=== PATIENT | male | born 1935 | race Caucasian/White ===

== ENCOUNTER 2017-10-23 16:19 | Inpatient (IN) | payer MEDICARE, OTHER ==
[~2017-10-23] VITALS: Ht 181.6 cm; Wt 98.1 kg
[~2017-10-23 16:19] MED LIST: ALBU8I INH; COZA50TA PO; LANS30 PO; PROS5TAB2 PO; RANI150 PO; TAMS0.4C67 PO
[2017-10-23 17:12] VITALS: BP 127/59; PULSE 69; RESP 19; TEMP 97.9; O2SAT 95
--- NOTE | 2017-10-23 17:19 | PD ---
HPI Chief Complaint: Abnormal Results Time Seen by Provider: 17:07 Travel History International Travel<30 days: No Contact w/Intl Traveler<30days: No Traveled to known affect area: No History of Present Illness HPI 82-year-old male patient with history of dementia, multiple medical issues, presents to the ER from nursing care facility today because his platelets have been dropping over last few weeks. It apparently was 30 today. He does not know why he is here, denies any issues. Modifying Factors: None Associated Signs & Symptoms: Low platelet counts Risk Factors: None PFSH Past Medical History Arthritis: Yes Asthma: No Autoimmune Disease: No Blood Disorders: No Anxiety: No Depression: No Heart Rhythm Problems: Yes Cancer: No Cardiac Catheterization: No Cardiovascular Problems: Yes High Cholesterol: Yes Chemotherapy: No Chest Pain: Yes Congestive Heart Failure: No COPD: Yes Cerebrovascular Accident: No Diabetes: No Diminished Hearing: No Endocrine: No Gastrointestinal Disorders: No GERD: Yes Glaucoma: No Genitourinary: No Headaches: No Hepatitis: No Hiatal Hernia: No Hypertension: Yes Immune Disorder: No Implanted Vascular Access Dvce: No Kidney Stones: No Musculoskeletal: No Neurologic: No Psychiatric: Yes Reproductive: No Respiratory: Yes Migraines: No Myocardial Infarction: No Radiation Therapy: No Renal Failure: No Seizures: No Sickle Cell Disease: No Sleep Apnea: No Thyroid Disease: No Ulcer: Yes Past Surgical History Abdominal Surgery: No AICD: No Appendectomy: No Arteriovenous Shunt: No Cardiac Surgery: Yes (carotid artery) Cholecystectomy: No Coronary Artery Bypass Graft: No Ear Surgery: No Endocrine Surgery: No Eye Surgery: No Genitourinary Surgery: No Gynecologic Surgery: No Insulin Pump: No Joint Replacement: Yes Neurologic Surgery: No Oral Surgery: No Pacemaker: No Thoracic Surgery: No Other Surgery: Yes Social History Alcohol Use: No Tobacco Use: No Substance Use: No Allergies-Medications (Allergen,Severity, Reaction): Coded Allergies: clopidogrel (Unverified Allergy, Severe, HIVES, 10/23/17) Reported Meds & Prescriptions Reported Meds & Active Scripts Active Reported Tramadol (Tramadol HCl) 50 Mg Tab 50 Mg PO Q4H PRN Mag-Oxide (Magnesium Oxide) 200 Mg Magnesium Tablet 400 Tab PO BID Symbicort Inh (Budesonide/Formoterol Fumarate) 160-4.5 Mcg/Act Aero 1 Puff INH Q12HR Furosemide 20 Mg Tab 20 Mg PO BID Colace (Docusate Sodium) 100 Mg Capsule 200 Mg PO DAILY Atorvastatin (Atorvastatin Calcium) 10 Mg Tab 10 Mg PO DAILY Aspirin 81 Mg Chew 81 Mg CHEW DAILY Allopurinol 300 Mg Tab 300 Mg PO DAILY Spironolactone 25 Mg Tab 12.5 Mg PO DAILY Potassium Chloride ER (Potassium Chloride) 20 Meq Tab 20 Meq PO DAILY Losartan (Losartan Potassium) 50 Mg Tab 50 Mg PO DAILY Bupropion Sr 12 HR (Bupropion ER 12 HR (Smoking Deterrent)) 150 Mg Tab 300 Mg PO DAILY Take 1 tablet daily x 3 days then twice daily thereafter. Namenda Xr (Memantine) 28 Mg Caper 28 Mg PO DAILY Vitamin D-3 (Cholecalciferol) 2,000 Unit Tab 1 Tab PO DAILY Vitamin B-12 (Cyanocobalamin) 1,000 Mcg Subl 1,000 Mcg SL DAILY Escitalopram (Escitalopram Oxalate) 5 Mg Tab 5 Mg PO DAILY Amlodipine (Amlodipine Besylate) 10 Mg Tab 10 Mg PO DAILY Metoprolol Tartrate 25 Mg Tab 12.5 Mg PO DAILY Tamsulosin (Tamsulosin HCl) 0.4 Mg Cap 0.4 Mg PO DAILY Proscar (Finasteride) 5 Mg Tab 5 Mg PO DAILY Do not crush. Review of Systems Except as stated in HPI: all other systems reviewed are Neg Physical Exam Narrative GENERAL: Well-developed elderly male patient currently and no acute distress. Awake, alert. SKIN: Focused skin assessment warm/dry. Notable for small bruises on arms. HEAD: Atraumatic. Normocephalic. EYES: Pupils equal and round. No scleral icterus. No injection or drainage. ENT: No nasal bleeding or discharge. Mucous membranes pink and moist. NECK: Trachea midline. No JVD. CARDIOVASCULAR: Regular rate and rhythm. No murmur appreciated. RESPIRATORY: No accessory muscle use. Clear to auscultation. Breath sounds equal bilaterally. GASTROINTESTINAL: Abdomen soft, non-tender, nondistended. Hepatic and splenic margins not palpable. MUSCULOSKELETAL: No obvious deformities. No clubbing. No cyanosis. No edema. NEUROLOGICAL: Awake and alert. No obvious cranial nerve deficits. Motor grossly within normal limits. Normal speech. PSYCHIATRIC: Appropriate mood and affect; insight and judgment normal. Data Data Last Documented VS Vital Signs Date Time Temp Pulse Resp B/P (MAP) Pulse Ox O2 Delivery O2 Flow Rate FiO2 10/23/17 17:12 97.9 69 19 127/59 (81) 95 Orders Orders Complete Blood Count With Diff (10/23/17 17:07) Prothrombin Time / Inr (Pt) (10/23/17 17:07) Act Partial Throm Time (Ptt) (10/23/17 17:07) Type And Screen (10/23/17 17:07) Platelet Pheresis (10/23/17 18:13) Blood Product Administration (10/23/17 18:13) Sodium Chlor 0.9% 250 Ml Inj (Ns 250 Ml (10/23/17 18:15) Ankle, Limited (Ap&Lat) (10/23/17 18:16) Admit Order (Ed Use Only) (10/23/17 19:09) Labs Laboratory Tests Test 10/23/17 17:30 White Blood Count 9.7 TH/MM3 Red Blood Count 4.59 MIL/MM3 Hemoglobin 15.9 GM/DL Hematocrit 45.7 % Mean Corpuscular Volume 99.5 FL Mean Corpuscular Hemoglobin 34.6 PG Mean Corpuscular Hemoglobin Concent 34.8 % Red Cell Distribution Width 14.2 % Platelet Count 6 TH/MM3 Mean Platelet Volume 10.0 FL Neutrophils (%) (Auto) 70.3 % Lymphocytes (%) (Auto) 17.2 % Monocytes (%) (Auto) 6.8 % Eosinophils (%) (Auto) 5.1 % Basophils (%) (Auto) 0.6 % Neutrophils # (Auto) 6.8 TH/MM3 Lymphocytes # (Auto) 1.7 TH/MM3 Monocytes # (Auto) 0.7 TH/MM3 Eosinophils # (Auto) 0.5 TH/MM3 Basophils # (Auto) 0.1 TH/MM3 CBC Comment AUTO DIFF Differential Total Cells Counted 100 Neutrophils % (Manual) 72 % Band Neutrophils % 1 % Lymphocytes % 16 % Monocytes % 7 % Eosinophils % 3 % Neutrophils # (Manual) 7.2 TH/MM3 Myelocytes 1 % Differential Comment FINAL DIFF MANUAL Atypical Lymphocytes % Platelet Estimate RARE Platelet Morphology Comment NORMAL Spherocytes 1+ Prothrombin Time 11.9 SEC Prothromb Time International Ratio 1.2 RATIO Activated Partial Thromboplast Time 25.8 SEC MDM Medical Decision Making Medical Screen Exam Complete: Yes Emergency Medical Condition: Yes Medical Record Reviewed: Yes Interpretation(s) Laboratory Tests Test 1/4/18 17:30 Mean Corpuscular Hemoglobin 34.6 PG (27.0-34.0) Platelet Count 6 TH/MM3 (150-450) Neutrophils (%) (Auto) 70.3 % (16.0-70.0) Eosinophils (%) (Auto) 5.1 % (0.0-4.0) Eosinophils # (Auto) 0.5 TH/MM3 (0-0.4) Neutrophils % (Manual) 72 % (16-70) Myelocytes 1 % (0-0) Platelet Estimate RARE (NORMAL) Spherocytes 1+ (NORMAL) Prothrombin Time 11.9 SEC (9.8-11.6) Differential Diagnosis Low platelet counts Narrative Course Low platelet counts are confirmed on lab work with platelet count of 6. 4 platelet units were ordered for the patient. Ankle x-ray which was done because of ecchymosis at the ankle did not show any signs of acute fractures. At this point, my plan would be to admit the patient for further treatment and evaluation of low platelet counts. It does not appear to involve other hematological lines. CBC did not show any signs of significant anemia or abnormal white counts. Case was discussed with Dr. Ford for admission. Diagnosis Primary Impression: Thrombocytopenia Admitting Information Admitting Physician Requests: Admit Federica Rene MD Oct 23, 2017 17:19
[2017-10-23] MEDS ORDERED: METO25TA3 PO (17:56)
[2017-10-23] MEDS ORDERED: SYMB160A INH (17:56)
[2017-10-23] MEDS ORDERED: SPIR25TA PO (17:56)
[2017-10-23] MEDS ORDERED: ATOR10TA15 PO (17:56)
[2017-10-23] MEDS ORDERED: LOSA50TA PO (17:56)
[2017-10-23] MEDS ORDERED: COLA100C5 PO (17:56)
[2017-10-23] MEDS ORDERED: ESCI5TAB PO (17:56)
[2017-10-23] MEDS ORDERED: POTA-163 PO (17:56)
[2017-10-23] MEDS ORDERED: CHOL1TAB42 PO (17:56)
[2017-10-23] MEDS ORDERED: VITA100021 SL (17:56)
[2017-10-23] MEDS ORDERED: MAGN200T9 PO (17:56)
[2017-10-23] MEDS ORDERED: BUPR150T12 PO (17:56)
[2017-10-23] MEDS ORDERED: MEMA28CA PO (17:56)
[2017-10-23] MEDS ORDERED: PROS5TAB PO (17:56)
[2017-10-23] MEDS ORDERED: AMLO10TA2 PO (17:56)
[2017-10-23] MEDS ORDERED: ASPI-516 CHEW (17:56)
[2017-10-23] MEDS ORDERED: TRAM50TA PO (17:56)
[2017-10-23] MEDS ORDERED: FURO20TA PO (17:56)
[2017-10-23] MEDS ORDERED: ALLO300T2 PO (17:56)
[2017-10-23] MEDS ORDERED: TAMS0.4C4 PO (17:56)
[2017-10-23 18:00] LABS: AUTOMATED NEUTROPHIL # 6.8 TH/MM3 (1.8-7.7); BASOPHIL # 0.1 TH/MM3 (0-0.2); BASOPHIL % 0.6 % (0.0-2.0); EOSINOPHIL # 0.5 TH/MM3 (0-0.4); EOSINOPHIL % 5.1 % (0.0-4.0); HEMATOCRIT 45.7 % (39.0-51.0); HEMOGLOBIN 15.9 GM/DL (13.0-17.0); LYMPH % 17.2 % (9.0-44.0); LYMPHOCYTE # 1.7 TH/MM3 (1.0-4.8); MEAN CELL VOLUME 99.5 FL (80.0-100.0); MEAN CORPUSCULAR HEMOGLOBIN 34.6 PG (27.0-34.0); MEAN CORPUSCULAR HGB CONC 34.8 % (32.0-36.0); MONO % 6.8 % (0.0-8.0); MONOCYTE # 0.7 TH/MM3 (0-0.9); NEUT % 70.3 % (16.0-70.0); RED BLOOD COUNT 4.59 MIL/MM3 (4.50-5.90); RED CELL DISTRIBUTION WIDTH 14.2 % (11.6-17.2); WHITE BLOOD COUNT 9.7 TH/MM3 (4.0-11.0)
[2017-10-23 18:11] LABS: PLATELET COUNT 6 TH/MM3 (150-450)
[2017-10-23 18:14] LABS: INTERNATIONAL NORMALIZED RATIO 1.2 RATIO; PROTHROMBIN TIME - PATIENT 11.9 SEC (9.8-11.6)
[2017-10-23] MEDS ORDERED: SODIUM CHLOR 0.9% 250 ML INJ 250 ML IV ONE (18:15)
--- NOTE | 2017-10-23 18:39 | RADRPT ---
EXAM DATE/TIME: 10/23/2017 18:21 [facility] COMPARISON: No previous studies available for comparison. INDICATIONS : Right ankle pain and swelling. MEDICAL HISTORY : None. SURGICAL HISTORY : None. ENCOUNTER: Initial ACUITY: 4 - 6 days PAIN SCORE: 6/10 LOCATION: Right ankle. FINDINGS: Two view examination was performed of the right ankle. The bony structures are in normal alignment. No evidence of fracture, dislocation, or soft tissue swelling. No radiopaque foreign bodies are see n. Bony mineralization is normal. CONCLUSION: No acute disease. Lui Emmanuel MD on October 23, 2017 at 18:36 Board Certified Radiologist. This report was verified electronically.
[2017-10-23 18:52] LABS: BANDS 1 % (0-6); LYMPHOCYTES 16 % (9-44); MONOCYTES 7 % (0-8); MYELOCYTES 1 % (0-0); NEUTROPHIL # MANUAL DIFF 7.2 TH/MM3 (1.8-7.7); POLYS (SEG NEUTROPHILS) 72 % (16-70)
[2017-10-23 18:53] LABS: SPHEROCYTES 1+ (NORMAL)
[2017-10-23] MEDS ORDERED: MAGNESIUM HYDROXIDE SUSP 30 ML CUP PO PRN (19:30)
[2017-10-23] MEDS ORDERED: ONDANSETRON HCL 4 MG/2 ML VIAL IVP PRN (19:30)
[2017-10-23] MEDS ORDERED: LACTULOSE SYRUP 20 GM/30 ML CUP PO PRN (19:30)
[2017-10-23] MEDS ORDERED: BISACODYL 10 MG SUPP RECTAL PRN (19:30)
[2017-10-23] MEDS ORDERED: SODIUM CHLORIDE 0.9% FLUSH 10 ML FLUSH IV FLUSH PRN (19:30)
[2017-10-23] MEDS ORDERED: SENNOSIDES 8.6 MG TAB PO PRN (19:30)
[2017-10-23] MEDS ORDERED: NALOXONE HCL 0.4 MG/ML AMP IV PUSH PRN (19:30)
[2017-10-23 20:02] VITALS: BP 114/59; PULSE 75; RESP 21; TEMP 98.1; O2SAT 97
[2017-10-23 20:17] VITALS: BP 115/59; PULSE 70; RESP 20; TEMP 98.2; O2SAT 97
[2017-10-23 21:00] VITALS: BP 112/57; PULSE 79; RESP 19; TEMP 98.3; O2SAT 98
[2017-10-23] MEDS ORDERED: PANTOPRAZOLE SOD 20 MG DELAYED RELEASE TAB PO ONE (21:00)
--- NOTE | 2017-10-23 22:41 | MB ---
cc: ARMINDA FORD,WILD Briseno M.D. DATE OF CONSULTATION 10/23/17 [address] Ford CHIEF COMPLAINT Dr. Ford requests a consultation for Mr. Desir regarding thrombocytopenia. HISTORY OF PRESENT ILLNESS Mr. Desir is an 82-year-old man who [facility] in [facility] because of low platelet counts. He was found to have a platelet count of 30,000 at the penitentiary facility. In the emergency room, his platelet counts/CBC was repeated. His white count is 9.7, hemoglobin of 15.9, platelet count of 6000, mean platelet volume is elevated at 10.0. Chemistries were not performed. He is receiving pheresed platelets of the time of the consultation. Review of the electronic medical record shows platelet count in the mild thrombocytopenic range back in 2013. In 2009, his platelet count was normal. He denies any problems with the platelets previous. He was a heavy drinker in the past. He denies any drinking now. CT scan of the abdomen from 2009 showed granulomas in the spleen The liver appears to be normal. The spleen size was normal. CT angiogram from January 07, 2014 shows that the visualized upper abdominal organs demonstrate no acute abnormality. Mr. Desir is unable to relate etiology of chronicity of the platelet counts. He reports he has been given a lot of medications at the penitentiary facility. He is and his is in relative good health. He denies any bleeding. He walks with a walker. He denies any trauma, but has bruises on the lateral aspect of both feet, right more prominent than the left. There is bruising on his right briggs. He has evidence of senile purpura. No overt petechia. He was alert, oriented x3. He is cooperative. The rest of his review of systems is negative. PAST MEDICAL HISTORY 1. Arthritis 2. Arrhythmia, 3. Hypercholesterolemia, 4. History of chest pain, 5. Gastroesophageal reflux, 6. Hypertension, 7. Depression. PAST SURGICAL HISTORY 1. Carotid endarterectomy 2. Joint replacement surgery 3. Right eye surgery, cataract FAMILY HISTORY Mother had cardiac disease. Twin brother of cardiac disease. SOCIAL HISTORY He is , retired. Denies any current tobacco or alcohol use. He used to drink in the . Denies any prior problems of the liver. PHYSICAL EXAMINATION VITAL SIGNS: Temperature 98.2, heart rate 70, respiratory rate 20, blood pressure 115/59, saturation 97%. GENERAL: Mr. Desir is a well-developed, heavy-set man in no acute distress sitting in a stretcher. He is robust, mildly heavy-set. HEENT: Pupils are round, reactive. Conjunctivae are pink. Oropharynx is clear. NECK: Supple. LUNGS: Clear to auscultation. CARDIOVASCULAR: Rate-controlled rhythm. ABDOMEN: Large and benign. LOWER EXTREMITIES: With atrophy of the muscles. There is chronic eversion. There is a bruise that is tender on bilateral lateral aspect of both feet, right more prominent than the left. Bruising on the right briggs. LABORATORY DATA Platelet count of 6000, BUN of 23, creatinine 0.8, albumin is 2.9. ASSESSMENT/PLAN Mr. Desir is an 82-year-old man with multiple medical problems. He is admitted for worsening thrombocytopenia. Platelet count of 6000 at the time of the consultation note. He has no anemia or leukopenia. This seems to be an isolated decrease in platelet count. He has evidence of bruising and muscle subcutaneous bleed in the foot and in the briggs. He denies any overt bleeding. No known bright red blood per rectum. He has no nosebleeds or gum bleeding. The nature of his injuries are not known. He denies any trauma or fall. I plan to check post platelet transfusion platelet count. His platelets are already being transfused. He is tolerating the transfusion well. PT is mildly prolonged. I will check fibrinogen. LDH will be added to the labs. Bilirubin is normal which argues against microangiopathic hemolytic process. Furthermore, there is no anemia. I am unable to exclude drug effect. He is on multiple medications. There is no history of antibiotic therapy recently. He was on aspirin which is placed on hold at present. We discussed that the immune thrombocytopenic purpura is a diagnosis of exclusion. I anticipate that his platelet count would not respond to platelet transfusion if indeed ITP. Steroids will empirically be started. 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 Peripheral smear will be reviewed. Antiphospholipid antibody panel, haptoglobin, LDH, D dimer is obtained. MD JOMAR Garza /8:30 PM /10:04 PM
--- NOTE | 2017-10-23 23:32 | RADRPT ---
EXAM DATE/TIME: 10/23/2017 22:45 [facility] COMPARISON: No previous studies available for comparison. INDICATIONS : Bilateral leg swelling. MEDICAL HISTORY : Hypercholesterolemia. Emphysema. Arthritis. Right eye cataract. Dementia. Irregular heartbeat. HTN. C hest pain. COPD. Dyspnea. Ulcer. Gallstones. GERD. UTI. Prostate problems. Frequent nocturia. Stroke x2. Anticoagulant therapy, Aspirin 81mg. SURGICAL HISTORY : Carotid artery surgery. Joint replacement. ENCOUNTER: Initial ACUITY: 1 day PAIN SCORE: 0/10 LOCATION: Bilateral leg. TECHNIQUE: Venous ultrasound of the left and right leg was performed from the inguinal ligament to the proximal calf. Real-time, color Doppler and spectral tracing, compression and augmentation techniques were us ed. FINDINGS: RIGHT LEG: There is normal compressibility of the deep venous system from the inguinal region to the knee. Ther e is incomplete compression of the right posterior tibial vein and lack of color Doppler flow identif ied in the posterior tibial vein. The other visualized calf veins are within normal limits. Normal co shawn Doppler flow is seen from the proximal common femoral vein through the popliteal vein LEFT LEG: There is normal compressibility of the deep venous system from the inguinal region to the proximal ca lf. No echogenic clot is seen in the lumen of the common femoral, femoral, popliteal, and posterior tibial veins. There is a normal response of the venous system to proximal and distal augmentation an d respiration. CONCLUSION: 1. Deep vein thrombosis of the proximal right posterior tibial vein in the calf. 2. No evidence of DVT in the left lower extremity. Rodolfo Abernathy MD on October 23, 2017 at 23:27 Board Certified Radiologist. This report was verified electronically.
[2017-10-23 23:56] LABS: HEMATOCRIT 42.6 % (39.0-51.0); HEMOGLOBIN 14.6 GM/DL (13.0-17.0); MEAN CELL VOLUME 98.5 FL (80.0-100.0); MEAN CORPUSCULAR HEMOGLOBIN 33.8 PG (27.0-34.0); MEAN CORPUSCULAR HGB CONC 34.3 % (32.0-36.0); MEAN PLATELET VOLUME 8.3 FL (7.0-11.0); PLATELET COUNT 40 TH/MM3 (150-450); RED BLOOD COUNT 4.32 MIL/MM3 (4.50-5.90); RED CELL DISTRIBUTION WIDTH 14.1 % (11.6-17.2); WHITE BLOOD COUNT 9.7 TH/MM3 (4.0-11.0)
[2017-10-24 00:30] VITALS: BP 107/59; PULSE 66; RESP 19; TEMP 97.6; O2SAT 95
--- NOTE | 2017-10-24 03:26 | HHI.HP ---
HPI [facility] Primary Care Physician Unknown Admission Diagnosis low platelet counts Diagnoses: Travel History International Travel<30 Days: No Contact w/Intl Traveler <30 Da: No Traveled to Known Affected Are: No History of Present Illness [id number] male with a past medical history significant for CAD, heart block status post pacemaker implantation, hypertension, hyperlipidemia, dementia and BPH presents to the emergency department for evaluation of thrombocytopenia. The patient is a [facility] resident who had outside lab work done. His platelets were reportedly 30 yesterday. The patient is confused and believes he is at [facility]. He is an extremely poor historian. He believes it is 2015. He states he lives with his in an apartment independently. He denies any sources of bleeding. Denies melena. He has ecchymoses on the bilateral feet and on the right brigsg. He has no evidence of petechiae. Laboratory values significant for a platelet count of 6000. H&H 14.6/42.6. Review of Systems Denies fever or chills Denies blurry vision, otorrhea, rhinorrhea Denies sore throat and cough No chest pain, palpitations, shortness of breath No abdominal pain Denies constipation/diarrhea/nausea/vomiting Denies muscle pain/weakness No rashes Past Family Social History Past Medical History (Obtained from medical records) Arthritis Arrhythmia, unspecified Hyperlipidemia GERD Hypertension Depression CAD Past Surgical History Carotid endarterectomy Joint replacement surgery Right cataract surgery Reported Medications Reported Meds & Active Scripts Active Reported Tramadol (Tramadol HCl) 50 Mg Tab 50 Mg PO Q4H PRN Mag-Oxide (Magnesium Oxide) 200 Mg Magnesium Tablet 400 Tab PO BID Symbicort Inh (Budesonide/Formoterol Fumarate) 160-4.5 Mcg/Act Aero 1 Puff INH Q12HR Furosemide 20 Mg Tab 20 Mg PO BID Colace (Docusate Sodium) 100 Mg Capsule 200 Mg PO DAILY Atorvastatin (Atorvastatin Calcium) 10 Mg Tab 10 Mg PO DAILY Aspirin 81 Mg Chew 81 Mg CHEW DAILY Allopurinol 300 Mg Tab 300 Mg PO DAILY Spironolactone 25 Mg Tab 12.5 Mg PO DAILY Potassium Chloride ER (Potassium Chloride) 20 Meq Tab 20 Meq PO DAILY Losartan (Losartan Potassium) 50 Mg Tab 50 Mg PO DAILY Bupropion Sr 12 HR (Bupropion ER 12 HR (Smoking Deterrent)) 150 Mg Tab 300 Mg PO DAILY Take 1 tablet daily x 3 days then twice daily thereafter. Namenda Xr (Memantine) 28 Mg Caper 28 Mg PO DAILY Vitamin D-3 (Cholecalciferol) 2,000 Unit Tab 1 Tab PO DAILY Vitamin B-12 (Cyanocobalamin) 1,000 Mcg Subl 1,000 Mcg SL DAILY Escitalopram (Escitalopram Oxalate) 5 Mg Tab 5 Mg PO DAILY Amlodipine (Amlodipine Besylate) 10 Mg Tab 10 Mg PO DAILY Metoprolol Tartrate 25 Mg Tab 12.5 Mg PO DAILY Tamsulosin (Tamsulosin HCl) 0.4 Mg Cap 0.4 Mg PO DAILY Proscar (Finasteride) 5 Mg Tab 5 Mg PO DAILY Do not crush. Allergies: Coded Allergies: clopidogrel (Unverified Allergy, Severe, HIVES, 10/23/17) Family History Mother with CAD. Twin brother or of cardiac disease. Social History Reports he quit smoking in 1988. History of heavy alcohol use, in the 80s. Physical Exam Vital Signs Vital Signs Date Time Temp Pulse Resp B/P (MAP) Pulse Ox O2 Delivery O2 Flow Rate FiO2 10/24/17 00:30 97.6 66 19 107/59 (75) 95 10/23/17 21:00 98.3 79 19 112/57 (75) 98 10/23/17 20:17 98.2 70 20 115/59 97 10/23/17 20:02 98.1 75 21 114/59 97 10/23/17 17:12 97.9 69 19 127/59 (81) 95 Physical Exam GENERAL: male lying in bed SKIN: Ecchymoses present on bilateral feet, right significantly worse than left. Bilateral UE purpura. HEAD: Atraumatic. Normocephalic. No temporal or scalp tenderness. EYES: Pupils equal round and reactive. Extraocular motions intact. No scleral icterus. No injection or drainage. ENT: Nose without bleeding, purulent drainage or septal hematoma. Throat without erythema, tonsillar hypertrophy or exudate. Uvula midline. Airway patent. NECK: Trachea midline. No JVD or lymphadenopathy. Supple, nontender, no meningeal signs. CARDIOVASCULAR: Regular rate and rhythm without murmurs, gallops, or rubs. RESPIRATORY: Clear to auscultation. Breath sounds equal bilaterally. No wheezes , rales, or rhonchi. GASTROINTESTINAL: Abdomen soft, non-tender, nondistended. No hepato-splenomegaly , or palpable masses. No guarding. MUSCULOSKELETAL: Extremities without clubbing, cyanosis, or edema. No joint tenderness, effusion, or edema noted. No calf tenderness. NEUROLOGICAL: Awake and alert. Cranial nerves II through XII intact. Motor and sensory grossly within normal limits. Normal speech. Laboratory Laboratory Tests Test 10/23/17 17:30 10/23/17 23:28 White Blood Count 9.7 9.7 Red Blood Count 4.59 4.32 Hemoglobin 15.9 14.6 Hematocrit 45.7 42.6 Mean Corpuscular Volume 99.5 98.5 Mean Corpuscular Hemoglobin 34.6 33.8 Mean Corpuscular Hemoglobin Concent 34.8 34.3 Red Cell Distribution Width 14.2 14.1 Platelet Count 6 40 Mean Platelet Volume 10.0 8.3 Neutrophils (%) (Auto) 70.3 Lymphocytes (%) (Auto) 17.2 Monocytes (%) (Auto) 6.8 Eosinophils (%) (Auto) 5.1 Basophils (%) (Auto) 0.6 Neutrophils # (Auto) 6.8 Lymphocytes # (Auto) 1.7 Monocytes # (Auto) 0.7 Eosinophils # (Auto) 0.5 Basophils # (Auto) 0.1 CBC Comment AUTO DIFF Differential Total Cells Counted 100 Neutrophils % (Manual) 72 Band Neutrophils % 1 Lymphocytes % 16 Monocytes % 7 Eosinophils % 3 Neutrophils # (Manual) 7.2 Myelocytes 1 Differential Comment FINAL DIFF MANUAL Atypical Lymphocytes Platelet Estimate RARE Platelet Morphology Comment NORMAL Spherocytes 1+ Prothrombin Time 11.9 Prothromb Time International Ratio 1.2 Activated Partial Thromboplast Time 25.8 Fibrinogen 360 Blood Smear Pathologist Review Haptoglobin 200 Mix DRVV Patient/Normal 1:1 Lactate Dehydrogenase 237 Result Diagram: 10/23/17 5426 Caprini VTE Risk Assessment Caprini VTE Risk Assessment: Mod/High Risk (score >= 2) Caprini Risk Assessment Model Point Value = 1 Point Value = 2 Point Value = 3 Point Value = 5 Age 41-60 Minor surgery BMI > 25 kg/m2 Swollen legs Varicose veins or History of unexplained or recurrent spontaneous Oral contraceptives or hormone replacement Sepsis (< 1 month) Serious lung disease, including pneumonia (< 1 month) Abnormal pulmonary function Acute myocardial infarction Congestive heart failure (< 1 month) History of inflammatory bowel disease Medical patient at bed rest Age 61-74 Arthroscopic surgery Major open surgery (> 45 min) Laparoscopic surgery (> 45 min) Malignancy Confined to bed (> 72 hours) Immobilizing plaster cast Central venous access Age >= 75 History of VTE Family history of VTE Factor V Leiden Prothrombin [id number] Lupus anticoagulant Anticardiolipin antibodies Elevated serum homocysteine Heparin-induced thrombocytopenia Other congenital or acquired thrombophilia Stroke (< 1 month) Elective arthroplasty Hip, pelvis, or leg fracture Acute spinal cord injury (< 1 month) Prophylaxis Regimen Total Risk Factor Score Risk Level Prophylaxis Regimen 0-1 Low Early ambulation 2 Moderate Order ONE of the following: *Sequential Compression Device (SCD) *Heparin 5000 units SQ BID 3-4 Higher Order ONE of the following medications: *Heparin 5000 units SQ TID *Enoxaparin/Lovenox 40 mg SQ daily (WT < 150 kg, CrCl > 30 mL/min) *Enoxaparin/Lovenox 30 mg SQ daily (WT < 150 kg, CrCl > 10-29 mL/min) *Enoxaparin/Lovenox 30 mg SQ BID (WT < 150 kg, CrCl > 30 mL/min) AND/OR *Sequential Compression Device (SCD) 5 or more Highest Order ONE of the following medications: *Heparin 5000 units SQ TID (Preferred with Epidurals) *Enoxaparin/Lovenox 40 mg SQ daily (WT < 150 kg, CrCl > 30 mL/min) *Enoxaparin/Lovenox 30 mg SQ daily (WT < 150 kg, CrCl > 10-29 mL/min) *Enoxaparin/Lovenox 30 mg SQ BID (WT < 150 kg, CrCl > 30 mL/min) AND *Sequential Compression Device (SCD) Assessment and Plan Assessment and Plan Assessment/plan: 1. Thrombocytopenia Status post platelet transfusion Hematology consulted, recommended post-transfusion platelet count, fibrinogen, LDH. Steroids empirically started. 2. CAD/HTN/ Heart block s/p pacemaker placement Continue home amlodipine, losartan, spironolactone, Lasix Holding aspirin secondary to thrombocytopenia 3. HLD Continue home statin 4. Depression/Dementia Continue home medications 5. BPH Continue home Flomax, Proscar FEN Heart healthy diet Electrolytes: monitor and replete prn Holding pharmacologic anticoagulation secondary to thrombocytopenia Physician Certification 2 Midnight Certification Type: Admission for Inpatient Services Order for Inpatient Services The services are ordered in accordance with Medicare regulations or non- Medicare payer requirements, as applicable. In the case of services not specified as inpatient-only, they are appropriately provided as inpatient services in accordance with the 2-midnight benchmark. Estimated LOS (days): 2 2 days is the estimated time the patient will need to remain in the hospital, assuming treatment plan goals are met and no additional complications. Post-Hospital Plan: Not yet determined Jemma Ford MD Oct 24, 2017 03:26
[2017-10-24 05:00] VITALS: BP 133/64; PULSE 73; RESP 19; TEMP 98.1; O2SAT 93
[2017-10-24 08:00] VITALS: BP 137/68; PULSE 86; RESP 16; TEMP 98.2; O2SAT 95
[2017-10-24 08:40] LABS: AUTOMATED NEUTROPHIL # 5.3 TH/MM3 (1.8-7.7); BASOPHIL # 0.1 TH/MM3 (0-0.2); BASOPHIL % 0.9 % (0.0-2.0); EOSINOPHIL # 0.5 TH/MM3 (0-0.4); EOSINOPHIL % 6.6 % (0.0-4.0); HEMATOCRIT 45.6 % (39.0-51.0); HEMOGLOBIN 15.8 GM/DL (13.0-17.0); LYMPH % 22.2 % (9.0-44.0); LYMPHOCYTE # 1.8 TH/MM3 (1.0-4.8); MEAN CELL VOLUME 99.6 FL (80.0-100.0); MEAN CORPUSCULAR HEMOGLOBIN 34.5 PG (27.0-34.0); MEAN CORPUSCULAR HGB CONC 34.7 % (32.0-36.0); MEAN PLATELET VOLUME 9.5 FL (7.0-11.0); MONOCYTE # 0.5 TH/MM3 (0-0.9); NEUT % 64.3 % (16.0-70.0); PLATELET COUNT 22 TH/MM3 (150-450); RED BLOOD COUNT 4.58 MIL/MM3 (4.50-5.90); RED CELL DISTRIBUTION WIDTH 14.3 % (11.6-17.2); WHITE BLOOD COUNT 8.3 TH/MM3 (4.0-11.0)
[2017-10-24] MEDS: predniSONE 20 MG TAB PO SCH ×3 (09:00→22:20)
[2017-10-24] MEDS: DOCUSATE SODIUM 50 MG/SENNA 8.6 MG TAB PO SCH ×3 (09:00→22:21)
[2017-10-24] MEDS: BUDESONIDE-FORMOTEROL 160/4.5 MCG INHALER INH SCH ×2 (09:00→21:00)
[2017-10-24] MEDS: PT OWN NAMENDA XR 28 MG PO SCH (09:00)
[2017-10-24] MEDS: SODIUM CHLORIDE 0.9% FLUSH 10 ML FLUSH IV FLUSH SCH ×3 (09:00→22:21)
[2017-10-24 09:01] LABS: BICARBONATE 24.4 MEQ/L (21.0-32.0); CALCIUM 8.7 MG/DL (8.5-10.1); CREATININE 0.99 MG/DL (0.60-1.30)
[2017-10-24 09:42] LABS: LYMPHOCYTES 23 % (9-44); METAMYELOCYTES 4 % (0-1); MONOCYTES 6 % (0-8); MYELOCYTES 1 % (0-0); NEUTROPHIL # MANUAL DIFF 5.6 TH/MM3 (1.8-7.7); POLYS (SEG NEUTROPHILS) 63 % (16-70)
[2017-10-24] MEDS: METOPROLOL TARTRATE 25 MG TAB PO SCH (10:06)
[2017-10-24] MEDS: FUROSEMIDE 20 MG TAB PO SCH ×2 (10:07→22:20)
[2017-10-24] MEDS: POTASSIUM CHLORIDE 20 MEQ CONTROLLED RELEASE TAB PO SCH (10:07)
[2017-10-24] MEDS: FINASTERIDE 5 MG TAB PO SCH (10:07)
[2017-10-24] MEDS: buPROPion HCL 150 MG SUSTAINED RELEASE TAB PO SCH (10:08)
[2017-10-24] MEDS: TAMSULOSIN HCL 0.4 MG CAP PO SCH (10:08)
[2017-10-24] MEDS: ATORVASTATIN 10 MG TAB PO SCH (10:08)
[2017-10-24] MEDS: SPIRONOLACTONE 25 MG TAB PO SCH (10:08)
[2017-10-24] MEDS: LOSARTAN 50 MG TAB PO SCH (10:08)
[2017-10-24] MEDS: ESCITALOPRAM OXALATE 10 MG TAB PO SCH (10:08)
[2017-10-24] MEDS: MAGNESIUM OXIDE 400 MG TAB PO SCH ×2 (10:09→22:20)
--- NOTE | 2017-10-24 10:39 | RADRPT ---
EXAM DATE/TIME: 10/23/2017 22:45 [place] COMPARISON: No previous studies available for comparison. INDICATIONS : Thrombocytopenia. MEDICAL HISTORY : Hypercholesterolemia. Emphysema. Arthritis. Right eye cataract. Dementia. Chest pain. HTN. COPD. Irre gular heartbeat. Dyspnea. Ulcer. Gallstones. GERD. UTI. Frequent nocturia. Anticoagulant therapy, Asp irin 81mg. SURGICAL HISTORY : Carotid artery surgery. Joint replacement. ENCOUNTER: Initial ACUITY: 1 day PAIN SCORE: 2/10 LOCATION: Bilateral upper quadrant MEASUREMENTS: LIVER: 16.3 cm length COMMON DUCT: 4 mm RIGHT KIDNEY: 10.8 x 6.8 x 6.0 cm SPLEEN: 12.9 cm length FINDINGS: LIVER: Ultrasound of the upper abdomen demonstrates increased echogenicity of the liver compatible with fatt y infiltration or hepatocellular disease. The spleen is unremarkable. COMMON DUCT: No intraluminal mass or stone visualized. GALLBLADDER: There are multiple stones within the gallbladder with wall thickening which may reflect cholecystitis . The largest stone measures 1.4 cm. PANCREAS: The visualized portions are within normal limits. RIGHT KIDNEY: There findings of medical renal disease with cortical thinning and increased echogenicity SPLEEN: No focal lesion. CONCLUSION: 1. Cholelithiasis with gallbladder wall thickening. Cholecystitis is not excluded. Radionuclide imagi ng is recommended for further evaluation if clinically indicated. 2. Echogenic liver compatible with fatty infiltration or hepatocellular disease. Apolinar Cleaning MD on October 24, 2017 at 10:35 Board Certified Radiologist. This report was verified electronically.
--- NOTE | 2017-10-24 11:35 | PD.ONC.PN ---
Subjective Subjective Remarks Afebrile overnight. Patient resting in bed in nad. No bleeding. Patient spilled some orange juice on himself this AM, but is otherwise without complaints. Objective Data Date Time Temp Pulse Resp B/P (MAP) Pulse Ox O2 Delivery O2 Flow Rate FiO2 10/24/17 05:00 98.1 73 19 133/64 (87) 93 10/24/17 00:30 97.6 66 19 107/59 (75) 95 10/23/17 21:00 98.3 79 19 112/57 (75) 98 10/23/17 20:17 98.2 70 20 115/59 97 10/23/17 20:02 98.1 75 21 114/59 97 10/23/17 17:12 97.9 69 19 127/59 (81) 95 Result Diagram: 10/24/17 0702 10/24/17 0702 Laboratory Results Laboratory Tests Test 10/23/17 17:30 10/23/17 23:28 10/24/17 07:02 White Blood Count 9.7 TH/MM3 9.7 TH/MM3 8.3 TH/MM3 Red Blood Count 4.59 MIL/MM3 4.32 MIL/MM3 4.58 MIL/MM3 Hemoglobin 15.9 GM/DL 14.6 GM/DL 15.8 GM/DL Hematocrit 45.7 % 42.6 % 45.6 % Mean Corpuscular Volume 99.5 FL 98.5 FL 99.6 FL Mean Corpuscular Hemoglobin 34.6 PG 33.8 PG 34.5 PG Mean Corpuscular Hemoglobin Concent 34.8 % 34.3 % 34.7 % Red Cell Distribution Width 14.2 % 14.1 % 14.3 % Platelet Count 6 TH/MM3 40 TH/MM3 22 TH/MM3 Mean Platelet Volume 10.0 FL 8.3 FL 9.5 FL Neutrophils (%) (Auto) 70.3 % 64.3 % Lymphocytes (%) (Auto) 17.2 % 22.2 % Monocytes (%) (Auto) 6.8 % 6.0 % Eosinophils (%) (Auto) 5.1 % 6.6 % Basophils (%) (Auto) 0.6 % 0.9 % Neutrophils # (Auto) 6.8 TH/MM3 5.3 TH/MM3 Lymphocytes # (Auto) 1.7 TH/MM3 1.8 TH/MM3 Monocytes # (Auto) 0.7 TH/MM3 0.5 TH/MM3 Eosinophils # (Auto) 0.5 TH/MM3 0.5 TH/MM3 Basophils # (Auto) 0.1 TH/MM3 0.1 TH/MM3 CBC Comment AUTO DIFF AUTO DIFF Differential Total Cells Counted 100 100 Neutrophils % (Manual) 72 % 63 % Band Neutrophils % 1 % Lymphocytes % 16 % 23 % Monocytes % 7 % 6 % Eosinophils % 3 % 3 % Neutrophils # (Manual) 7.2 TH/MM3 5.6 TH/MM3 Myelocytes 1 % 1 % Differential Comment FINAL DIFF MANUAL FINAL DIFF MANUAL Atypical Lymphocytes % Platelet Estimate RARE RARE Platelet Morphology Comment NORMAL NORMAL Spherocytes 1+ Prothrombin Time 11.9 SEC Prothromb Time International Ratio 1.2 RATIO Activated Partial Thromboplast Time 25.8 SEC Fibrinogen 360 mg/dL Blood Smear Pathologist Review Haptoglobin 200 MG/DL Mix DRVV Patient/Normal 1:1 Lactate Dehydrogenase 237 U/L Metamyelocytes 4 % Red Cell Morphology Comment NORMAL Blood Urea Nitrogen 23 MG/DL Creatinine 0.99 MG/DL Random Glucose 86 MG/DL Calcium Level 8.7 MG/DL Sodium Level 136 MEQ/L Potassium Level 3.9 MEQ/L Chloride Level 103 MEQ/L Carbon Dioxide Level 24.4 MEQ/L Anion Gap 9 MEQ/L Estimat Glomerular Filtration Rate 72 ML/MIN Imaging Studies Last 24 hours Impressions Liver Ultrasound 10/24/17 0000 Signed Impressions: Service Date/Time: October 22:45 - CONCLUSION: 1. Cholelithiasis with gallbladder wall thickening. Cholecystitis is not excluded. Radionuclide imaging is recommended for further evaluation if clinically indicated. 2. Echogenic liver compatible with fatty infiltration or hepatocellular disease. Apolinar Cleaning MD Ankle X-Ray 10/23/17 1816 Signed Impressions: Service Date/Time: October 18:21 - CONCLUSION: No acute disease. Lui Emmanuel MD Administered Medications Medications (Trade) Dose Ordered Sig/Jocelynn Route PRN Reason Start Time Stop Time Status Last Admin Dose Admin Senna/Docusate Sodium (Юлия-Colace) 1 tab BID PO 10/23/17 21:00 10/24/17 10:09 Prednisone (Deltasone) 20 mg BID PO 10/23/17 21:00 10/24/17 10:07 Amlodipine Besylate (Norvasc) 10 mg DAILY PO 10/24/17 09:00 10/24/17 10:06 Atorvastatin Calcium (Lipitor) 10 mg DAILY PO 10/24/17 09:00 10/24/17 10:08 Bupropion HCl (Wellbutrin Sr) 300 mg DAILY PO 10/24/17 09:00 10/24/17 10:08 Escitalopram Oxalate (Lexapro) 5 mg DAILY PO 10/24/17 09:00 10/24/17 10:08 Finasteride (Proscar) 5 mg DAILY PO 10/24/17 09:00 10/24/17 10:07 Furosemide (Lasix) 20 mg BID PO 10/24/17 09:00 10/24/17 10:07 Losartan Potassium (Cozaar) 50 mg DAILY PO 10/24/17 09:00 10/24/17 10:08 Metoprolol Tartrate (Lopressor) 12.5 mg DAILY PO 10/24/17 09:00 10/24/17 10:06 Potassium Chloride (KCl) 20 meq DAILY PO 10/24/17 09:00 10/24/17 10:07 Spironolactone (Aldactone) 12.5 mg DAILY PO 10/24/17 09:00 10/24/17 10:08 Tamsulosin HCl (Flomax) 0.4 mg DAILY PO 10/24/17 09:00 10/24/17 10:08 Magnesium Oxide (Mag-Ox) 400 mg BID PO 10/24/17 09:00 10/24/17 10:09 Objective Remarks GENERAL: Elderly male sitting up in bed. SKIN: Warm and dry. bruising noted along right briggs/ankle. a few light bruises noted on left arm. HEAD: Normocephalic. EYES: No injection or drainage. NECK: Supple, trachea midline CARDIOVASCULAR: Regular rate and rhythm RESPIRATORY: Breath sounds equal bilaterally. No accessory muscle use. GASTROINTESTINAL: Abdomen soft, non-tender, nondistended. EXTREMITIES: No cyanosis NEUROLOGICAL: awake and alert, normal speech. Assessment/Plan Problem List: (1) Thrombocytopenia ICD Codes: D69.6 - Thrombocytopenia, unspecified Status: Acute Plan: CT abdomen, 2009 showed granulomas in the spleen The liver appears to be normal. The spleen size was normal. CT angiogram from January 07, 2014 shows that the visualized upper abdominal organs demonstrate no acute abnormality. --admitted for worsening thrombocytopenia. ++evidence of bruising and muscle subcutaneous bleed in the foot and in the briggs. --post platelet transfusion platelet count-->40K --JUAREZ negative --haptoglobin WNL --unable to exclude drug effect. was on ASA, currently on hold --check hepatic function panel --on empiric steroids. 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 --Peripheral smear pending --Antiphospholipid antibody panel Assessment 82-year-old male with thrombocytopenia h/o Arthritis Arrhythmia, Gastroesophageal reflux, Hypertension, Carotid endarterectomy Plan 1. monitor CBC 2. check hepatic functional panel 3. check coags today 4. may need to give IVIG tomorrow if no improvement in platelets Attending Statement The exam, history, and the medical decision-making described in the above note were completed with the assistance of the mid-level provider. I reviewed and agree with the findings presented. I attest that I had a [id number] encounter with the patient on the same day, and personally performed and documented my assessment and findings in the medical record. No bleeding, bruise on R foot unchanged, soles of feet painful to touch from neuropathy. No new petechiae. Trend of platelet count concerning for ITP, noted no clumps on smear, no anemia , unlikely microangiopathic process. LDH, bilirubin, hgb, Coomb's test are normal. LAC and APA pending. Continue steroids to induce response. If platelet <20K offer IVIG. Radha Morley Oct 24, 2017 11:35 Emily Caban MD Oct 24, 2017 21:02
[2017-10-24 12:00] VITALS: BP 98/58; PULSE 64; RESP 16; TEMP 97.6; O2SAT 93
[2017-10-24 14:21] LABS: INTERNATIONAL NORMALIZED RATIO 1.1 RATIO; PROTHROMBIN TIME - PATIENT 11.3 SEC (9.8-11.6)
--- NOTE | 2017-10-24 14:25 | PQ ---
Physician Query Response Document PATIENT: MICHELINE MICHAUD : 1935 ADMIT DATE: 10/23/2017 7:10 PM DISCH DATE: RESPONDING PROVIDER #: kathy QUERY TEXT: Clinical Validity Additional clinical indicators are required to support your documented diagnosis of Please respond and also state in your next progress note whether: -- Condition exists and also please provide clinical indicators to support the diagnosis -- Condition does not exist and also please provide amended documentation in the medical record to shelbie connell -- Unable to provide additional clarity regarding the diagnosis -- Other, please specify The patient's Clinical Indicators include: Per Radiology report dated 10-23-2017 "CONCLUSION: 1. Deep vein thrombosis of the proximal right posterior tibial vein in the calf. 2. No evidence of DV T in the left lower extremity. " Query created by: Lauren Song on 10/24/2017 9:15 AM RESPONSE TEXT: Right podt tibial vein DVT patient with thrombocytopenia and CI anticoagulation Electronically signed by: Isabel Gonzalez MD 10/24/2017 2:22 PM
[2017-10-24 14:42] LABS: DIRECT BILIRUBIN ADULT 0.2 MG/DL (0.0-0.2)
[2017-10-24 14:44] LABS: INDIRECT BILIRUBIN 0.4 MG/DL (0.0-0.8); TOTAL BILIRUBIN ADULT 0.6 MG/DL (0.2-1.0); TOTAL PROTEIN 7.2 GM/DL (6.4-8.2)
[2017-10-24 16:00] VITALS: BP 118/59; PULSE 64; RESP 16; TEMP 97.3; O2SAT 94
[2017-10-24 21:00] VITALS: BP 120/60; PULSE 66; RESP 17; TEMP 98.3; O2SAT 94
[2017-10-25] VITALS (7 sets, daily range): BP systolic 107–138; BP diastolic 56–82; PULSE 62–79; RESP 16–19; TEMP 97.5–98.7; O2SAT 94–96
[2017-10-25 08:44] LABS: AUTOMATED NEUTROPHIL # 8.9 TH/MM3 (1.8-7.7); BASOPHIL # 0.1 TH/MM3 (0-0.2); BASOPHIL % 0.6 % (0.0-2.0); EOSINOPHIL % 0.2 % (0.0-4.0); HEMOGLOBIN 17.2 GM/DL (13.0-17.0); LYMPH % 9.6 % (9.0-44.0); MEAN CELL VOLUME 98.7 FL (80.0-100.0); MEAN CORPUSCULAR HGB CONC 34.4 % (32.0-36.0); MEAN PLATELET VOLUME 9.6 FL (7.0-11.0); MONO % 2.7 % (0.0-8.0); MONOCYTE # 0.3 TH/MM3 (0-0.9); NEUT % 86.9 % (16.0-70.0); RED BLOOD COUNT 5.06 MIL/MM3 (4.50-5.90); RED CELL DISTRIBUTION WIDTH 13.9 % (11.6-17.2); WHITE BLOOD COUNT 10.2 TH/MM3 (4.0-11.0)
[2017-10-25] MEDS: LOSARTAN 50 MG TAB PO SCH (08:46)
[2017-10-25] MEDS: MAGNESIUM OXIDE 400 MG TAB PO SCH ×2 (08:46→20:47)
[2017-10-25] MEDS: ESCITALOPRAM OXALATE 10 MG TAB PO SCH (08:47)
[2017-10-25] MEDS: DOCUSATE SODIUM 50 MG/SENNA 8.6 MG TAB PO SCH ×2 (08:47→20:47)
[2017-10-25] MEDS: FUROSEMIDE 20 MG TAB PO SCH ×2 (08:47→20:47)
[2017-10-25] MEDS: POTASSIUM CHLORIDE 20 MEQ CONTROLLED RELEASE TAB PO SCH (08:47)
[2017-10-25] MEDS: TAMSULOSIN HCL 0.4 MG CAP PO SCH (08:47)
[2017-10-25] MEDS: FINASTERIDE 5 MG TAB PO SCH (08:47)
[2017-10-25] MEDS: SPIRONOLACTONE 25 MG TAB PO SCH (08:48)
[2017-10-25] MEDS: SODIUM CHLORIDE 0.9% FLUSH 10 ML FLUSH IV FLUSH SCH ×2 (08:48→20:50)
[2017-10-25] MEDS: ATORVASTATIN 10 MG TAB PO SCH (08:48)
[2017-10-25] MEDS: buPROPion HCL 150 MG SUSTAINED RELEASE TAB PO SCH (08:48)
[2017-10-25] MEDS: METOPROLOL TARTRATE 25 MG TAB PO SCH (08:48)
[2017-10-25 08:53] LABS: PLATELET COUNT 7 TH/MM3 (150-450)
[2017-10-25] MEDS: PT OWN NAMENDA XR 28 MG PO SCH (09:00)
[2017-10-25 09:30] LABS: BANDS 1 % (0-6); LYMPHOCYTES 10 % (9-44); METAMYELOCYTES 1 % (0-1); MYELOCYTES 2 % (0-0); NEUTROPHIL # MANUAL DIFF 9.2 TH/MM3 (1.8-7.7); POLYS (SEG NEUTROPHILS) 86 % (16-70)
--- NOTE | 2017-10-25 10:12 | PD.ONC.PN ---
Subjective Subjective Remarks Afebrile overnight. No bleeding. Resting comfortably in bed. No complaints. Objective Data Date Time Temp Pulse Resp B/P (MAP) Pulse Ox O2 Delivery O2 Flow Rate FiO2 10/25/17 06:00 97.6 62 19 130/56 (80) 96 10/25/17 00:30 98.1 65 18 125/69 (87) 95 10/24/17 21:00 98.3 66 17 120/60 (80) 94 10/24/17 16:00 97.3 64 16 118/59 (78) 94 10/24/17 12:00 97.6 64 16 98/58 (71) 93 10/25/17 10/25/17 10/25/17 07:00 15:00 23:00 Intake Total 550 ml Balance 550 ml Result Diagram: 10/25/17 0755 10/24/17 0702 Laboratory Results Laboratory Tests Test 10/24/17 13:30 10/25/17 07:55 Prothrombin Time 11.3 SEC Prothromb Time International Ratio 1.1 RATIO Activated Partial Thromboplast Time 24.5 SEC Total Bilirubin 0.6 MG/DL Direct Bilirubin 0.2 MG/DL Indirect Bilirubin 0.4 MG/DL Aspartate Amino Transf (AST/SGOT) 24 U/L Alanine Aminotransferase (ALT/SGPT) 38 U/L Alkaline Phosphatase 144 U/L Total Protein 7.2 GM/DL Albumin 3.0 GM/DL White Blood Count 10.2 TH/MM3 Red Blood Count 5.06 MIL/MM3 Hemoglobin 17.2 GM/DL Hematocrit 50.0 % Mean Corpuscular Volume 98.7 FL Mean Corpuscular Hemoglobin 34.0 PG Mean Corpuscular Hemoglobin Concent 34.4 % Red Cell Distribution Width 13.9 % Platelet Count 7 TH/MM3 Mean Platelet Volume 9.6 FL Neutrophils (%) (Auto) 86.9 % Lymphocytes (%) (Auto) 9.6 % Monocytes (%) (Auto) 2.7 % Eosinophils (%) (Auto) 0.2 % Basophils (%) (Auto) 0.6 % Neutrophils # (Auto) 8.9 TH/MM3 Lymphocytes # (Auto) 1.0 TH/MM3 Monocytes # (Auto) 0.3 TH/MM3 Eosinophils # (Auto) 0.0 TH/MM3 Basophils # (Auto) 0.1 TH/MM3 CBC Comment AUTO DIFF Differential Total Cells Counted 100 Neutrophils % (Manual) 86 % Band Neutrophils % 1 % Lymphocytes % 10 % Neutrophils # (Manual) 9.2 TH/MM3 Metamyelocytes 1 % Myelocytes 2 % Differential Comment FINAL DIFF MANUAL Platelet Estimate RARE Platelet Morphology Comment NORMAL Red Cell Morphology Comment NORMAL Administered Medications Medications (Trade) Dose Ordered Sig/Jocelynn Route PRN Reason Start Time Stop Time Status Last Admin Dose Admin Sodium Chloride (NS Flush) 2 ml BID IV FLUSH 10/23/17 21:00 10/25/17 08:48 Senna/Docusate Sodium (Юлия-Colace) 1 tab BID PO 10/23/17 21:00 10/25/17 08:47 Prednisone (Deltasone) 20 mg BID PO 10/23/17 21:00 10/24/17 22:20 Amlodipine Besylate (Norvasc) 10 mg DAILY PO 10/24/17 09:00 10/25/17 08:46 Atorvastatin Calcium (Lipitor) 10 mg DAILY PO 10/24/17 09:00 10/25/17 08:48 Bupropion HCl (Wellbutrin Sr) 300 mg DAILY PO 10/24/17 09:00 10/25/17 08:48 Escitalopram Oxalate (Lexapro) 5 mg DAILY PO 10/24/17 09:00 10/25/17 08:47 Finasteride (Proscar) 5 mg DAILY PO 10/24/17 09:00 10/25/17 08:47 Furosemide (Lasix) 20 mg BID PO 10/24/17 09:00 10/25/17 08:47 Losartan Potassium (Cozaar) 50 mg DAILY PO 10/24/17 09:00 10/25/17 08:46 Metoprolol Tartrate (Lopressor) 12.5 mg DAILY PO 10/24/17 09:00 10/25/17 08:48 Potassium Chloride (KCl) 20 meq DAILY PO 10/24/17 09:00 10/25/17 08:47 Spironolactone (Aldactone) 12.5 mg DAILY PO 10/24/17 09:00 10/25/17 08:48 Tamsulosin HCl (Flomax) 0.4 mg DAILY PO 10/24/17 09:00 10/25/17 08:47 Magnesium Oxide (Mag-Ox) 400 mg BID PO 10/24/17 09:00 10/25/17 08:46 Objective Remarks GENERAL: Elderly male chronically ill appearing, sitting up in bed eating breakfast. SKIN: Warm and dry. right briggs with bruising, no enlargement noted. HEAD: Normocephalic. EYES: No injection or drainage. NECK: Supple, trachea midline CARDIOVASCULAR: +S1/S2 RESPIRATORY: occasional rhonchi. GASTROINTESTINAL: Abdomen soft, non-tender, nondistended. EXTREMITIES: No cyanosis NEUROLOGICAL: awake and alert, normal speech. moving extremities. oriented to self and place, but tells me it is April 2016. Assessment/Plan Problem List: (1) Thrombocytopenia ICD Codes: D69.6 - Thrombocytopenia, unspecified Status: Acute Plan: CT abdomen, 2009 showed granulomas in the spleen The liver appears to be normal. The spleen size was normal. CT angiogram from January 07, 2014 shows that the visualized upper abdominal organs demonstrate no acute abnormality. --admitted for worsening thrombocytopenia. ++evidence of bruising and muscle subcutaneous bleed in the foot and in the briggs. --post platelet transfusion platelet count-->40K --JUAREZ negative --haptoglobin WNL --unable to exclude drug effect. was on ASA, currently on hold --on empiric steroids. 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 (2) DVT (deep venous thrombosis) ICD Codes: I82.409 - Acute embolism and thrombosis of unspecified deep veins of unspecified lower extremity Plan: --has contraindication to ac at this time (thrombocytopenia) --since DVT is below the knee, will monitor with serial ultrasounds every few days. Assessment 82-year-old male with thrombocytopenia h/o Arthritis Arrhythmia, Gastroesophageal reflux, Hypertension, Carotid endarterectomy Plan 1. monitor CBC 2. check HIT 3. increase steroids to 1mg/kg daily 4. start GI prophylaxis. 5. monitor serial ultrasounds. Attending Statement The exam, history, and the medical decision-making described in the above note were completed with the assistance of the mid-level provider. I reviewed and agree with the findings presented. I attest that I had a [id number] encounter with the patient on the same day, and personally performed and documented my assessment and findings in the medical record. Patient seen and examined, medications, labs, vital signs and imaging studies reviewed. Subjectively; his major complaint is that of cough and hoarseness of the voice. He denies pain or swelling in his lower extremities. Earlier today he was noted to have what appears to be partially occlusive chronic-appearing deep venous thrombosis in the left popliteal vein. 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 He reports also having history of polycythemia; he tells me he has been undergoing therapeutic phlebotomies since his 30s. I suspect he has an underlying hereditary hemochromatosis. 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 I have noted his platelet counts have declined over the past 24 hours. His prednisone dosing was increased to 1 mg/kg daily; 100 mg by mouth daily. I will hold off on platelet transfusions or IVIG infusion at this time. Repeat CBC in the morning, consider transfusion of platelets and IVIG should his thrombocytopenia not have responded to optimal dose to prednisone over the next 48 hours. Clinically there is no evidence of overt bleeding at this time. Problem Qualifiers (1) DVT (deep venous thrombosis): Qualified Codes: I82.441 - Acute embolism and thrombosis of right tibial vein Radha Morley Oct 25, 2017 10:12 Jevon Olmstead MD Oct 25, 2017 15:55
--- NOTE | 2017-10-25 12:47 | HHI.PR ---
Subjective Remarks Follow up thrombocytopenia, DVT. Patient reports some dyspnea. No chest pain, nausea, vomiting. Denies bleeding. Objective Vitals Vital Signs Date Time Temp Pulse Resp B/P (MAP) Pulse Ox O2 Delivery O2 Flow Rate FiO2 10/25/17 06:00 97.6 62 19 130/56 (80) 96 10/25/17 00:30 98.1 65 18 125/69 (87) 95 10/24/17 21:00 98.3 66 17 120/60 (80) 94 10/24/17 16:00 97.3 64 16 118/59 (78) 94 I/O 10/24/17 10/24/17 10/24/17 10/25/17 10/25/17 10/25/17 07:00 15:00 23:00 07:00 15:00 23:00 Intake Total 400 ml 550 ml Balance 400 ml 550 ml Intake Oral 400 ml 550 ml # Voids 2 0 6 # Bowel Movements 0 0 Result Diagram: 10/25/17 0755 10/24/17 0702 Imaging Last Impressions Liver Ultrasound 10/24/17 0000 Signed Impressions: Service Date/Time: October 22:45 - CONCLUSION: 1. Cholelithiasis with gallbladder wall thickening. Cholecystitis is not excluded. Radionuclide imaging is recommended for further evaluation if clinically indicated. 2. Echogenic liver compatible with fatty infiltration or hepatocellular disease. Apolinar Cleaning MD Ankle X-Ray 10/23/176 Signed Impressions: Service Date/Time: October 18:21 - CONCLUSION: No acute disease. Lui Emmanuel MD Lower Extremity Ultrasound 10/23/17 0000 Signed Impressions: Service Date/Time: October 22:45 - CONCLUSION: 1. Deep vein thrombosis of the proximal right posterior tibial vein in the calf. 2. No evidence of DVT in the left lower extremity. Rodolfo Abernathy MD Objective Remarks General: Elderly male in no acute distress. Skin: Ecchymosis present on upper and lower extremities. Heart: Regular rate and rhythm. No murmur. Lungs: Clear to auscultation bilaterally. No wheezes, rales, or rhonchi. Breathing is nonlabored. Abdomen: Soft, nontender, nondistended. Extremities: No lower extremity edema. Psych: Alert, answers questions appropriately. Procedures None Urinary Catheter: No Vascular Central Line Catheter: No A/P Assessment and Plan 1. Thrombocytopenia: Status post platelet transfusion. Serum platelets have decreased again today. Management per hematology. IVIG. Continue steroids. 2. Coronary artery disease, hypertension, heart block: Patient has pacemaker. Continue amlodipine, losartan, spironolactone, Lasix. Aspirin on hold secondary to thrombocytopenia. 3. Hyperlipidemia: Continue statin. 4. Depression, dementia: Continue home medications. 5. BPH: Continue Flomax, Proscar. 6. DVT: Ultrasound shows DVT of the proximal right posterior tibial vein. Appreciate hematology recommendations. No anticoagulation at this time due to severe thrombocytopenia. Lyndon Rojo MD Oct 25, 2017 12:46
[2017-10-25] MEDS ORDERED: SODIUM CHLOR 0.9% 250 ML INJ 250 ML IV ONE (13:00)
[2017-10-25] MEDS ORDERED: diphenhydrAMINE HCL 25 MG CAP PO PRN (13:00)
[2017-10-25] MEDS ORDERED: ACETAMINOPHEN 325 MG TAB PO PRN (13:00)
[2017-10-25] MEDS: BUDESONIDE-FORMOTEROL 160/4.5 MCG INHALER INH SCH ×2 (18:05→20:47)
[2017-10-25] MEDS: PANTOPRAZOLE SOD 40 MG DELAYED RELEASE TAB PO SCH (18:05)
[2017-10-25] MEDS: predniSONE 50 MG TAB PO SCH (18:05)
[2017-10-25 20:33] LABS: ALBUMIN 3.1 GM/DL (3.4-5.0); ALKALINE PHOSPHATASE 149 U/L (45-117); ALT (GPT) 52 U/L (12-78); AST (GOT) 34 U/L (15-37); BICARBONATE 25.5 MEQ/L (21.0-32.0); BLOOD UREA NITROGEN 34 MG/DL (7-18); CALCIUM 9.4 MG/DL (8.5-10.1); CHLORIDE 98 MEQ/L (98-107); CREATININE 1.54 MG/DL (0.60-1.30); GLOMERULAR FILTRATION RATE 43 ML/MIN (>89); GLUCOSE,RANDOM 198 MG/DL (74-106); SODIUM (NA) 133 MEQ/L (136-145); TOTAL BILIRUBIN ADULT 0.5 MG/DL (0.2-1.0); TOTAL PROTEIN 7.6 GM/DL (6.4-8.2)
[2017-10-25] MEDS: ACETAMINOPHEN 325 MG TAB PO PRN (20:49)
[2017-10-26] VITALS (11 sets, daily range): BP systolic 96–125; BP diastolic 50–62; PULSE 70–84; RESP 16–20; TEMP 97.1–98.6; O2SAT 93–96
[2017-10-26] MEDS: SODIUM CHLORIDE 0.9% FLUSH 10 ML FLUSH IV FLUSH SCH ×2 (09:00→21:00)
[2017-10-26 09:37] LABS: AUTOMATED NEUTROPHIL # 10.1 TH/MM3 (1.8-7.7); BASOPHIL % 0.4 % (0.0-2.0); HEMATOCRIT 48.3 % (39.0-51.0); HEMOGLOBIN 16.6 GM/DL (13.0-17.0); LYMPH % 11.4 % (9.0-44.0); LYMPHOCYTE # 1.4 TH/MM3 (1.0-4.8); MEAN CELL VOLUME 97.9 FL (80.0-100.0); MEAN CORPUSCULAR HEMOGLOBIN 33.7 PG (27.0-34.0); MEAN CORPUSCULAR HGB CONC 34.4 % (32.0-36.0); MEAN PLATELET VOLUME 11.5 FL (7.0-11.0); MONO % 4.7 % (0.0-8.0); MONOCYTE # 0.6 TH/MM3 (0-0.9); NEUT % 83.5 % (16.0-70.0); RED BLOOD COUNT 4.93 MIL/MM3 (4.50-5.90); RED CELL DISTRIBUTION WIDTH 14.2 % (11.6-17.2); WHITE BLOOD COUNT 12.1 TH/MM3 (4.0-11.0)
[2017-10-26] MEDS: BUDESONIDE-FORMOTEROL 160/4.5 MCG INHALER INH SCH ×2 (09:42→21:56)
[2017-10-26] MEDS: buPROPion HCL 150 MG SUSTAINED RELEASE TAB PO SCH (09:47)
[2017-10-26] MEDS: PANTOPRAZOLE SOD 40 MG DELAYED RELEASE TAB PO SCH (09:47)
[2017-10-26] MEDS: FINASTERIDE 5 MG TAB PO SCH (09:48)
[2017-10-26] MEDS: DOCUSATE SODIUM 50 MG/SENNA 8.6 MG TAB PO SCH ×2 (09:48→21:48)
[2017-10-26] MEDS: predniSONE 50 MG TAB PO SCH (09:48)
[2017-10-26] MEDS: POTASSIUM CHLORIDE 20 MEQ CONTROLLED RELEASE TAB PO SCH (09:48)
[2017-10-26] MEDS: SPIRONOLACTONE 25 MG TAB PO SCH (09:48)
[2017-10-26] MEDS: LOSARTAN 50 MG TAB PO SCH (09:48)
[2017-10-26] MEDS: ESCITALOPRAM OXALATE 10 MG TAB PO SCH (09:48)
[2017-10-26] MEDS: TAMSULOSIN HCL 0.4 MG CAP PO SCH (09:48)
[2017-10-26] MEDS: FUROSEMIDE 20 MG TAB PO SCH ×2 (09:49→21:49)
[2017-10-26] MEDS: MAGNESIUM OXIDE 400 MG TAB PO SCH ×2 (09:49→21:49)
[2017-10-26] MEDS: ATORVASTATIN 10 MG TAB PO SCH (09:49)
[2017-10-26] MEDS: METOPROLOL TARTRATE 25 MG TAB PO SCH (09:49)
[2017-10-26 09:50] LABS: PLATELET COUNT 3 TH/MM3 (150-450)
[2017-10-26 10:10] LABS: BICARBONATE 23.3 MEQ/L (21.0-32.0); CALCIUM 9.2 MG/DL (8.5-10.1); CREATININE 1.35 MG/DL (0.60-1.30)
--- NOTE | 2017-10-26 10:11 | PD.ONC.PN ---
Subjective Subjective Remarks (patient seen at 830AM) Afebrile overnight. Patient resting in room. No reported bleeding. Patient reports he is thirsty when I walk into the room, so I hand him his water which was out of reach. He otherwise has no complaints. Discussed that we are waiting on his labs to return today to make a further decision on treatment of his thrombocytopenia. Objective Data Date Time Temp Pulse Resp B/P (MAP) Pulse Ox O2 Delivery O2 Flow Rate FiO2 10/26/17 08:00 97.1 84 16 108/58 (75) 95 10/26/17 04:08 95 Nasal Cannula 2.00 10/26/17 04:00 98.3 81 20 123/61 (81) 95 10/26/17 00:00 98.1 70 20 125/62 (83) 95 10/25/17 21:00 98.0 79 18 120/61 (80) 95 10/25/17 20:30 71 10/25/17 16:00 97.7 65 16 108/63 (78) 94 10/25/17 12:00 97.5 73 18 138/82 (100) 94 10/26/17 10/26/17 10/26/17 07:00 15:00 23:00 Intake Total 200 ml Output Total 300 ml Balance -100 ml Result Diagram: 10/26/17 0850 10/25/171914 Laboratory Results Laboratory Tests Test 10/25/17 19:15 10/26/17 08:50 Blood Urea Nitrogen 34 MG/DL Creatinine 1.54 MG/DL Random Glucose 198 MG/DL Total Protein 7.6 GM/DL Albumin 3.1 GM/DL Calcium Level 9.4 MG/DL Alkaline Phosphatase 149 U/L Aspartate Amino Transf (AST/SGOT) 34 U/L Alanine Aminotransferase (ALT/SGPT) 52 U/L Total Bilirubin 0.5 MG/DL Sodium Level 133 MEQ/L Potassium Level 4.5 MEQ/L Chloride Level 98 MEQ/L Carbon Dioxide Level 25.5 MEQ/L Anion Gap 10 MEQ/L Estimat Glomerular Filtration Rate 43 ML/MIN White Blood Count 12.1 TH/MM3 Red Blood Count 4.93 MIL/MM3 Hemoglobin 16.6 GM/DL Hematocrit 48.3 % Mean Corpuscular Volume 97.9 FL Mean Corpuscular Hemoglobin 33.7 PG Mean Corpuscular Hemoglobin Concent 34.4 % Red Cell Distribution Width 14.2 % Platelet Count 3 TH/MM3 Mean Platelet Volume 11.5 FL Neutrophils (%) (Auto) 83.5 % Lymphocytes (%) (Auto) 11.4 % Monocytes (%) (Auto) 4.7 % Eosinophils (%) (Auto) 0.0 % Basophils (%) (Auto) 0.4 % Neutrophils # (Auto) 10.1 TH/MM3 Lymphocytes # (Auto) 1.4 TH/MM3 Monocytes # (Auto) 0.6 TH/MM3 Eosinophils # (Auto) 0.0 TH/MM3 Basophils # (Auto) 0.0 TH/MM3 CBC Comment AUTO DIFF Administered Medications Medications (Trade) Dose Ordered Sig/Jocelynn Route PRN Reason Start Time Stop Time Status Last Admin Dose Admin Sodium Chloride (NS Flush) 2 ml BID IV FLUSH 10/23/17 21:00 10/25/17 20:50 Acetaminophen (Tylenol) 650 mg Q4H PRN PO TEMP > 100.4 or Pain 1-10 10/23/17 19:30 10/25/17 20:49 Senna/Docusate Sodium (Юлия-Colace) 1 tab BID PO 10/23/17 21:00 10/25/17 20:47 Amlodipine Besylate (Norvasc) 10 mg DAILY PO 10/24/17 09:00 10/25/17 08:46 Atorvastatin Calcium (Lipitor) 10 mg DAILY PO 10/24/17 09:00 10/25/17 08:48 Budesonide/ Formoterol Fumarate (Symbicort 160-4.5 Mcg Inh) 1 puff Q12HR INH 10/24/17 09:00 10/25/17 20:47 Bupropion HCl (Wellbutrin Sr) 300 mg DAILY PO 10/24/17 09:00 10/25/17 08:48 Escitalopram Oxalate (Lexapro) 5 mg DAILY PO 10/24/17 09:00 10/25/17 08:47 Finasteride (Proscar) 5 mg DAILY PO 10/24/17 09:00 10/25/17 08:47 Furosemide (Lasix) 20 mg BID PO 10/24/17 09:00 10/25/17 20:47 Losartan Potassium (Cozaar) 50 mg DAILY PO 10/24/17 09:00 10/25/17 08:46 Metoprolol Tartrate (Lopressor) 12.5 mg DAILY PO 10/24/17 09:00 10/25/17 08:48 Potassium Chloride (KCl) 20 meq DAILY PO 10/24/17 09:00 10/25/17 08:47 Spironolactone (Aldactone) 12.5 mg DAILY PO 10/24/17 09:00 10/25/17 08:48 Tamsulosin HCl (Flomax) 0.4 mg DAILY PO 10/24/17 09:00 10/25/17 08:47 Magnesium Oxide (Mag-Ox) 400 mg BID PO 10/24/17 09:00 10/25/17 20:47 Prednisone (Deltasone) 100 mg DAILY PO 10/25/17 13:00 10/25/17 18:05 Pantoprazole Sodium (Protonix) 40 mg DAILY PO 10/25/17 13:15 10/25/17 18:05 Objective Remarks GENERAL: Elderly male lying in bed, sheets appear to be recently soiled with urine. patient mildly disheveled. SKIN: Warm and dry. a few bruises noted on extremities. HEAD: Normocephalic. EYES: No injection or drainage. NECK: Supple, trachea midline CARDIOVASCULAR: +S1/S2 RESPIRATORY: anterior burch with occasional rhonchi. on 2L O2 GASTROINTESTINAL: Abdomen soft, non-tender, nondistended. EXTREMITIES: No cyanosis NEUROLOGICAL: awake and alert, normal speech. able to move extremities. Assessment/Plan Problem List: (1) Thrombocytopenia ICD Codes: D69.6 - Thrombocytopenia, unspecified Status: Acute Plan: CT abdomen, 2009 showed granulomas in the spleen The liver appears to be normal. The spleen size was normal. CT angiogram from January 07, 2014 shows that the visualized upper abdominal organs demonstrate no acute abnormality. --admitted for worsening thrombocytopenia. ++evidence of bruising and muscle subcutaneous bleed in the foot and in the briggs. --post platelet transfusion platelet count-->40K --JUAREZ negative --haptoglobin WNL --HIT Pending. --unable to exclude drug effect. was on ASA, currently on hold --on empiric steroids. 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 (2) DVT (deep venous thrombosis) ICD Codes: I82.409 - Acute embolism and thrombosis of unspecified deep veins of unspecified lower extremity Plan: --appears chronic --has contraindication to ac at this time (thrombocytopenia) --since DVT is below the knee, will monitor with serial ultrasounds every few days. Assessment 82-year-old male with thrombocytopenia h/o Arthritis Arrhythmia, Gastroesophageal reflux, Hypertension, Carotid endarterectomy Plan 1. monitor CBC 2. await HIT 3. continue steroids. 4. will give 1 unit platelets and dose with IVIG 500mg/kg=50G. will infuse slowly with max infusion rate of 2mg/kg/min Attending Statement The exam, history, and the medical decision-making described in the above note were completed with the assistance of the mid-level provider. I reviewed and agree with the findings presented. I attest that I had a [id number] encounter with the patient on the same day, and personally performed and documented my assessment and findings in the medical record. Patient seen and examined, he reports feeling a little bit stronger today. His voice however remains hoarse. Platelet counts down from 7000 yesterday to 3000 today. Patient denies overt bleeding. Recommend transfusion of 1 unit of pooled platelets and initiation of IVIG. Monitored closely for overt bleeding. Chest x-ray ordered to assess possible etiology of hoarseness of the voice. Immune thrombocytopenic purpura remains the primary diagnostic consideration. To this and we will continue oral corticosteroids with prednisone, and implement IVIG rescue and transfuse platelets for platelet count of 3000 today. Problem Qualifiers (1) DVT (deep venous thrombosis): Qualified Codes: I82.441 - Acute embolism and thrombosis of right tibial vein Radha Morley Oct 26, 2017 10:11 Jevon Olmstead MD Oct 26, 2017 16:25
[2017-10-26] MEDS ORDERED: ACETAMINOPHEN 325 MG TAB PO PRN (10:15)
[2017-10-26] MEDS ORDERED: diphenhydrAMINE HCL 25 MG CAP PO PRN (10:15)
[2017-10-26] MEDS ORDERED: SODIUM CHLOR 0.9% 250 ML INJ 250 ML IV ONE (10:15)
[2017-10-26 10:38] LABS: BANDS 2 % (0-6); LYMPHOCYTES 8 % (9-44); MONOCYTES 4 % (0-8); MYELOCYTES 1 % (0-0); NEUTROPHIL # MANUAL DIFF 10.6 TH/MM3 (1.8-7.7); POLYS (SEG NEUTROPHILS) 85 % (16-70)
--- NOTE | 2017-10-26 11:44 | HHI.PR ---
Subjective Remarks Follow up DVT, thrombocytopenia. Patient has no complaints at this time. Denies dyspnea. Receiving platelets. Objective Vitals Vital Signs Date Time Temp Pulse Resp B/P (MAP) Pulse Ox O2 Delivery O2 Flow Rate FiO2 10/26/17 11:30 97.8 75 20 106/53 10/26/17 08:20 93 Nasal Cannula 2.00 10/26/17 08:00 97.1 84 16 108/58 (75) 95 10/26/17 04:08 95 Nasal Cannula 2.00 10/26/17 04:00 98.3 81 20 123/61 (81) 95 10/26/17 00:00 98.1 70 20 125/62 (83) 95 10/25/17 21:00 98.0 79 18 120/61 (80) 95 10/25/17 20:30 71 10/25/17 16:00 97.7 65 16 108/63 (78) 94 10/25/17 12:00 97.5 73 18 138/82 (100) 94 I/O 10/25/17 10/25/17 10/25/17 10/26/17 10/26/17 10/26/17 07:00 15:00 23:00 07:00 15:00 23:00 Intake Total 550 ml 480 ml 200 ml 217 ml Output Total 300 ml Balance 550 ml 480 ml -100 ml 217 ml Intake Oral 550 ml 480 ml 200 ml Platelets 217 ml Output Urine Total 300 ml # Voids 6 2 # Bowel Movements 0 1 0 Result Diagram: 10/26/17 0850 10/26/17 0850 Imaging Last Impressions Liver Ultrasound 10/24/17 0000 Signed Impressions: Service Date/Time: October 22:45 - CONCLUSION: 1. Cholelithiasis with gallbladder wall thickening. Cholecystitis is not excluded. Radionuclide imaging is recommended for further evaluation if clinically indicated. 2. Echogenic liver compatible with fatty infiltration or hepatocellular disease. Apolinar Cleaning MD Ankle X-Ray 10/23/17 1816 Signed Impressions: Service Date/Time: October 18:21 - CONCLUSION: No acute disease. Lui Emmanuel MD Lower Extremity Ultrasound 10/23/17 0000 Signed Impressions: Service Date/Time: October 22:45 - CONCLUSION: 1. Deep vein thrombosis of the proximal right posterior tibial vein in the calf. 2. No evidence of DVT in the left lower extremity. Rodolfo Abernathy MD Objective Remarks General: Elderly male in no acute distress. Skin: Ecchymosis present on upper and lower extremities. Heart: Regular rate and rhythm. No murmur. Lungs: Clear to auscultation bilaterally. No wheezes, rales, or rhonchi. Breathing is nonlabored. Abdomen: Soft, nontender, nondistended. Extremities: No lower extremity edema. Psych: Alert, answers questions appropriately. Procedures None Urinary Catheter: No Vascular Central Line Catheter: No A/P Assessment and Plan 1. Thrombocytopenia: Serum platelets remain very low. Receiving another unit of platelets. Management per hematology. IVIG ordered today. Continue steroids. Discussed yesterday with Dr. Olmstead. 2. Coronary artery disease, hypertension, heart block: Patient has pacemaker. Continue amlodipine, losartan, spironolactone, Lasix. Aspirin on hold secondary to thrombocytopenia. 3. Hyperlipidemia: Continue statin. 4. Depression, dementia: Continue home medications. 5. BPH: Continue Flomax, Proscar. 6. DVT: Ultrasound shows DVT of the proximal right posterior tibial vein. Appreciate hematology recommendations. No anticoagulation at this time due to severe thrombocytopenia. Will monitor for clinical worsening and likely repeat ultrasound tomorrow. Lyndon Rojo MD Oct 26, 2017 11:43
[2017-10-26] MEDS ORDERED: SODIUM CHLORID 0.9% 500 ML INJ 500 ML IV ONE (11:45)
[2017-10-26] MEDS ORDERED: ACETAMINOPHEN 325 MG TAB PO ONE (11:45)
[2017-10-26] MEDS ORDERED: diphenhydrAMINE HCL 25 MG CAP PO ONE (11:45)
[2017-10-26] MEDS ORDERED: DEXTROSE 5% IN WATE 500 ML INJ 500 ML OTHER ONE (12:37)
[2017-10-26] MEDS ORDERED: EPINEPHrine HCL (1:1000) 1 MG/ML VIAL OTHER PRN (12:45)
[2017-10-26] MEDS ORDERED: diphenhydrAMINE HCL 50 MG/ML VIAL IV PUSH PRN (12:45)
[2017-10-26] MEDS ORDERED: IMMUNE GLOBULIN INJ 50 GM in SYRINGE/BAG 1 EA IV SCH (12:45)
[2017-10-26 13:33] LABS: HEPARIN INDUCED PLATELET AB NEGATIVE (NEGATIVE)
--- NOTE | 2017-10-26 14:49 | RADRPT ---
EXAM DATE/TIME: 10/26/2017 14:05 [facility] COMPARISON: No previous studies available for comparison. INDICATIONS : Cough MEDICAL HISTORY : Hypercholesterolemia. Emphysema. Arthritis. Right eye cataract. Dementia, Irregular heartbeat. HTN. C hest pain. COPD. Dyspnea. Ulcer. Gallstones. GERD. UTI. Prostate problems. Frequent nocturia. Stroke x2. Anticoagulant therapy, Aspirin 81mg SURGICAL HISTORY : Carotid artery surgery. Joint replacement ENCOUNTER: Initial ACUITY: 4 - 6 days PAIN SCORE: 0/10 LOCATION: Bilateral chest FINDINGS: The cardiac silhouette is enlarged in transverse diameter. A bipolar pacemaker is in place via a left sided approach. There is prominence of the central pulmonary vasculature with indistinct vascular ma rgins compatible with vascular congestion but no evidence of overt failure. No pleural effusions are identified. CONCLUSION: 1. Cardiomegaly and findings of vascular congestion without overt failure. Apolinar Cleaning MD on October 26, 2017 at 14:47 Board Certified Radiologist. This report was verified electronically.
[2017-10-26] MEDS: ACETAMINOPHEN 325 MG TAB PO PRN (22:02)
[2017-10-27] VITALS (11 sets, daily range): BP systolic 102–132; BP diastolic 55–85; PULSE 63–98; RESP 18; TEMP 95.1–98.5; O2SAT 94–97
[2017-10-27 07:46] LABS: AUTOMATED NEUTROPHIL # 10.1 TH/MM3 (1.8-7.7); BASOPHIL % 0.3 % (0.0-2.0); HEMATOCRIT 43.1 % (39.0-51.0); HEMOGLOBIN 14.7 GM/DL (13.0-17.0); LYMPH % 14.9 % (9.0-44.0); LYMPHOCYTE # 1.9 TH/MM3 (1.0-4.8); MEAN CELL VOLUME 98.7 FL (80.0-100.0); MEAN CORPUSCULAR HEMOGLOBIN 33.7 PG (27.0-34.0); MEAN CORPUSCULAR HGB CONC 34.1 % (32.0-36.0); MEAN PLATELET VOLUME 10.8 FL (7.0-11.0); MONO % 6.2 % (0.0-8.0); MONOCYTE # 0.8 TH/MM3 (0-0.9); NEUT % 78.6 % (16.0-70.0); PLATELET COUNT 35 TH/MM3 (150-450); RED BLOOD COUNT 4.37 MIL/MM3 (4.50-5.90); RED CELL DISTRIBUTION WIDTH 14.2 % (11.6-17.2); WHITE BLOOD COUNT 12.8 TH/MM3 (4.0-11.0)
[2017-10-27] MEDS: predniSONE 50 MG TAB PO SCH (07:56)
[2017-10-27] MEDS: PANTOPRAZOLE SOD 40 MG DELAYED RELEASE TAB PO SCH (07:56)
[2017-10-27] MEDS: ACETAMINOPHEN 325 MG TAB PO PRN ×2 (07:56→11:50)
[2017-10-27] MEDS: METOPROLOL TARTRATE 25 MG TAB PO SCH (07:57)
[2017-10-27] MEDS: FINASTERIDE 5 MG TAB PO SCH (07:57)
[2017-10-27] MEDS: FUROSEMIDE 20 MG TAB PO SCH ×2 (07:57→20:02)
[2017-10-27] MEDS: ESCITALOPRAM OXALATE 10 MG TAB PO SCH (07:58)
[2017-10-27] MEDS: ATORVASTATIN 10 MG TAB PO SCH (07:58)
[2017-10-27] MEDS: LOSARTAN 50 MG TAB PO SCH (07:58)
[2017-10-27] MEDS: MAGNESIUM OXIDE 400 MG TAB PO SCH ×2 (07:59→20:02)
[2017-10-27] MEDS: buPROPion HCL 150 MG SUSTAINED RELEASE TAB PO SCH (07:59)
[2017-10-27] MEDS: SODIUM CHLORIDE 0.9% FLUSH 10 ML FLUSH IV FLUSH SCH ×2 (07:59→20:01)
[2017-10-27] MEDS: DOCUSATE SODIUM 50 MG/SENNA 8.6 MG TAB PO SCH ×2 (08:00→20:02)
[2017-10-27] MEDS: SPIRONOLACTONE 25 MG TAB PO SCH (08:00)
[2017-10-27] MEDS: TAMSULOSIN HCL 0.4 MG CAP PO SCH (08:00)
[2017-10-27] MEDS: POTASSIUM CHLORIDE 20 MEQ CONTROLLED RELEASE TAB PO SCH (08:01)
[2017-10-27] MEDS: PT OWN NAMENDA XR 28 MG PO SCH (08:02)
[2017-10-27] MEDS: BUDESONIDE-FORMOTEROL 160/4.5 MCG INHALER INH SCH ×2 (08:03→20:01)
[2017-10-27 08:11] LABS: BICARBONATE 26.3 MEQ/L (21.0-32.0); CALCIUM 8.8 MG/DL (8.5-10.1); CREATININE 1.28 MG/DL (0.60-1.30)
--- NOTE | 2017-10-27 10:39 | HHI.PR ---
Subjective Remarks Follow up DVT, thrombocytopenia. The patient denies pain currently. His only complaint is that his voice is hoarse. No shortness of breath. He does have an occasional cough. Objective Vitals Vital Signs Date Time Temp Pulse Resp B/P (MAP) Pulse Ox O2 Delivery O2 Flow Rate FiO2 10/27/17 09:25 74 10/27/17 08:00 98.5 75 18 132/60 (84) 94 10/27/17 07:32 95 Nasal Cannula 2.00 10/27/17 06:31 95.1 73 18 120/57 (78) 96 10/27/17 04:30 73 18 120/57 10/27/17 01:51 97.8 69 18 109/55 (73) 95 10/26/17 20:53 97.7 70 18 96/50 (65) 95 10/26/17 17:45 96 Nasal Cannula 2.00 10/26/17 16:00 98.6 72 16 103/53 (70) 96 10/26/17 13:56 65 20 101/55 10/26/17 12:00 97.7 73 16 112/59 (76) 94 10/26/17 11:45 97.4 73 20 112/59 10/26/17 11:30 97.8 75 20 106/53 I/O 10/26/17 10/26/17 10/26/17 10/27/17 10/27/17 10/27/17 07:00 15:00 23:00 07:00 15:00 23:00 Intake Total 200 ml 1066 ml Output Total 300 ml Balance -100 ml 1066 ml Intake Oral 200 ml 560 ml Platelets 506 ml Output Urine Total 300 ml # Voids 3 # Bowel Movements 0 2 1 Result Diagram: 10/27/1719 10/27/17 0619 Imaging Last Impressions Chest X-Ray 10/26/17 0000 Signed Impressions: Service Date/Time: Thursday, October 26, 2017 14:05 - CONCLUSION: 1. Cardiomegaly and findings of vascular congestion without overt failure. Apolinar Cleaning MD Liver Ultrasound 10/24/17 0000 Signed Impressions: Service Date/Time: October 22:45 - CONCLUSION: 1. Cholelithiasis with gallbladder wall thickening. Cholecystitis is not excluded. Radionuclide imaging is recommended for further evaluation if clinically indicated. 2. Echogenic liver compatible with fatty infiltration or hepatocellular disease. Apolinar Cleaning MD Ankle X-Ray 10/23/17 1816 Signed Impressions: Service Date/Time: October 18:21 - CONCLUSION: No acute disease. Lui Emmanuel MD Lower Extremity Ultrasound 10/23/17 0000 Signed Impressions: Service Date/Time: October 22:45 - CONCLUSION: 1. Deep vein thrombosis of the proximal right posterior tibial vein in the calf. 2. No evidence of DVT in the left lower extremity. Rodolfo Abernathy MD Objective Remarks General: Elderly male in no acute distress. Voice is hoarse. Skin: Ecchymosis present on upper and lower extremities. Heart: Regular rate and rhythm. No murmur. Lungs: Clear to auscultation bilaterally. No wheezes, rales, or rhonchi. Breathing is nonlabored. Abdomen: Soft, nontender, nondistended. Extremities: No lower extremity edema. Psych: Alert, answers questions appropriately. Procedures None Urinary Catheter: No Vascular Central Line Catheter: No A/P Assessment and Plan 1. Thrombocytopenia: Serum platelets improving. Receiving another unit of platelets. Management per hematology. IVIG given. Continue steroids. 2. Coronary artery disease, hypertension, heart block: Patient has pacemaker. Continue amlodipine, losartan, spironolactone, Lasix. Aspirin on hold secondary to thrombocytopenia. 3. Hyperlipidemia: Continue statin. 4. Depression, dementia: Continue home medications. 5. BPH: Continue Flomax, Proscar. 6. DVT: Ultrasound shows DVT of the proximal right posterior tibial vein. Appreciate hematology recommendations. No anticoagulation at this time due to severe thrombocytopenia. Repeat ultrasound. Lyndon Rojo MD Oct 27, 2017 10:39
--- NOTE | 2017-10-27 13:10 | PD.ONC.PN ---
Subjective Subjective Remarks Afebrile overnight. Patient seen at ~1130AM. Patient resting in room with at bedside. Patient complaining of a headache. When asked where the pain is, he states "in the back of my head." I ask him when the pain started and he states "just a few minutes ago." The patient appears comfortable and in nad. He denies fall or recent injury. Objective Data Date Time Temp Pulse Resp B/P (MAP) Pulse Ox O2 Delivery O2 Flow Rate FiO2 10/27/17 12:00 97.8 68 18 109/61 (77) 96 10/27/17 09:25 74 10/27/17 08:00 98.5 75 18 132/60 (84) 94 10/27/17 07:32 95 Nasal Cannula 2.00 10/27/17 06:31 95.1 73 18 120/57 (78) 96 10/27/17 04:30 73 18 120/57 10/27/17 01:51 97.8 69 18 109/55 (73) 95 10/26/17 20:53 97.7 70 18 96/50 (65) 95 10/26/17 17:45 96 Nasal Cannula 2.00 10/26/17 16:00 98.6 72 16 103/53 (70) 96 10/26/17 13:56 65 20 101/55 Result Diagram: 10/27/1719 10/27/17618 Laboratory Results Laboratory Tests Test 10/27/17 06:19 White Blood Count 12.8 TH/MM3 Red Blood Count 4.37 MIL/MM3 Hemoglobin 14.7 GM/DL Hematocrit 43.1 % Mean Corpuscular Volume 98.7 FL Mean Corpuscular Hemoglobin 33.7 PG Mean Corpuscular Hemoglobin Concent 34.1 % Red Cell Distribution Width 14.2 % Platelet Count 35 TH/MM3 Mean Platelet Volume 10.8 FL Neutrophils (%) (Auto) 78.6 % Lymphocytes (%) (Auto) 14.9 % Monocytes (%) (Auto) 6.2 % Eosinophils (%) (Auto) 0.0 % Basophils (%) (Auto) 0.3 % Neutrophils # (Auto) 10.1 TH/MM3 Lymphocytes # (Auto) 1.9 TH/MM3 Monocytes # (Auto) 0.8 TH/MM3 Eosinophils # (Auto) 0.0 TH/MM3 Basophils # (Auto) 0.0 TH/MM3 CBC Comment AUTO DIFF Differential Comment AUTO DIFF CONFIRMED Platelet Estimate LOW Platelet Morphology Comment NORMAL Blood Urea Nitrogen 36 MG/DL Creatinine 1.28 MG/DL Random Glucose 116 MG/DL Calcium Level 8.8 MG/DL Sodium Level 134 MEQ/L Potassium Level 4.0 MEQ/L Chloride Level 100 MEQ/L Carbon Dioxide Level 26.3 MEQ/L Anion Gap 8 MEQ/L Estimat Glomerular Filtration Rate 54 ML/MIN Administered Medications Medications (Trade) Dose Ordered Sig/Jocelynn Route PRN Reason Start Time Stop Time Status Last Admin Dose Admin Sodium Chloride (NS Flush) 2 ml BID IV FLUSH 10/23/17 21:00 10/27/17 07:59 Acetaminophen (Tylenol) 650 mg Q4H PRN PO TEMP > 100.4 or Pain 1-10 10/23/17 19:30 10/27/17 11:50 Senna/Docusate Sodium (Юлия-Colace) 1 tab BID PO 10/23/17 21:00 10/27/17 08:00 Amlodipine Besylate (Norvasc) 10 mg DAILY PO 10/24/17 09:00 10/27/17 07:58 Atorvastatin Calcium (Lipitor) 10 mg DAILY PO 10/24/17 09:00 10/27/17 07:58 Budesonide/ Formoterol Fumarate (Symbicort 160-4.5 Mcg Inh) 1 puff Q12HR INH 10/24/17 09:00 10/27/17 08:03 Bupropion HCl (Wellbutrin Sr) 300 mg DAILY PO 10/24/17 09:00 10/27/17 07:59 Escitalopram Oxalate (Lexapro) 5 mg DAILY PO 10/24/17 09:00 10/27/17 07:58 Finasteride (Proscar) 5 mg DAILY PO 10/24/17 09:00 10/27/17 07:57 Furosemide (Lasix) 20 mg BID PO 10/24/17 09:00 10/27/17 07:57 Losartan Potassium (Cozaar) 50 mg DAILY PO 10/24/17 09:00 10/27/17 07:58 Metoprolol Tartrate (Lopressor) 12.5 mg DAILY PO 10/24/17 09:00 10/27/17 07:57 Potassium Chloride (KCl) 20 meq DAILY PO 10/24/17 09:00 10/27/17 08:01 Spironolactone (Aldactone) 12.5 mg DAILY PO 10/24/17 09:00 10/27/17 08:00 Tamsulosin HCl (Flomax) 0.4 mg DAILY PO 10/24/17 09:00 10/27/17 08:00 Magnesium Oxide (Mag-Ox) 400 mg BID PO 10/24/17 09:00 10/27/17 07:59 Prednisone (Deltasone) 100 mg DAILY PO 10/25/17 13:00 10/27/17 07:56 Pantoprazole Sodium (Protonix) 40 mg DAILY PO 10/25/17 13:15 10/27/17 07:56 Objective Remarks GENERAL: Elderly male lying in bed. He appears comfortable and in nad. SKIN: Warm and dry. bruising on right briggs appears unchanged. a few bruises on extremities. HEAD: Normocephalic. atraumatic. EYES: No injection or drainage. NECK: Supple, trachea midline CARDIOVASCULAR: +S1/S2 RESPIRATORY: scattered rhonchi, anterior burch. GASTROINTESTINAL: Abdomen soft, non-tender, nondistended. EXTREMITIES: No cyanosis NEUROLOGICAL: awake, alert. normal speech. able to move extremities. no facial droop. Assessment/Plan Problem List: (1) Thrombocytopenia ICD Codes: D69.6 - Thrombocytopenia, unspecified Status: Acute Plan: --admitted for worsening thrombocytopenia. ++evidence of bruising and muscle subcutaneous bleed in the foot and in the briggs. --s/p IVIG on 10/26/17 --HIT negative --on empiric steroids. 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 (2) DVT (deep venous thrombosis) ICD Codes: I82.409 - Acute embolism and thrombosis of unspecified deep veins of unspecified lower extremity Plan: --appears chronic --has contraindication to ac at this time (thrombocytopenia) --since DVT is below the knee, will monitor with serial ultrasounds every few days. (3) History of hemochromatosis ICD Codes: Z86.39 - Personal history of other endocrine, nutritional and metabolic disease Plan: -- at bedside reports patient was diagnosed with a blood disorder as a teenager which required him to receive phlebotomy every few weeks. -?? hemochromatosis --will obtain ferritin level Assessment 82-year-old male with thrombocytopenia h/o Arthritis Arrhythmia, Gastroesophageal reflux, Hypertension, Carotid endarterectomy Plan 1. check CT brain in light of new onset headache with thrombocytopenia 2. continue steroids. may need further dosing with IVIG, will monitor platelet count. Attending Statement The exam, history, and the medical decision-making described in the above note were completed with the assistance of the mid-level provider. I reviewed and agree with the findings presented. I attest that I had a [id number] encounter with the patient on the same day, and personally performed and documented my assessment and findings in the medical record. Pt seen and examined. Still has headache, suspect related to IVIG, CT neg for bleed, no worsening. Offer tylenol 650mg x 1. Discussed dx ITP, will probably need BM bx to determine if underlying bone marrow pathology- ex: concurrent LGL. 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 He is responding to steroids and IVIG, pt will need terminal worker tx if ultimately dx with chronic ITP. Monitor platelet count. Continue current dose steroids, optimize platelet count before tapering dose. Problem Qualifiers (1) DVT (deep venous thrombosis): Qualified Codes: I82.441 - Acute embolism and thrombosis of right tibial vein Radha Morley Oct 27, 2017 13:10 Emily Caban MD Oct 27, 2017 19:01
--- NOTE | 2017-10-27 13:29 | RADRPT ---
EXAM DATE/TIME: 10/27/2017 12:20 [facility] COMPARISON: No previous studies available for comparison. INDICATIONS : Pain occipital area,thrombocytopenia RADIATION DOSE: 56.35 CTDIvol (mGy) MEDICAL HISTORY : Dementia. Cardiovascular disease Chronic obstructive pulmonary disease.Hypertension,CVA SURGICAL HISTORY : Carotid surgery ENCOUNTER: Initial ACUITY: 1 day PAIN SCALE: 10/10 LOCATION: cranial TECHNIQUE: Multiple contiguous axial images were obtained of the head. Using automated exposure control and adj ustment of the mA and/or kV according to patient size, radiation dose was kept as low as reasonably a chievable to obtain optimal diagnostic quality images. DICOM format image data is available electro nically for review and comparison. FINDINGS: CEREBRUM: There is loss of sampson-white matter differentiation in the right occipital mid convexities without mickey dence for significant volume loss or mass effect at this time. Mild encephalomalacia in the infarct m id convexities. Moderate diffuse cerebral volume loss. Ventricles are at the upper limits of normal g iven degree of cerebral volume loss. Periventricular white matter hypodensities consistent with ische robbie white matter demyelination. No evidence of midline shift, mass lesion, hemorrhage or acute infarc tion. No extra-axial fluid collections are seen. POSTERIOR FOSSA: The cerebellum and brainstem are intact. The 4th ventricle is midline. The cerebellopontine angle i s unremarkable. EXTRACRANIAL: The visualized portion of the orbits is intact. SKULL: The calvaria is intact. No evidence of skull fracture. CONCLUSION: 1. Findings concerning for subacute infarct in the right occipital lobe. MRI examination may be perfo rmed for better evaluation as indicated. 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 3. Senescent changes with mild periventricular small vessel white matter ischemic demyelination. Jensen Brown MD on October 27, 2017 at 13:11 Board Certified Radiologist. This report was verified electronically.
--- NOTE | 2017-10-27 13:58 | RADRPT ---
EXAM DATE/TIME: 10/27/2017 12:55 [facility] COMPARISON: No previous studies available for comparison. INDICATIONS : Prior right leg deep vein thrombosis. MEDICAL HISTORY : Hypercholesterolemia. Emphysema. Arthritis. Right eye cataract. Dementia. Chest pain. Irregular he artbeat. HTN. COPD. Dyspnea. Ulcer. GERD. UTI. Frequent nocturia. Gallstones. SURGICAL HISTORY : Carotid artery surgery. Joint replacement. ENCOUNTER: Subsequent ACUITY: 4 - 6 days PAIN SCORE: 0/10 LOCATION: Right leg. TECHNIQUE: Venous ultrasound of the leg was performed from the inguinal ligament to the proximal calf. Real-murali e, color Doppler and spectral tracing, compression and augmentation techniques were used. FINDINGS: Occlusive thrombus in the right posterior tibial vein extending into the popliteal vein but not above the knee. CONCLUSION: Venous thrombosis the posterior tibial vein extending into the popliteal vein where i t is nonocclusive. Aj Sanders MD FACR on October 27, 2017 at 13:54 Board Certified Radiologist. This report was verified electronically.
[2017-10-27 15:53] LABS: DRVVT 1:1 MIX ND (CORRECTED); DRVVT MIX CONFIRM ND (()); HEXAGONAL PHASE CONFIRM ND (NEGATIVE)
[2017-10-27] MEDS: ACETAMINOPHEN/HYDROcodone 325 MG/5 MG TAB PO PRN (17:03)
[2017-10-27] MEDS ORDERED: ACETAMINOPHEN 325 MG TAB PO ONE (19:00)
[2017-10-28] VITALS (12 sets, daily range): BP systolic 104–129; BP diastolic 53–82; PULSE 63–71; RESP 16–18; TEMP 97.1–97.9; O2SAT 74–96
[2017-10-28 07:39] LABS: BICARBONATE 25.6 MEQ/L (21.0-32.0); CALCIUM 8.8 MG/DL (8.5-10.1); CREATININE 1.33 MG/DL (0.60-1.30)
[2017-10-28 08:10] LABS: AUTOMATED NEUTROPHIL # 8.5 TH/MM3 (1.8-7.7); BASOPHIL % 0.2 % (0.0-2.0); EOSINOPHIL % 0.1 % (0.0-4.0); HEMOGLOBIN 15.9 GM/DL (13.0-17.0); LYMPH % 18.8 % (9.0-44.0); LYMPHOCYTE # 2.1 TH/MM3 (1.0-4.8); MEAN CELL VOLUME 98.4 FL (80.0-100.0); MEAN CORPUSCULAR HGB CONC 34.5 % (32.0-36.0); MEAN PLATELET VOLUME 9.9 FL (7.0-11.0); MONO % 6.6 % (0.0-8.0); MONOCYTE # 0.7 TH/MM3 (0-0.9); NEUT % 74.3 % (16.0-70.0); PLATELET COUNT 27 TH/MM3 (150-450); RED BLOOD COUNT 4.68 MIL/MM3 (4.50-5.90); RED CELL DISTRIBUTION WIDTH 14.3 % (11.6-17.2); WHITE BLOOD COUNT 11.4 TH/MM3 (4.0-11.0)
--- NOTE | 2017-10-28 08:24 | MB ---
cc: FLIP CARDENAS MD DATE OF CONSULTATION 10/27/2017 CHIEF COMPLAINT Hoarseness HISTORY OF PRESENT ILLNESS This is an 82-year-old male admitted through the emergency department for thrombocytopenia. He is currently being worked up for this. During this process, he started reporting that he had some hoarseness that was audible, therefore an ENT consult was placed. Of note that is pertinent to the hoarseness, is the patient does have dementia. He believes the year to be 2015. He reports that he feels the hoarseness has only been going on for a few weeks. PAST MEDICAL HISTORY Significant for: 1. Coronary artery disease 2. Hypertension 3. Hyperlipidemia 4. Dementia 5. Benign prostatic hypertrophy 6. Heart block 7. Depression 8. Hypertension PAST SURGICAL HISTORY Significant for a: 1. Left carotid endarterectomy 2. Joint replacement 3. Right cataract surgery MEDICATIONS Please see them EMR. SOCIAL HISTORY Reports quitting smoking in 1988 with a history of heavy ethanol use in the 80s. He currently resides in an assisted living facility called [facility]. PHYSICAL EXAMINATION The patient is resting comfortably in bed, responds appropriately to most questions. HEENT: With the flexible laryngoscopy at bedside reveals his oral cavity and oropharynx to have pink mucosa. No ulcerations noted. The Endolarynx shows a left true vocal cord paralysis. No masses or lesions noted. NECK: Exam reveals a scar along the left side of the neck consistent with carotid endarterectomy. No masses noted. HEART: Regular rate and rhythm. LUNGS: Clear to auscultation. ASSESSMENT/PLAN Patient with left vocal cord paralysis that seems to be consistent with, in my opinion, a left carotid endarterectomy. The patient believes the year to be 2015 which would explain his confusion to the timing of the hoarseness. There is no other pathology noted to account for the vocal cord paralysis and as that is the number one risk with carotid endarterectomy, I would defer that that would be the most likely cause of the paralysis. However, further workup for vocal cord paralysis is a CT scan of the neck and chest to rule out other lesions causing it. We will defer to the primary team to see if they feel that it would be in the patient's best interest to undergo that. Otherwise would recommend continued care. I do not know that the patient would benefit much from speech pathology at this point. Thank you for this consultation. Flip Cardenas AT/DJL /7:47 AM /8:04 AM
[2017-10-28] MEDS: BUDESONIDE-FORMOTEROL 160/4.5 MCG INHALER INH SCH ×2 (09:00→21:45)
[2017-10-28] MEDS: SODIUM CHLORIDE 0.9% FLUSH 10 ML FLUSH IV FLUSH SCH ×2 (09:00→21:46)
[2017-10-28] MEDS: FUROSEMIDE 20 MG TAB PO SCH ×2 (09:00→21:46)
[2017-10-28] MEDS: METOPROLOL TARTRATE 25 MG TAB PO SCH (09:00)
[2017-10-28] MEDS: SPIRONOLACTONE 25 MG TAB PO SCH (09:00)
[2017-10-28] MEDS: LOSARTAN 50 MG TAB PO SCH (09:00)
[2017-10-28] MEDS: PT OWN NAMENDA XR 28 MG PO SCH (09:00)
[2017-10-28] MEDS: ATORVASTATIN 10 MG TAB PO SCH (09:49)
[2017-10-28] MEDS: buPROPion HCL 150 MG SUSTAINED RELEASE TAB PO SCH (09:49)
[2017-10-28] MEDS: POTASSIUM CHLORIDE 20 MEQ CONTROLLED RELEASE TAB PO SCH (09:50)
[2017-10-28] MEDS: DOCUSATE SODIUM 50 MG/SENNA 8.6 MG TAB PO SCH ×2 (09:54→21:46)
[2017-10-28] MEDS: predniSONE 50 MG TAB PO SCH (09:54)
[2017-10-28] MEDS: TAMSULOSIN HCL 0.4 MG CAP PO SCH (09:54)
[2017-10-28] MEDS: FINASTERIDE 5 MG TAB PO SCH (09:56)
[2017-10-28] MEDS: ESCITALOPRAM OXALATE 10 MG TAB PO SCH (09:56)
[2017-10-28] MEDS: PANTOPRAZOLE SOD 40 MG DELAYED RELEASE TAB PO SCH (09:56)
[2017-10-28] MEDS: MAGNESIUM OXIDE 400 MG TAB PO SCH ×2 (09:56→21:46)
--- NOTE | 2017-10-28 11:20 | HHI.PR ---
Subjective Remarks Follow up DVT, thrombocytopenia. Patient reports headache, hoarseness. No other complaints at this time. Objective Vitals Vital Signs Date Time Temp Pulse Resp B/P (MAP) Pulse Ox O2 Delivery O2 Flow Rate FiO2 10/28/17 09:30 97.7 66 18 104/53 (70) 92 10/28/17 09:25 95 Nasal Cannula 2.00 10/28/17 08:00 97.7 63 16 110/56 (74) 95 10/28/17 04:30 97.4 70 18 126/63 (84) 96 10/28/17 00:00 97.4 65 18 129/82 (98) 74 10/28/17 00:00 97.8 65 18 118/57 (77) 95 10/27/17 23:40 95 Nasal Cannula 2.00 10/27/17 21:30 65 10/27/17 20:00 97.4 98 18 129/85 (100) 97 10/27/17 17:25 63 10/27/17 16:00 97.7 66 18 102/55 (71) 95 10/27/17 12:00 97.8 68 18 109/61 (77) 96 I/O 10/27/17 10/27/17 10/27/17 10/28/17 10/28/17 10/28/17 06:59 14:59 22:59 06:59 14:59 22:59 Intake Total 560 ml Balance 560 ml Intake Oral 560 ml # Voids 3 4 # Bowel Movements 1 1 1 Result Diagram: 10/28/17 0642 10/28/17 0642 Imaging Last Impressions Lower Extremity Ultrasound 10/27/17 0000 Signed Impressions: Service Date/Time: Friday, October 27, 2017 12:55 - CONCLUSION: Venous thrombosis the posterior tibial vein extending into the popliteal vein where it is nonocclusive. Aj Sanders MD FACR Head CT 10/27/17 0000 Signed Impressions: Service Date/Time: Friday, October 27, 2017 12:20 - CONCLUSION: 1. Findings concerning for subacute infarct in the right occipital lobe. MRI examination may be performed for better evaluation as indicated. 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 3. Senescent changes with mild periventricular small vessel white matter ischemic demyelination. Jensen Brown MD Chest X-Ray 10/26/17 0000 Signed Impressions: Service Date/Time: Thursday, October 26, 2017 14:05 - CONCLUSION: 1. Cardiomegaly and findings of vascular congestion without overt failure. Apolinar Cleaning MD Liver Ultrasound 10/24/17 0000 Signed Impressions: Service Date/Time: October 22:45 - CONCLUSION: 1. Cholelithiasis with gallbladder wall thickening. Cholecystitis is not excluded. Radionuclide imaging is recommended for further evaluation if clinically indicated. 2. Echogenic liver compatible with fatty infiltration or hepatocellular disease. Apolinar Cleaning MD Ankle X-Ray 10/23/17 1816 Signed Impressions: Service Date/Time: October 18:21 - CONCLUSION: No acute disease. Lui Emmanuel MD Objective Remarks General: Elderly male in no acute distress. Voice is hoarse. Skin: Ecchymosis present on upper and lower extremities. Heart: Regular rate and rhythm. No murmur. Lungs: Clear to auscultation bilaterally. No wheezes, rales, or rhonchi. Breathing is nonlabored. Abdomen: Soft, nontender, nondistended. Extremities: No lower extremity edema. Psych: Alert, answers questions appropriately. Procedures None Urinary Catheter: No Vascular Central Line Catheter: No A/P Assessment and Plan 1. Thrombocytopenia: Serum platelets slightly decreased today. Receiving another unit of platelets. Management per hematology. IVIG given. Continue steroids. 2. Coronary artery disease, hypertension, heart block: Patient has pacemaker. Continue amlodipine, losartan, spironolactone, Lasix. Aspirin on hold secondary to thrombocytopenia. 3. Hyperlipidemia: Continue statin. 4. Depression, dementia: Continue home medications. 5. BPH: Continue Flomax, Proscar. 6. DVT: Ultrasound shows DVT of the proximal right posterior tibial vein. Appreciate hematology recommendations. No anticoagulation at this time due to severe thrombocytopenia. Repeat ultrasound shows DVT. Lyndon Rojo MD Oct 28, 2017 11:20
--- NOTE | 2017-10-28 11:37 | PD.ONC.PN ---
Subjective Subjective Remarks Afebrile overnight. Patient resting in bed. Continuing to complain of headache in the back of his head. CT brain obtained 10/27 reviewed. MRI brain pending. Patient denies pain elsewhere or any other symptoms. Objective Data Date Time Temp Pulse Resp B/P (MAP) Pulse Ox O2 Delivery O2 Flow Rate FiO2 10/28/17 09:30 97.7 66 18 104/53 (70) 92 10/28/17 09:25 95 Nasal Cannula 2.00 10/28/17 08:00 97.7 63 16 110/56 (74) 95 10/28/17 04:30 97.4 70 18 126/63 (84) 96 10/28/17 00:00 97.4 65 18 129/82 (98) 74 10/28/17 00:00 97.8 65 18 118/57 (77) 95 10/27/17 23:40 95 Nasal Cannula 2.00 10/27/17 21:30 65 10/27/17 20:00 97.4 98 18 129/85 (100) 97 10/27/17 17:25 63 10/27/17 16:00 97.7 66 18 102/55 (71) 95 10/27/17 12:00 97.8 68 18 109/61 (77) 96 Result Diagram: 10/28/1742 10/28/17641 Laboratory Results Laboratory Tests Test 10/27/17 22:18 10/28/17 06:42 Ferritin 2539 NG/ML White Blood Count 11.4 TH/MM3 Red Blood Count 4.68 MIL/MM3 Hemoglobin 15.9 GM/DL Hematocrit 46.0 % Mean Corpuscular Volume 98.4 FL Mean Corpuscular Hemoglobin 34.0 PG Mean Corpuscular Hemoglobin Concent 34.5 % Red Cell Distribution Width 14.3 % Platelet Count 27 TH/MM3 Mean Platelet Volume 9.9 FL Neutrophils (%) (Auto) 74.3 % Lymphocytes (%) (Auto) 18.8 % Monocytes (%) (Auto) 6.6 % Eosinophils (%) (Auto) 0.1 % Basophils (%) (Auto) 0.2 % Neutrophils # (Auto) 8.5 TH/MM3 Lymphocytes # (Auto) 2.1 TH/MM3 Monocytes # (Auto) 0.7 TH/MM3 Eosinophils # (Auto) 0.0 TH/MM3 Basophils # (Auto) 0.0 TH/MM3 CBC Comment AUTO DIFF Differential Comment AUTO DIFF CONFIRMED Platelet Estimate LOW Platelet Morphology Comment ENLARGED Blood Urea Nitrogen 40 MG/DL Creatinine 1.33 MG/DL Random Glucose 100 MG/DL Calcium Level 8.8 MG/DL Sodium Level 134 MEQ/L Potassium Level 4.2 MEQ/L Chloride Level 99 MEQ/L Carbon Dioxide Level 25.6 MEQ/L Anion Gap 9 MEQ/L Estimat Glomerular Filtration Rate 51 ML/MIN Administered Medications Medications (Trade) Dose Ordered Sig/Jocelynn Route PRN Reason Start Time Stop Time Status Last Admin Dose Admin Sodium Chloride (NS Flush) 2 ml BID IV FLUSH 10/23/17 21:00 10/27/17 20:01 Acetaminophen (Tylenol) 650 mg Q4H PRN PO TEMP > 100.4 or Pain 1-3 10/23/17 19:30 10/27/17 11:50 Senna/Docusate Sodium (Юлия-Colace) 1 tab BID PO 10/23/17 21:00 10/28/17 09:54 Amlodipine Besylate (Norvasc) 10 mg DAILY PO 10/24/17 09:00 10/27/17 07:58 Atorvastatin Calcium (Lipitor) 10 mg DAILY PO 10/24/17 09:00 10/28/17 09:49 Budesonide/ Formoterol Fumarate (Symbicort 160-4.5 Mcg Inh) 1 puff Q12HR INH 10/24/17 09:00 10/28/17 09:00 Bupropion HCl (Wellbutrin Sr) 300 mg DAILY PO 10/24/17 09:00 10/28/17 09:49 Escitalopram Oxalate (Lexapro) 5 mg DAILY PO 10/24/17 09:00 10/28/17 09:56 Finasteride (Proscar) 5 mg DAILY PO 10/24/17 09:00 10/28/17 09:56 Furosemide (Lasix) 20 mg BID PO 10/24/17 09:00 10/27/17 20:02 Losartan Potassium (Cozaar) 50 mg DAILY PO 10/24/17 09:00 10/27/17 07:58 Metoprolol Tartrate (Lopressor) 12.5 mg DAILY PO 10/24/17 09:00 10/27/17 07:57 Potassium Chloride (KCl) 20 meq DAILY PO 10/24/17 09:00 10/28/17 09:50 Spironolactone (Aldactone) 12.5 mg DAILY PO 10/24/17 09:00 10/27/17 08:00 Tamsulosin HCl (Flomax) 0.4 mg DAILY PO 10/24/17 09:00 10/28/17 09:54 Magnesium Oxide (Mag-Ox) 400 mg BID PO 10/24/17 09:00 10/28/17 09:56 Prednisone (Deltasone) 100 mg DAILY PO 10/25/17 13:00 10/28/17 09:54 Pantoprazole Sodium (Protonix) 40 mg DAILY PO 10/25/17 13:15 10/28/17 09:56 Acetaminophen/ Hydrocodone Bitart (Sturgeon 5-325 Mg) 1 tab Q6H PRN PO PAIN SCALE 4 TO 10 10/27/17 16:00 10/27/17 17:03 Objective Remarks GENERAL: Elderly male sitting up in hospital bed in [facility]. SKIN: Warm and dry. scattered old bruises on extremities. HEAD: Normocephalic. atraumatic. EYES: No injection or drainage. NECK: Supple, trachea midline CARDIOVASCULAR: +S1/S2 RESPIRATORY: occasional rhonchi GASTROINTESTINAL: Abdomen soft, non-tender, nondistended. EXTREMITIES: No cyanosis NEUROLOGICAL: awake and alert. facial movements symmetric. normal speech. Assessment/Plan Problem List: (1) Thrombocytopenia ICD Codes: D69.6 - Thrombocytopenia, unspecified Status: Acute Plan: --will need bone marrow biopsy --admitted for worsening thrombocytopenia. ++evidence of bruising and muscle subcutaneous bleed in the foot and in the briggs. --s/p IVIG on 10/26/17 --HIT negative --on empiric steroids. 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 (2) DVT (deep venous thrombosis) ICD Codes: I82.409 - Acute embolism and thrombosis of unspecified deep veins of unspecified lower extremity Plan: --appears chronic --has contraindication to ac at this time (thrombocytopenia) --since DVT is below the knee, will monitor with serial ultrasounds every few days. (3) History of hemochromatosis ICD Codes: Z86.39 - Personal history of other endocrine, nutritional and metabolic disease Plan: -- at bedside reports patient was diagnosed with a blood disorder as a teenager which required him to receive phlebotomy every few weeks. -?? hemochromatosis --will obtain ferritin level Assessment 82-year-old male with thrombocytopenia h/o Arthritis Arrhythmia, Gastroesophageal reflux, Hypertension, Carotid endarterectomy Plan 1. continue steroids 2. monitor CBC 3. will need to obtain bone marrow biopsy in the next few days when platelets improve. Attending Statement The exam, history, and the medical decision-making described in the above note were completed with the assistance of the mid-level provider. I reviewed and agree with the findings presented. I attest that I had a [id number] encounter with the patient on the same day, and personally performed and documented my assessment and findings in the medical record. Pt seen and examined. No changes in senile purpura/arm bruises. No active bleeding. Diff dx ITP, partial response to steroids, platelets > 20k avoid IVIG. Discussed BM biopsy, pending on response to continued steroids to r/o other underlying BM pathology. Continue to follow. Problem Qualifiers (1) DVT (deep venous thrombosis): Qualified Codes: I82.441 - Acute embolism and thrombosis of right tibial vein Radha Morley Oct 28, 2017 11:37 Emily Caban MD Oct 28, 2017 19:57
[2017-10-28 19:53] LABS: BETA2 GLYCOPROTEIN I AB IGA LESS THAN 9.0 SAU (< OR = 20); BETA2 GLYCOPROTEIN I AB IGG LESS THAN 9.0 SGU (< OR = 20)
[2017-10-29] VITALS (11 sets, daily range): BP systolic 94–147; BP diastolic 48–78; PULSE 63–87; RESP 18–20; TEMP 97–98.1; O2SAT 93–96
[2017-10-29 03:50] LABS: CARDIOLIPIN AB IGA LESS THAN 11.0 APL (0-11)
[2017-10-29] MEDS: ACETAMINOPHEN/HYDROcodone 325 MG/5 MG TAB PO PRN (07:30)
[2017-10-29 08:12] LABS: AUTOMATED NEUTROPHIL # 7.5 TH/MM3 (1.8-7.7); BASOPHIL % 0.4 % (0.0-2.0); EOSINOPHIL % 0.1 % (0.0-4.0); HEMATOCRIT 47.2 % (39.0-51.0); HEMOGLOBIN 16.6 GM/DL (13.0-17.0); LYMPH % 22.4 % (9.0-44.0); LYMPHOCYTE # 2.4 TH/MM3 (1.0-4.8); MEAN CELL VOLUME 98.1 FL (80.0-100.0); MEAN CORPUSCULAR HEMOGLOBIN 34.5 PG (27.0-34.0); MEAN CORPUSCULAR HGB CONC 35.2 % (32.0-36.0); MEAN PLATELET VOLUME 10.5 FL (7.0-11.0); MONO % 7.6 % (0.0-8.0); MONOCYTE # 0.8 TH/MM3 (0-0.9); NEUT % 69.5 % (16.0-70.0); PLATELET COUNT 36 TH/MM3 (150-450); RED BLOOD COUNT 4.81 MIL/MM3 (4.50-5.90); RED CELL DISTRIBUTION WIDTH 14.5 % (11.6-17.2); WHITE BLOOD COUNT 10.8 TH/MM3 (4.0-11.0)
[2017-10-29 08:41] LABS: BICARBONATE 26.7 MEQ/L (21.0-32.0); CALCIUM 8.5 MG/DL (8.5-10.1); CREATININE 1.14 MG/DL (0.60-1.30)
[2017-10-29] MEDS: METOPROLOL TARTRATE 25 MG TAB PO SCH (09:00)
[2017-10-29] MEDS: BUDESONIDE-FORMOTEROL 160/4.5 MCG INHALER INH SCH (09:00)
[2017-10-29] MEDS: DOCUSATE SODIUM 50 MG/SENNA 8.6 MG TAB PO SCH (09:00)
[2017-10-29] MEDS: PT OWN NAMENDA XR 28 MG PO SCH (09:00)
[2017-10-29] MEDS: SODIUM CHLORIDE 0.9% FLUSH 10 ML FLUSH IV FLUSH SCH (09:00)
[2017-10-29] MEDS: MAGNESIUM OXIDE 400 MG TAB PO SCH (09:18)
[2017-10-29] MEDS: TAMSULOSIN HCL 0.4 MG CAP PO SCH (09:18)
[2017-10-29] MEDS: PANTOPRAZOLE SOD 40 MG DELAYED RELEASE TAB PO SCH (09:18)
[2017-10-29] MEDS: POTASSIUM CHLORIDE 20 MEQ CONTROLLED RELEASE TAB PO SCH (09:18)
[2017-10-29] MEDS: ATORVASTATIN 10 MG TAB PO SCH (09:18)
[2017-10-29] MEDS: FINASTERIDE 5 MG TAB PO SCH (09:18)
[2017-10-29] MEDS: ESCITALOPRAM OXALATE 10 MG TAB PO SCH (09:20)
[2017-10-29] MEDS: buPROPion HCL 150 MG SUSTAINED RELEASE TAB PO SCH (09:21)
[2017-10-29] MEDS: LOSARTAN 50 MG TAB PO SCH (09:23)
[2017-10-29] MEDS: SPIRONOLACTONE 25 MG TAB PO SCH (09:24)
[2017-10-29] MEDS: predniSONE 50 MG TAB PO SCH (09:24)
[2017-10-29] MEDS: FUROSEMIDE 20 MG TAB PO SCH (09:24)
--- NOTE | 2017-10-29 11:24 | PD.ONC.PN ---
Subjective Subjective Remarks Afebrile overnight. Patient resting in bed in nad. No further headache. Denies bleeding. Objective Data Date Time Temp Pulse Resp B/P (MAP) Pulse Ox O2 Delivery O2 Flow Rate FiO2 10/29/17 08:35 97.5 71 18 147/70 (95) 96 10/29/17 00:00 97.0 87 20 131/78 (95) 95 10/28/17 21:30 68 10/28/17 19:47 97.1 67 18 127/60 (82) 92 10/28/17 16:00 97.9 71 18 111/59 (76) 94 10/28/17 15:30 65 10/28/17 12:45 97.6 66 18 119/57 (77) 95 10/28/17 12:00 69 Result Diagram: 10/29/17 0749 10/29/17 0749 Laboratory Results Laboratory Tests Test 10/29/17 07:49 White Blood Count 10.8 TH/MM3 Red Blood Count 4.81 MIL/MM3 Hemoglobin 16.6 GM/DL Hematocrit 47.2 % Mean Corpuscular Volume 98.1 FL Mean Corpuscular Hemoglobin 34.5 PG Mean Corpuscular Hemoglobin Concent 35.2 % Red Cell Distribution Width 14.5 % Platelet Count 36 TH/MM3 Mean Platelet Volume 10.5 FL Neutrophils (%) (Auto) 69.5 % Lymphocytes (%) (Auto) 22.4 % Monocytes (%) (Auto) 7.6 % Eosinophils (%) (Auto) 0.1 % Basophils (%) (Auto) 0.4 % Neutrophils # (Auto) 7.5 TH/MM3 Lymphocytes # (Auto) 2.4 TH/MM3 Monocytes # (Auto) 0.8 TH/MM3 Eosinophils # (Auto) 0.0 TH/MM3 Basophils # (Auto) 0.0 TH/MM3 CBC Comment AUTO DIFF Differential Comment AUTO DIFF CONFIRMED Blood Urea Nitrogen 35 MG/DL Creatinine 1.14 MG/DL Random Glucose 91 MG/DL Calcium Level 8.5 MG/DL Sodium Level 134 MEQ/L Potassium Level 4.0 MEQ/L Chloride Level 99 MEQ/L Carbon Dioxide Level 26.7 MEQ/L Anion Gap 8 MEQ/L Estimat Glomerular Filtration Rate 61 ML/MIN Administered Medications Medications (Trade) Dose Ordered Sig/Jocelynn Route PRN Reason Start Time Stop Time Status Last Admin Dose Admin Sodium Chloride (NS Flush) 2 ml BID IV FLUSH 10/23/17 21:00 10/29/17 09:00 Acetaminophen (Tylenol) 650 mg Q4H PRN PO TEMP > 100.4 or Pain 1-3 10/23/17 19:30 10/27/17 11:50 Senna/Docusate Sodium (Юлия-Colace) 1 tab BID PO 10/23/17 21:00 10/28/17 21:46 Amlodipine Besylate (Norvasc) 10 mg DAILY PO 10/24/17 09:00 10/29/17 09:18 Atorvastatin Calcium (Lipitor) 10 mg DAILY PO 10/24/17 09:00 10/29/17 09:18 Budesonide/ Formoterol Fumarate (Symbicort 160-4.5 Mcg Inh) 1 puff Q12HR INH 10/24/17 09:00 10/29/17 09:00 Bupropion HCl (Wellbutrin Sr) 300 mg DAILY PO 10/24/17 09:00 10/29/17 09:21 Escitalopram Oxalate (Lexapro) 5 mg DAILY PO 10/24/17 09:00 10/29/17 09:20 Finasteride (Proscar) 5 mg DAILY PO 10/24/17 09:00 10/29/17 09:18 Furosemide (Lasix) 20 mg BID PO 10/24/17 09:00 10/29/17 09:24 Losartan Potassium (Cozaar) 50 mg DAILY PO 10/24/17 09:00 10/29/17 09:23 Metoprolol Tartrate (Lopressor) 12.5 mg DAILY PO 10/24/17 09:00 10/29/17 09:00 Potassium Chloride (KCl) 20 meq DAILY PO 10/24/17 09:00 10/29/17 09:18 Spironolactone (Aldactone) 12.5 mg DAILY PO 10/24/17 09:00 10/29/17 09:24 Tamsulosin HCl (Flomax) 0.4 mg DAILY PO 10/24/17 09:00 10/29/17 09:18 Magnesium Oxide (Mag-Ox) 400 mg BID PO 10/24/17 09:00 10/29/17 09:18 Prednisone (Deltasone) 100 mg DAILY PO 10/25/17 13:00 10/29/17 09:24 Diphenhydramine HCl (Benadryl) 25 mg Q4H PRN PO SEE LABEL COMMENTS 10/25/17 13:00 10/29/17 02:04 Pantoprazole Sodium (Protonix) 40 mg DAILY PO 10/25/17 13:15 10/29/17 09:18 Acetaminophen/ Hydrocodone Bitart (Aurora 5-325 Mg) 1 tab Q6H PRN PO PAIN SCALE 4 TO 10 10/27/17 16:00 10/29/17 07:30 Objective Remarks GENERAL: Elderly male sitting up in bed. smells of urine. (I called and asked the ELECTROLYSIS INVESTIGATOR to clean him as it appears he just soiled himself) SKIN: Warm and dry. HEAD: Normocephalic. EYES: No injection or drainage. NECK: Supple, trachea midline. CARDIOVASCULAR: +S1/S2 RESPIRATORY: Breath sounds equal bilaterally. No accessory muscle use. GASTROINTESTINAL: Abdomen soft, non-tender, nondistended. EXTREMITIES: No cyanosis NEUROLOGICAL: awake and alert, normal speech Assessment/Plan Problem List: (1) Thrombocytopenia ICD Codes: D69.6 - Thrombocytopenia, unspecified Status: Acute Plan: --10/29: consult IR for bone marrow biopsy --admitted for worsening thrombocytopenia. ++evidence of bruising and muscle subcutaneous bleed in the foot and in the briggs. --s/p IVIG on 10/26/17 --HIT negative --on empiric steroids. 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 (2) DVT (deep venous thrombosis) ICD Codes: I82.409 - Acute embolism and thrombosis of unspecified deep veins of unspecified lower extremity Plan: --appears chronic --has contraindication to ac at this time (thrombocytopenia) --since DVT is below the knee, will monitor with serial ultrasounds every few days. (3) History of hemochromatosis ICD Codes: Z86.39 - Personal history of other endocrine, nutritional and metabolic disease Plan: -- at bedside reports patient was diagnosed with a blood disorder as a teenager which required him to receive phlebotomy every few weeks. --hemochromatosis labs pending. -- ferritin elevated Assessment 82-year-old male with thrombocytopenia h/o Arthritis Arrhythmia, Gastroesophageal reflux, Hypertension, Carotid endarterectomy Plan 1. continue steroids 2. monitor CBC 3. consult invasive radiology for bone marrow biopsy Attending Statement The exam, history, and the medical decision-making described in the above note were completed with the assistance of the mid-level provider. I reviewed and agree with the findings presented. I attest that I had a [id number] encounter with the patient on the same day, and personally performed and documented my assessment and findings in the medical record. Pt seen and examined. Tolerated BM bx well. No change in hoarseness. No bleeding. Continue steroids. Problem Qualifiers (1) DVT (deep venous thrombosis): Qualified Codes: I82.441 - Acute embolism and thrombosis of right tibial vein Radha Morley Oct 29, 2017 11:23 Emily Caban MD Oct 29, 2017 21:12
[2017-10-29] MEDS ORDERED: MIDAZOLAM HCL 2 MG/2 ML VIAL ONE (12:45)
[2017-10-29] MEDS ORDERED: LIDOCAINE HCL 1% 20 ML VIAL ONE (14:46)
--- NOTE | 2017-10-29 14:54 | HHI.PR ---
Subjective Remarks Follow-up thrombocytopenia, DVT. Patient has no specific complaints at this time. Voice remains hoarse. Denies headache currently. Scheduled for bone marrow biopsy today. Objective Vitals Vital Signs Date Time Temp Pulse Resp B/P (MAP) Pulse Ox O2 Delivery O2 Flow Rate FiO2 10/29/17 12:17 97.5 71 18 122/55 (77) 95 10/29/17 08:35 97.5 71 18 147/70 (95) 96 10/29/17 07:00 83 10/29/17 00:00 97.0 87 20 131/78 (95) 95 10/28/17 21:30 68 10/28/17 19:47 97.1 67 18 127/60 (82) 92 10/28/17 16:00 97.9 71 18 111/59 (76) 94 10/28/17 15:30 65 I/O 10/28/17 10/28/17 10/28/17 10/29/17 10/29/17 10/29/17 07:00 15:00 23:00 07:00 15:00 23:00 # Voids 4 # Bowel Movements 1 Result Diagram: 10/29/17 0749 10/29/17 0749 Imaging Last Impressions Lower Extremity Ultrasound 10/27/17 0000 Signed Impressions: Service Date/Time: Friday, October 27, 2017 12:55 - CONCLUSION: Venous thrombosis the posterior tibial vein extending into the popliteal vein where it is nonocclusive. Aj Sanders MD FACR Head CT 10/27/17 0000 Signed Impressions: Service Date/Time: Friday, October 27, 2017 12:20 - CONCLUSION: 1. Findings concerning for subacute infarct in the right occipital lobe. MRI examination may be performed for better evaluation as indicated. 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 3. Senescent changes with mild periventricular small vessel white matter ischemic demyelination. Jensen Brown MD Chest X-Ray 10/26/17 0000 Signed Impressions: Service Date/Time: Thursday, October 26, 2017 14:05 - CONCLUSION: 1. Cardiomegaly and findings of vascular congestion without overt failure. Apolinar Cleaning MD Liver Ultrasound 10/24/17 0000 Signed Impressions: Service Date/Time: October 22:45 - CONCLUSION: 1. Cholelithiasis with gallbladder wall thickening. Cholecystitis is not excluded. Radionuclide imaging is recommended for further evaluation if clinically indicated. 2. Echogenic liver compatible with fatty infiltration or hepatocellular disease. Apolinar Cleaning MD Ankle X-Ray 10/23/171815 Signed Impressions: Service Date/Time: October 18:21 - CONCLUSION: No acute disease. Lui Emmanuel MD Objective Remarks General: Elderly male in no acute distress. Voice is hoarse. Skin: Ecchymosis present on upper and lower extremities. Heart: Regular rate and rhythm. No murmur. Lungs: Clear to auscultation bilaterally. No wheezes, rales, or rhonchi. Breathing is nonlabored. Abdomen: Soft, nontender, nondistended. Extremities: No lower extremity edema. Psych: Alert, answers questions appropriately. Procedures None Urinary Catheter: No Vascular Central Line Catheter: No A/P Assessment and Plan 1. Thrombocytopenia: Serum platelets slightly better today. Management per hematology. IVIG given 10/26/17. Continue oral steroids. Bone marrow biopsy today. 2. Coronary artery disease, hypertension, heart block: Patient has pacemaker. Continue amlodipine, losartan, spironolactone, Lasix. Aspirin on hold secondary to thrombocytopenia. 3. Hyperlipidemia: Continue statin. 4. Depression, dementia: Continue home medications. 5. BPH: Continue Flomax, Proscar. 6. DVT: Ultrasound shows DVT of the proximal right posterior tibial vein. Appreciate hematology recommendations. No anticoagulation at this time due to severe thrombocytopenia. Repeat ultrasound shows DVT. Lyndon Rojo MD Oct 29, 2017 14:54
--- NOTE | 2017-10-29 15:53 | PD.RAD ---
Post CT Procedure Prog Note Pre Procedure Diagnosis: (1) Thrombocytopenia Post Procedure Diagnosis: Procedure Date: Oct 29, 2017 Supervising Radiologist: Ed Anthony Proceduralist/Assist: juana camilo Estimated blood loss: none Plan of Activity Patient to Unit: ROPU Patient Condition: Good See PACS Report for procedural detail/treatment Ed Anthony MD Oct 29, 2017 15:53
[2017-10-30] VITALS (12 sets, daily range): BP systolic 94–140; BP diastolic 51–69; PULSE 64–88; RESP 18–20; TEMP 97.2–98.9; O2SAT 94–100
[2017-10-30] MEDS: FUROSEMIDE 20 MG TAB PO SCH ×3 (00:04→20:57)
[2017-10-30] MEDS: DOCUSATE SODIUM 50 MG/SENNA 8.6 MG TAB PO SCH ×3 (00:05→20:57)
[2017-10-30] MEDS: MAGNESIUM OXIDE 400 MG TAB PO SCH ×3 (00:05→20:57)
[2017-10-30] MEDS: SODIUM CHLORIDE 0.9% FLUSH 10 ML FLUSH IV FLUSH SCH ×3 (00:05→20:58)
[2017-10-30] MEDS: BUDESONIDE-FORMOTEROL 160/4.5 MCG INHALER INH SCH ×3 (00:06→20:58)
[2017-10-30] MEDS: METOPROLOL TARTRATE 25 MG TAB PO SCH (08:46)
[2017-10-30] MEDS: predniSONE 50 MG TAB PO SCH (08:46)
[2017-10-30] MEDS: buPROPion HCL 150 MG SUSTAINED RELEASE TAB PO SCH (08:46)
[2017-10-30] MEDS: ESCITALOPRAM OXALATE 10 MG TAB PO SCH (08:46)
[2017-10-30] MEDS: LOSARTAN 50 MG TAB PO SCH (08:47)
[2017-10-30] MEDS: ATORVASTATIN 10 MG TAB PO SCH (08:47)
[2017-10-30] MEDS: SPIRONOLACTONE 25 MG TAB PO SCH (08:47)
[2017-10-30] MEDS: TAMSULOSIN HCL 0.4 MG CAP PO SCH (08:47)
[2017-10-30] MEDS: POTASSIUM CHLORIDE 20 MEQ CONTROLLED RELEASE TAB PO SCH (08:47)
[2017-10-30] MEDS: FINASTERIDE 5 MG TAB PO SCH (08:47)
[2017-10-30] MEDS: PANTOPRAZOLE SOD 40 MG DELAYED RELEASE TAB PO SCH (08:48)
[2017-10-30] MEDS: PT OWN NAMENDA XR 28 MG PO SCH (09:00)
--- NOTE | 2017-10-30 11:14 | HHI.PR ---
Subjective Remarks Follow-up thrombocytopenia, DVT. Patient reporting cough. No other complaints at this time. Pain well controlled. Objective Vitals Vital Signs Date Time Temp Pulse Resp B/P (MAP) Pulse Ox O2 Delivery O2 Flow Rate FiO2 10/30/17 10:26 97 Nasal Cannula 2.00 10/30/17 08:46 97.6 73 18 140/63 (88) 97 10/30/17 08:00 79 10/30/17 06:00 97.7 68 18 124/62 (82) 94 10/30/17 02:35 Nasal Cannula 2.00 10/30/17 00:30 97.8 88 19 140/69 (92) 100 10/30/17 00:00 98.9 64 19 99/65 (76) 95 10/29/17 23:56 63 10/29/17 20:00 98.1 67 18 99/48 (65) 94 10/29/17 19:47 75 10/29/17 17:20 96 Nasal Cannula 2.00 10/29/17 16:30 77 18 103/64 (77) 96 10/29/17 16:15 97.0 70 18 94/63 (73) 93 10/29/17 16:00 97.5 71 18 97/54 (68) 93 10/29/17 12:17 97.5 71 18 122/55 (77) 95 I/O 10/29/17 10/29/17 10/29/17 10/30/17 10/30/17 10/30/17 07:00 15:00 23:00 07:00 15:00 23:00 Intake Total 120 ml 675 ml 400 ml Balance 120 ml 675 ml 400 ml Intake Oral 120 ml 675 ml 400 ml # Voids 3 0 4 # Bowel Movements 0 0 Result Diagram: 10/29/17 0749 10/29/17 0749 Imaging Last Impressions Lower Extremity Ultrasound 10/27/17 0000 Signed Impressions: Service Date/Time: Friday, October 27, 2017 12:55 - CONCLUSION: Venous thrombosis the posterior tibial vein extending into the popliteal vein where it is nonocclusive. Aj Sanders MD FACR Head CT 10/27/17 0000 Signed Impressions: Service Date/Time: Friday, October 27, 2017 12:20 - CONCLUSION: 1. Findings concerning for subacute infarct in the right occipital lobe. MRI examination may be performed for better evaluation as indicated. 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 3. Senescent changes with mild periventricular small vessel white matter ischemic demyelination. Jensen Brown MD Chest X-Ray 10/26/17 0000 Signed Impressions: Service Date/Time: Thursday, October 26, 2017 14:05 - CONCLUSION: 1. Cardiomegaly and findings of vascular congestion without overt failure. Apolinar Cleaning MD Liver Ultrasound 10/24/17 0000 Signed Impressions: Service Date/Time: October 22:45 - CONCLUSION: 1. Cholelithiasis with gallbladder wall thickening. Cholecystitis is not excluded. Radionuclide imaging is recommended for further evaluation if clinically indicated. 2. Echogenic liver compatible with fatty infiltration or hepatocellular disease. Apolinar Cleaning MD Ankle X-Ray 10/23/171815 Signed Impressions: Service Date/Time: October 18:21 - CONCLUSION: No acute disease. Lui Emmanuel MD Objective Remarks General: Elderly male in no acute distress. Voice is hoarse. Skin: Ecchymosis present on upper and lower extremities. Heart: Regular rate and rhythm. No murmur. Lungs: Clear to auscultation bilaterally. No wheezes, rales, or rhonchi. Breathing is nonlabored. Abdomen: Soft, nontender, nondistended. Extremities: No lower extremity edema. Psych: Alert, answers questions appropriately. Procedures None Urinary Catheter: No Vascular Central Line Catheter: No A/P Assessment and Plan 1. Thrombocytopenia: Serum platelets slightly better today. Management per hematology. IVIG given 10/26/17. Continue oral steroids. Bone marrow biopsy done, pathology pending. Labs are pending. 2. Coronary artery disease, hypertension, heart block: Patient has pacemaker. Continue amlodipine, losartan, spironolactone, Lasix. Aspirin on hold secondary to thrombocytopenia. 3. Hyperlipidemia: Continue statin. 4. Depression, dementia: Continue home medications. 5. BPH: Continue Flomax, Proscar. 6. DVT: Ultrasound shows DVT of the proximal right posterior tibial vein. Appreciate hematology recommendations. No anticoagulation at this time due to severe thrombocytopenia. Repeat ultrasound shows DVT. 7. Acute kidney injury: Labs are pending today. Lyndon Rojo MD Oct 30, 2017 11:14
[2017-10-30] MEDS: ACETAMINOPHEN/HYDROcodone 325 MG/5 MG TAB PO PRN ×2 (12:11→20:57)
--- NOTE | 2017-10-30 16:04 | RADRPT ---
EXAM DATE/TIME: 10/29/2017 15:37 [facility] COMPARISON: No previous studies available for comparison. INDICATIONS : Anemia,Thrombocytopenia SEDATION TIME: 30 minutes BIOPSY SITE: Right Ilium MEDICATION(S): 1.) 50 mcg fentanyl (Sublimaze) IV DEVICE(S): 1.) 11 gauge On-Control needle MEDICAL HISTORY : Cardiovascular disease. Hypertension. Chronic obstructive pulmonary disease. Dementia SURGICAL HISTORY : Carotid surgery ENCOUNTER: Initial ACUITY: 1 day PAIN SCORE: 7/10 LOCATION: RT [place] A total of one core specimen(s) were obtained and sent to the laboratory for pathologic evaluation. PROCEDURE: 1. CT guided right ilium biopsy. 2. Conscious sedation with continuous EKG and oximetry monitoring. Prior to the procedure informed consent was obtained. Any appropriate prior imaging studies were rev iewed. Using automated exposure control and adjustment of the mA and/or kV according to patient size , radiation dose was kept as low as reasonably achievable to obtain optimal diagnostic quality images . DICOM format image data is available electronically for review and comparison. The site was prepped in a sterile fashion. Full sterile technique was used, including cap, mask, maddy rile gloves and gown and a large sterile sheet. Hand hygiene and 2% chlorhexidine and/or betadine/al cohol prep was utilized per protocol for cutaneous antisepsis. The skin and subcutaneous tissues wer e infiltrated with local anesthetic solution. With CT guidance the previously identified target was localized. Biopsy was performed using the presc ribed needle as above. Following biopsy marrow aspiration was performed with repeat puncture. Adequa te hemostasis was obtained with compression at the puncture site. Follow-up CT scan reveals no hemorrhage. Conscious sedation was performed with the prescribed dosages and duration as above in the presence of an independent trained radiology nurse to assist in the monitoring of the patient. EKG and oximetry remained stable throughout the procedure. The patient tolerated the procedure well and there were no complications. The patient was sent to Radiology Outpatient Unit in stable condition. CONCLUSION: 1. Uncomplicated CT guided bone marrow aspirate. 2. Uncomplicated CT guided bone marrow biopsy. Ed Anthony MD on October 30, 2017 at 16:00 Board Certified Radiologist. This report was verified electronically.
[2017-10-31] VITALS (9 sets, daily range): BP systolic 93–123; BP diastolic 50–69; PULSE 66–78; RESP 16–20; TEMP 97.2–98.2; O2SAT 94–98
[2017-10-31] MEDS: PT OWN NAMENDA XR 28 MG PO SCH (09:00)
[2017-10-31] MEDS: BUDESONIDE-FORMOTEROL 160/4.5 MCG INHALER INH SCH ×2 (09:00→21:12)
[2017-10-31] MEDS: FINASTERIDE 5 MG TAB PO SCH (09:00)
[2017-10-31] MEDS: SPIRONOLACTONE 25 MG TAB PO SCH (09:00)
[2017-10-31] MEDS: TAMSULOSIN HCL 0.4 MG CAP PO SCH (09:00)
[2017-10-31 09:09] LABS: AUTOMATED NEUTROPHIL # 9.2 TH/MM3 (1.8-7.7); BASOPHIL % 0.3 % (0.0-2.0); EOSINOPHIL % 0.1 % (0.0-4.0); HEMATOCRIT 49.1 % (39.0-51.0); HEMOGLOBIN 16.6 GM/DL (13.0-17.0); LYMPH % 15.3 % (9.0-44.0); LYMPHOCYTE # 1.8 TH/MM3 (1.0-4.8); MEAN CORPUSCULAR HEMOGLOBIN 33.5 PG (27.0-34.0); MEAN CORPUSCULAR HGB CONC 33.8 % (32.0-36.0); MEAN PLATELET VOLUME 9.2 FL (7.0-11.0); MONO % 5.4 % (0.0-8.0); MONOCYTE # 0.6 TH/MM3 (0-0.9); NEUT % 78.9 % (16.0-70.0); PLATELET COUNT 44 TH/MM3 (150-450); RED BLOOD COUNT 4.96 MIL/MM3 (4.50-5.90); RED CELL DISTRIBUTION WIDTH 14.4 % (11.6-17.2); WHITE BLOOD COUNT 11.6 TH/MM3 (4.0-11.0)
[2017-10-31] MEDS: buPROPion HCL 150 MG SUSTAINED RELEASE TAB PO SCH (09:11)
[2017-10-31] MEDS: ATORVASTATIN 10 MG TAB PO SCH (09:11)
[2017-10-31] MEDS: MAGNESIUM OXIDE 400 MG TAB PO SCH ×2 (09:11→21:11)
[2017-10-31] MEDS: FUROSEMIDE 20 MG TAB PO SCH ×2 (09:11→21:11)
[2017-10-31] MEDS: ESCITALOPRAM OXALATE 10 MG TAB PO SCH (09:11)
[2017-10-31] MEDS: predniSONE 50 MG TAB PO SCH (09:11)
[2017-10-31] MEDS: PANTOPRAZOLE SOD 40 MG DELAYED RELEASE TAB PO SCH (09:12)
[2017-10-31] MEDS: POTASSIUM CHLORIDE 20 MEQ CONTROLLED RELEASE TAB PO SCH (09:12)
[2017-10-31] MEDS: DOCUSATE SODIUM 50 MG/SENNA 8.6 MG TAB PO SCH ×2 (09:12→21:11)
[2017-10-31] MEDS: METOPROLOL TARTRATE 25 MG TAB PO SCH (09:12)
[2017-10-31] MEDS: LOSARTAN 50 MG TAB PO SCH (09:12)
[2017-10-31] MEDS: SODIUM CHLORIDE 0.9% FLUSH 10 ML FLUSH IV FLUSH SCH ×2 (09:13→21:12)
[2017-10-31 10:10] LABS: BANDS 5 % (0-6); LYMPHOCYTES 12 % (9-44); MONOCYTES 8 % (0-8); MYELOCYTES 2 % (0-0); NEUTROPHIL # MANUAL DIFF 9.3 TH/MM3 (1.8-7.7); POLYS (SEG NEUTROPHILS) 73 % (16-70)
--- NOTE | 2017-10-31 11:00 | HHI.PR ---
Subjective Remarks Follow up thrombocytopenia, DVT. Patient reports right arm pain, worse with movement. Denies chest pain, dyspnea. Objective Vitals Vital Signs Date Time Temp Pulse Resp B/P (MAP) Pulse Ox O2 Delivery O2 Flow Rate FiO2 10/31/17 08:32 97.4 78 18 105/54 (71) 98 10/31/17 08:21 78 10/31/17 04:00 97.3 78 20 120/69 (86) 95 10/31/17 00:01 68 10/31/17 00:00 97.4 75 20 123/60 (81) 95 10/30/17 21:22 97.3 81 20 108/56 (73) 96 10/30/17 20:01 66 10/30/17 17:25 96 Nasal Cannula 2.00 10/30/17 16:08 97.2 66 18 94/51 (65) 96 10/30/17 12:06 97.4 73 18 109/57 (74) 97 I/O 10/30/17 10/30/17 10/30/17 10/31/17 10/31/17 10/31/17 06:59 14:59 22:59 06:59 14:59 22:59 Intake Total 400 ml 480 ml 200 ml Output Total 400 ml Balance 400 ml 480 ml -200 ml Intake Oral 400 ml 480 ml 200 ml Output Urine Total 400 ml # Voids 4 4 1 # Bowel Movements 0 Result Diagram: 10/31/17 0750 10/29/17 0749 Imaging Last Impressions Bone Biopsy CT 10/29/17 0000 Signed Impressions: Service Date/Time: Sunday, October 29, 2017 15:37 - CONCLUSION: 1. Uncomplicated CT guided bone marrow aspirate. 2. Uncomplicated CT guided bone marrow biopsy. Ed Anthony MD Lower Extremity Ultrasound 10/27/17 0000 Signed Impressions: Service Date/Time: Friday, October 27, 2017 12:55 - CONCLUSION: Venous thrombosis the posterior tibial vein extending into the popliteal vein where it is nonocclusive. Aj Sanders MD FACR Head CT 10/27/17 0000 Signed Impressions: Service Date/Time: Friday, October 27, 2017 12:20 - CONCLUSION: 1. Findings concerning for subacute infarct in the right occipital lobe. MRI examination may be performed for better evaluation as indicated. 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 3. Senescent changes with mild periventricular small vessel white matter ischemic demyelination. Jensen Brown MD Chest X-Ray 10/26/17 0000 Signed Impressions: Service Date/Time: Thursday, October 26, 2017 14:05 - CONCLUSION: 1. Cardiomegaly and findings of vascular congestion without overt failure. Apolinar Cleaning MD Liver Ultrasound 10/24/17 0000 Signed Impressions: Service Date/Time: October 22:45 - CONCLUSION: 1. Cholelithiasis with gallbladder wall thickening. Cholecystitis is not excluded. Radionuclide imaging is recommended for further evaluation if clinically indicated. 2. Echogenic liver compatible with fatty infiltration or hepatocellular disease. Apolinar Cleaning MD Ankle X-Ray 10/23/176 Signed Impressions: Service Date/Time: October 18:21 - CONCLUSION: No acute disease. Lui Emmanuel MD Objective Remarks General: Elderly male in no acute distress. Voice is hoarse. Skin: Ecchymosis present on upper and lower extremities. Heart: Regular rate and rhythm. No murmur. Lungs: Clear to auscultation bilaterally. No wheezes, rales, or rhonchi. Breathing is nonlabored. Abdomen: Soft, nontender, nondistended. Extremities: No lower extremity edema. Psych: Alert, answers questions appropriately. Procedures None Urinary Catheter: No Vascular Central Line Catheter: No A/P Assessment and Plan 1. Thrombocytopenia: Serum platelets trending up slowly. Management per hematology. IVIG given 10/26/17. Continue oral steroids. Bone marrow biopsy done, pathology pending. 2. Coronary artery disease, hypertension, heart block: Patient has pacemaker. Continue amlodipine, losartan, spironolactone, Lasix. Aspirin on hold secondary to thrombocytopenia. 3. Hyperlipidemia: Continue statin. 4. Depression, dementia: Continue home medications. 5. BPH: Continue Flomax, Proscar. 6. DVT: Ultrasound shows DVT of the proximal right posterior tibial vein. Appreciate hematology recommendations. No anticoagulation at this time due to severe thrombocytopenia. Repeat ultrasound shows DVT. 7. Acute kidney injury: Improved. Lyndon Rojo MD Oct 31, 2017 11:00
--- NOTE | 2017-10-31 12:19 | PD.ONC.PN ---
Subjective Subjective Remarks Afebrile overnight. Patient resting in room. No complaints. No bleeding. Objective Data Date Time Temp Pulse Resp B/P (MAP) Pulse Ox O2 Delivery O2 Flow Rate FiO2 10/31/17 11:59 98 Nasal Cannula 2.00 10/31/17 08:32 97.4 78 18 105/54 (71) 98 10/31/17 08:21 78 10/31/17 04:00 97.3 78 20 120/69 (86) 95 10/31/17 00:01 68 10/31/17 00:00 97.4 75 20 123/60 (81) 95 10/30/17 21:22 97.3 81 20 108/56 (73) 96 10/30/17 20:01 66 10/30/17 17:25 96 Nasal Cannula 2.00 10/30/17 16:08 97.2 66 18 94/51 (65) 96 10/31/17 10/31/17 10/31/17 07:00 15:00 23:00 Intake Total 200 ml Output Total 400 ml Balance -200 ml Result Diagram: 10/31/17 0750 10/29/17 0749 Laboratory Results Laboratory Tests Test 10/31/17 07:50 White Blood Count 11.6 TH/MM3 Red Blood Count 4.96 MIL/MM3 Hemoglobin 16.6 GM/DL Hematocrit 49.1 % Mean Corpuscular Volume 99.0 FL Mean Corpuscular Hemoglobin 33.5 PG Mean Corpuscular Hemoglobin Concent 33.8 % Red Cell Distribution Width 14.4 % Platelet Count 44 TH/MM3 Mean Platelet Volume 9.2 FL Neutrophils (%) (Auto) 78.9 % Lymphocytes (%) (Auto) 15.3 % Monocytes (%) (Auto) 5.4 % Eosinophils (%) (Auto) 0.1 % Basophils (%) (Auto) 0.3 % Neutrophils # (Auto) 9.2 TH/MM3 Lymphocytes # (Auto) 1.8 TH/MM3 Monocytes # (Auto) 0.6 TH/MM3 Eosinophils # (Auto) 0.0 TH/MM3 Basophils # (Auto) 0.0 TH/MM3 CBC Comment AUTO DIFF Differential Total Cells Counted 100 Neutrophils % (Manual) 73 % Band Neutrophils % 5 % Lymphocytes % 12 % Monocytes % 8 % Neutrophils # (Manual) 9.3 TH/MM3 Myelocytes 2 % Differential Comment FINAL DIFF MANUAL Platelet Estimate LOW Platelet Morphology Comment NORMAL Administered Medications Medications (Trade) Dose Ordered Sig/Jocelynn Route PRN Reason Start Time Stop Time Status Last Admin Dose Admin Sodium Chloride (NS Flush) 2 ml BID IV FLUSH 10/23/17 21:00 10/31/17 09:13 Acetaminophen (Tylenol) 650 mg Q4H PRN PO TEMP > 100.4 or Pain 1-3 10/23/17 19:30 10/27/17 11:50 Senna/Docusate Sodium (Юлия-Colace) 1 tab BID PO 10/23/17 21:00 10/31/17 09:12 Amlodipine Besylate (Norvasc) 10 mg DAILY PO 10/24/17 09:00 10/31/17 09:12 Atorvastatin Calcium (Lipitor) 10 mg DAILY PO 10/24/17 09:00 10/31/17 09:11 Budesonide/ Formoterol Fumarate (Symbicort 160-4.5 Mcg Inh) 1 puff Q12HR INH 10/24/17 09:00 10/31/17 09:00 Bupropion HCl (Wellbutrin Sr) 300 mg DAILY PO 10/24/17 09:00 10/31/17 09:11 Escitalopram Oxalate (Lexapro) 5 mg DAILY PO 10/24/17 09:00 10/31/17 09:11 Finasteride (Proscar) 5 mg DAILY PO 10/24/17 09:00 10/31/17 09:00 Furosemide (Lasix) 20 mg BID PO 10/24/17 09:00 10/31/17 09:11 Losartan Potassium (Cozaar) 50 mg DAILY PO 10/24/17 09:00 10/31/17 09:12 Metoprolol Tartrate (Lopressor) 12.5 mg DAILY PO 10/24/17 09:00 10/31/17 09:12 Potassium Chloride (KCl) 20 meq DAILY PO 10/24/17 09:00 10/31/17 09:12 Spironolactone (Aldactone) 12.5 mg DAILY PO 10/24/17 09:00 10/31/17 09:00 Tamsulosin HCl (Flomax) 0.4 mg DAILY PO 10/24/17 09:00 10/31/17 09:00 Magnesium Oxide (Mag-Ox) 400 mg BID PO 10/24/17 09:00 10/31/17 09:11 Prednisone (Deltasone) 100 mg DAILY PO 10/25/17 13:00 10/31/17 09:11 Acetaminophen (Tylenol) 650 mg Q4H PRN PO SEE LABEL COMMENTS 10/25/17 13:00 10/31/17 09:24 Diphenhydramine HCl (Benadryl) 25 mg Q4H PRN PO SEE LABEL COMMENTS 10/25/17 13:00 10/29/17 02:04 Pantoprazole Sodium (Protonix) 40 mg DAILY PO 10/25/17 13:15 10/31/17 09:12 Acetaminophen/ Hydrocodone Bitart (Kittery 5-325 Mg) 1 tab Q6H PRN PO PAIN SCALE 4 TO 10 10/27/17 16:00 10/30/17 20:57 Objective Remarks GENERAL: Elderly male lying in bed in nad SKIN: Warm and dry. HEAD: Normocephalic. EYES: No injection or drainage. NECK: Supple, trachea midline. CARDIOVASCULAR: +S1/S2 RESPIRATORY: Breath sounds equal bilaterally. No accessory muscle use. GASTROINTESTINAL: Abdomen soft, non-tender, nondistended. EXTREMITIES: No cyanosis NEUROLOGICAL: awake, normal speech, alert. Assessment/Plan Problem List: (1) Thrombocytopenia ICD Codes: D69.6 - Thrombocytopenia, unspecified Status: Acute Plan: --s/p bone marrow biopsy in IR, awaiting results. --admitted for worsening thrombocytopenia. ++evidence of bruising and muscle subcutaneous bleed in the foot and in the briggs. --s/p IVIG on 10/26/17 --HIT negative --on empiric steroids. 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 (2) DVT (deep venous thrombosis) ICD Codes: I82.409 - Acute embolism and thrombosis of unspecified deep veins of unspecified lower extremity Plan: 10/31: platelets improving, will start prophylactic dose Lovenox. continue to monitor closely. --appears chronic --since DVT is below the knee, will monitor with serial ultrasounds every few days. (3) History of hemochromatosis ICD Codes: Z86.39 - Personal history of other endocrine, nutritional and metabolic disease Plan: -- at bedside reports patient was diagnosed with a blood disorder as a teenager which required him to receive phlebotomy every few weeks. --hemochromatosis labs pending. -- ferritin elevated Assessment 82-year-old male with thrombocytopenia h/o Arthritis Arrhythmia, Gastroesophageal reflux, Hypertension, Carotid endarterectomy Plan 1. continue steroids 2. monitor CBC 3. await bone marrow biopsy results 4. start prophylactic dose Lovenox Attending Statement Discussed DVT, since platelet >30K start prophylaxis, monitor for progression. Continue steroids. Await results BM bx. Problem Qualifiers (1) DVT (deep venous thrombosis): Qualified Codes: I82.441 - Acute embolism and thrombosis of right tibial vein Radha Morley Oct 31, 2017 12:19 Emily Caban MD Oct 31, 2017 15:48
[2017-10-31] MEDS: ENOXAPARIN SODIUM 40 MG/0.4 ML SYRINGE SQ SCH (13:26)
[2017-11-01] VITALS (9 sets, daily range): BP systolic 95–116; BP diastolic 54–59; PULSE 66–76; RESP 16–18; TEMP 97.4–98.1; O2SAT 94–97
[2017-11-01] MEDS: ACETAMINOPHEN/HYDROcodone 325 MG/5 MG TAB PO PRN ×4 (01:38→21:25)
[2017-11-01] MEDS: RESP: ALBUTEROL 2.5 MG/3 ML NEB (PRN) NEB (02:13)
[2017-11-01 08:12] LABS: BASOPHIL % 0.1 % (0.0-2.0); HEMATOCRIT 47.8 % (39.0-51.0); LYMPH % 14.1 % (9.0-44.0); LYMPHOCYTE # 1.8 TH/MM3 (1.0-4.8); MEAN CELL VOLUME 99.3 FL (80.0-100.0); MEAN CORPUSCULAR HEMOGLOBIN 33.2 PG (27.0-34.0); MEAN CORPUSCULAR HGB CONC 33.4 % (32.0-36.0); MEAN PLATELET VOLUME 8.7 FL (7.0-11.0); MONO % 5.7 % (0.0-8.0); MONOCYTE # 0.7 TH/MM3 (0-0.9); NEUT % 80.1 % (16.0-70.0); PLATELET COUNT 65 TH/MM3 (150-450); RED BLOOD COUNT 4.81 MIL/MM3 (4.50-5.90); RED CELL DISTRIBUTION WIDTH 14.6 % (11.6-17.2); WHITE BLOOD COUNT 12.5 TH/MM3 (4.0-11.0)
[2017-11-01] MEDS: buPROPion HCL 150 MG SUSTAINED RELEASE TAB PO SCH (08:16)
[2017-11-01] MEDS: ESCITALOPRAM OXALATE 10 MG TAB PO SCH (08:16)
[2017-11-01] MEDS: FUROSEMIDE 20 MG TAB PO SCH ×2 (08:16→21:25)
[2017-11-01] MEDS: predniSONE 50 MG TAB PO SCH (08:16)
[2017-11-01] MEDS: LOSARTAN 50 MG TAB PO SCH (08:16)
[2017-11-01] MEDS: SPIRONOLACTONE 25 MG TAB PO SCH (08:17)
[2017-11-01] MEDS: DOCUSATE SODIUM 50 MG/SENNA 8.6 MG TAB PO SCH ×2 (08:17→21:26)
[2017-11-01] MEDS: MAGNESIUM OXIDE 400 MG TAB PO SCH ×2 (08:17→21:25)
[2017-11-01] MEDS: ATORVASTATIN 10 MG TAB PO SCH (08:17)
[2017-11-01] MEDS: PANTOPRAZOLE SOD 40 MG DELAYED RELEASE TAB PO SCH (08:18)
[2017-11-01] MEDS: METOPROLOL TARTRATE 25 MG TAB PO SCH (08:18)
[2017-11-01] MEDS: FINASTERIDE 5 MG TAB PO SCH (08:18)
[2017-11-01] MEDS: POTASSIUM CHLORIDE 20 MEQ CONTROLLED RELEASE TAB PO SCH (08:18)
[2017-11-01] MEDS: TAMSULOSIN HCL 0.4 MG CAP PO SCH (08:18)
[2017-11-01] MEDS: PT OWN NAMENDA XR 28 MG PO SCH (08:23)
[2017-11-01 08:37] LABS: BICARBONATE 26.6 MEQ/L (21.0-32.0); CALCIUM 8.6 MG/DL (8.5-10.1); CREATININE 1.2 MG/DL (0.60-1.30)
[2017-11-01] MEDS: BUDESONIDE-FORMOTEROL 160/4.5 MCG INHALER INH SCH ×2 (08:48→21:26)
[2017-11-01] MEDS: SODIUM CHLORIDE 0.9% FLUSH 10 ML FLUSH IV FLUSH SCH ×2 (09:00→21:26)
--- NOTE | 2017-11-01 09:42 | HHI.PR ---
Subjective Remarks Patient seen and examined this morning. Vitals are stable and patient's afebrile. States he feels hot. Denies CP or difficulty breathing. Objective Vital Signs Date Time Temp Pulse Resp B/P (MAP) Pulse Ox O2 Delivery O2 Flow Rate FiO2 11/01/17 07:19 95 21 11/01/17 04:00 68 11/01/17 04:00 97.7 69 16 113/59 (77) 96 11/01/17 02:38 20 11/01/17 02:18 95 Nasal Cannula 2.00 11/01/17 00:00 97.4 76 17 116/59 (78) 97 11/01/17 00:00 67 10/31/17 20:00 66 10/31/17 20:00 97.2 75 16 112/60 (77) 95 10/31/17 16:00 98.2 68 18 93/50 (64) 96 10/31/17 15:33 10/31/17 12:43 97.4 68 16 105/52 (69) 94 10/31/17 11:59 98 Nasal Cannula 2.00 I/O 10/31/17 10/31/17 10/31/17 11/01/17 11/01/17 11/01/17 07:00 15:00 23:00 07:00 15:00 23:00 Intake Total 200 ml 0 ml 450 ml Output Total 400 ml 450 ml Balance -200 ml 0 ml 0 ml Intake Oral 200 ml 450 ml IV Total 0 ml Output Urine Total 400 ml 450 ml # Voids 1 1 Result Diagram: 11/01/17 0733 11/01/17 0733 Imaging Last Impressions Bone Biopsy CT 10/29/17 0000 Signed Impressions: Service Date/Time: Sunday, October 29, 2017 15:37 - CONCLUSION: 1. Uncomplicated CT guided bone marrow aspirate. 2. Uncomplicated CT guided bone marrow biopsy. Ed Anthony MD Lower Extremity Ultrasound 10/27/17 0000 Signed Impressions: Service Date/Time: Friday, October 27, 2017 12:55 - CONCLUSION: Venous thrombosis the posterior tibial vein extending into the popliteal vein where it is nonocclusive. Aj Sanders MD FACR Head CT 10/27/17 0000 Signed Impressions: Service Date/Time: Friday, October 27, 2017 12:20 - CONCLUSION: 1. Findings concerning for subacute infarct in the right occipital lobe. MRI examination may be performed for better evaluation as indicated. 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 3. Senescent changes with mild periventricular small vessel white matter ischemic demyelination. Jensen Brown MD Chest X-Ray 10/26/17 0000 Signed Impressions: Service Date/Time: Thursday, October 26, 2017 14:05 - CONCLUSION: 1. Cardiomegaly and findings of vascular congestion without overt failure. Apolinar Cleaning MD Liver Ultrasound 10/24/17 0000 Signed Impressions: Service Date/Time: October 22:45 - CONCLUSION: 1. Cholelithiasis with gallbladder wall thickening. Cholecystitis is not excluded. Radionuclide imaging is recommended for further evaluation if clinically indicated. 2. Echogenic liver compatible with fatty infiltration or hepatocellular disease. Apolinar Cleaning MD Ankle X-Ray 10/23/17 1816 Signed Impressions: Service Date/Time: October 18:21 - CONCLUSION: No acute disease. Lui Emmanuel MD Objective Remarks GENERAL: resting comfortably, nad SKIN: Warm and dry. Bruising of UE noted bilat. HEAD: Normocephalic. EYES: No scleral icterus. No injection or drainage. NECK: Supple, trachea midline. CARDIOVASCULAR: Regular rate and rhythm without murmurs, gallops, or rubs. RESPIRATORY: Breath sounds equal bilaterally. No accessory muscle use. GASTROINTESTINAL: Abdomen soft, non-tender, nondistended. MUSCULOSKELETAL: No cyanosis, or edema. No calf tenderness. A/P Problem List: (1) Heart block ICD Code: I45.9 - Heart block Status: Acute (2) HTN (hypertension) ICD Code: I10 - HTN (hypertension) Status: Chronic (3) Thrombocytopenia ICD Code: D69.6 - Thrombocytopenia, unspecified Status: Acute (4) DVT (deep venous thrombosis) ICD Code: I82.409 - Acute embolism and thrombosis of unspecified deep veins of unspecified lower extremity (5) History of hemochromatosis ICD Code: Z86.39 - Personal history of other endocrine, nutritional and metabolic disease Assessment and Plan 82-year-old man with normal thrombocytopenia and DVT\ Thrombocytopenia - hematology oncology following: plateletes up trending 65, IVIG on 10/26/2017 continue by mouth steroids, status post bone marrow biopsy with path pending - HIT Negative, 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 - ASA held due thrombocytopenia HLD - cont statin Depression, dementia - continue home meds BPH - continue flomax DVT - US proximal right posterior tibial vein - Started on low-dose Lovenox since platelets > 30k - Appears chronic, since DVTs below the knee hematology recommended serial ultrasounds every few days History hemochromatosis - labs pending KIANA - improved Discharge Planning d/c pending further workup and eval by heme/onc Problem Qualifiers (1) DVT (deep venous thrombosis): Qualified Codes: I82.441 - Acute embolism and thrombosis of right tibial vein Xiomy Hinojosa MD Nov 01, 2017 09:42
[2017-11-01] MEDS: ENOXAPARIN SODIUM 40 MG/0.4 ML SYRINGE SQ SCH (13:46)
[2017-11-02] VITALS (8 sets, daily range): BP systolic 107–128; BP diastolic 53–65; PULSE 62–78; RESP 18–20; TEMP 97.1–98.1; O2SAT 93–96
[2017-11-02 09:11] LABS: AUTOMATED NEUTROPHIL # 8.8 TH/MM3 (1.8-7.7); BASOPHIL # 0.1 TH/MM3 (0-0.2); BASOPHIL % 0.5 % (0.0-2.0); EOSINOPHIL % 0.1 % (0.0-4.0); HEMATOCRIT 46.7 % (39.0-51.0); HEMOGLOBIN 16.1 GM/DL (13.0-17.0); LYMPH % 18.6 % (9.0-44.0); LYMPHOCYTE # 2.2 TH/MM3 (1.0-4.8); MEAN CELL VOLUME 99.4 FL (80.0-100.0); MEAN CORPUSCULAR HEMOGLOBIN 34.3 PG (27.0-34.0); MEAN CORPUSCULAR HGB CONC 34.5 % (32.0-36.0); MEAN PLATELET VOLUME 8.9 FL (7.0-11.0); MONOCYTE # 0.8 TH/MM3 (0-0.9); NEUT % 73.8 % (16.0-70.0); PLATELET COUNT 76 TH/MM3 (150-450); RED CELL DISTRIBUTION WIDTH 14.4 % (11.6-17.2); WHITE BLOOD COUNT 11.9 TH/MM3 (4.0-11.0)
[2017-11-02 09:18] LABS: BICARBONATE 25.8 MEQ/L (21.0-32.0); CALCIUM 8.4 MG/DL (8.5-10.1); CREATININE 1.15 MG/DL (0.60-1.30)
--- NOTE | 2017-11-02 09:27 | HHI.PR ---
Subjective Remarks Patient seen and examined this morning. Vitals are stable and patient's afebrile. States hes uncomfortable in his bed, has right hip pain. Breathing comfortably. Objective Vital Signs Date Time Temp Pulse Resp B/P (MAP) Pulse Ox O2 Delivery O2 Flow Rate FiO2 11/02/17 08:00 97.4 78 19 125/65 (85) 93 11/02/17 04:00 71 11/02/17 03:38 97.8 72 20 114/56 (75) 93 11/02/17 00:38 98.1 75 18 119/53 (75) 93 11/02/17 00:00 66 11/01/17 22:25 20 11/01/17 20:07 69 11/01/17 20:00 97.6 71 18 109/55 (73) 96 11/01/17 20:00 76 11/01/17 16:00 98.0 66 16 95/54 (68) 94 11/01/17 12:36 98.1 67 18 102/55 (71) 94 I/O 11/01/17 11/01/17 11/01/17 11/02/17 11/02/17 11/02/17 06:59 14:59 22:59 06:59 14:59 22:59 Intake Total 450 ml Output Total 450 ml 350 ml Balance 0 ml -350 ml Intake Oral 450 ml Output Urine Total 450 ml 350 ml # Voids 1 Result Diagram: 11/01/17 0733 11/02/17 0807 Imaging Last Impressions Bone Biopsy CT 10/29/17 0000 Signed Impressions: Service Date/Time: Sunday, October 29, 2017 15:37 - CONCLUSION: 1. Uncomplicated CT guided bone marrow aspirate. 2. Uncomplicated CT guided bone marrow biopsy. Ed Anthony MD Lower Extremity Ultrasound 10/27/17 0000 Signed Impressions: Service Date/Time: Friday, October 27, 2017 12:55 - CONCLUSION: Venous thrombosis the posterior tibial vein extending into the popliteal vein where it is nonocclusive. Aj Sanders MD FACR Head CT 10/27/17 0000 Signed Impressions: Service Date/Time: Friday, October 27, 2017 12:20 - CONCLUSION: 1. Findings concerning for subacute infarct in the right occipital lobe. MRI examination may be performed for better evaluation as indicated. 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 3. Senescent changes with mild periventricular small vessel white matter ischemic demyelination. Jensen Brown MD Chest X-Ray 10/26/17 0000 Signed Impressions: Service Date/Time: Thursday, October 26, 2017 14:05 - CONCLUSION: 1. Cardiomegaly and findings of vascular congestion without overt failure. Apolinar Cleaning MD Liver Ultrasound 10/24/17 0000 Signed Impressions: Service Date/Time: October 22:45 - CONCLUSION: 1. Cholelithiasis with gallbladder wall thickening. Cholecystitis is not excluded. Radionuclide imaging is recommended for further evaluation if clinically indicated. 2. Echogenic liver compatible with fatty infiltration or hepatocellular disease. Apolinar Cleaning MD Ankle X-Ray 10/23/17 1816 Signed Impressions: Service Date/Time: October 18:21 - CONCLUSION: No acute disease. Lui Emmanuel MD Objective Remarks GENERAL: resting comfortably, nad SKIN: Warm and dry. Bruising of UE noted bilat. HEAD: Normocephalic. EYES: No scleral icterus. No injection or drainage. NECK: Supple, trachea midline. CARDIOVASCULAR: Regular rate and rhythm without murmurs, gallops, or rubs. RESPIRATORY: Breath sounds equal bilaterally. No accessory muscle use. GASTROINTESTINAL: Abdomen soft, non-tender, nondistended. MUSCULOSKELETAL: No cyanosis, or edema. No calf tenderness. A/P Problem List: (1) Heart block ICD Code: I45.9 - Heart block Status: Acute (2) HTN (hypertension) ICD Code: I10 - HTN (hypertension) Status: Chronic (3) Thrombocytopenia ICD Code: D69.6 - Thrombocytopenia, unspecified Status: Acute (4) DVT (deep venous thrombosis) ICD Code: I82.409 - Acute embolism and thrombosis of unspecified deep veins of unspecified lower extremity (5) History of hemochromatosis ICD Code: Z86.39 - Personal history of other endocrine, nutritional and metabolic disease Assessment and Plan 82-year-old man with normal thrombocytopenia and DVT\ Thrombocytopenia - hematology oncology following: plateletes up trending 65, IVIG on 10/26/2017 continue by mouth steroids, status post bone marrow biopsy with path pending - HIT Negative, 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 - ASA held due thrombocytopenia HLD - cont statin Depression, dementia - continue home meds BPH - continue flomax DVT - US proximal right posterior tibial vein - Started on low-dose Lovenox since platelets > 30k - Appears chronic, since DVTs below the knee hematology recommended serial ultrasounds every few days History hemochromatosis - labs taken to give her ferritin 2539, other labs are still pending KIANA - improved HypoNa - Some hyponatremia noted - Restrict free water to less than 2 L per day - NS @ 84 cc/hr Discharge Planning d/c pending bone marrow biopsy results and clearance by heme/onc Problem Qualifiers (1) DVT (deep venous thrombosis): Qualified Codes: I82.441 - Acute embolism and thrombosis of right tibial vein Xiomy Hinojosa MD Nov 02, 2017 09:27
[2017-11-02] MEDS: ACETAMINOPHEN/HYDROcodone 325 MG/5 MG TAB PO PRN ×2 (09:37→15:48)
[2017-11-02] MEDS: FINASTERIDE 5 MG TAB PO SCH (09:38)
[2017-11-02] MEDS: ESCITALOPRAM OXALATE 10 MG TAB PO SCH (09:38)
[2017-11-02] MEDS: METOPROLOL TARTRATE 25 MG TAB PO SCH (09:41)
[2017-11-02] MEDS: FUROSEMIDE 20 MG TAB PO SCH ×2 (09:42→21:52)
[2017-11-02] MEDS: SPIRONOLACTONE 25 MG TAB PO SCH (09:42)
[2017-11-02] MEDS: LOSARTAN 50 MG TAB PO SCH (09:44)
[2017-11-02] MEDS: PANTOPRAZOLE SOD 40 MG DELAYED RELEASE TAB PO SCH (09:44)
[2017-11-02] MEDS: ATORVASTATIN 10 MG TAB PO SCH (09:44)
[2017-11-02] MEDS: DOCUSATE SODIUM 50 MG/SENNA 8.6 MG TAB PO SCH ×2 (09:44→21:00)
[2017-11-02] MEDS: TAMSULOSIN HCL 0.4 MG CAP PO SCH (09:44)
[2017-11-02] MEDS: MAGNESIUM OXIDE 400 MG TAB PO SCH ×2 (09:44→21:51)
[2017-11-02] MEDS: predniSONE 50 MG TAB PO SCH (09:45)
[2017-11-02] MEDS: POTASSIUM CHLORIDE 20 MEQ CONTROLLED RELEASE TAB PO SCH (09:45)
[2017-11-02] MEDS: buPROPion HCL 150 MG SUSTAINED RELEASE TAB PO SCH (09:45)
[2017-11-02] MEDS: SODIUM CHLOR 0.9% 1000 ML INJ 1,000 ML IV SCH ×2 (09:45→22:24)
[2017-11-02] MEDS: SODIUM CHLORIDE 0.9% FLUSH 10 ML FLUSH IV FLUSH SCH ×2 (09:53→21:52)
[2017-11-02] MEDS: PT OWN NAMENDA XR 28 MG PO SCH (09:53)
[2017-11-02] MEDS: BUDESONIDE-FORMOTEROL 160/4.5 MCG INHALER INH SCH ×2 (09:53→21:52)
[2017-11-02] MEDS: ENOXAPARIN SODIUM 40 MG/0.4 ML SYRINGE SQ SCH (12:35)
[2017-11-03] VITALS (8 sets, daily range): BP systolic 59–133; BP diastolic 54–60; PULSE 56–78; RESP 18–20; TEMP 94–98.5; O2SAT 90–98
[2017-11-03] MEDS: MAGNESIUM OXIDE 400 MG TAB PO SCH ×2 (08:42→21:12)
[2017-11-03] MEDS: DOCUSATE SODIUM 50 MG/SENNA 8.6 MG TAB PO SCH ×2 (08:42→21:12)
[2017-11-03] MEDS: POTASSIUM CHLORIDE 20 MEQ CONTROLLED RELEASE TAB PO SCH (08:42)
[2017-11-03] MEDS: ESCITALOPRAM OXALATE 10 MG TAB PO SCH (08:42)
[2017-11-03] MEDS: TAMSULOSIN HCL 0.4 MG CAP PO SCH (08:43)
[2017-11-03] MEDS: FINASTERIDE 5 MG TAB PO SCH (08:43)
[2017-11-03] MEDS: PANTOPRAZOLE SOD 40 MG DELAYED RELEASE TAB PO SCH (08:43)
[2017-11-03] MEDS: SPIRONOLACTONE 25 MG TAB PO SCH (08:44)
[2017-11-03] MEDS: predniSONE 50 MG TAB PO SCH (08:44)
[2017-11-03] MEDS: buPROPion HCL 150 MG SUSTAINED RELEASE TAB PO SCH (08:45)
[2017-11-03] MEDS: LOSARTAN 50 MG TAB PO SCH (08:45)
[2017-11-03] MEDS: FUROSEMIDE 20 MG TAB PO SCH ×2 (08:45→21:12)
[2017-11-03] MEDS: ATORVASTATIN 10 MG TAB PO SCH (08:46)
[2017-11-03] MEDS: METOPROLOL TARTRATE 25 MG TAB PO SCH (08:46)
[2017-11-03] MEDS: ACETAMINOPHEN/HYDROcodone 325 MG/5 MG TAB PO PRN ×2 (08:46→21:28)
[2017-11-03] MEDS: SODIUM CHLORIDE 0.9% FLUSH 10 ML FLUSH IV FLUSH SCH ×2 (08:47→21:00)
[2017-11-03] MEDS: BUDESONIDE-FORMOTEROL 160/4.5 MCG INHALER INH SCH ×2 (08:47→21:13)
[2017-11-03] MEDS: SODIUM CHLOR 0.9% 1000 ML INJ 1,000 ML IV SCH ×2 (08:47→21:15)
[2017-11-03] MEDS: PT OWN NAMENDA XR 28 MG PO SCH (08:50)
--- NOTE | 2017-11-03 09:38 | HHI.PR ---
Subjective Remarks Patient seen and examined this morning. Vitals are stable and patient's afebrile. Sitting comfortably in bed. He is without complaints, no CP or SOB. Objective Vital Signs Date Time Temp Pulse Resp B/P (MAP) Pulse Ox O2 Delivery O2 Flow Rate FiO2 11/03/17 08:24 97.2 70 20 122/58 (79) 97 11/03/17 04:00 97.5 65 18 59/ 98 11/03/17 04:00 66 11/03/17 00:00 69 11/03/17 00:00 97.6 78 18 114/58 (76) 94 11/02/17 20:00 62 11/02/17 20:00 98.0 64 18 107/56 (73) 94 11/02/17 16:00 74 11/02/17 16:00 97.7 69 19 128/57 (80) 93 11/02/17 12:00 97.1 70 19 119/61 (80) 96 I/O 11/02/17 11/02/17 11/02/17 11/03/17 11/03/17 11/03/17 07:00 15:00 23:00 07:00 15:00 23:00 Output Total 750 ml 200 ml 600 ml Balance -750 ml -200 ml -600 ml Output Urine Total 750 ml 200 ml 600 ml # Bowel Movements 0 1 Result Diagram: 11/02/17 0807 11/02/17 0807 Imaging Last Impressions Bone Biopsy CT 10/29/17 0000 Signed Impressions: Service Date/Time: Sunday, October 29, 2017 15:37 - CONCLUSION: 1. Uncomplicated CT guided bone marrow aspirate. 2. Uncomplicated CT guided bone marrow biopsy. Ed Anthony MD Lower Extremity Ultrasound 10/27/17 0000 Signed Impressions: Service Date/Time: Friday, October 27, 2017 12:55 - CONCLUSION: Venous thrombosis the posterior tibial vein extending into the popliteal vein where it is nonocclusive. Aj Sanders MD FACR Head CT 10/27/17 0000 Signed Impressions: Service Date/Time: Friday, October 27, 2017 12:20 - CONCLUSION: 1. Findings concerning for subacute infarct in the right occipital lobe. MRI examination may be performed for better evaluation as indicated. 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 3. Senescent changes with mild periventricular small vessel white matter ischemic demyelination. Jensen Brown MD Chest X-Ray 10/26/17 0000 Signed Impressions: Service Date/Time: Thursday, October 26, 2017 14:05 - CONCLUSION: 1. Cardiomegaly and findings of vascular congestion without overt failure. Apolinar Cleaning MD Liver Ultrasound 10/24/17 0000 Signed Impressions: Service Date/Time: October 22:45 - CONCLUSION: 1. Cholelithiasis with gallbladder wall thickening. Cholecystitis is not excluded. Radionuclide imaging is recommended for further evaluation if clinically indicated. 2. Echogenic liver compatible with fatty infiltration or hepatocellular disease. Apolinar Cleaning MD Ankle X-Ray 10/23/17 1816 Signed Impressions: Service Date/Time: October 18:21 - CONCLUSION: No acute disease. Lui Emmanuel MD Objective Remarks GENERAL: resting comfortably, nad SKIN: Warm and dry. Bruising of UE noted bilat. HEAD: Normocephalic. EYES: No scleral icterus. No injection or drainage. NECK: Supple, trachea midline. CARDIOVASCULAR: Regular rate and rhythm without murmurs, gallops, or rubs. RESPIRATORY: Breath sounds equal bilaterally. No accessory muscle use. GASTROINTESTINAL: Abdomen soft, non-tender, nondistended. MUSCULOSKELETAL: No cyanosis, or edema. No calf tenderness. A/P Problem List: (1) Heart block ICD Code: I45.9 - Heart block Status: Acute (2) HTN (hypertension) ICD Code: I10 - HTN (hypertension) Status: Chronic (3) Thrombocytopenia ICD Code: D69.6 - Thrombocytopenia, unspecified Status: Acute (4) DVT (deep venous thrombosis) ICD Code: I82.409 - Acute embolism and thrombosis of unspecified deep veins of unspecified lower extremity (5) History of hemochromatosis ICD Code: Z86.39 - Personal history of other endocrine, nutritional and metabolic disease Assessment and Plan 82-year-old man with normal thrombocytopenia and DVT\ Thrombocytopenia - hematology oncology following: platelets up trending 65, IVIG on 10/26/2017 continue by mouth steroids, status post bone marrow biopsy with path pending - HIT Negative, 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 - ASA held due thrombocytopenia HLD - cont statin Depression, dementia - continue home meds BPH - continue flomax DVT - US proximal right posterior tibial vein - Started on low-dose Lovenox since platelets > 30k - Appears chronic, since DVTs below the knee hematology recommended serial ultrasounds every few days History hemochromatosis - labs taken to give her ferritin 2539, other labs are still pending KIANA - improved HypoNa - Some hyponatremia noted - repeat BMP pending this am - Restrict free water to less than 2 L per day - NS @ 84 cc/hr Discharge Planning d/c pending bone marrow biopsy results and clearance by heme/onc Problem Qualifiers (1) DVT (deep venous thrombosis): Qualified Codes: I82.441 - Acute embolism and thrombosis of right tibial vein Xiomy Hinojosa MD Nov 03, 2017 09:38
--- NOTE | 2017-11-03 11:22 | PD.ONC.PN ---
Subjective Subjective Remarks Afebrile overnight. "I'm cold." Patient denies bleeding. No pain in legs. Objective Data Date Time Temp Pulse Resp B/P (MAP) Pulse Ox O2 Delivery O2 Flow Rate FiO2 11/03/17 08:24 97.2 70 20 122/58 (79) 97 11/03/17 04:00 97.5 65 18 59/ 98 11/03/17 04:00 66 11/03/17 00:00 69 11/03/17 00:00 97.6 78 18 114/58 (76) 94 11/02/17 20:00 62 11/02/17 20:00 98.0 64 18 107/56 (73) 94 11/02/17 16:00 74 11/02/17 16:00 97.7 69 19 128/57 (80) 93 11/02/17 12:00 97.1 70 19 119/61 (80) 96 11/03/17 11/03/17 11/03/17 07:00 15:00 23:00 Output Total 600 ml Balance -600 ml Result Diagram: 11/02/17 0807 11/02/17 0807 Laboratory Results Laboratory Tests Test 11/03/17 11:00 Administered Medications Medications (Trade) Dose Ordered Sig/Jocelynn Route PRN Reason Start Time Stop Time Status Last Admin Dose Admin Sodium Chloride (NS Flush) 2 ml BID IV FLUSH 10/23/17 21:00 11/02/17 21:52 Acetaminophen (Tylenol) 650 mg Q4H PRN PO TEMP > 100.4 or Pain 1-3 10/23/17 19:30 10/27/17 11:50 Senna/Docusate Sodium (Юлия-Colace) 1 tab BID PO 10/23/17 21:00 11/03/17 08:42 Amlodipine Besylate (Norvasc) 10 mg DAILY PO 10/24/17 09:00 11/03/17 08:42 Atorvastatin Calcium (Lipitor) 10 mg DAILY PO 10/24/17 09:00 11/03/17 08:46 Budesonide/ Formoterol Fumarate (Symbicort 160-4.5 Mcg Inh) 1 puff Q12HR INH 10/24/17 09:00 11/03/17 08:47 Bupropion HCl (Wellbutrin Sr) 300 mg DAILY PO 10/24/17 09:00 11/03/17 08:45 Escitalopram Oxalate (Lexapro) 5 mg DAILY PO 10/24/17 09:00 11/03/17 08:42 Finasteride (Proscar) 5 mg DAILY PO 10/24/17 09:00 11/03/17 08:43 Furosemide (Lasix) 20 mg BID PO 10/24/17 09:00 11/03/17 08:45 Losartan Potassium (Cozaar) 50 mg DAILY PO 10/24/17 09:00 11/03/17 08:45 Metoprolol Tartrate (Lopressor) 12.5 mg DAILY PO 10/24/17 09:00 11/03/17 08:46 Potassium Chloride (KCl) 20 meq DAILY PO 10/24/17 09:00 11/03/17 08:42 Spironolactone (Aldactone) 12.5 mg DAILY PO 10/24/17 09:00 11/03/17 08:44 Tamsulosin HCl (Flomax) 0.4 mg DAILY PO 10/24/17 09:00 11/03/17 08:43 Magnesium Oxide (Mag-Ox) 400 mg BID PO 10/24/17 09:00 11/03/17 08:42 Prednisone (Deltasone) 100 mg DAILY PO 10/25/17 13:00 11/03/17 08:44 Acetaminophen (Tylenol) 650 mg Q4H PRN PO SEE LABEL COMMENTS 10/25/17 13:00 10/31/17 09:24 Diphenhydramine HCl (Benadryl) 25 mg Q4H PRN PO SEE LABEL COMMENTS 10/25/17 13:00 10/29/17 02:04 Pantoprazole Sodium (Protonix) 40 mg DAILY PO 10/25/17 13:15 11/03/17 08:43 Acetaminophen/ Hydrocodone Bitart ([place] 5-325 Mg) 1 tab Q6H PRN PO PAIN SCALE 4 TO 10 10/27/17 16:00 11/03/17 08:46 Enoxaparin Sodium (Lovenox Inj) 40 mg Q24H SQ 10/31/17 13:00 11/02/17 12:35 Albuterol Sulfate (Albuterol Neb) 2.5 mg Q2HR NEB PRN NEB wheezing/bronchial spasm 10/31/17 19:45 11/01/17 02:13 Sodium Chloride 1,000 ml @ 84 mls/hr [id number] IV 11/02/17 10:00 11/03/17 08:47 Objective Remarks GENERAL: Elderly male lying supine in bed, complaining of cold. SKIN: Warm and dry. HEAD: Normocephalic. EYES: No injection or drainage. NECK: Supple, trachea midline. CARDIOVASCULAR: +S1/S2 RESPIRATORY: anterior burch clear. GASTROINTESTINAL: Abdomen soft, non-tender, nondistended. EXTREMITIES: No cyanosis NEUROLOGICAL: awake and alert, normal speech. Assessment/Plan Problem List: (1) Thrombocytopenia ICD Codes: D69.6 - Thrombocytopenia, unspecified Status: Acute Plan: --s/p bone marrow biopsy in IR, awaiting results. --admitted for worsening thrombocytopenia. ++evidence of bruising and muscle subcutaneous bleed in the foot and in the briggs. --s/p IVIG on 10/26/17 --11/03: platelet count continuing to improve on steroids. (2) DVT (deep venous thrombosis) ICD Codes: I82.409 - Acute embolism and thrombosis of unspecified deep veins of unspecified lower extremity Plan: 11/03: check repeat ultrasound for progression of blood clot. --appears chronic --since DVT is below the knee, will monitor with serial ultrasounds every few days. (3) History of hemochromatosis ICD Codes: Z86.39 - Personal history of other endocrine, nutritional and metabolic disease Plan: -- at bedside reports patient was diagnosed with a blood disorder as a teenager which required him to receive phlebotomy every few weeks. --hemochromatosis labs pending. -- ferritin elevated Assessment 82-year-old male with thrombocytopenia h/o Arthritis Arrhythmia, Gastroesophageal reflux, Hypertension, Carotid endarterectomy Plan 1. monitor CBC 2. continue prophylactic dose Lovenox. 3. obtain repeat ultrasound to assess for propagation of LE DVT 4. continue steroids 5. await bone marrow biopsy Problem Qualifiers (1) DVT (deep venous thrombosis): Qualified Codes: I82.441 - Acute embolism and thrombosis of right tibial vein Radha Morley Nov 03, 2017 11:22
[2017-11-03 11:23] LABS: AUTOMATED NEUTROPHIL # 9.7 TH/MM3 (1.8-7.7); BASOPHIL # 0.1 TH/MM3 (0-0.2); BASOPHIL % 0.5 % (0.0-2.0); EOSINOPHIL % 0.2 % (0.0-4.0); HEMATOCRIT 45.1 % (39.0-51.0); HEMOGLOBIN 15.7 GM/DL (13.0-17.0); LYMPH % 10.9 % (9.0-44.0); LYMPHOCYTE # 1.3 TH/MM3 (1.0-4.8); MEAN CELL VOLUME 99.8 FL (80.0-100.0); MEAN CORPUSCULAR HEMOGLOBIN 34.6 PG (27.0-34.0); MEAN CORPUSCULAR HGB CONC 34.7 % (32.0-36.0); MEAN PLATELET VOLUME 9.7 FL (7.0-11.0); MONO % 6.6 % (0.0-8.0); MONOCYTE # 0.8 TH/MM3 (0-0.9); NEUT % 81.8 % (16.0-70.0); PLATELET COUNT 124 TH/MM3 (150-450); RED BLOOD COUNT 4.52 MIL/MM3 (4.50-5.90); RED CELL DISTRIBUTION WIDTH 14.4 % (11.6-17.2); WHITE BLOOD COUNT 11.9 TH/MM3 (4.0-11.0)
[2017-11-03 11:42] LABS: BICARBONATE 24.9 MEQ/L (21.0-32.0); CALCIUM 8.4 MG/DL (8.5-10.1); CREATININE 1.08 MG/DL (0.60-1.30)
--- NOTE | 2017-11-03 12:08 | RADRPT ---
EXAM DATE/TIME: 11/03/2017 10:46 [facility] COMPARISON: US LEG RIGHT VENOUS DOPPLER, October 27, 2017, 12:55. INDICATIONS : Right leg pain. Prior DVT in right leg. MEDICAL HISTORY : Deep venous thrombosis. Hypercholesterolemia. Emphysema. Arthritis. Right eye cataract. Dementia . Chest pain. Irregular heartbeat. HTN. COPD. Dyspnea. Ulcer. GERD. UTI. Frequent nocturia. Gallstone s. SURGICAL HISTORY : Carotid artery surgery. Joint replacement. ENCOUNTER: Subsequent ACUITY: 1 week PAIN SCORE: 3/10 LOCATION: Right leg. TECHNIQUE: Venous ultrasound of the leg was performed from the inguinal ligament to the proximal calf. Real-murali e, color Doppler and spectral tracing, compression and augmentation techniques were used. FINDINGS: There are abnormal intraluminal echoes within the posterior tibial vein. This vessel also demonstrate s lack of normal compression and blood flow. The remaining veins of the right lower extremity demonst rate normal compression and blood flow. CONCLUSION: 1. There is occlusive thrombus within the right posterior tibial vein. 2. The remaining veins are right lower extremity are patent. Juan Alberto Vogel MD on November 03, 2017 at 11:35 Board Certified Radiologist. This report was verified electronically.
[2017-11-03] MEDS: ENOXAPARIN SODIUM 40 MG/0.4 ML SYRINGE SQ SCH (12:56)
[2017-11-04] VITALS (10 sets, daily range): BP systolic 111–131; BP diastolic 55–64; PULSE 61–72; RESP 18–20; TEMP 97.5–97.8; O2SAT 94–99
[2017-11-04] MEDS: RESP: ALBUTEROL 2.5 MG/3 ML NEB (PRN) NEB (02:41)
[2017-11-04] MEDS: ACETAMINOPHEN/HYDROcodone 325 MG/5 MG TAB PO PRN (04:07)
[2017-11-04] MEDS: TAMSULOSIN HCL 0.4 MG CAP PO SCH (07:32)
[2017-11-04] MEDS: predniSONE 50 MG TAB PO SCH (07:32)
[2017-11-04] MEDS: FINASTERIDE 5 MG TAB PO SCH (07:32)
[2017-11-04] MEDS: buPROPion HCL 150 MG SUSTAINED RELEASE TAB PO SCH (07:33)
[2017-11-04] MEDS: ESCITALOPRAM OXALATE 10 MG TAB PO SCH (07:33)
[2017-11-04] MEDS: FUROSEMIDE 20 MG TAB PO SCH (07:33)
[2017-11-04] MEDS: ATORVASTATIN 10 MG TAB PO SCH (07:33)
[2017-11-04] MEDS: SPIRONOLACTONE 25 MG TAB PO SCH (07:33)
[2017-11-04] MEDS: PANTOPRAZOLE SOD 40 MG DELAYED RELEASE TAB PO SCH (07:33)
[2017-11-04] MEDS: POTASSIUM CHLORIDE 20 MEQ CONTROLLED RELEASE TAB PO SCH (07:33)
[2017-11-04] MEDS: MAGNESIUM OXIDE 400 MG TAB PO SCH (07:34)
[2017-11-04] MEDS: METOPROLOL TARTRATE 25 MG TAB PO SCH (07:34)
[2017-11-04] MEDS: SODIUM CHLOR 0.9% 1000 ML INJ 1,000 ML IV SCH (07:34)
[2017-11-04] MEDS: SODIUM CHLORIDE 0.9% FLUSH 10 ML FLUSH IV FLUSH SCH (07:34)
[2017-11-04] MEDS: LOSARTAN 50 MG TAB PO SCH (07:34)
[2017-11-04] MEDS: DOCUSATE SODIUM 50 MG/SENNA 8.6 MG TAB PO SCH (07:34)
[2017-11-04] MEDS: BUDESONIDE-FORMOTEROL 160/4.5 MCG INHALER INH SCH (07:35)
[2017-11-04] MEDS: PT OWN NAMENDA XR 28 MG PO SCH (07:44)
[2017-11-04] MEDS ORDERED: APIXABAN 2.5 MG TABLET PO SCH (09:00)
[2017-11-04 10:25] LABS: BASOPHIL % 0.2 % (0.0-2.0); HEMATOCRIT 45.1 % (39.0-51.0); HEMOGLOBIN 15.5 GM/DL (13.0-17.0); LYMPH % 10.9 % (9.0-44.0); LYMPHOCYTE # 1.2 TH/MM3 (1.0-4.8); MEAN CELL VOLUME 100.3 FL (80.0-100.0); MEAN CORPUSCULAR HEMOGLOBIN 34.4 PG (27.0-34.0); MEAN CORPUSCULAR HGB CONC 34.3 % (32.0-36.0); MEAN PLATELET VOLUME 8.5 FL (7.0-11.0); MONO % 4.2 % (0.0-8.0); MONOCYTE # 0.5 TH/MM3 (0-0.9); NEUT % 84.7 % (16.0-70.0); PLATELET COUNT 108 TH/MM3 (150-450); RED CELL DISTRIBUTION WIDTH 14.7 % (11.6-17.2); WHITE BLOOD COUNT 10.6 TH/MM3 (4.0-11.0)
[2017-11-04] MEDS ORDERED: APIX2.5T PO (11:36)
[2017-11-04] MEDS ORDERED: PRED50 PO (11:36)
[2017-11-04] MEDS ORDERED: TRAM50TA PO (11:39)
--- NOTE | 2017-11-04 11:40 | HHI.DS ---
Discharge Summary Admission Date Oct 23, 2017 at 19:10 Discharge Date: Nov 04, 2017 Admitting Diagnosis low platelet counts (1) Thrombocytopenia ICD Code: D69.6 - Thrombocytopenia, unspecified Status: Acute (2) DVT (deep venous thrombosis) ICD Code: I82.409 - Acute embolism and thrombosis of unspecified deep veins of unspecified lower extremity (3) History of hemochromatosis ICD Code: Z86.39 - Personal history of other endocrine, nutritional and metabolic disease (4) HTN (hypertension) ICD Code: I10 - HTN (hypertension) Status: Chronic Procedures None Brief History - From Admission History of present illness from the admitting physician 82-year-old male with a past medical history significant for CAD, heart block status post pacemaker implantation, hypertension, hyperlipidemia, dementia and BPH presents to the emergency department for evaluation of thrombocytopenia. The patient is a senior care resident who had outside lab work done. His platelets were reportedly 30 yesterday. The patient is confused and believes he is at [facility]. He is an extremely poor historian. He believes it is 2015. He states he lives with his in an apartment independently. He denies any sources of bleeding. Denies melena. He has ecchymoses on the bilateral feet and on the right briggs. He has no evidence of petechiae. Laboratory values significant for a platelet count of 6000. H&H 14.6/42.6. CBC/BMP: 11/04/17 0911 11/03/17 1100 Significant Findings Laboratory Tests Test 11/02/17 08:07 11/03/17 11:00 11/04/17 09:11 White Blood Count 11.9 TH/MM3 (4.0-11.0) 11.9 TH/MM3 (4.0-11.0) Mean Corpuscular Hemoglobin 34.3 PG (27.0-34.0) 34.6 PG (27.0-34.0) 34.4 PG (27.0-34.0) Platelet Count 76 TH/MM3 (150-450) 124 TH/MM3 (150-450) 108 TH/MM3 (150-450) Neutrophils (%) (Auto) 73.8 % (16.0-70.0) 81.8 % (16.0-70.0) 84.7 % (16.0-70.0) Neutrophils # (Auto) 8.8 TH/MM3 (1.8-7.7) 9.7 TH/MM3 (1.8-7.7) 9.0 TH/MM3 (1.8-7.7) Platelet Estimate LOW (NORMAL) Blood Urea Nitrogen 40 MG/DL (7-18) 32 MG/DL (7-18) Calcium Level 8.4 MG/DL (8.5-10.1) 8.4 MG/DL (8.5-10.1) Sodium Level 131 MEQ/L (136-145) 134 MEQ/L (136-145) Chloride Level 97 MEQ/L (98-107) Estimat Glomerular Filtration Rate 61 ML/MIN (>89) 65 ML/MIN (>89) Random Glucose 142 MG/DL (74-106) Mean Corpuscular Volume 100.3 FL (80.0-100.0) PE at Discharge General: Elderly male in no acute distress. Voice is hoarse. Skin: Ecchymosis present on upper and lower extremities. Heart: Regular rate and rhythm. No murmur. Lungs: Clear to auscultation bilaterally. No wheezes, rales, or rhonchi. Breathing is nonlabored. Abdomen: Soft, nontender, nondistended. Extremities: No lower extremity edema. Psych: Alert, answers questions appropriately. Pt update on day of discharge Patient reports is feeling well. No evidence of bleeding. Complains of chronic back pain. Hospital Course 82-year-old man admitted with severe thrombocytopenia in the setting of history of DVT. Patient was followed by hematology. He underwent IVIG therapy and transition to oral steroids. HIV team negative, concern for ITP. Platelets improved. Ultrasound revealed right posterior tibial thrombosis. Patient was initially treated with Lovenox and ultimately transitioned to low dose Eliquis. Other conditions treated include: CAD, retention, heart block - pacemaker in place - Continue amlodipine, losartan, spironolactone, and Lasix. - ASA held due thrombocytopenia HLD - cont statin Depression, dementia - continue home meds BPH - continue flomax History hemochromatosis -Hematology on board as above. Multiple labs pending. He will follow up outpatient. Pt Condition on Discharge: Good Discharge Disposition: Discharge to SNF Discharge Time: > 30 minutes Discharge Instructions DIET: Follow Instructions for: Heart Healthy Diet Activities you can perform: Regular-No Restrictions Follow up Referrals: Oncology/Hematology - 11/12/17 with [facility]/ with [facility] New Medications: Apixaban (Eliquis) 2.5 Mg Tab 2.5 MG PO BID, #60 TAB Prednisone (Prednisone) 50 Mg Tab 50 MG PO DAILY, #20 TAB Do not stop this medication unless you are told by your Doctor. Continued Medications: Allopurinol (Allopurinol) 300 Mg Tab 300 MG PO DAILY for Gout, #30 TAB 0 Refills Amlodipine (Amlodipine) 10 Mg Tab 10 MG PO DAILY for Blood Pressure Management, #30 TAB 0 Refills Atorvastatin (Atorvastatin) 10 Mg Tab 10 MG PO DAILY for Cholesterol Management, #30 TAB 0 Refills Budesonide-Formoterol Inh (Symbicort Inh) 160-4.5 Mcg/Act Aero 1 PUFF INH Q12HR, #1 INHALER 0 Refills Bupropion ER 12 HR (Smoking Deterrent) (Bupropion Sr 12 HR) 150 Mg Tab 300 MG PO DAILY, TAB Take 1 tablet daily x 3 days then twice daily thereafter. Cholecalciferol (Vitamin D-3) 2,000 Unit Tab 1 TAB PO DAILY Cyanocobalamin (Vitamin B-12) 1,000 Mcg Subl 1000 MCG SL DAILY for Nutritional Supplement, TAB.SL 0 Refills Docusate Sodium (Colace) 100 Mg Capsule 200 MG PO DAILY Escitalopram (Escitalopram) 5 Mg Tab 5 MG PO DAILY, #30 TAB 0 Refills Finasteride (Proscar) 5 Mg Tab 5 MG PO DAILY for Manage Prostate Problems, #30 TAB 0 Refills Do not crush. Furosemide (Furosemide) 20 Mg Tab 20 MG PO BID, #60 TAB 0 Refills Losartan (Losartan) 50 Mg Tab 50 MG PO DAILY for Blood Pressure Management, #30 TAB 0 Refills Magnesium Oxide (Mag-Oxide) 200 Mg Magnesium Tablet 400 TAB PO BID Memantine Er (Namenda Xr) 28 Mg Caper 28 MG PO DAILY for Alzheimer Disease, #30 CAP 0 Refills Metoprolol Tartrate (Metoprolol Tartrate) 25 Mg Tab 12.5 MG PO DAILY, #60 TAB 0 Refills Potassium Chloride ER (Potassium Chloride ER) 20 Meq Tab 20 MEQ PO DAILY for Electrolyte Replacement, #30 TAB 0 Refills Spironolactone (Spironolactone) 25 Mg Tab 12.5 MG PO DAILY, #15 TAB 0 Refills Tamsulosin (Tamsulosin) 0.4 Mg Cap 0.4 MG PO DAILY for Manage Prostate Problems, #30 CAP 0 Refills Tramadol (Tramadol) 50 Mg Tab 50 MG PO Q4H PRN for PAIN, #30 TAB 0 Refills (This prescription has been renewed ) Discontinued Medications: Aspirin (Aspirin) 81 Mg Chew 81 MG CHEW DAILY, TAB 0 Refills Becky Bower MD Nov 04, 2017 11:40
--- NOTE | 2017-11-04 12:43 | PD.ONC.PN ---
Subjective Subjective Remarks Afebrile overnight. late entry, patient seen at 11AM Patient resting in bed in nad. Denies bleeding. Denies headache. Objective Data Date Time Temp Pulse Resp B/P (MAP) Pulse Ox O2 Delivery O2 Flow Rate FiO2 11/04/17 12:13 97.5 69 20 115/64 (81) 98 11/04/17 09:58 66 11/04/17 09:04 96 Nasal Cannula 2.00 11/04/17 08:07 97.8 69 20 131/62 (85) 99 11/04/17 05:54 97.7 72 18 112/55 (74) 95 11/04/17 04:06 72 11/04/17 02:44 96 Nasal Cannula 2.00 11/04/17 00:44 97.5 65 18 111/58 (75) 94 11/04/17 00:12 61 11/03/17 21:13 97.7 78 18 113/59 (77) 94 11/03/17 16:38 98.5 67 18 107/54 (71) 94 11/04/17 11/04/17 11/04/17 07:00 15:00 23:00 Intake Total 520 ml Output Total 2 ml Balance 518 ml Result Diagram: 11/04/17 0911 11/03/17 1100 Laboratory Results Laboratory Tests Test 11/04/17 09:11 White Blood Count 10.6 TH/MM3 Red Blood Count 4.50 MIL/MM3 Hemoglobin 15.5 GM/DL Hematocrit 45.1 % Mean Corpuscular Volume 100.3 FL Mean Corpuscular Hemoglobin 34.4 PG Mean Corpuscular Hemoglobin Concent 34.3 % Red Cell Distribution Width 14.7 % Platelet Count 108 TH/MM3 Mean Platelet Volume 8.5 FL Neutrophils (%) (Auto) 84.7 % Lymphocytes (%) (Auto) 10.9 % Monocytes (%) (Auto) 4.2 % Eosinophils (%) (Auto) 0.0 % Basophils (%) (Auto) 0.2 % Neutrophils # (Auto) 9.0 TH/MM3 Lymphocytes # (Auto) 1.2 TH/MM3 Monocytes # (Auto) 0.5 TH/MM3 Eosinophils # (Auto) 0.0 TH/MM3 Basophils # (Auto) 0.0 TH/MM3 CBC Comment AUTO DIFF Differential Comment AUTO DIFF CONFIRMED Platelet Estimate LOW Platelet Morphology Comment NORMAL Administered Medications Medications (Trade) Dose Ordered Sig/Jocelynn Route PRN Reason Start Time Stop Time Status Last Admin Dose Admin Sodium Chloride (NS Flush) 2 ml BID IV FLUSH 10/23/17 21:00 11/02/17 21:52 Acetaminophen (Tylenol) 650 mg Q4H PRN PO TEMP > 100.4 or Pain 1-3 10/23/17 19:30 10/27/17 11:50 Senna/Docusate Sodium (Юляи-Colace) 1 tab BID PO 10/23/17 21:00 11/03/17 21:12 Amlodipine Besylate (Norvasc) 10 mg DAILY PO 10/24/17 09:00 11/04/17 07:32 Atorvastatin Calcium (Lipitor) 10 mg DAILY PO 10/24/17 09:00 11/04/17 07:33 Budesonide/ Formoterol Fumarate (Symbicort 160-4.5 Mcg Inh) 1 puff Q12HR INH 10/24/17 09:00 11/04/17 07:35 Bupropion HCl (Wellbutrin Sr) 300 mg DAILY PO 10/24/17 09:00 11/04/17 07:33 Escitalopram Oxalate (Lexapro) 5 mg DAILY PO 10/24/17 09:00 11/04/17 07:33 Finasteride (Proscar) 5 mg DAILY PO 10/24/17 09:00 11/04/17 07:32 Furosemide (Lasix) 20 mg BID PO 10/24/17 09:00 11/04/17 07:33 Losartan Potassium (Cozaar) 50 mg DAILY PO 10/24/17 09:00 11/04/17 07:34 Metoprolol Tartrate (Lopressor) 12.5 mg DAILY PO 10/24/17 09:00 11/04/17 07:34 Potassium Chloride (KCl) 20 meq DAILY PO 10/24/17 09:00 11/04/17 07:33 Spironolactone (Aldactone) 12.5 mg DAILY PO 10/24/17 09:00 11/04/17 07:33 Tamsulosin HCl (Flomax) 0.4 mg DAILY PO 10/24/17 09:00 11/04/17 07:32 Magnesium Oxide (Mag-Ox) 400 mg BID PO 10/24/17 09:00 11/04/17 07:34 Prednisone (Deltasone) 100 mg DAILY PO 10/25/17 13:00 11/04/17 07:32 Acetaminophen (Tylenol) 650 mg Q4H PRN PO SEE LABEL COMMENTS 10/25/17 13:00 10/31/17 09:24 Diphenhydramine HCl (Benadryl) 25 mg Q4H PRN PO SEE LABEL COMMENTS 10/25/17 13:00 10/29/17 02:04 Pantoprazole Sodium (Protonix) 40 mg DAILY PO 10/25/17 13:15 11/04/17 07:33 Acetaminophen/ Hydrocodone Bitart (Rio 5-325 Mg) 1 tab Q6H PRN PO PAIN SCALE 4 TO 10 10/27/17 16:00 11/04/17 04:07 Albuterol Sulfate (Albuterol Neb) 2.5 mg Q2HR NEB PRN NEB wheezing/bronchial spasm 10/31/17 19:45 11/04/17 02:41 Sodium Chloride 1,000 ml @ 84 mls/hr [id number] IV 11/02/17 10:00 11/03/17 21:15 Apixaban (Eliquis) 2.5 mg BID PO 11/04/17 09:00 11/04/17 08:37 Objective Remarks GENERAL: Elderly male supine in hospital bed in nad. SKIN: Warm and dry. scattered bruising left arm. HEAD: Normocephalic. EYES: No injection or drainage. NECK: Supple, trachea midline. CARDIOVASCULAR: +S1/S2 RESPIRATORY: anterior burch clear. GASTROINTESTINAL: Abdomen soft, non-tender, nondistended. EXTREMITIES: No cyanosis NEUROLOGICAL: awake, alert, normal speech. Assessment/Plan Problem List: (1) Thrombocytopenia ICD Codes: D69.6 - Thrombocytopenia, unspecified Status: Acute Plan: --s/p bone marrow biopsy in IR-->shows mildly hypercellular bone marrow with trilineage maturation. --admitted for worsening thrombocytopenia. ++evidence of bruising and muscle subcutaneous bleed in the foot and in the briggs. --s/p IVIG on 10/26/17 --11/03: platelet count continuing to improve on steroids. --11/04: platelet count 108K today. patient clear for d/c (2) DVT (deep venous thrombosis) ICD Codes: I82.409 - Acute embolism and thrombosis of unspecified deep veins of unspecified lower extremity Plan: 11/04: start Eliquis 2.5mg PO BID --appears chronic --since DVT is below the knee, will monitor with serial ultrasounds every few days. (3) History of hemochromatosis ICD Codes: Z86.39 - Personal history of other endocrine, nutritional and metabolic disease Plan: -- at bedside reports patient was diagnosed with a blood disorder as a teenager which required him to receive phlebotomy every few weeks. --hemochromatosis labs pending. -- ferritin elevated Assessment 82-year-old male with thrombocytopenia h/o Arthritis Arrhythmia, Gastroesophageal reflux, Hypertension, Carotid endarterectomy Plan 1. monitor CBC 2. ok to d/c on Prednisone 50mg PO daily. will need to follow up in clinic within one week so we can begin taper. 3. start Eliquis 2.5mg PO BID for DVT right leg. I am starting him on the low dose d/t his age, high risk of bleeding and h/o low platelet counts. 4. follow up in clinic with LEANDRO Linda in one week.-->patient has an appointment 11/12/17 at 12:30PM. Attending Statement As discussed, plan to taper prednisone. Schedule fu in oncology clinic with LEANDRO to check platelet count within the week. Continue management ITP as out pt. Pt DC before could be seen. Problem Qualifiers (1) DVT (deep venous thrombosis): Qualified Codes: I82.441 - Acute embolism and thrombosis of right tibial vein Radha Morley Nov 04, 2017 12:43 Emily Caban MD Nov 04, 2017 20:45
[2017-11-05 10:32] LABS: HEREDITARY HEMOCHROM SPECIMEN WB Whole Blood
== END 2017-11-04 16:44 | DRG 813 ==
LOC: NEPE 16:19 → NEDA 19:10 → N05B 21:01
PROVIDERS: ADMIT Family Medicine; ATTEND Family Medicine
PROC: 6A551Z2 Pheresis of Platelets, Multiple (ICD-10-PCS; principal; 2017-10-23)
PROC: 30233S1 Transfusion of Nonautologous Globulin into Peripheral Vein, Percutaneous Approach (ICD-10-PCS; 2017-10-26)
PROC: 07DR3ZX Extraction of Iliac Bone Marrow, Percutaneous Approach, Diagnostic (ICD-10-PCS; 2017-10-29)
DX: D69.3 Immune thrombocytopenic purpura (principal); N17.9 Acute kidney failure, unspecified; I82.441 Acute embolism and thrombosis of right tibial vein; F03.90 Unspecified dementia, unspecified severity, without behavioral disturbance, psychotic disturbance, mood disturbance, and anxiety; E87.1 Hypo-osmolality and hyponatremia; J38.01 Paralysis of vocal cords and larynx, unilateral; D69.6 Thrombocytopenia, unspecified; I10 Essential (primary) hypertension; K21.9 Gastro-esophageal reflux disease without esophagitis; M19.90 Unspecified osteoarthritis, unspecified site; I25.10 Atherosclerotic heart disease of native coronary artery without angina pectoris; Z95.0 Presence of cardiac pacemaker; E78.5 Hyperlipidemia, unspecified; N40.0 Benign prostatic hyperplasia without lower urinary tract symptoms; F32.9 Major depressive disorder, single episode, unspecified; Z87.891 Personal history of nicotine dependence; Z82.49 Family history of ischemic heart disease and other diseases of the circulatory system; R51 Headache; Z86.39 Personal history of other endocrine, nutritional and metabolic disease
CPT/HCPCS: 36430; 38221; 38222; 70450; 71045; 73600; 76705; 77012; 80048; 80053; 80076; 81256; 82728; 83010; 83615; 85007; 85025; 85027; 85060; 85097; 85384; 85610; 85613; 85730; 86022; 86146; 86147; 86850; 86880; 86900; 86901; 88184; 88185; 88237; 88264; 88305; 88311; 88313; 93970; 93971; 94640; 94664; C1830; J1459; J1650; J2250; J3010; J7030; J7040; J7050; J7512; J7613; P9035

== ENCOUNTER 2017-11-27 11:53 | Inpatient (IN) | payer MEDICARE, OTHER ==
[2017-11-27] VITALS (9 sets, daily range): BP systolic 78–98; BP diastolic 40–55; PULSE 56–77; RESP 16–22; TEMP 97.5–97.9; O2SAT 94–97
[~2017-11-27] VITALS: Ht 177.8 cm; Wt 90.1 kg
[~2017-11-27 11:53] MED LIST changes: -ALBU8I INH; +ALLO300T2 PO; +AMLO10TA2 PO; +APIX2.5T PO; +ATOR10TA15 PO; +BUPR150T12 PO; +CHOL1TAB42 PO; +COLA100C5 PO; -COZA50TA PO; +ESCI5TAB PO; +FURO20TA PO; -LANS30 PO; +LOSA50TA PO; +MAGN200T9 PO; +MEMA28CA PO; +METO25TA3 PO; +POTA-163 PO; +PRED50 PO; +PROS5TAB PO; -PROS5TAB2 PO; -RANI150 PO; +SPIR25TA PO; +SYMB160A INH; +TAMS0.4C4 PO; -TAMS0.4C67 PO; +TRAM50TA PO; +VITA100021 SL
[2017-11-27] MEDS ORDERED: SODIUM CHLORID 0.9% 500 ML INJ 500 ML IV ONE (12:15)
--- NOTE | 2017-11-27 12:29 | PD ---
HPI Chief Complaint: General Weakness Time Seen by Provider: 11:58 Travel History International Travel<30 days: No Contact w/Intl Traveler<30days: No Traveled to known affect area: No History of Present Illness HPI The patient is a 82-year-old male who presents emergency department via EMS from his oncologist office, Dr. Caban, for hypertension. The patient apparently is being seen by his residential plumber for history of thrombocytopenia. The patient was noted to have a low blood pressure with a systolic between the 70s and 80s at the oncology office. The patient received IV fluids, however, continued to be hypotensive. EMS arrived and transported the patient to the emergency department. He complains of left hip pain after falling several days ago, however, does note a history of previous CVA which is left him weak on the left arm as well as the left leg. He does walk with a walker. He denies any headache, chest pain, shortness breath, nausea, vomiting, or abdominal pain. He denies any acute focal deficits. He denies any dizziness or lightheadedness. He does complain of some generalized weakness. PFSH Past Medical History Hx Anticoagulant Therapy: Yes Arthritis: Yes Asthma: No Autoimmune Disease: No Blood Disorders: No Anxiety: No Depression: No Heart Rhythm Problems: Yes Cancer: No Cardiac Catheterization: No Cardiovascular Problems: Yes High Cholesterol: Yes Chemotherapy: No Chest Pain: Yes Congestive Heart Failure: No COPD: Yes Cerebrovascular Accident: No Dementia: Yes Diabetes: No Diminished Hearing: No Endocrine: No Gastrointestinal Disorders: No GERD: Yes Glaucoma: No Genitourinary: No Headaches: No Hepatitis: No Hiatal Hernia: No Hypertension: Yes Immune Disorder: No Implanted Vascular Access Dvce: No Kidney Stones: No Musculoskeletal: No Neurologic: No Psychiatric: Yes Reproductive: No Respiratory: Yes Migraines: No Myocardial Infarction: No Radiation Therapy: No Renal Failure: No Seizures: No Sickle Cell Disease: No Sleep Apnea: No Thyroid Disease: No Ulcer: Yes Past Surgical History Abdominal Surgery: No AICD: No Appendectomy: No Arteriovenous Shunt: No Cardiac Surgery: Yes (carotid artery) Cholecystectomy: No Coronary Artery Bypass Graft: No Ear Surgery: No Endocrine Surgery: No Eye Surgery: No Genitourinary Surgery: No Gynecologic Surgery: No Insulin Pump: No Joint Replacement: Yes Neurologic Surgery: No Oral Surgery: No Pacemaker: No Thoracic Surgery: No Other Surgery: Yes Social History Alcohol Use: No Tobacco Use: No Substance Use: No Allergies-Medications (Allergen,Severity, Reaction): Coded Allergies: clopidogrel (Unverified Allergy, Severe, HIVES, 10/23/17) MRI PRECAUTION (Verified Adverse Reaction, Severe, NON MRI CONDITIONAL PACEMAKER. BIOTRONIK RUFINO BEARD L[facility] 10/28/17, 10/28/17) Reported Meds & Prescriptions Reported Meds & Active Scripts Active Tramadol (Tramadol HCl) 50 Mg Tab 50 Mg PO Q4H PRN Prednisone 50 Mg Tab 50 Mg PO DAILY Do not stop this medication unless you are told by your Doctor. Eliquis (Apixaban) 2.5 Mg Tab 2.5 Mg PO BID Reported Tylenol (Acetaminophen) 325 Mg Tab 650 Mg PO Q6H PRN Calcium (Oyster Shell) 500 Mg Calcium (1250 Mg) Tab 500 Mg PO BID Pro-Stat (Amino Acids-Protein Hydrolysat) 15 Gram-100 Kcal/30 Ml Liq 30 Ml PO BID Magnesium Oxide 400 Mg Tab 400 Mg PO Q12HR Wellbutrin Xl 24 HR (Bupropion HCl) 300 Mg Tab 300 Mg PO DAILY Symbicort Inh (Budesonide/Formoterol Fumarate) 160-4.5 Mcg/Act Aero 2 Puff INH BID Furosemide 20 Mg Tab 20 Mg PO BID Colace (Docusate Sodium) 100 Mg Capsule 100 Mg PO BID Atorvastatin (Atorvastatin Calcium) 10 Mg Tab 10 Mg PO DAILY Allopurinol 300 Mg Tab 300 Mg PO DAILY Spironolactone 25 Mg Tab 12.5 Mg PO DAILY Potassium Chloride ER (Potassium Chloride) 20 Meq Tab 20 Meq PO DAILY Losartan (Losartan Potassium) 50 Mg Tab 50 Mg PO DAILY Namenda Xr (Memantine) 28 Mg Caper 28 Mg PO DAILY Vitamin D-3 (Cholecalciferol) 2,000 Unit Tab 2,000 Units PO DAILY Vitamin B-12 (Cyanocobalamin) 1,000 Mcg Subl 1,000 Mcg SL DAILY Escitalopram (Escitalopram Oxalate) 5 Mg Tab 5 Mg PO DAILY Amlodipine (Amlodipine Besylate) 10 Mg Tab 10 Mg PO DAILY Metoprolol Tartrate 25 Mg Tab 12.5 Mg PO DAILY Tamsulosin (Tamsulosin HCl) 0.4 Mg Cap 0.4 Mg PO DAILY Proscar (Finasteride) 5 Mg Tab 5 Mg PO DAILY Do not crush. Review of Systems Except as stated in HPI: all other systems reviewed are Neg General / Constitutional: No: Fever HENT: No: Lightheadedness, Neck Pain Cardiovascular: No: Chest Pain or Discomfort Respiratory: No: Shortness of Breath Gastrointestinal: No: Nausea, Vomiting, Abdominal Pain Musculoskeletal: Positive: Weakness Neurologic: No: Dizziness, Focal Abnormalities Physical Exam Narrative GENERAL: Awake, alert, 82-year-old male appears his stated age and is in no acute respiratory distress. He is mildly lethargic. SKIN: Focused skin assessment warm/dry. Skin reveals multiple old appearing contusions with thin skin to the upper extremities bilaterally. HEAD: Atraumatic. Normocephalic. EYES: Pupils equal and round. No scleral icterus. No injection or drainage. ENT: No nasal bleeding or discharge. Mucous membranes pink and moist. NECK: Trachea midline. No JVD. Heart rate in the 60s. CARDIOVASCULAR: Regular rate and rhythm. No murmur appreciated. RESPIRATORY: No accessory muscle use. Clear to auscultation. Breath sounds equal bilaterally. GASTROINTESTINAL: Abdomen soft, non-tender, nondistended. No rebound tenderness. Back: Contusion noted to the right lower back. MUSCULOSKELETAL: Left hand is flexed, severe limited range of motion left upper extremity. Full range of motion right upper extremity. Patient is able to move the left foot, is able flex the right hip and right knee without difficulty. NEUROLOGICAL: Awake and alert. No obvious cranial nerve deficits. Motor grossly within normal limits. Normal speech. Nonfocal. Slightly lethargic. PSYCHIATRIC: Appropriate mood and affect; insight and judgment normal. Data Data Last Documented VS Vital Signs Date Time Temp Pulse Resp B/P (MAP) Pulse Ox O2 Delivery O2 Flow Rate FiO2 11/27/17 13:32 97.8 77 18 88/52 (64) 96 Nasal Cannula 2.00 Orders Orders Complete Blood Count With Diff (11/27/17 12:06) Comprehensive Metabolic Panel (11/27/17 12:06) Lactic Acid (11/27/17 12:06) Urinalysis - C+S If Indicated (11/27/17 12:06) Chest, Single Ap (11/27/17 ) Hip, Uni(Ap&Lat) W Ap Pelvis (11/27/17 ) Sodium Chlorid 0.9% 500 Ml Inj (Ns 500 M (11/27/17 12:15) Orthostatic Vital Signs (11/27/17 12:08) Sodium Chlor 0.9% 1000 Ml Inj (Ns 1000 M (11/27/17 13:45) Cath For Specimen (11/27/17 13:34) Admit Order (Ed Use Only) (11/27/17 14:26) Labs Laboratory Tests Test 11/27/17 12:26 11/27/17 13:41 White Blood Count 13.2 TH/MM3 Red Blood Count 4.47 MIL/MM3 Hemoglobin 15.0 GM/DL Hematocrit 43.0 % Mean Corpuscular Volume 96.2 FL Mean Corpuscular Hemoglobin 33.6 PG Mean Corpuscular Hemoglobin Concent 34.9 % Red Cell Distribution Width 14.6 % Platelet Count 166 TH/MM3 Mean Platelet Volume 7.4 FL Neutrophils (%) (Auto) 91.5 % Lymphocytes (%) (Auto) 4.8 % Monocytes (%) (Auto) 3.3 % Eosinophils (%) (Auto) 0.0 % Basophils (%) (Auto) 0.4 % Neutrophils # (Auto) 12.1 TH/MM3 Lymphocytes # (Auto) 0.6 TH/MM3 Monocytes # (Auto) 0.4 TH/MM3 Eosinophils # (Auto) 0.0 TH/MM3 Basophils # (Auto) 0.1 TH/MM3 CBC Comment AUTO DIFF Differential Comment AUTO DIFF CONFIRMED Platelet Estimate NORMAL Platelet Morphology Comment NORMAL Blood Urea Nitrogen 50 MG/DL Creatinine 1.43 MG/DL Random Glucose 118 MG/DL Total Protein 6.4 GM/DL Albumin 2.2 GM/DL Calcium Level 8.5 MG/DL Alkaline Phosphatase 124 U/L Aspartate Amino Transf (AST/SGOT) 44 U/L Alanine Aminotransferase (ALT/SGPT) 83 U/L Total Bilirubin 0.9 MG/DL Sodium Level 133 MEQ/L Potassium Level 4.6 MEQ/L Chloride Level 100 MEQ/L Carbon Dioxide Level 23.9 MEQ/L Anion Gap 9 MEQ/L Estimat Glomerular Filtration Rate 47 ML/MIN Lactic Acid Level 2.9 mmol/L Urine Color YELLOW Urine Turbidity HAZY Urine pH 5.5 Urine Specific [place] 1.015 Urine Protein NEG mg/dL Urine Glucose (UA) NEG mg/dL Urine Ketones NEG mg/dL Urine Occult Blood NEG Urine Nitrite NEG Urine Bilirubin NEG Urine Urobilinogen LESS THAN 2.0 MG/DL Urine Leukocyte Esterase MOD Urine RBC 1 /hpf Urine WBC 4 /hpf Urine Squamous Epithelial Cells 1 /hpf Urine Amorphous Sediment FEW Urine Bacteria RARE /hpf Urine Hyaline Casts 8 /lpf Urine Mucus FEW /lpf Microscopic Urinalysis Comment CULT NOT INDICATED MDM Medical Decision Making Medical Screen Exam Complete: Yes Emergency Medical Condition: Yes Medical Record Reviewed: Yes Interpretation(s) EKG reveals electronic atrial pacemaker in electronic ventricular pacemaker. No further evaluation. Laboratory Tests Test 11/27/17 12:26 11/27/17 13:41 White Blood Count 13.2 TH/MM3 Red Blood Count 4.47 MIL/MM3 Hemoglobin 15.0 GM/DL Hematocrit 43.0 % Mean Corpuscular Volume 96.2 FL Mean Corpuscular Hemoglobin 33.6 PG Mean Corpuscular Hemoglobin Concent 34.9 % Red Cell Distribution Width 14.6 % Platelet Count 166 TH/MM3 Mean Platelet Volume 7.4 FL Neutrophils (%) (Auto) 91.5 % Lymphocytes (%) (Auto) 4.8 % Monocytes (%) (Auto) 3.3 % Eosinophils (%) (Auto) 0.0 % Basophils (%) (Auto) 0.4 % Neutrophils # (Auto) 12.1 TH/MM3 Lymphocytes # (Auto) 0.6 TH/MM3 Monocytes # (Auto) 0.4 TH/MM3 Eosinophils # (Auto) 0.0 TH/MM3 Basophils # (Auto) 0.1 TH/MM3 CBC Comment AUTO DIFF Differential Comment AUTO DIFF CONFIRMED Platelet Estimate NORMAL Platelet Morphology Comment NORMAL Blood Urea Nitrogen 50 MG/DL Creatinine 1.43 MG/DL Random Glucose 118 MG/DL Total Protein 6.4 GM/DL Albumin 2.2 GM/DL Calcium Level 8.5 MG/DL Alkaline Phosphatase 124 U/L Aspartate Amino Transf (AST/SGOT) 44 U/L Alanine Aminotransferase (ALT/SGPT) 83 U/L Total Bilirubin 0.9 MG/DL Sodium Level 133 MEQ/L Potassium Level 4.6 MEQ/L Chloride Level 100 MEQ/L Carbon Dioxide Level 23.9 MEQ/L Anion Gap 9 MEQ/L Estimat Glomerular Filtration Rate 47 ML/MIN Lactic Acid Level 2.9 mmol/L Urine Color YELLOW Urine Turbidity HAZY Urine pH 5.5 Urine Specific [place] 1.015 Urine Protein NEG mg/dL Urine Glucose (UA) NEG mg/dL Urine Ketones NEG mg/dL Urine Occult Blood NEG Urine Nitrite NEG Urine Bilirubin NEG Urine Urobilinogen LESS THAN 2.0 MG/DL Urine Leukocyte Esterase MOD Urine RBC 1 /hpf Urine WBC 4 /hpf Urine Squamous Epithelial Cells 1 /hpf Urine Amorphous Sediment FEW Urine Bacteria RARE /hpf Urine Hyaline Casts 8 /lpf Urine Mucus FEW /lpf Microscopic Urinalysis Comment CULT NOT INDICATED Last Impressions Hip and Pelvis X-Ray 11/27/17 0000 Signed Impressions: Service Date/Time: November 12:35 - CONCLUSION: 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 No acute fracture or destructive lesion identified Angelo Sanders MD Chest X-Ray 11/27/17 0000 Signed Impressions: Service Date/Time: November 12:35 - CONCLUSION: 1. Cardiomegaly and chronic interstitial changes. No overt congestive failure. Stable compared to previous dated 10/26/17. Angelo Sanders MD Differential Diagnosis Differential diagnosis includes hypotension, orthostatic hypotension, dehydration, sepsis, GI bleed, intra-abdominal bleed, UTI, pneumonia. Narrative Course IV was established, labs are drawn and sent, and the patient was placed on cardiac telemetry monitoring and continuous pulse oximetry monitoring. EKG was ordered and interpreted. Orthostatic vital signs were obtained. The patient received IV fluids. X-ray the chest and left hip with pelvis were obtained. Chest x-ray and x-ray of the left hip are unremarkable. Lactic acid is elevated 2.9, creatinine is elevated, hemoglobin is normal. I do not believe the patient has orthostatic hypotension from hemorrhagic shock or bleed with normal hemoglobin. The patient may have dehydration with hemoglobin of 15 and elevated creatinine and lactic acid. Chest x-ray reveals no pneumonia. Patient is afebrile. UA is negative. The patient will be a 23 hour observation for IV fluids and reevaluation. Physician Communication Physician Communication I discussed the patient with Dr. Young who agrees with [address] Casarez. Diagnosis Primary Impression: Hypotension Qualified Codes: I95.9 - Hypotension, unspecified Additional Impressions: Lactic acidosis Acute kidney injury Admitting Information Admitting Physician Requests: Observation Condition: Stable Flako Ibanez MD Nov 27, 2017 12:29
[2017-11-27 12:48] LABS: AUTOMATED NEUTROPHIL # 12.1 TH/MM3 (1.8-7.7); BASOPHIL # 0.1 TH/MM3 (0-0.2); BASOPHIL % 0.4 % (0.0-2.0); LYMPH % 4.8 % (9.0-44.0); LYMPHOCYTE # 0.6 TH/MM3 (1.0-4.8); MEAN CELL VOLUME 96.2 FL (80.0-100.0); MEAN CORPUSCULAR HEMOGLOBIN 33.6 PG (27.0-34.0); MEAN CORPUSCULAR HGB CONC 34.9 % (32.0-36.0); MEAN PLATELET VOLUME 7.4 FL (7.0-11.0); MONO % 3.3 % (0.0-8.0); MONOCYTE # 0.4 TH/MM3 (0-0.9); NEUT % 91.5 % (16.0-70.0); PLATELET COUNT 166 TH/MM3 (150-450); RED BLOOD COUNT 4.47 MIL/MM3 (4.50-5.90); RED CELL DISTRIBUTION WIDTH 14.6 % (11.6-17.2); WHITE BLOOD COUNT 13.2 TH/MM3 (4.0-11.0)
--- NOTE | 2017-11-27 13:06 | RADRPT ---
EXAM DATE/TIME: 11/27/2017 12:35 [facility] COMPARISON: CHEST SINGLE AP, October 26, 2017, 14:05. INDICATIONS : Short of breath. MEDICAL HISTORY : Deep venous thrombosis. Hypercholesterolemia. Emphysema. Arthritis.Dementia.Irregular heartbeat. HTN. COPDGERD.. SURGICAL HISTORY : Pacemaker. Carotid artery surgery ENCOUNTER: Initial ACUITY: 1 day PAIN SCORE: 0/10 LOCATION: Bilateral chest FINDINGS: The heart is enlarged. There is a transvenous pacer in good position. There are diffuse interstitial changes throughout the pulmonary parenchyma. The visualized bony structures demonstrate degenerative changes but are otherwise intact. Overall, the exam is stable compared to the previous dated 10/26/17. CONCLUSION: 1. Cardiomegaly and chronic interstitial changes. No overt congestive failure. Stable compared to pre vious dated 10/26/17. Angelo Sanders MD on November 27, 2017 at 13:02 Board Certified Radiologist. This report was verified electronically.
--- NOTE | 2017-11-27 13:06 | RADRPT ---
EXAM DATE/TIME: 11/27/2017 12:35 [facility] COMPARISON: CHEST SINGLE AP, October 26, 2017, 14:05. INDICATIONS : Left hip pain, no known injury. MEDICAL HISTORY : Deep venous thrombosis. Hypercholesterolemia. Emphysema. Arthritis.Dementia.Irregular heartbeat. HTN. COPD.GERD. SURGICAL HISTORY : Carotid artery surgery ENCOUNTER: Initial ACUITY: 1 week PAIN SCORE: 5/10 LOCATION: Left hip FINDINGS: The femoral head is well situated within the acetabular fossa. There are mild osteoarthritic changes within the left hip joint. No fracture or destructive lesion is identified. Examination of the remainder of the pelvis demonstrates arthritic changes within the right hip as wel l. The osseous structures the pelvis are otherwise intact. There are degenerative changes in the lumb ar spine. 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 No acute fracture or destructive lesion identified Angelo Sanders MD on November 27, 2017 at 13:04 Board Certified Radiologist. This report was verified electronically.
[2017-11-27 13:13] LABS: ALBUMIN 2.2 GM/DL (3.4-5.0); ALT (GPT) 83 U/L (12-78); AST (GOT) 44 U/L (15-37); BICARBONATE 23.9 MEQ/L (21.0-32.0); BLOOD UREA NITROGEN 50 MG/DL (7-18); CALCIUM 8.5 MG/DL (8.5-10.1); CHLORIDE 100 MEQ/L (98-107); CREATININE 1.43 MG/DL (0.60-1.30); GLOMERULAR FILTRATION RATE 47 ML/MIN (>89); GLUCOSE,RANDOM 118 MG/DL (74-106); SODIUM (NA) 133 MEQ/L (136-145)
[2017-11-27 13:15] LABS: ALKALINE PHOSPHATASE 124 U/L (45-117); TOTAL BILIRUBIN ADULT 0.9 MG/DL (0.2-1.0); TOTAL PROTEIN 6.4 GM/DL (6.4-8.2)
[2017-11-27] MEDS ORDERED: MAGN400T2 PO (13:22)
[2017-11-27] MEDS ORDERED: WELLTAB39 PO (13:22)
[2017-11-27] MEDS ORDERED: CALC12502 PO (13:22)
[2017-11-27] MEDS ORDERED: AMINLIQ7 PO (13:22)
[2017-11-27] MEDS ORDERED: TYLE325T PO (13:22)
[2017-11-27] MEDS ORDERED: SODIUM CHLOR 0.9% 1000 ML INJ 1,000 ML IV ONE (13:45)
[2017-11-27 14:02] LABS: AMORPHOUS SEDIMENT, URINE FEW; BACTERIA, URINE RARE /hpf; BILIRUBIN, URINE NEG (NEG); BLOOD, URINE NEG (NEG); GLUCOSE,URINE NEG (NEG); HYALINE CAST, URINE 8 /lpf (RARE); KETONE, URINE NEG (NEG); MUCUS URINE FEW /lpf (OCC); NITRITE,URINE NEG (NEG); PH, URINE 5.5 (5.0-8.5); SQUAMOUS EPITHELIAL CELL URINE 1 /hpf (0-5); URINE COLOR YELLOW (YELLW/STRAW); URINE LEUKOCYTE ESTERASE MOD (NEG)
--- NOTE | 2017-11-27 14:31 | HHI.HP ---
HPI Service Family Medicine Primary Care Physician Cruz Cruz MD Admission Diagnosis hypotension, lactic acidosis, acute kidney injury Diagnoses: International Travel<30 Days: No Contact w/Intl Traveler<30days: No Known Affected Area: No History of Present Illness 82 yo M presenting after being sent by hem/onc due to hypotension. Complaining of pain in R hip that started today. Does not report a fall. Cough productive of yellow sputum started today as well. Occasionally requires Oxygen - last time was 1 month ago. Also reporting pain in R side of jaw for 1 month when he chews on food. Otherwise no CP, SOB, no fevers/chills, NV, no diarrhea/ constipation, no bloody stools. Dysuria for a month - unsure if on antibiotics (Gianluca Aguilera MD R1) Review of Systems Constitutional: DENIES: Fever, Chills Respiratory: COMPLAINS OF: Cough, DENIES: Shortness of breath Cardiovascular: DENIES: Chest pain Gastrointestinal: DENIES: Abdominal pain, Black stools, Bloody stools, Constipation, Diarrhea, Nausea, Vomiting Genitourinary: COMPLAINS OF: Dysuria Musculoskeletal: COMPLAINS OF: Joint pain Neurologic: COMPLAINS OF: Headache (Gianluca Aguilera MD R1) Past Family Social History Past Medical History Arthritis Arrhythmia, unspecified CHF? - not documented but on spironolactone and lasix COPD? - on Symbicort Hyperlipidemia GERD Hypertension Depression Past Surgical History Surgery to R side of jaw Carotid endarterectomy Joint replacement surgery Right cataract surgery Pacemaker - a month ago (Gianluca Aguilera MD R1) Allergies: Coded Allergies: clopidogrel (Unverified Allergy, Severe, HIVES, 10/23/17) MRI PRECAUTION (Verified Adverse Reaction, Severe, NON MRI CONDITIONAL PACEMAKER. BIOTRONIK RUFINO BEARD LRS 10/28/17, 10/28/17) Family History Mother with CAD. Twin brother or of cardiac disease. Social History Lives at [facility] Reports he quit smoking in 1988. History of heavy alcohol use, in the 80s. No drugs (Gianluca Aguilera MD R1) Physical Exam Vital Signs Vital Signs Date Time Temp Pulse Resp B/P (MAP) Pulse Ox O2 Delivery O2 Flow Rate FiO2 11/27/17 13:32 97.8 77 18 88/52 (64) 96 Nasal Cannula 2.00 11/27/17 12:52 69 18 82/43 (56) 74 18 78/40 (53) 68 17 11/27/17 12:10 69 18 96 Nasal Cannula 2.00 11/27/17 12:08 97.7 68 20 89/49 (62) 96 Physical Exam GENERAL: This is a well-nourished, well-developed patient, in no apparent distress. SKIN: No rashes, ecchymoses or lesions. Cool and dry. HEAD: Atraumatic. Normocephalic. No temporal or scalp tenderness. EYES: Pupils equal round and reactive. Extraocular motions intact. No scleral icterus. No injection or drainage. ENT: Nose without bleeding, purulent drainage or septal hematoma. Throat without erythema, tonsillar hypertrophy or exudate. Uvula midline. Airway patent. NECK: Trachea midline. No JVD or lymphadenopathy. Supple, nontender, no meningeal signs. CARDIOVASCULAR: Regular rate and rhythm without murmurs, gallops, or rubs. RESPIRATORY: Coarse breath sounds throughout, expiratory wheezing also appreciated. Nonlabored breathing. GASTROINTESTINAL: Abdomen soft, nondistended. Tender to palpation in the right lower quadrant, Rovsing sign positive MUSCULOSKELETAL: 2 x 2 centimeter grade 2 ulcer appreciated on the left side of the mid back. Stage I sacral ulcer appreciated. Extremities without clubbing, cyanosis, or edema. Right hip pain elicited with logroll. NEUROLOGICAL: Awake and alert. Oriented to person place and time. Cranial nerves II through XII grossly intact. Decreased left upper extremity muscle strength (3 out of 5) 5 out of 5 muscle strength right upper extremity Normal speech. Laboratory Laboratory Tests Test 11/27/17 12:26 11/27/17 13:41 White Blood Count 13.2 Red Blood Count 4.47 Hemoglobin 15.0 Hematocrit 43.0 Mean Corpuscular Volume 96.2 Mean Corpuscular Hemoglobin 33.6 Mean Corpuscular Hemoglobin Concent 34.9 Red Cell Distribution Width 14.6 Platelet Count 166 Mean Platelet Volume 7.4 Neutrophils (%) (Auto) 91.5 Lymphocytes (%) (Auto) 4.8 Monocytes (%) (Auto) 3.3 Eosinophils (%) (Auto) 0.0 Basophils (%) (Auto) 0.4 Neutrophils # (Auto) 12.1 Lymphocytes # (Auto) 0.6 Monocytes # (Auto) 0.4 Eosinophils # (Auto) 0.0 Basophils # (Auto) 0.1 CBC Comment AUTO DIFF Differential Comment AUTO DIFF CONFIRMED Platelet Estimate NORMAL Platelet Morphology Comment NORMAL Blood Urea Nitrogen 50 Creatinine 1.43 Random Glucose 118 Total Protein 6.4 Albumin 2.2 Calcium Level 8.5 Alkaline Phosphatase 124 Aspartate Amino Transf (AST/SGOT) 44 Alanine Aminotransferase (ALT/SGPT) 83 Total Bilirubin 0.9 Sodium Level 133 Potassium Level 4.6 Chloride Level 100 Carbon Dioxide Level 23.9 Anion Gap 9 Estimat Glomerular Filtration Rate 47 Lactic Acid Level 2.9 Urine Color YELLOW Urine Turbidity HAZY Urine pH 5.5 Urine Specific Tangent 1.015 Urine Protein NEG Urine Glucose (UA) NEG Urine Ketones NEG Urine Occult Blood NEG Urine Nitrite NEG Urine Bilirubin NEG Urine Urobilinogen LESS THAN 2.0 Urine Leukocyte Esterase MOD Urine RBC 1 Urine WBC 4 Urine Squamous Epithelial Cells 1 Urine Amorphous Sediment FEW Urine Bacteria RARE Urine Hyaline Casts 8 Urine Mucus FEW Microscopic Urinalysis Comment CULT NOT INDICATED (Gianluca Aguilera MD R1) Result Diagram: 11/27/17 1226 11/27/17 1226 Imaging Last 48 hours Impressions Hip and Pelvis X-Ray 11/27/17 0000 Signed Impressions: Service Date/Time: November 12:35 - CONCLUSION: 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 No acute fracture or destructive lesion identified Angelo Sanders MD Chest X-Ray 11/27/17 0000 Signed Impressions: Service Date/Time: November 15:31 - CONCLUSION: 1. Cardiomegaly and chronic appearing interstitial changes. Stable compared earlier exam timed at 1235 hrs. Angelo Sanders MD Chest X-Ray 11/27/17 0000 Signed Impressions: Service Date/Time: November 12:35 - CONCLUSION: 1. Cardiomegaly and chronic interstitial changes. No overt congestive failure. Stable compared to previous dated 10/26/17. Angelo Sanders MD (Gianluca Aguilera MD R1) Caprini VTE Risk Assessment Caprini VTE Risk Assessment: Mod/High Risk (score >= 2) Caprini Risk Assessment Model Point Value = 1 Point Value = 2 Point Value = 3 Point Value = 5 Age 41-60 Minor surgery BMI > 25 kg/m2 Swollen legs Varicose veins or History of unexplained or recurrent spontaneous Oral contraceptives or hormone replacement Sepsis (< 1 month) Serious lung disease, including pneumonia (< 1 month) Abnormal pulmonary function Acute myocardial infarction Congestive heart failure (< 1 month) History of inflammatory bowel disease Medical patient at bed rest Age 61-74 Arthroscopic surgery Major open surgery (> 45 min) Laparoscopic surgery (> 45 min) Malignancy Confined to bed (> 72 hours) Immobilizing plaster cast Central venous access Age >= 75 History of VTE Family history of VTE Factor V Leiden Prothrombin [id number] Lupus anticoagulant Anticardiolipin antibodies Elevated serum homocysteine Heparin-induced thrombocytopenia Other congenital or acquired thrombophilia Stroke (< 1 month) Elective arthroplasty Hip, pelvis, or leg fracture Acute spinal cord injury (< 1 month) Prophylaxis Regimen Total Risk Factor Score Risk Level Prophylaxis Regimen 0-1 Low Early ambulation 2 Moderate Order ONE of the following: *Sequential Compression Device (SCD) *Heparin 5000 units SQ BID 3-4 Higher Order ONE of the following medications: *Heparin 5000 units SQ TID *Enoxaparin/Lovenox 40 mg SQ daily (WT < 150 kg, CrCl > 30 mL/min) *Enoxaparin/Lovenox 30 mg SQ daily (WT < 150 kg, CrCl > 10-29 mL/min) *Enoxaparin/Lovenox 30 mg SQ BID (WT < 150 kg, CrCl > 30 mL/min) AND/OR *Sequential Compression Device (SCD) 5 or more Highest Order ONE of the following medications: *Heparin 5000 units SQ TID (Preferred with Epidurals) *Enoxaparin/Lovenox 40 mg SQ daily (WT < 150 kg, CrCl > 30 mL/min) *Enoxaparin/Lovenox 30 mg SQ daily (WT < 150 kg, CrCl > 10-29 mL/min) *Enoxaparin/Lovenox 30 mg SQ BID (WT < 150 kg, CrCl > 30 mL/min) AND *Sequential Compression Device (SCD) (Gianluca Aguilera MD R1) Assessment and Plan Assessment and Plan 82-year-old male with past medical history of COPD, CHF, thrombocytopenia, hypertension, DVT presenting to the ED with persistent hypotension. Patient complaining of abdominal pain, right hip pain as well as a productive cough. Code Status Full code Discussed Condition With Dr. Casarez (Gianluca Aguilera MD R1) Attending Attestation Patient seen, examined, and discussed with Dr. Aguilera in the ER at admission. I agree with assessment and management as documented and discussed with me. The patient has been seen and examined. The chart and all resident notes have been reviewed. I agree that inpatient care is appropriate and that a two midnight stay is expected for the reasons documented in the resident history and physical. I have discussed this with the resident and certify the resident s order for inpatient admission. Wilber Desir is an 82yo gentleman admitted for hypotension and lactic acidosis, sent from hem-onc office due to hypotension. He endorses a cough. Pt is a poor historian due to known dementia. (Nayeli Casarez MD) Problem List: (1) Oxygen desaturation ICD Codes: R09.02 - Hypoxemia Plan: O2 sats in upper 80's on admission, requiring 2 L NC Not in respiratory distress Cough, pulm exam with wheezing, diffusely coarse Differential including COPD, CHF, pneumonia CXR Pa/Lateral concerning for pulmonary edema versus chronic interstitial disease. -BNP ordered -echocardiogram ordered -Giving Lasix 40 mg IV x 1 Recently started on Prednisone 50mg daily for COPD exacerbation per med review -Continuing until 12/03 Cont pulse ox with O2 titration consider ABG if clinically worsening Scheduling duonebs q6hr, albuterol PRN EZ pap every 4 hours (2) Leukocytosis ICD Codes: D72.829 - Elevated white blood cell count, unspecified Plan: WBC elevated at 13.2 Lactic acid elevated at 2.5 CXR - repeating, CT abdomen, UA with culture legionella, pneumococcal urine sputum culture blood culture repeat lactic acid at 1519 CRP pending Consider ABG if clinically worsening consider adding Abx pending workup Patient on prednisone so leukocytosis can be secondary to steroid use (3) Hypotension ICD Codes: I95.9 - Hypotension, unspecified Plan: Patient sent in for hypotension with systolic pressures in 80's Received 1.5 L bolus in ED Systolic pressures in 90's on admission Holding home BP meds Holding further IVF - CXR concerning for pulm edema Will monitor (4) Hip pain ICD Codes: M25.559 - Pain in unspecified hip Plan: Patient complaining of worsening R hip pain x 1 day No known history of falls XR on admission negative CT abdomen/pelvis may visualize hips - pending Pain with log roll on exam Caution with narcotics in light of hypotension PT ordered Follow up CT abd/pelvis to look for signs of septic joint, hemarthrosis, fracture (5) Abdominal pain ICD Codes: R10.9 - Unspecified abdominal pain Plan: Complaining of abdominal pain in RLQ on physical exam Rovsing sign + Not reporting n/v, diarrhea/constipation, bloody BM CT abdomen/pelvis ordered with oral contrast - pending (6) Thrombocytopenia ICD Codes: D69.6 - Thrombocytopenia, unspecified Plan: Known history of thrombocytopenia with recent hospitalization Followed by Dr. Mcdaniel Was sent here from her clinic due to hypotension Platelets 166 on admission Diffuse bruising on exam (7) DVT (deep venous thrombosis) ICD Codes: I82.409 - Acute embolism and thrombosis of unspecified deep veins of unspecified lower extremity Plan: US on 11/03/17 showed occlusive thrombus of R posterior Tibial vein Patient on low dose Eliquis No other anticoagulation for now, will monitor (8) KIANA (acute kidney injury) ICD Codes: N17.9 - Acute kidney failure, unspecified Plan: Creatinine on admission 1.43 (1.13 on most recent hospitalization) Received 1.5 L NS bolus in ED Follow up AM labs (9) Hyponatremia ICD Codes: E87.1 - Hypo-osmolality and hyponatremia Plan: Mildly hyponatremic on admission - Na 133 Given 1.5 L NS bolus in ED Holding IV fluids for now Will monitor AM labs (10) Pressure ulcer ICD Codes: L89.90 - Pressure ulcer of unspecified site, unspecified stage Plan: Grade II pressure ulcer on L side of midback Measures roughly 2 x 2 cm Wound care consulted (11) Transaminitis ICD Codes: R74.0 - Nonspecific elevation of levels of transaminase and lactic acid dehydrogenase [LDH] Plan: Elevated Liver enzymes on admission AST 44, ALT 83 Mildly elevated compared to most recent hospitalization AST 34 ALT 52 on 10/25 Will monitor and trend for now (12) FEN Plan: Received 1.5 L was normal saline in the ED, no IV fluids for now Replete electrolytes as needed Heart healthy diet Home Eliquis for DVT prophylaxis (Gianluca Aguilera MD R1) Gianluca Aguilera MD R1 Nov 27, 2017 14:31 Nayeli Casarez MD Nov 27, 2017 20:56
[2017-11-27] MEDS ORDERED: ACETAMINOPHEN 325 MG TAB PO PRN (15:15)
[2017-11-27] MEDS ORDERED: NALOXONE HCL 0.4 MG/ML AMP IV PUSH PRN (15:15)
[2017-11-27] MEDS ORDERED: SODIUM CHLORIDE 0.9% FLUSH 10 ML FLUSH IV FLUSH PRN (15:15)
[2017-11-27] MEDS ORDERED: LACTULOSE SYRUP 20 GM/30 ML CUP PO PRN (15:15)
[2017-11-27] MEDS ORDERED: MAGNESIUM HYDROXIDE SUSP 30 ML CUP PO PRN (15:15)
[2017-11-27] MEDS ORDERED: BISACODYL 10 MG SUPP RECTAL PRN (15:15)
[2017-11-27] MEDS ORDERED: ONDANSETRON HCL 4 MG/2 ML VIAL IVP PRN (15:15)
[2017-11-27] MEDS ORDERED: SENNOSIDES 8.6 MG TAB PO PRN (15:15)
[2017-11-27] MEDS ORDERED: RESP: ALBUTEROL 2.5 MG/3 ML NEB (PRN) INH (15:45)
[2017-11-27] MEDS ORDERED: DIATRIZOATE MEGLUM/DIATRIZOATE SOD 9 ML CUP ONE (15:57)
[2017-11-27] MEDS ORDERED: FUROSEMIDE 40 MG/4 ML VIAL IV PUSH ONE (16:00)
--- NOTE | 2017-11-27 16:48 | RADRPT ---
EXAM DATE/TIME: 11/27/2017 15:31 [facility] COMPARISON: CHEST SINGLE AP, November 27, 2017, 12:35. HIP LEFT (AP&LAT 2/3VWS) W AP PELVIS, November 27, 2017, 12:35. INDICATIONS : Cough MEDICAL HISTORY : Deep venous thrombosis. Hypercholesterolemia. Emphysema, Arthritis.Dementia.Irregular heartbeat. HTN. COPDGERD.. SURGICAL HISTORY : Pacemaker. Carotid artery surgery ENCOUNTER: Initial ACUITY: 1 day PAIN SCORE: 0/10 LOCATION: chest FINDINGS: 2 views of the chest demonstrate advanced cardiomegaly. Transvenous pacer is in good position. There are diffuse chronic appearing interstitial changes. The exam is stable compared to previous dated 11/27. The osseous structures are intact. CONCLUSION: 1. Cardiomegaly and chronic appearing interstitial changes. Stable compared earlier exam timed at 123 5 hrs. Angelo Sanders MD on November 27, 2017 at 16:45 Board Certified Radiologist. This report was verified electronically.
[2017-11-27] MEDS: RESP: ALBUTEROL 2.5 MG/IPRATROPIUM 0.5 MG NEB (SCH) INH ×2 (16:51→21:12)
[2017-11-27] MEDS ORDERED: DIATRIZOATE MEGLUM/DIATRIZOATE SOD 9 ML CUP PO ONE (17:00)
[2017-11-27] MEDS ORDERED: PILL SPLITTER OTHER PRN (18:15)
--- NOTE | 2017-11-27 20:45 | RADRPT ---
EXAM DATE/TIME: 11/27/2017 20:10 [facility] COMPARISON: No previous studies available for comparison. INDICATIONS : Abdominal pain. ORAL CONTRAST: Prescribed oral contrast ingested. RADIATION DOSE: 15.39 CTDIvol (mGy) MEDICAL HISTORY : Cardiovascular disease. Hypertension. Gallstones SURGICAL HISTORY : None. ENCOUNTER: Initial ACUITY: 1 day PAIN SCALE: 5/10 LOCATION: abdomen TECHNIQUE: Volumetric scanning of the abdomen and pelvis was performed. Using automated exposure control and ad justment of the mA and/or kV according to patient size, radiation dose was kept as low as reasonably achievable to obtain optimal diagnostic quality images. DICOM format image data is available electro nically for review and comparison. FINDINGS: Atelectasis/scarring and chronic appearing interstitial changes seen of the visualized lung bases. LOWER LUNGS: The visualized lower lungs are clear. LIVER: Homogeneous density without lesion. There is no dilation of the biliary tree. No calcified gallston es. SPLEEN: Normal size without lesion. PANCREAS: Within normal limits. KIDNEYS: Bilateral cysts up to 4 cm in size. Vascular calcifications are present. No stones or hydronephrosis/ hydroureter. ADRENAL GLANDS: Within normal limits. VASCULAR: Atherosclerotic aorta. No aneurysm. BOWEL/MESENTERY: Large stool in the rectum. Moderate stool in the rest of the colon. Nonobstructive pattern. No acute inflammatory changes are demonstrated. ABDOMINAL WALL: Within normal limits. RETROPERITONEUM: There is no lymphadenopathy. BLADDER: No wall thickening or mass. REPRODUCTIVE: Within normal limits. INGUINAL: There is no lymphadenopathy or hernia. MUSCULOSKELETAL: No acute bony abnormalities are demonstrated. Bones are diffusely osteopenic. CONCLUSION: Apparent constipation. Large amount of stool in the rectum. Nonobstructive pattern without acute infl ammatory changes. Chronic findings otherwise. Juan Alberto Salazar MD on November 27, 2017 at 20:41 Board Certified Radiologist. This report was verified electronically.
[2017-11-27] MEDS: APIXABAN 2.5 MG TABLET PO SCH (21:39)
[2017-11-27] MEDS: SODIUM CHLORIDE 0.9% FLUSH 10 ML FLUSH IV FLUSH SCH (21:45)
[2017-11-27] MEDS: BUDESONIDE-FORMOTEROL 160/4.5 MCG INHALER INH SCH (23:48)
[2017-11-28] VITALS (9 sets, daily range): BP systolic 91–109; BP diastolic 50–59; PULSE 56–94; RESP 18–22; TEMP 97.8–98.3; O2SAT 93–96
[2017-11-28] MEDS: RESP: ALBUTEROL 2.5 MG/IPRATROPIUM 0.5 MG NEB (SCH) INH ×4 (03:15→19:53)
[2017-11-28 07:06] LABS: BASOPHIL % 0.2 % (0.0-2.0); EOSINOPHIL % 0.1 % (0.0-4.0); HEMATOCRIT 41.6 % (39.0-51.0); HEMOGLOBIN 14.8 GM/DL (13.0-17.0); LYMPH % 12.6 % (9.0-44.0); LYMPHOCYTE # 1.4 TH/MM3 (1.0-4.8); MEAN CELL VOLUME 96.7 FL (80.0-100.0); MEAN CORPUSCULAR HEMOGLOBIN 34.4 PG (27.0-34.0); MEAN CORPUSCULAR HGB CONC 35.5 % (32.0-36.0); MEAN PLATELET VOLUME 7.5 FL (7.0-11.0); MONOCYTE # 0.4 TH/MM3 (0-0.9); NEUT % 83.1 % (16.0-70.0); PLATELET COUNT 148 TH/MM3 (150-450); RED CELL DISTRIBUTION WIDTH 14.4 % (11.6-17.2); WHITE BLOOD COUNT 10.9 TH/MM3 (4.0-11.0)
[2017-11-28 07:42] LABS: ALBUMIN 2.2 GM/DL (3.4-5.0); BICARBONATE 25.1 MEQ/L (21.0-32.0); BLOOD UREA NITROGEN 36 MG/DL (7-18); CALCIUM 8.6 MG/DL (8.5-10.1); CHLORIDE 98 MEQ/L (98-107); CREATININE 1.05 MG/DL (0.60-1.30); GLOMERULAR FILTRATION RATE 68 ML/MIN (>89); GLUCOSE,RANDOM 75 MG/DL (74-106); SODIUM (NA) 134 MEQ/L (136-145)
[2017-11-28 07:43] LABS: ALT (GPT) 76 U/L (12-78); AST (GOT) 37 U/L (15-37)
[2017-11-28 07:45] LABS: ALKALINE PHOSPHATASE 119 U/L (45-117); TOTAL BILIRUBIN ADULT 1.1 MG/DL (0.2-1.0)
[2017-11-28] MEDS ORDERED: MAGNESIUM HYDROXIDE SUSP 30 ML CUP PO PRN (08:30)
[2017-11-28] MEDS: APIXABAN 2.5 MG TABLET PO SCH ×2 (08:52→21:24)
[2017-11-28] MEDS: CHOLECALCIFEROL (VIT D3) 1000 UNIT TAB PO SCH (08:52)
[2017-11-28] MEDS: buPROPion HCL 150 MG SUSTAINED RELEASE TAB PO SCH ×2 (08:52→21:24)
[2017-11-28] MEDS: DOCUSATE SODIUM 100 MG CAP PO SCH ×2 (08:52→21:25)
[2017-11-28] MEDS: CYANOCOBALAMIN 1,000 MCG TAB PO SCH (08:52)
[2017-11-28] MEDS: ESCITALOPRAM OXALATE 10 MG TAB PO SCH (08:53)
[2017-11-28] MEDS: ALLOPURINOL 300 MG TAB PO SCH (08:53)
[2017-11-28] MEDS: predniSONE 50 MG TAB PO SCH (08:53)
[2017-11-28] MEDS: SODIUM CHLORIDE 0.9% FLUSH 10 ML FLUSH IV FLUSH SCH ×2 (08:53→21:26)
[2017-11-28] MEDS: FINASTERIDE 5 MG TAB PO SCH (08:53)
[2017-11-28] MEDS: ATORVASTATIN 10 MG TAB PO SCH (08:53)
[2017-11-28] MEDS: BUDESONIDE-FORMOTEROL 160/4.5 MCG INHALER INH SCH ×2 (08:54→21:24)
[2017-11-28] MEDS ORDERED: [UNRECOGNIZED DRUG - OTHER] PO SCH (09:00)
[2017-11-28] MEDS ORDERED: NON-FORMULARY DRUG (Memantine Er (Namenda Xr) 28 MG) PO SCH (09:00)
[2017-11-28] MEDS ORDERED: CHOLECALCIFEROL 2000 UNIT PO SCH (09:00)
[2017-11-28] MEDS ORDERED: buPROPion HCL 150 MG EXTENDED RELEASE TAB PO SCH (09:00)
--- NOTE | 2017-11-28 11:41 | HHI.FPPN ---
Subjective Remarks No acute issues overnight. Vitals are stable, patient remains afebrile. Blood pressure has improved to the 100s/50s. O2 saturation ranging 93-94% on 2 L nasal cannula. Patient notes difficulty swallowing this morning due to a sore throat. He continues to have abdominal discomfort. He has had small bowel movements, but nothing substantial. His shortness of breath has improved overnight. (Hortencia Damon MD, R3) Objective Vitals Vital Signs Date Time Temp Pulse Resp B/P (MAP) Pulse Ox O2 Delivery O2 Flow Rate FiO2 11/28/17 08:55 94 Nasal Cannula 2.00 11/28/17 07:49 98.2 82 20 102/51 (68) 94 11/28/17 04:00 97.9 90 22 101/55 (70) 93 11/28/17 00:19 94 Nasal Cannula 2.00 11/28/17 00:00 97.8 77 22 96/50 (65) 93 11/27/17 20:00 97.7 75 22 98/53 (68) 94 11/27/17 18:27 73 86/47 (60) 11/27/17 16:54 97.5 56 18 88/50 (63) 97 11/27/17 16:51 97 Nasal Cannula 2.00 11/27/17 16:17 97.8 62 18 92/55 (67) 97 Nasal Cannula 2.00 11/27/17 15:12 97.9 64 16 90/50 (63) 97 Nasal Cannula 2.00 11/27/17 13:32 97.8 77 18 88/52 (64) 96 Nasal Cannula 2.00 11/27/17 12:52 69 18 82/43 (56) 74 18 78/40 (53) 68 17 11/27/17 12:10 69 18 96 Nasal Cannula 2.00 11/27/17 12:08 97.7 68 20 89/49 (62) 96 I/O 11/27/17 11/27/17 11/27/17 11/28/17 11/28/17 11/28/17 07:00 15:00 23:00 07:00 15:00 23:00 Intake Total 1500 ml Balance 1500 ml Intake IV Total 1500 ml # Voids 1 3 # Bowel Movements 0 (Hortencia Damon MD, R3) Result Diagram: 11/28/1762111/28/17621 Imaging Last Impressions Hip and Pelvis X-Ray 11/27/17 0000 Signed Impressions: Service Date/Time: November 12:35 - CONCLUSION: 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 No acute fracture or destructive lesion identified Angelo Sanders MD Chest X-Ray 11/27/17 0000 Signed Impressions: Service Date/Time: November 15:31 - CONCLUSION: 1. Cardiomegaly and chronic appearing interstitial changes. Stable compared earlier exam timed at 1235 hrs. Angelo Sanders MD Abdomen/Pelvis CT 11/27/17 0000 Signed Impressions: Service Date/Time: November 20:10 - CONCLUSION: Apparent constipation. Large amount of stool in the rectum. Nonobstructive pattern without acute inflammatory changes. Chronic findings otherwise. Juan Alberto Salazar MD Objective Remarks GENERAL: This is a well-nourished, well-developed patient, in no apparent distress. SKIN: No rashes, ecchymoses or lesions. Cool and dry. HEAD: Atraumatic. Normocephalic. No temporal or scalp tenderness. EYES: Pupils equal round and reactive. Extraocular motions intact. No scleral icterus. No injection or drainage. ENT: Nose without bleeding, purulent drainage or septal hematoma. Throat without erythema, tonsillar hypertrophy or exudate. Uvula midline. Airway patent. NECK: Trachea midline. No JVD or lymphadenopathy. Supple, nontender, no meningeal signs. CARDIOVASCULAR: Regular rate and rhythm without murmurs, gallops, or rubs. RESPIRATORY: Coarse breath sounds in the bases bilaterally, improved from yesterday. Nonlabored breathing. GASTROINTESTINAL: Abdomen soft, nondistended. Mildly tender to palpation throughout abdomen. MUSCULOSKELETAL: 2 x 2 centimeter grade 2 ulcer appreciated on the left side of the mid back. Stage I sacral ulcer appreciated. Extremities without clubbing, cyanosis, or edema. Right hip pain elicited with logroll. NEUROLOGICAL: Awake and alert. Oriented to person place and time. Cranial nerves II through XII grossly intact. Decreased left upper extremity muscle strength (3 out of 5) 5 out of 5 muscle strength right upper extremity Normal speech. (Hortencia Damon MD, R3) A/P Assessment and Plan 82-year-old male with past medical history of COPD, CHF, thrombocytopenia, hypertension, DVT presenting to the ED with persistent hypotension. Patient complaining of abdominal pain, right hip pain as well as a productive cough. Discharge Planning Anticipate discharge to SNF tomorrow. (Hortencia Damon MD, R3) Attending Attestation Patient seen, examined, and discussed with resident team this morning. I agree with assessment and management as documented and discussed with me. Lungs clear on exam - much improved from yesterday at admission. (Nayeli Casarez MD) Problem List: (1) Oxygen desaturation ICD Codes: R09.02 - Hypoxemia Plan: Improving O2 sats in upper 80's on admission, requiring 2 L NC Not in respiratory distress Pulmonary exam improved today Likely multifactorial from underlying COPD and CHF CXR Pa/Lateral concerning for pulmonary edema versus chronic interstitial disease. -BNP wnl at 22 -echocardiogram pending s/p Lasix 40 mg IV x 1 Recently started on Prednisone 50mg daily for COPD exacerbation per med review -Continuing until 12/03 Cont pulse ox with O2 titration Duonebs q6hr, albuterol PRN EZ pap every 4 hours (2) Leukocytosis ICD Codes: D72.829 - Elevated white blood cell count, unspecified Status: Resolved Plan: Likely secondary to stress response, now resolved with IV fluids. WBC elevated at 13.2 on admission, trending down to 10.9 Lactic acid elevated at 2.5 on admission, trending down to 1.[address] abdomen shows constipation with a large amount of stool in the rectum, nonobstructive pattern without acute inflammatory changes UA with moderate leukocyte esterase, rare bacteria, few mucus urine culture pending legionella, pneumococcal urine sputum culture pending blood culture no growth in 1 day Influenza negative CRP elevated at 2.26 (3) Hypotension ICD Codes: I95.9 - Hypotension, unspecified Status: Resolved Plan: Patient sent in for hypotension with systolic pressures in 80's Received 1.5 L bolus in ED with improvement in BP Systolic BP now in the 100's Hold home BP meds Careful with further IVF - CXR concerning for pulm edema Continue to monitor (4) Hip pain ICD Codes: M25.559 - Pain in unspecified hip Plan: Patient complaining of worsening R hip pain x 1 day No known history of falls XR on admission negative Pain with log roll on exam Caution with narcotics in light of hypotension PT ordered No acute bony abnormalities demonstrated on CT abd/pelvis (5) Abdominal pain ICD Codes: R10.9 - Unspecified abdominal pain Plan: Likely secondary to constipation per CT abdomen/pelvis results. Colace 100mg PO BID Milk of Mag 30ml PO daily (6) Thrombocytopenia ICD Codes: D69.6 - Thrombocytopenia, unspecified Status: Chronic Plan: Known history of thrombocytopenia with recent hospitalization Followed by Dr. Mcdaniel Was sent here from her clinic due to hypotension Platelets 166 on admission, trending down to 148 Diffuse bruising on exam (7) DVT (deep venous thrombosis) ICD Codes: I82.409 - Acute embolism and thrombosis of unspecified deep veins of unspecified lower extremity Plan: US on 11/03/17 showed occlusive thrombus of R posterior Tibial vein Patient on low dose Eliquis No other anticoagulation for now, will monitor (8) KIANA (acute kidney injury) ICD Codes: N17.9 - Acute kidney failure, unspecified Status: Resolved Plan: Creatinine on admission 1.43, trending down to wnl at 1.05 after fluids Continue to monitor (9) Pressure ulcer ICD Codes: L89.90 - Pressure ulcer of unspecified site, unspecified stage Status: Chronic Plan: Grade II pressure ulcer on L side of midback Measures roughly 2 x 2 cm Wound care consulted (10) Transaminitis ICD Codes: R74.0 - Nonspecific elevation of levels of transaminase and lactic acid dehydrogenase [LDH] Status: Resolved Plan: Elevated Liver enzymes on admission, now wnl (11) FEN Status: Acute Plan: Fluids: none Replete electrolytes as needed Heart healthy diet Home Eliquis for DVT prophylaxis (Hortencia Damon MD, R3) Problem Qualifiers (1) Leukocytosis: Qualified Codes: D72.820 - Lymphocytosis (symptomatic) (2) Hypotension: Qualified Codes: I95.9 - Hypotension, unspecified (3) Hip pain: Qualified Codes: M25.551 - Pain in right hip (4) Abdominal pain: Qualified Codes: R10.84 - Generalized abdominal pain (5) DVT (deep venous thrombosis): Qualified Codes: I82.541 - Chronic embolism and thrombosis of right tibial vein (6) Pressure ulcer: Qualified Codes: L89.142 - Pressure ulcer of left lower back, stage 2 Hortencia Damon MD, R3 Nov 28, 2017 11:41 Nayeli Casarez MD Nov 28, 2017 14:40
[2017-11-28] MEDS: MAGNESIUM HYDROXIDE SUSP 30 ML CUP PO SCH (11:46)
--- NOTE | 2017-11-28 15:02 | EKG ---
Date Performed: 11/27/2017 Time Performed: 13:53:06 PTAGE: 82 years EKG: ELECTRONIC ATRIAL PACEMAKER ELECTRONIC VENTRICULAR PACEMAKER Since previous tracing, no sig nificant change noted ABNORMAL RHYTHM ECG PREVIOUS TRACING : 01/06/2014 11.0548 DOCTOR: Jessa Jackson Interpretating Date/Time 11/28/2017 15:01:03
--- NOTE | 2017-11-28 15:36 | PD.WCN.NOT ---
Wound Consult Description: Wound consult ordered by for mid-back pressure ulcer Communicated with: Cristina DENNIS [address] [place] [address], Dr. Willy ELIAS R1 Recommendation: 1) Reposition patient every 2 hours for comfort and offloading 2) Cleanse Right ear, Sacrum and and Left medial back with warm soap and water rinse and dry 3) Apply Calazime to sacral area BID or after loose stool. 4) Apply Calazime to Left medial back wound and cover with dry boarder gauze change every other day or as needed for dislodgement. 5) Encourage patient to wear long sleeves to protect upper extremities Additional Information: Patient was seen today on [address] [place] [address] by conventional underwriter and Cristina DENNIS [address] [place] [address] for mid back pressure ulcer.Patient alert in bed very soft spoken.Currently complains of dull ache in back.patient required 1 person assist to reposition to right side.Patient is incontinent of bowel and bladder anais care performed.Patient has blanchable incontinence associated dermatitis to sacral area bilateral buttocks skin is currently intact.Left Medial back has a ~1cm x ~1cm punch out wound with 100% yellow slough base no erythema,drainage or odor noted. Cleansed with normal saline pat dry Calazime cream applied to wound base patient was then repositioned to Right side.Right ear has intact scab in which patient states her picked at ear because O2 tubing was itching it.Skin prep applied.Patient has severe ecchymosis to bilateral upper extremities.Patient will return back to [facility] upon discharge. Ankur Avendaño [facility] Nov 28, 2017 15:36
[2017-11-28] MEDS ORDERED: CALCIUM CARBONATE 500 MG CHEWABLE TAB CHEW PRN (23:00)
[2017-11-29] VITALS (7 sets, daily range): BP systolic 102–132; BP diastolic 56–74; PULSE 76–100; RESP 18–20; TEMP 97.6–98.2; O2SAT 93–95
[2017-11-29] MEDS: RESP: ALBUTEROL 2.5 MG/IPRATROPIUM 0.5 MG NEB (SCH) INH ×4 (04:00→21:25)
[2017-11-29] MEDS: DOCUSATE SODIUM 100 MG CAP PO SCH ×2 (09:00→21:08)
[2017-11-29] MEDS: MAGNESIUM HYDROXIDE SUSP 30 ML CUP PO SCH (09:00)
[2017-11-29] MEDS ORDERED: AZITHROMYCIN 250 MG TAB PO SCH (09:00)
[2017-11-29] MEDS: APIXABAN 2.5 MG TABLET PO SCH ×2 (09:11→21:08)
[2017-11-29] MEDS ORDERED: FUROSEMIDE 40 MG/4 ML VIAL IV PUSH ONE (09:15)
[2017-11-29] MEDS: CHOLECALCIFEROL (VIT D3) 1000 UNIT TAB PO SCH (09:20)
[2017-11-29] MEDS: ESCITALOPRAM OXALATE 10 MG TAB PO SCH (09:20)
[2017-11-29] MEDS: buPROPion HCL 150 MG SUSTAINED RELEASE TAB PO SCH ×2 (09:20→21:08)
[2017-11-29] MEDS: ALLOPURINOL 300 MG TAB PO SCH (09:20)
[2017-11-29] MEDS: predniSONE 50 MG TAB PO SCH (09:20)
[2017-11-29] MEDS: ATORVASTATIN 10 MG TAB PO SCH (09:21)
[2017-11-29] MEDS: FINASTERIDE 5 MG TAB PO SCH (09:21)
[2017-11-29] MEDS: CYANOCOBALAMIN 1,000 MCG TAB PO SCH (09:21)
[2017-11-29] MEDS: SODIUM CHLORIDE 0.9% FLUSH 10 ML FLUSH IV FLUSH SCH ×2 (09:21→21:08)
[2017-11-29] MEDS: BUDESONIDE-FORMOTEROL 160/4.5 MCG INHALER INH SCH ×2 (09:22→21:09)
[2017-11-29 09:37] LABS: AUTOMATED NEUTROPHIL # 7.6 TH/MM3 (1.8-7.7); BASOPHIL % 0.1 % (0.0-2.0); EOSINOPHIL % 0.3 % (0.0-4.0); HEMATOCRIT 44.6 % (39.0-51.0); LYMPH % 13.4 % (9.0-44.0); LYMPHOCYTE # 1.3 TH/MM3 (1.0-4.8); MEAN CORPUSCULAR HEMOGLOBIN 34.8 PG (27.0-34.0); MEAN CORPUSCULAR HGB CONC 35.9 % (32.0-36.0); MEAN PLATELET VOLUME 7.4 FL (7.0-11.0); MONO % 4.7 % (0.0-8.0); MONOCYTE # 0.4 TH/MM3 (0-0.9); NEUT % 81.5 % (16.0-70.0); PLATELET COUNT 141 TH/MM3 (150-450); RED BLOOD COUNT 4.59 MIL/MM3 (4.50-5.90); RED CELL DISTRIBUTION WIDTH 14.6 % (11.6-17.2); WHITE BLOOD COUNT 9.4 TH/MM3 (4.0-11.0)
--- NOTE | 2017-11-29 10:15 | HHI.FPPN ---
Subjective Remarks Patient seen and examined bedside this morning. Patient is coughing more and feeling more congested today. He states that he feels like his coughing and congestion is worse than yesterday. Patient denies any fever/chills. Patient denies any shortness of breath. Patient has been mobilizing with PT and has required extensive assistance. He denies any nausea/vomiting. Denies any chest pain/dizziness/confusion. (Clara Guy MD R2) Objective Vitals Vital Signs Date Time Temp Pulse Resp B/P (MAP) Pulse Ox O2 Delivery O2 Flow Rate FiO2 11/29/17 03:51 97.9 97 19 102/58 (73) 94 11/29/17 00:41 97.6 95 18 116/58 (77) 94 11/28/17 20:20 97.9 56 18 91/56 (68) 94 11/28/17 19:54 96 Nasal Cannula 2.00 11/28/17 16:00 98.0 94 20 109/59 (76) 95 11/28/17 11:53 98.3 90 18 109/53 (71) 93 I/O 11/28/17 11/28/17 11/28/17 11/29/17 11/29/17 11/29/17 07:00 15:00 23:00 07:00 15:00 23:00 Intake Total 240 ml Balance 240 ml Intake Oral 240 ml # Voids 3 3 # Bowel Movements 0 1 (Clara Guy MD R2) Result Diagram: 11/29/17 0902 11/28/17 0622 Objective Remarks GENERAL: This is a well-nourished, well-developed patient, in no apparent distress. SKIN: No rashes, ecchymoses or lesions. Cool and dry. HEAD: Atraumatic. Normocephalic. No temporal or scalp tenderness. EYES: Pupils equal round and reactive. Extraocular motions intact. No scleral icterus. No injection or drainage. ENT: Nose without bleeding, purulent drainage or septal hematoma. Throat without erythema, tonsillar hypertrophy or exudate. Uvula midline. Airway patent. NECK: Trachea midline. No JVD or lymphadenopathy. Supple, nontender, no meningeal signs. CARDIOVASCULAR: Regular rate and rhythm without murmurs, gallops, or rubs. RESPIRATORY: Coarse breath sounds and congestion on auscultation anteriorly. Mildly labored breathing. Positive coughing. Choking with water consumption GASTROINTESTINAL: Abdomen soft, nondistended. No tenderness to palpation. MUSCULOSKELETAL: 2 x 2 centimeter grade 2 ulcer appreciated on the left side of the mid back. Stage I sacral ulcer appreciated. Extremities without clubbing, cyanosis, or edema. Right hip pain elicited with logroll. NEUROLOGICAL: Awake and alert. Oriented to person place and time. Cranial nerves II through XII grossly intact. Decreased left upper extremity muscle strength (3 out of 5) 5 out of 5 muscle strength right upper extremity Normal speech. (Clara Guy MD R2) A/P Assessment and Plan 82-year-old male with past medical history of COPD, CHF, thrombocytopenia, hypertension, DVT presenting to the ED with persistent hypotension. Patient has a productive cough that has worsened overnight. Discharge Planning Anticipate discharge to SNF pending clinical improvement (Clara Guy MD R2) Attending Attestation Patient seen and examined around 0915, discussed with Dr. Guy. I agree with assessment and management as documented and discussed with me. Pt remains on 2lpm by nasal cannula, however lung sounds more coarse than yesterday. Lasix x 1; of note, pt on lasix and spironolactone at home. Consider resuming home lasix tomorrow. Check CXR as ordered. Await echo. BP remains fairly low. Consider adrenal insufficiency, as pt has been on prednisone for >1month. 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 (current) use of systemic steroids Status: Chronic Plan: Chronic use (>1month) of PO prednisone, r/o adrenal insufficiency as cause of hypotension (chronic suppression of HPA, [place]'s syndrome) Continue Prednisone 50mg PO daily Add hydrocortisone 10mg 8:00AM, 5mg 12:00PM, 2.5mg 3:00PM starting tomorrow Will f/u BPs tomorrow (2) Oxygen desaturation ICD Codes: R09.02 - Hypoxemia Plan: Oxygen sats are stable, 94% on 2 L nasal cannula O2 sats in upper 80's on admission, requiring 2 L NC Mild respiratory distress on exam today, appears to have deteriorated overnight Likely multifactorial from underlying COPD and CHF, possible COPD exacerbation Add Rocephin 1 g IV every 24 hours Continue prednisone 50 daily by mouth Repeat PA and lateral chest x-ray Continue respiratory therapy; DuoNeb treatments, Symbicort, EZ Pap Add Lasix 40 mg IV 1 Follow-up speech eval for swallow eval before by mouth Will consider restarting home Lasix 20 mg by mouth twice a day if BP tolerates CXR Pa/Lateral concerning for pulmonary edema versus chronic interstitial disease. -BNP wnl at 22 -echocardiogram pending s/p Lasix 40 mg IV x 1 (3) Leukocytosis ICD Codes: D72.829 - Elevated white blood cell count, unspecified Status: Resolved Plan: Likely secondary to stress response, now resolved with IV fluids. WBC elevated at 13.2 on admission, trending down Lactic acid elevated at 2.5 on admission, trending down CXR stable CT abdomen shows constipation with a large amount of stool in the rectum, nonobstructive pattern without acute inflammatory changes UA with moderate leukocyte esterase, rare bacteria, few mucus urine culture pending legionella, pneumococcal urine sputum culture pending blood culture no growth Influenza negative CRP elevated at 2.26 (4) Hypotension ICD Codes: I95.9 - Hypotension, unspecified Status: Resolved Plan: Patient sent in for hypotension with systolic pressures in 80's BP this morning 102/58 Received 1.5 L bolus in ED with improvement in BP Systolic BP now in the 100's Hold home BP meds Hold home Lasix 20 mg twice a day, hold spironolactone Careful with further IVF - CXR concerning for pulm edema Continue to monitor (5) Hip pain ICD Codes: M25.559 - Pain in unspecified hip Plan: Patient complaining of worsening R hip pain x 1 day No known history of falls XR on admission negative Caution with narcotics in light of hypotension PT ordered No acute bony abnormalities demonstrated on CT abd/pelvis (6) Abdominal pain ICD Codes: R10.9 - Unspecified abdominal pain Status: Resolved Plan: Resolved Likely secondary to constipation per CT abdomen/pelvis results. Colace 100mg PO BID Milk of Mag 30ml PO daily (7) Thrombocytopenia ICD Codes: D69.6 - Thrombocytopenia, unspecified Status: Chronic Plan: Known history of thrombocytopenia with recent hospitalization Followed by Dr. 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 (8) DVT (deep venous thrombosis) ICD Codes: I82.409 - Acute embolism and thrombosis of unspecified deep veins of unspecified lower extremity Plan: No concern for PE at this time, vital signs stable US on 11/03/17 showed occlusive thrombus of R posterior Tibial vein Patient on low dose Eliquis No other anticoagulation for now, will monitor (9) KIANA (acute kidney injury) ICD Codes: N17.9 - Acute kidney failure, unspecified Status: Resolved Plan: Follow-up BMP this morning Creatinine on admission 1.43, trending down to wnl at 1.05 after fluids Continue to monitor (10) Pressure ulcer ICD Codes: L89.90 - Pressure ulcer of unspecified site, unspecified stage Status: Chronic Plan: Grade II pressure ulcer on L side of midback Measures roughly 2 x 2 cm Wound care consulted (11) Transaminitis ICD Codes: R74.0 - Nonspecific elevation of levels of transaminase and lactic acid dehydrogenase [LDH] Status: Resolved Plan: Follow-up LFTs this a.m. 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
[2017-11-29 10:20] LABS: ALBUMIN 2.2 GM/DL (3.4-5.0); AST (GOT) 53 U/L (15-37); BICARBONATE 25.5 MEQ/L (21.0-32.0); BLOOD UREA NITROGEN 21 MG/DL (7-18); CALCIUM 8.5 MG/DL (8.5-10.1); CHLORIDE 100 MEQ/L (98-107); CREATININE 0.95 MG/DL (0.60-1.30); GLOMERULAR FILTRATION RATE 76 ML/MIN (>89); GLUCOSE,RANDOM 101 MG/DL (74-106); SODIUM (NA) 135 MEQ/L (136-145)
[2017-11-29 10:21] LABS: ALKALINE PHOSPHATASE 132 U/L (45-117); ALT (GPT) 91 U/L (12-78); TOTAL BILIRUBIN ADULT 1.4 MG/DL (0.2-1.0); TOTAL PROTEIN 6.3 GM/DL (6.4-8.2)
[2017-11-29 10:30] LABS: BANDS 4 % (0-6); LYMPHOCYTES 9 % (9-44); METAMYELOCYTES 1 % (0-1); MONOCYTES 3 % (0-8); NEUTROPHIL # MANUAL DIFF 8.2 TH/MM3 (1.8-7.7); POLYS (SEG NEUTROPHILS) 82 % (16-70)
[2017-11-29] MEDS: traMADol HCL 50 MG TAB PO PRN (10:54)
--- NOTE | 2017-11-29 11:01 | RADRPT ---
EXAM DATE/TIME: 11/29/2017 10:34 [facility] COMPARISON: CHEST SINGLE AP, October 26, 2017, 14:05. CHEST PA & LAT, November 27, 2017, 15:31. INDICATIONS : COPD. MEDICAL HISTORY : Cardiovascular disease. Hypertension. Gallstones. Arthritis.Dementia.Irregular heartbeat. HTN. COPD G ERD.Deep venous thrombosis. Hypercholesterolemia. Emphysema. SURGICAL HISTORY : Pacemaker. Carotid artery surgery ENCOUNTER: Subsequent ACUITY: 1 day PAIN SCORE: 0/10 LOCATION: Bilateral chest FINDINGS: Dual-lead pacer identified. Stable cardiomegaly. Mild prominence of the central pulmonary vasculature . Stable bilateral interstitial prominence. Given the stability from the prior exam of October 2017 t his likely reflects either chronic edema or interstitial fibrosis. CONCLUSION: Stable lung exam suggestive of either chronic interstitial edema from congestive heart failure versus interstitial fibrosis. Lucy Velarde MD on November 29, 2017 at 10:56 Board Certified Radiologist. This report was verified electronically.
[2017-11-29] MEDS: cefTRIAXone INJ 1,000 MG in SODIUM CHLORIDE 0.9% INJ 100 ML IV SCH (11:37)
[2017-11-30] VITALS (8 sets, daily range): BP systolic 113–137; BP diastolic 62–82; PULSE 77–106; RESP 18–20; TEMP 97.9–98.5; O2SAT 90–96
[2017-11-30] MEDS: RESP: ALBUTEROL 2.5 MG/IPRATROPIUM 0.5 MG NEB (SCH) INH ×4 (03:46→19:33)
[2017-11-30] MEDS ORDERED: HYDROCORTISONE 10 MG TAB PO ONE ×3 (08:00→15:00)
[2017-11-30 09:14] LABS: AUTOMATED NEUTROPHIL # 7.7 TH/MM3 (1.8-7.7); BASOPHIL % 0.2 % (0.0-2.0); EOSINOPHIL % 0.4 % (0.0-4.0); HEMATOCRIT 45.9 % (39.0-51.0); HEMOGLOBIN 16.2 GM/DL (13.0-17.0); LYMPH % 12.2 % (9.0-44.0); LYMPHOCYTE # 1.1 TH/MM3 (1.0-4.8); MEAN CORPUSCULAR HEMOGLOBIN 34.2 PG (27.0-34.0); MEAN CORPUSCULAR HGB CONC 35.2 % (32.0-36.0); MEAN PLATELET VOLUME 7.6 FL (7.0-11.0); MONO % 3.7 % (0.0-8.0); MONOCYTE # 0.3 TH/MM3 (0-0.9); NEUT % 83.5 % (16.0-70.0); PLATELET COUNT 149 TH/MM3 (150-450); RED BLOOD COUNT 4.73 MIL/MM3 (4.50-5.90); RED CELL DISTRIBUTION WIDTH 14.7 % (11.6-17.2); WHITE BLOOD COUNT 9.2 TH/MM3 (4.0-11.0)
[2017-11-30] MEDS: ALLOPURINOL 300 MG TAB PO SCH (09:30)
[2017-11-30] MEDS: ATORVASTATIN 10 MG TAB PO SCH (09:30)
[2017-11-30] MEDS: DOCUSATE SODIUM 100 MG CAP PO SCH ×2 (09:31→19:36)
[2017-11-30] MEDS: ESCITALOPRAM OXALATE 10 MG TAB PO SCH (09:31)
[2017-11-30] MEDS: APIXABAN 2.5 MG TABLET PO SCH ×2 (09:32→22:04)
[2017-11-30] MEDS: FINASTERIDE 5 MG TAB PO SCH (09:32)
[2017-11-30] MEDS: CHOLECALCIFEROL (VIT D3) 1000 UNIT TAB PO SCH ×2 (09:32→09:44)
[2017-11-30] MEDS: predniSONE 50 MG TAB PO SCH (09:32)
[2017-11-30 09:41] LABS: ALBUMIN 2.2 GM/DL (3.4-5.0); ALT (GPT) 89 U/L (12-78); AST (GOT) 43 U/L (15-37); BICARBONATE 29.4 MEQ/L (21.0-32.0); BLOOD UREA NITROGEN 22 MG/DL (7-18); CALCIUM 8.5 MG/DL (8.5-10.1); CHLORIDE 96 MEQ/L (98-107); CREATININE 1.12 MG/DL (0.60-1.30); GLOMERULAR FILTRATION RATE 63 ML/MIN (>89); GLUCOSE,RANDOM 113 MG/DL (74-106); SODIUM (NA) 133 MEQ/L (136-145)
[2017-11-30 09:43] LABS: ALKALINE PHOSPHATASE 134 U/L (45-117); TOTAL BILIRUBIN ADULT 1.1 MG/DL (0.2-1.0); TOTAL PROTEIN 6.5 GM/DL (6.4-8.2)
[2017-11-30] MEDS: FUROSEMIDE 20 MG TAB PO SCH ×2 (09:44→22:04)
[2017-11-30] MEDS: buPROPion HCL 150 MG SUSTAINED RELEASE TAB PO SCH ×2 (09:44→22:04)
[2017-11-30] MEDS: METOPROLOL TARTRATE 25 MG TAB PO SCH (09:44)
[2017-11-30] MEDS: CYANOCOBALAMIN 1,000 MCG TAB PO SCH (09:45)
[2017-11-30] MEDS: SODIUM CHLORIDE 0.9% FLUSH 10 ML FLUSH IV FLUSH SCH ×2 (09:45→21:00)
[2017-11-30] MEDS: BUDESONIDE-FORMOTEROL 160/4.5 MCG INHALER INH SCH ×2 (09:46→22:05)
[2017-11-30 10:06] LABS: BANDS 4 % (0-6); LYMPHOCYTES 8 % (9-44); METAMYELOCYTES 3 % (0-1); MONOCYTES 4 % (0-8); MYELOCYTES 5 % (0-0); NEUTROPHIL # MANUAL DIFF 8.1 TH/MM3 (1.8-7.7); POLYS (SEG NEUTROPHILS) 76 % (16-70)
[2017-11-30] MEDS ORDERED: POTASSIUM CHLORIDE 20 MEQ CONTROLLED RELEASE TAB PO ONE (10:15)
[2017-11-30] MEDS: cefTRIAXone INJ 1,000 MG in SODIUM CHLORIDE 0.9% INJ 100 ML IV SCH (10:23)
[2017-11-30] MEDS ORDERED: SODIUM CHLOR 0.9% 1000 ML INJ 1,000 ML IV ONE (10:30)
[2017-11-30] MEDS: MAGNESIUM HYDROXIDE SUSP 30 ML CUP PO SCH (10:34)
--- NOTE | 2017-11-30 10:37 | HHI.FPPN ---
Subjective Remarks No acute events overnight. Vital signs remained stable with blood pressures improving for the last 24 hours. Patient states he is breathing better this morning and is denying chest pain, shortness of breath, nausea vomiting. Noted that he had not had a urinary void during the shift and did a bladder scan showing 238 mL volume in the bladder. Patient is not on IV fluids and has not been eating/drinking a lot per the nursing staff. (Gianluca Aguilera MD R1) Objective Vitals Vital Signs Date Time Temp Pulse Resp B/P (MAP) Pulse Ox O2 Delivery O2 Flow Rate FiO2 11/30/17 04:22 98.1 106 18 116/65 (82) 94 11/30/17 02:46 94 20 93 11/30/17 00:00 98.2 99 18 113/62 (79) 90 11/29/17 21:27 95 Nasal Cannula 2.00 11/29/17 20:00 98.0 90 20 103/64 (77) 93 11/29/17 16:31 98.2 76 18 132/74 (93) 95 11/29/17 12:53 98.2 98 18 121/69 (86) 95 I/O 11/29/17 11/29/17 11/29/17 11/30/17 11/30/17 11/30/17 07:00 15:00 23:00 07:00 15:00 23:00 Intake Total 240 ml 120 ml Balance 240 ml 120 ml Intake Oral 240 ml 120 ml Bladder Scan Volume Amount 238 ml # Voids 3 # Bowel Movements 1 1 (Gianluca Aguilera MD R1) Result Diagram: 11/30/17 0810 11/30/17 0810 Objective Remarks GENERAL: This is a well-nourished, well-developed patient, in no apparent distress. SKIN: No rashes, ecchymoses or lesions. Cool and dry. HEAD: Atraumatic. Normocephalic. No temporal or scalp tenderness. EYES: Pupils equal round and reactive. Extraocular motions intact. No scleral icterus. No injection or drainage. ENT: Nose without bleeding, purulent drainage or septal hematoma. Throat without erythema, tonsillar hypertrophy or exudate. Uvula midline. Airway patent. NECK: Trachea midline. No JVD or lymphadenopathy. Supple, nontender, no meningeal signs. CARDIOVASCULAR: Regular rate and rhythm without murmurs, gallops, or rubs. RESPIRATORY: Occasional coarse breath sounds, but improved from prior exams. Nonlabored breathing. GASTROINTESTINAL: Abdomen soft, nondistended. No tenderness to palpation. MUSCULOSKELETAL: 2 x 2 centimeter grade 2 ulcer appreciated on the left side of the mid back. Stage I sacral ulcer appreciated. Extremities without clubbing, cyanosis, or edema. Right hip pain elicited with logroll. NEUROLOGICAL: Awake and alert. Oriented to person place and time. Cranial nerves II through XII grossly intact. Decreased left upper extremity muscle strength (3 out of 5) 5 out of 5 muscle strength right upper extremity Normal speech. (Gianluca Aguilera MD R1) A/P Assessment and Plan 82-year-old male with past medical history of COPD, CHF, thrombocytopenia, hypertension, DVT presenting to the ED with persistent hypotension. Blood pressures improving and patient pulmonary exam improved today. Attempted to contact next of kin to discuss overall clinical picture on 11/30 with no answer. Will continue to try and contact Discharge Planning Anticipate discharge to SNF pending clinical improvement (Gianluca Aguilera MD R1) Attending Attestation Patient seen, examined, and discussed with Dr. Aguilera on morning rounds today. I agree with assessment and management as documented and discussed with me. Pt reports breathing better, and lung sounds are improved today as compared to yesterday. Restart home lasix. Await echo. Pt may need restart of spironolactone. Palliative care consult pending; team attempted to contact [facility] yesterday and today with no answer to update regarding overall clinical picture. Consult hem-onc for guidance re: chronic steroids. Pt has been treated with prednisone 50mg daily for ITP for 1 month - consider wean of steroids pending hem-onc recommendations. Pt provided stress dose hydrocortisone for low blood pressures/mild hyponatremia which may be attributed to adrenal insufficiency. 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 Status: Chronic Plan: Chronic use (>1month) of PO prednisone, r/o adrenal insufficiency as cause of hypotension (chronic suppression of HPA, [place]'s syndrome) Continue Prednisone 50mg PO daily Add hydrocortisone 10mg 8:00AM, 5mg 12:00PM, 2.5mg 3:00PM on 11/30 Will f/u BPs Consulting hematology as patient has been on by mouth steroids for a month for treatment of ITP and will need taper (2) Oxygen desaturation ICD Codes: R09.02 - Hypoxemia Plan: Oxygen sats are stable, 90-94% on 2 L nasal cannula O2 sats in upper 80's on admission, requiring 2 L NC No respiratory distress on exam today, pulmonary exam improved from day before Patient improved after Lasix 40 mg IV 1 on 11/29, will resume home dose of Lasix 20 mg by mouth twice a day Likely multifactorial from underlying COPD and CHF, possible COPD exacerbation Rocephin 1 g IV every 24 hours started on 11/29 Continue prednisone 50 daily by mouth Continue respiratory therapy; DuoNeb treatments, Symbicort, EZ Pap1 Follow-up speech eval for swallow eval before by mouth Will consider restarting home Lasix 20 mg by mouth twice a day if BP tolerates CXR Pa/Lateral on 11/29 showing stable lung exam suggestive of either chronic interstitial edema from CHF versus interstitial fibrosis -BNP wnl at 22 -echocardiogram pending -Resuming Lasix 20 mg by mouth twice a day (3) Leukocytosis ICD Codes: D72.829 - Elevated white blood cell count, unspecified Status: Resolved Plan: Likely secondary to stress response, now resolved with IV fluids. WBC elevated at 13.2 on admission, trending down and normalized since 11/28 Lactic acid elevated at 2.5 on admission, trending down CXR stable CT abdomen shows constipation with a large amount of stool in the rectum, nonobstructive pattern without acute inflammatory changes UA with moderate leukocyte esterase, rare bacteria, few mucus urine culture pending legionella, pneumococcal urine sputum culture pending blood culture no growth Influenza negative CRP elevated at 2.26 on 11/27 (4) Hypotension ICD Codes: I95.9 - Hypotension, unspecified Status: Resolved Plan: Patient sent in for hypotension with systolic pressures in 80's BP this morning 116/65, continuing to improve Received 1.5 L bolus in ED with improvement in BP Systolic BP now in the 100's Patient with decreased urinary output over the last 24 hours, mild increase in creatinine from 0.95-1.12 Giving normal saline IV fluids at 50 mL per hour, only one bag of fluids Resuming home metoprolol 12.5 mg by mouth daily, holding other blood pressure medications Resuming home Lasix 20 mg twice a day, hold spironolactone Careful with further IVF - CXR concerning for pulm edema Can give another 1 time dose of 40 mg IV Lasix if concern for pulmonary edema Continue to monitor (5) Hip pain ICD Codes: M25.559 - Pain in unspecified hip Plan: Patient complaining of worsening R hip pain x 1 day No known history of falls XR on admission negative Caution with narcotics in light of hypotension PT ordered No acute bony abnormalities demonstrated on CT abd/pelvis (6) Abdominal pain ICD Codes: R10.9 - Unspecified abdominal pain Status: Resolved Plan: Resolved Likely secondary to constipation per CT abdomen/pelvis results. Colace 100mg PO BID Milk of Mag 30ml PO daily (7) Thrombocytopenia ICD Codes: D69.6 - Thrombocytopenia, unspecified Status: Chronic Plan: Known history of thrombocytopenia with recent hospitalization Followed by Dr. 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 Consulting hematology for assistance on steroid taper, see prolonged steroid use as above (8) DVT (deep venous thrombosis) ICD Codes: I82.409 - Acute embolism and thrombosis of unspecified deep veins of unspecified lower extremity Plan: No concern for PE at this time, vital signs stable US on 11/03/17 showed occlusive thrombus of R posterior Tibial vein Patient on low dose Eliquis No other anticoagulation for now, will monitor (9) KIANA (acute kidney injury) ICD Codes: N17.9 - Acute kidney failure, unspecified Status: Resolved Plan: Follow-up BMP Creatinine on admission 1.43 Had normalized to 0.95 on 11/29, increase to 1.12 on 11/30 Giving one bag of normal saline at 50 mL/h on 11/30 Continue to monitor (10) Pressure ulcer ICD Codes: L89.90 - Pressure ulcer of unspecified site, unspecified stage Status: Chronic Plan: Grade II pressure ulcer on L side of midback Measures roughly 2 x 2 cm Wound care consulted (11) Transaminitis ICD Codes: R74.0 - Nonspecific elevation of levels of transaminase and lactic acid dehydrogenase [LDH] Status: Resolved Plan: Elevated Liver enzymes on admission with AST 44, ALT 83 Normalized on 11/28, elevated again at AST 43, ALT 89 on 11/30 Will continue to monitor (12) FEN Status: Acute Plan: Fluids: Normal saline 50 mL per hour, one bag only Replete electrolytes as needed, slightly hypokalemic on 11/30 for potassium of 3.2, giving 40 mEq by mouth Heart healthy diet Home Eliquis for DVT prophylaxis (Gianluca Aguilera MD R1) Problem Qualifiers (1) Leukocytosis: Qualified Codes: D72.820 - Lymphocytosis (symptomatic) (2) Hypotension: Qualified Codes: I95.9 - Hypotension, unspecified (3) Hip pain: Qualified Codes: M25.551 - Pain in right hip (4) Abdominal pain: Qualified Codes: R10.84 - Generalized abdominal pain (5) DVT (deep venous thrombosis): Qualified Codes: 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
--- NOTE | 2017-11-30 10:46 | ECHRPT ---
Indication: SHORTNESS OF BREATH CONCLUSIONS Poor acoustic window Hyperactive left ventricule Ejection fraction over 60% Valves structure cannot be properly evaluated If more information needed, please order a KATT BP: 102 / 51 HR: 82 Rhythm: Sinus MEASUREMENTS (Male / Female) Normal Values Technical Quality:Very technically difficult study 2D ECHO LVOT Diameter 2.0 cm M-MODE Aortic Root Diameter MM 3.1 cm AV Cusp Separation MM 1.9 cm FINDINGS LEFT VENTRICLE Adequate left ventricular systolic function Ejection fraction over 60% LEFT ATRIUM No enlargement Eneida Bryan MD (Electronically Signed) Final Date:30 November 2017 10:45
--- NOTE | 2017-11-30 15:07 | MB ---
cc: GREGORIO FARFAN M.D. DATE OF CONSULTATION: 11/30/2017. REASON FOR CONSULTATION: Hematology was consulted to render an opinion regarding a patient with ITP. ATTENDING PHYSICIAN: Dr. Aguilera. HISTORY OF PRESENT ILLNESS: The patient is an 82-year-old male brought in from the half-way with a complaint of right hip pain and hypotension. Reportedly he also complained of right jaw pain, but that is chronic. He denies any trauma. He was having some cough productive of yellowish sputum. However, when I saw him today he denies any pain. He has mild shortness of breath. He was admitted to the hospital early October with a platelet count of 6000. 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 He was given IVIG. He was also started on steroid with good response. He is currently on prednisone 50 mg daily. On presentation his platelet count is 166,000. He denies any bleeding or bruising. He is just feeling tired. He is not a very good historian. He denies any chest pressure, palpitation and headache. Denies any focal numbness or weakness. PAST MEDICAL HISTORY: 1. ITP. 2. Arrhythmia. 3. Osteoarthritis. 4. Congestive heart failure. 5. COPD. 6. Hyperlipidemia. 7. Hypertension. 8. Gastroesophageal reflux disease (GERD). 9. Depression. 10. Right lower extremity deep venous thrombosis in October of 2017. 11. Dementia. 12. Hemochromatosis. PAST SURGICAL HISTORY: 1. Right jaw surgery. 2. Carotid endarterectomy. 3. Joint replacement. 4. Right cataract. 5. Pacemaker placement. 6. Bone marrow biopsy. FAMILY HISTORY: Positive for coronary artery disease. SOCIAL HISTORY: He quit tobacco in 1988. He has a remote history of alcohol abuse. He is currently residing in [facility]. ALLERGIES: PLAVIX. CURRENT MEDICATIONS: 1. Hydrocortisone. 2. Prednisone 50 milligrams daily. 3. Lasix. 4. Metoprolol. 5. Tramadol. 6. Ceftriaxone. 7. Magnesium. 8. Allopurinol. 9. Atorvastatin. 10. Vitamin B12. 11. Lexapro. 12. Proscar. 13. Bupropion. 14. Colace. 15. Eliquis. REVIEW OF SYSTEMS: CONSTITUTIONAL: Generalized weakness and fatigue. EYES: Negative. ENT: Denies any mouth sores or voice changes. CARDIOVASCULAR: Denies any chest pressure or palpitations. RESPIRATORY: He has shortness of breath and cough as above. GI: Denies any nausea or vomiting or diarrhea or abdominal pain. : Denies any dysuria or hematuria. MUSCULOSKELETAL: As above. HEMATOLOGIC: As above. ENDOCRINE: Negative. DERMATOLOGIC: Negative. PSYCHIATRIC: He has dementia. NEUROLOGIC: Negative. PHYSICAL EXAMINATION: VITAL SIGNS: Temperature 97.9, blood pressure 128/74, 02 saturation 95%. GENERAL: He is alert and oriented times three. He is weak. He is trying to eat lunch. HEAD, EYES, EARS, NOSE, THROAT: Atraumatic, normocephalic. Pupils equal, round, reactive to light. OROPHARYNX: Dry mucosa. NECK: No thyromegaly. No palpable mass. LYMPHATIC: No palpable cervical, clavicular, axillary or inguinal lymph nodes. CARDIOVASCULAR: Regular S1-S2. No murmur. LUNGS: Clear to auscultation anteriorly. ABDOMEN: Abdomen soft and nontender. I could not palpate the liver or spleen. EXTREMITIES: No cyanosis or clubbing. Diffuse ecchymoses. Trace ankle edema. No calf tenderness. SKIN: No rash or petechiae. He has ecchymosis. NEUROLOGIC EXAM: Nonfocal. LABORATORY DATA: White blood cells 9.3, hemoglobin 16.2, platelet count 149,000. Creatinine of 1.12. AST 43. ALT 89. Alkaline phosphatase 134. ASSESSMENT: 1. Idiopathic thrombocytopenic purpura. He presented in early October with a platelet count of 6000. Work up including bone marrow biopsy did not show any myelodysplasia. He was diagnosed with acute idiopathic thrombocytopenic purpura. He was treated with IVIG. He was then started on Prednisone. He is currently on Prednisone 50 milligrams daily. He tolerated it quite well. When he presented to the hospital on November 27, his platelet count was 166,000. Over the last three days, the platelet count has been around 150,000. He has bruising but no bleeding. Will taper his Prednisone down slowly. 2. Recent right lower extremity deep venous thrombosis. He has no significant lower extremity pain. He is currently on Apixaban. No progression of the clot noted at this time. 3. Hemochromatosis. He was noted to have an elevated ferritin level in October with ferritin level of 2539. 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 He also had mildly elevated liver transaminases. He appeared to have possible hemochromatosis. May consider outpatient phlebotomy therapy once stable. 4. Hip pain which seems to have resolved. PLAN: 1. Start slow taper of Prednisone and decrease it to 40 milligrams daily for now. 2. Continue to monitor CBC. 3. May consider phlebotomy therapy as an outpatient. 4. Dr. Caban to follow him tomorrow. Thank you Dr. Aguilera for asking me to see this patient. MD LULU Conway/JCC /1:31 PM /2:49 PM MTDD
[2017-12-01] VITALS (8 sets, daily range): BP systolic 95–116; BP diastolic 59–71; PULSE 60–86; RESP 16–18; TEMP 97.2–98.4; O2SAT 88–97
[2017-12-01] MEDS: RESP: ALBUTEROL 2.5 MG/IPRATROPIUM 0.5 MG NEB (SCH) INH ×4 (03:12→19:54)
[2017-12-01] MEDS: predniSONE 20 MG TAB PO SCH (08:50)
[2017-12-01] MEDS: APIXABAN 2.5 MG TABLET PO SCH ×2 (08:51→21:47)
[2017-12-01] MEDS: FUROSEMIDE 20 MG TAB PO SCH (08:51)
[2017-12-01] MEDS: CYANOCOBALAMIN 1,000 MCG TAB PO SCH (08:51)
[2017-12-01] MEDS: CHOLECALCIFEROL (VIT D3) 1000 UNIT TAB PO SCH (08:51)
[2017-12-01] MEDS: FINASTERIDE 5 MG TAB PO SCH (08:52)
[2017-12-01] MEDS: ATORVASTATIN 10 MG TAB PO SCH (08:52)
[2017-12-01] MEDS: BUDESONIDE-FORMOTEROL 160/4.5 MCG INHALER INH SCH ×2 (08:52→21:48)
[2017-12-01] MEDS: ALLOPURINOL 300 MG TAB PO SCH (08:52)
[2017-12-01] MEDS: buPROPion HCL 150 MG SUSTAINED RELEASE TAB PO SCH ×2 (08:52→21:47)
[2017-12-01] MEDS: ESCITALOPRAM OXALATE 10 MG TAB PO SCH (08:52)
[2017-12-01] MEDS: METOPROLOL TARTRATE 25 MG TAB PO SCH (08:52)
[2017-12-01] MEDS: SODIUM CHLORIDE 0.9% FLUSH 10 ML FLUSH IV FLUSH SCH ×2 (08:53→21:48)
[2017-12-01] MEDS: DOCUSATE SODIUM 100 MG CAP PO SCH ×2 (08:53→21:47)
[2017-12-01] MEDS: MAGNESIUM HYDROXIDE SUSP 30 ML CUP PO SCH (08:53)
[2017-12-01] MEDS: cefTRIAXone INJ 1,000 MG in SODIUM CHLORIDE 0.9% INJ 100 ML IV SCH (08:56)
[2017-12-01 09:20] LABS: HEMATOCRIT 40.9 % (39.0-51.0); HEMOGLOBIN 14.5 GM/DL (13.0-17.0); MEAN CELL VOLUME 97.1 FL (80.0-100.0); MEAN CORPUSCULAR HEMOGLOBIN 34.5 PG (27.0-34.0); MEAN CORPUSCULAR HGB CONC 35.5 % (32.0-36.0); MEAN PLATELET VOLUME 7.7 FL (7.0-11.0); PLATELET COUNT 152 TH/MM3 (150-450); RED BLOOD COUNT 4.22 MIL/MM3 (4.50-5.90); RED CELL DISTRIBUTION WIDTH 14.5 % (11.6-17.2); WHITE BLOOD COUNT 11.3 TH/MM3 (4.0-11.0)
--- NOTE | 2017-12-01 09:23 | HHI.FPPN ---
Subjective Remarks No acute events overnight. Patient had oxygen desaturation to the upper 80s and required 6 L nasal cannula. He states he is feeling "crummy", no chest pain but does feel like he does have increased work of breathing. No nausea or vomiting. He has had a productive cough with yellowish thick sputum production. (Gianluca Aguilera MD R1) Objective Vitals Vital Signs Date Time Temp Pulse Resp B/P (MAP) Pulse Ox O2 Delivery O2 Flow Rate FiO2 12/01/17 08:25 98.2 79 17 116/59 (78) 94 12/01/17 07:54 88 Nasal Cannula 6.00 12/01/17 05:13 97.3 83 18 106/65 (79) 95 12/01/17 00:46 97.2 85 18 107/68 (81) 94 11/30/17 23:55 94 Nasal Cannula 2.00 11/30/17 20:52 98.0 88 18 119/72 (88) 94 11/30/17 16:00 98.5 77 18 133/74 (93) 96 11/30/17 12:00 98.3 77 18 137/82 (100) 93 I/O 11/30/17 11/30/17 11/30/17 12/01/17 12/01/17 12/01/17 07:00 15:00 23:00 07:00 15:00 23:00 Intake Total 300 ml 120 ml 120 ml Balance 300 ml 120 ml 120 ml Intake Oral 300 ml 120 ml 120 ml Bladder Scan Volume Amount 238 ml # Voids 1 # Bowel Movements 1 1 (Gianluca Aguilera MD R1) Result Diagram: 11/30/17 0810 11/30/17 0810 Objective Remarks GENERAL: This is a well-nourished, well-developed patient, in no apparent distress. SKIN: No rashes, ecchymoses or lesions. Cool and dry. HEAD: Atraumatic. Normocephalic. No temporal or scalp tenderness. EYES: Pupils equal round and reactive. Extraocular motions intact. No scleral icterus. No injection or drainage. ENT: Nose without bleeding, purulent drainage or septal hematoma. Throat without erythema, tonsillar hypertrophy or exudate. Uvula midline. Airway patent. NECK: Trachea midline. No JVD or lymphadenopathy. Supple, nontender, no meningeal signs. CARDIOVASCULAR: Regular rate and rhythm without murmurs, gallops, or rubs. RESPIRATORY: Diminished breath sounds bilaterally, no wheezes or crackles appreciated. No retractions or labored breathing noted GASTROINTESTINAL: Abdomen soft, nondistended. No tenderness to palpation. MUSCULOSKELETAL: 2 x 2 centimeter grade 2 ulcer appreciated on the left side of the mid back. Stage I sacral ulcer appreciated. Extremities without clubbing, cyanosis, or edema. NEUROLOGICAL: Awake and alert. Oriented to person place and time. Cranial nerves II through XII grossly intact. Decreased left upper extremity muscle strength (3 out of 5) 5 out of 5 muscle strength right upper extremity Normal speech. (Gianluca Aguilera MD R1) A/P Assessment and Plan 82-year-old male with past medical history of COPD, CHF, thrombocytopenia, hypertension, DVT presenting to the ED with persistent hypotension. Blood pressures improving and patient pulmonary exam improved today. Attempted to contact next of kin to discuss overall clinical picture on 11/30 with no answer. Will continue to try and contact Discharge Planning Anticipate discharge to SNF pending clinical improvement (Gianluca Aguilera MD R1) Attending Attestation Patient seen and examined at approx 10:30 on rounds. Discussed with resident team. I agree with assessment and management as documented and discussed with me. Pt sleeping during rounds, but awakens to voice. (Paulina Desir) is at bedside. We discussed the following: (1) hospitalization and current treatments (2) disease trajectory, including last hospitalization (3) Code status - confirms full code. We did discuss that with his multiple comorbid conditions, I feel that he is unlikely to survive a code. (4) She requests we discuss his case with their daughter, Shereen. Paulina will try to get the phone number as it is not available at this time. (5) For the 1.5 weeks prior to admission, he has been sleeping frequently and with decreased PO intake. She reports he would wake briefly to ask 1-2 questions and fall back to sleep. (6) My concern that even if he is discharged at some point, he is likely to return to the hospital for another reason or a worsening of his current condition. Overnight, his oxygen saturation decreased and WBC is slightly up this morning. Will add Vancomycin and Zosyn to antibiotic regimen; d/c rocephin. Change to IV lasix. Monitor Is/Os. Check urine culture (as ordered on admission), as it is not yet pending. His blood pressure is slightly improved today. (Nayeli Casarez MD) Problem List: (1) Oxygen desaturation ICD Codes: R09.02 - Hypoxemia Plan: Patient had oxygen desaturation to 88 that required 6 L nasal cannula, this is increased from 2 L nasal cannula prior to this No respiratory distress on exam today but patient complains of increased work of breathing, diminished breath sounds with no wheezes or crackles appreciated today Likely multifactorial from underlying COPD and CHF, possible COPD exacerbation Ordering chest x-ray PA/lateral on 12/01, may consider broadening antibiotics versus adding more Lasix pending x-ray results Speech evaluation now recommending thickened liquids, patient at increased risk for aspiration pneumonia as well Currently on home dose of Lasix 20 mg by mouth twice a day Rocephin 1 g IV every 24 hours started on 11/29 Beginning prednisone taper per hematology oncology, prednisone 40 mg by mouth today Respiratory therapy; DuoNeb treatments (changing to every 4 hours from every 6 hours), Symbicort, EZ Pap1 Adding Acapella CXR Pa/Lateral on 11/29 showing stable lung exam suggestive of either chronic interstitial edema from CHF versus interstitial fibrosis -BNP wnl at 22 -echocardiogram showed ejection fraction over 60% (2) Current use of steroid medication ICD Codes: Z79.52 - custodial (current) use of systemic steroids Status: Chronic Plan: 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 Caban to see today (3) Hypotension ICD Codes: I95.9 - Hypotension, unspecified Status: Resolved Plan: Patient sent in for hypotension with systolic pressures in 80's BP this morning 106/65, continuing to improve with ranges from 106 up to 137 systolic Received 1.5 L bolus in ED with improvement in BP Gave normal saline IV fluids at 50 mL per hour, only one bag of fluids on 11/30 after patient had slight increase in creatinine and decreased urinary output 1 void recorded yesterday, 300 mL. Holding further IV fluids for now pending chest x-ray on 12/01 Home metoprolol 12.5 mg by mouth daily, holding other blood pressure medications Home Lasix 20 mg twice a day, hold spironolactone Careful with further IVF - CXR concerning for pulm edema Can give another 1 time dose of 40 mg IV Lasix if concern for pulmonary edema Continue to monitor (4) Leukocytosis ICD Codes: D72.829 - Elevated white blood cell count, unspecified Status: Resolved Plan: Likely secondary to stress response, now resolved with IV fluids. WBC elevated at 13.2 on admission, trending down and normalized since 11/28 Lactic acid elevated at 2.5 on admission, normalized on 11/27 Repeat chest x-ray pending on 12/01 CT abdomen shows constipation with a large amount of stool in the rectum, nonobstructive pattern without acute inflammatory changes UA with moderate leukocyte esterase, rare bacteria, few mucus urine culture pending legionella, pneumococcal urine sputum culture pending blood culture no growth Influenza negative CRP elevated at 2.26 on 11/27 (5) Hip pain ICD Codes: M25.559 - Pain in unspecified hip Plan: Patient complaining of worsening R hip pain x 1 day No known history of falls XR on admission negative Caution with narcotics in light of hypotension PT ordered No acute bony abnormalities demonstrated on CT abd/pelvis (6) Abdominal pain ICD Codes: R10.9 - Unspecified abdominal pain Status: Resolved Plan: Resolved Likely secondary to constipation per CT abdomen/pelvis results. Colace 100mg PO BID Milk of Mag 30ml PO daily (7) Thrombocytopenia ICD Codes: D69.6 - Thrombocytopenia, unspecified Status: Chronic Plan: Known history of thrombocytopenia with recent hospitalization Followed by Dr. 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 Consulting hematology for assistance on steroid taper, see prolonged steroid use as above (8) DVT (deep venous thrombosis) ICD Codes: I82.409 - Acute embolism and thrombosis of unspecified deep veins of unspecified lower extremity Plan: No concern for PE at this time, vital signs stable US on 11/03/17 showed occlusive thrombus of R posterior Tibial vein Patient on low dose Eliquis No other anticoagulation for now, will monitor (9) KIANA (acute kidney injury) ICD Codes: N17.9 - Acute kidney failure, unspecified Status: Resolved Plan: Follow-up BMP Creatinine on admission 1.43 Had normalized to 0.95 on 11/29, increase to 1.12 on 11/30 Giving one bag of normal saline at 50 mL/h on 11/30 Continue to monitor, a.m. labs pending (10) Pressure ulcer ICD Codes: L89.90 - Pressure ulcer of unspecified site, unspecified stage Status: Chronic Plan: Grade II pressure ulcer on L side of midback Measures roughly 2 x 2 cm Wound care consulted (11) Transaminitis ICD Codes: R74.0 - Nonspecific elevation of levels of transaminase and lactic acid dehydrogenase [LDH] Status: Resolved Plan: Elevated Liver enzymes on admission with AST 44, ALT 83 Normalized on 11/28, elevated again at AST 43, ALT 89 on 11/30 Will continue to monitor, a.m. labs pending (12) FEN Status: Acute Plan: Fluids: Normal saline 50 mL per hour, one bag only on 11/30, no IV fluids at this time Replete electrolytes as needed, slightly hypokalemic on 11/30 for potassium of 3.2, giving 40 mEq by mouth Heart healthy diet Home Eliquis for DVT prophylaxis (Gianluca Aguilera MD R1) Problem Qualifiers (1) Hypotension: Qualified Codes: I95.9 - Hypotension, unspecified (2) Leukocytosis: Qualified Codes: D72.820 - Lymphocytosis (symptomatic) (3) Hip pain: Qualified Codes: M25.551 - Pain in right hip (4) Abdominal pain: Qualified Codes: R10.84 - Generalized abdominal pain (5) DVT (deep venous thrombosis): Qualified Codes: I82.541 - 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
[2017-12-01 09:43] LABS: ALBUMIN 2.1 GM/DL (3.4-5.0); AST (GOT) 29 U/L (15-37); BICARBONATE 27.5 MEQ/L (21.0-32.0); BLOOD UREA NITROGEN 21 MG/DL (7-18); CALCIUM 8.4 MG/DL (8.5-10.1); CHLORIDE 101 MEQ/L (98-107); CREATININE 0.87 MG/DL (0.60-1.30); GLOMERULAR FILTRATION RATE 84 ML/MIN (>89); GLUCOSE,RANDOM 96 MG/DL (74-106); SODIUM (NA) 135 MEQ/L (136-145)
[2017-12-01 09:44] LABS: ALT (GPT) 76 U/L (12-78)
[2017-12-01 09:47] LABS: ALKALINE PHOSPHATASE 122 U/L (45-117); TOTAL BILIRUBIN ADULT 0.9 MG/DL (0.2-1.0); TOTAL PROTEIN 6.1 GM/DL (6.4-8.2)
--- NOTE | 2017-12-01 10:17 | RADRPT ---
EXAM DATE/TIME: 12/01/2017 09:42 [facility] COMPARISON: CT ABDOMEN & PELVIS W/O CONTRAST, November 27, 2017, 20:10. CHEST PA & LAT, November 29, 2017, 10:34 . INDICATIONS : Cough. Shortness of breath. MEDICAL HISTORY : Cardiovascular disease. Hypertension. Gallstones.Arthritis.Dementia.Irregular heartbeat. HTN. COPD GE RD.Deep venousthrombosis. Hypercholesterolemia. Emphysema. SURGICAL HISTORY : Pacemaker. Carotid artery surgery ENCOUNTER: Subsequent ACUITY: 3 days PAIN SCORE: 0/10 LOCATION: Bilateral chest FINDINGS: No new focal pleural-parenchymal opacities. Redemonstration of diffuse chronic interstitial prominenc e and left lower lobe there are airspace disease consistent with atelectasis/scarring noted on recent CT. Cardiomediastinal contours are stable. Dual-lead pacemaker is stable. Remainder of the exam is u nchanged. CONCLUSION: 1. No acute abnormality or significant interval change. 2. Mild chronic interstitial prominence, likely positive fluid balance. 3. Minimal left lower lobe airspace disease consistent with atelectasis/scarring noted on recent CT. Jensen Brown MD on December 01, 2017 at 10:12 Board Certified Radiologist. This report was verified electronically.
--- NOTE | 2017-12-01 11:11 | PD.CONS ---
Consult Service Palliative Care Consult Requested By Dr. Gonzalez Primary Care Physician Cruz Cruz MD . Reason for Consultation a. To assist with evaluation and management of symptoms including: Pain, weakness b. To assist medical decision maker(s) with: better understanding of current medical conditions; weighing benefits/burdens of medical treatment options; making medical treatment decisions. . HPI History of Present Illness This is an 82-year-old male sent to the emergency department via EMS from his oncologist, Dr. Caban's office for hypotension. He is followed by her service for history of idiopathic thrombocytopenic purpura. He received IV fluids in her office however remained hypotensive with a systolic between 70 and 80 mmHg. He noted at that time a recent fall with continuing left hip pain. 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 He is ambulatory with a walker. He complains of generalized weakness but no dizziness, lightheadedness, syncope or near syncope. He does have a reported history of CHF, unspecified type, which is consistent with his outpatient medications, however not substantiated by recent or historical echocardiograms. B natriuretic peptide was 22 on admission and increased to 44 with re- hydration. Due to continued hypotension, elevated lactic acid and suspicion of dehydration he was admitted for further management. ED course: * Laboratory: WBC 13.2, hemoglobin 15.0, hematocrit 43.0, platelets 166, sodium 133, potassium 4.6, BUN 50, creatinine 1.43, lactic acid 2.9, negative urinalysis. * Radiology: Chest x-ray showed cardiomegaly and chronic interstitial changes with no overt congestive failure, stable compared to previous dated 11/05/17. Hip and pelvis x-ray showed osteoarthritic changes in the hips bilaterally with no acute fracture or destructive lesion identified. Upon evaluation, this is an elderly, overweight, male, lying in bed with his eyes closed. He is difficult to engage in conversation. He will open his eyes briefly, give a one-word answer and then close his eyes again. He complains of generalized soreness, tenderness to palpation in bilateral lower extremities, pain in his hips, back and neck. When asked about his skin wound on his back, he states it is sore, but will give no further information. He denies any current cough. He does complain of continued weakness. I was able to elicit from him that he is able to feed himself and partially reposition himself in bed but is bedbound otherwise. He has been in a half-way facility for approximately 2 years, since his last stroke. He has been asking for water, but was seen to aspirate during speech therapy evaluation and is now on nectar thick liquids. He would accept a bite of applesauce, but did not want the thickened drink at bedside. . Function/Cognitive Trajectory Resides in a SNF, requires rojelio lift for transfer to . He has a bed to wheelchair via Rojelio existence. At a previous admission [facility] he required a 2 person maximal assist to stand for a very short time and was non ambulatory. He has chronic left weakness 2/5 upper and lower extremities. His speech therapy evaluation revealed aspiration with thin liquids and now requires nectar thickened liquids with mechanical soft consistency diet. He is continuing to decline in function. . Review of Systems ROS Limitations: Uncooperative Constitutional: COMPLAINS OF: Generalized weakness Ears, nose, mouth, throat: COMPLAINS OF: Toothache Respiratory: COMPLAINS OF: Sputum production Gastrointestinal: COMPLAINS OF: Difficulty Swallowing Musculoskeletal: COMPLAINS OF: Joint pain, Back pain, Neck pain Integumentary: COMPLAINS OF: Abnormal pigmentation Hematologic/Lymphatics: COMPLAINS OF: Bruising Neurologic: COMPLAINS OF: Localized weakness (left upper and lower extremity) Past Family Social History Coded Allergies: clopidogrel (Unverified Allergy, Severe, HIVES, 10/23/17) MRI PRECAUTION (Verified Adverse Reaction, Severe, NON MRI CONDITIONAL PACEMAKER. BIOTRONIK EVIA DRT LRS 10/28/17, 10/28/17) Past Medical History Hypertension Hyperlipidemia Polycythemia Peptic ulcer disease Osteoarthritis Borderline diabetes CVA, 2005 cortical infarcts without residual; 2009 right periventricular frontal , right parietal cortical and subcortical ischemic changes. BPH IBS GERD Carotid artery stenosis Complete heart block Dementia Thrombocytopenia Mid back pressure ulcer . Past Surgical History Left carotid endarterectomy Pilonidal cyst excision Dual-chamber permanent pacemaker implantation, Biotronik Evia 01/03/14 Bilateral cataract surgery 2010 EGD/colonoscopy 2009 . Reported Medications Reported Meds & Active Scripts Active Tramadol (Tramadol HCl) 50 Mg Tab 50 Mg PO Q4H PRN Prednisone 50 Mg Tab 50 Mg PO DAILY Do not stop this medication unless you are told by your Doctor. Eliquis (Apixaban) 2.5 Mg Tab 2.5 Mg PO BID Reported Tylenol (Acetaminophen) 325 Mg Tab 650 Mg PO Q6H PRN Calcium (Oyster Shell) 500 Mg Calcium (1250 Mg) Tab 500 Mg PO BID Pro-Stat (Amino Acids-Protein Hydrolysat) 15 Gram-100 Kcal/30 Ml Liq 30 Ml PO BID Magnesium Oxide 400 Mg Tab 400 Mg PO Q12HR Wellbutrin Xl 24 HR (Bupropion HCl) 300 Mg Tab 300 Mg PO DAILY Symbicort Inh (Budesonide/Formoterol Fumarate) 160-4.5 Mcg/Act Aero 2 Puff INH BID Furosemide 20 Mg Tab 20 Mg PO BID Colace (Docusate Sodium) 100 Mg Capsule 100 Mg PO BID Atorvastatin (Atorvastatin Calcium) 10 Mg Tab 10 Mg PO DAILY Allopurinol 300 Mg Tab 300 Mg PO DAILY Spironolactone 25 Mg Tab 12.5 Mg PO DAILY Potassium Chloride ER (Potassium Chloride) 20 Meq Tab 20 Meq PO DAILY Losartan (Losartan Potassium) 50 Mg Tab 50 Mg PO DAILY Namenda Xr (Memantine) 28 Mg Caper 28 Mg PO DAILY Vitamin D-3 (Cholecalciferol) 2,000 Unit Tab 2,000 Units PO DAILY Vitamin B-12 (Cyanocobalamin) 1,000 Mcg Subl 1,000 Mcg SL DAILY Escitalopram (Escitalopram Oxalate) 5 Mg Tab 5 Mg PO DAILY Amlodipine (Amlodipine Besylate) 10 Mg Tab 10 Mg PO DAILY Metoprolol Tartrate 25 Mg Tab 12.5 Mg PO DAILY Tamsulosin (Tamsulosin HCl) 0.4 Mg Cap 0.4 Mg PO DAILY Proscar (Finasteride) 5 Mg Tab 5 Mg PO DAILY Do not crush. . Current Medications Medications (Trade) Dose Ordered Sig/Jocelynn Route Start Time Stop Time Status Last Admin (NS Flush) 2 ml UNSCH PRN IV FLUSH 11/27/17 15:15 11/27/17 16:18 (NS Flush) 2 ml BID IV FLUSH 11/27/17 21:00 11/30/17 09:45 (Tylenol) 650 mg Q4H PRN PO 11/27/17 15:15 (Zofran Inj) 4 mg Q6H PRN IVP 11/27/17 15:15 (Narcan Inj) 0.4 mg UNSCH PRN IV PUSH 11/27/17 15:15 (Senokot) 17.2 mg Q12H PRN PO 11/27/17 15:15 (Dulcolax Supp) 10 mg DAILY PRN RECTAL 11/27/17 15:15 (Lactulose Liq) 30 ml DAILY PRN PO 11/27/17 15:15 (Albuterol Neb) 2.5 mg Q2HR NEB PRN INH 11/27/17 15:45 11/28/17 00:17 (Zyloprim) 300 mg DAILY PO 11/28/17 09:00 12/01/17 08:52 (Eliquis) 2.5 mg BID PO 11/27/17 21:00 12/01/17 08:51 (Lipitor) 10 mg DAILY PO 11/28/17 09:00 12/01/17 08:52 (Symbicort 160-4.5 Mcg Inh) 2 puff BID INH 11/27/17 21:00 12/01/17 08:52 (Vitamin B12) 1,000 mcg DAILY PO 11/28/17 09:00 12/01/17 08:51 (Lexapro) 5 mg DAILY PO 11/28/17 09:00 12/01/17 08:52 (Proscar) 5 mg DAILY PO 11/28/17 09:00 12/01/17 08:52 (Wellbutrin Sr) 150 mg BID PO 11/28/17 09:00 12/01/17 08:52 (Vitamin D3) 2,000 units DAILY PO 11/28/17 09:00 12/01/17 08:51 (Pill Splitter) 1 ea UNSCH PRN OTHER 11/27/17 18:15 Patient Own Medication PT OWN MED: NAMENDA... DAILY PO 11/28/17 09:00 Future Hold (Colace) 100 mg BID PO 11/28/17 09:00 11/30/17 09:31 (Milk Of Magnesia Liq) 30 ml DAILY PO 11/28/17 11:45 11/30/17 10:34 (Tums Chew) 500 mg Q2H PRN CHEW 11/28/17 23:00 11/29/17 00:13 Ceftriaxone Sodium 1000 mg/ Sodium Chloride 100 ml @ 200 mls/hr Q24H IV 11/29/17 10:00 12/01/17 08:56 (Ultram) 50 mg Q4H PRN PO 11/29/17 10:45 11/29/17 10:54 (Lasix) 20 mg BID PO 11/30/17 09:00 12/01/17 08:51 (Lopressor) 12.5 mg DAILY PO 11/30/17 09:00 12/01/17 08:52 (Deltasone) 40 mg DAILY PO 12/01/17 09:00 12/01/17 08:50 (Duoneb Neb) 1 ampule Q4HR NEB INH 12/01/17 12:00 . Family History His mother at 80 years old stroke. Father at age 81 of a stroke. His twin brother also had polycythemia and coronary artery disease. . Substance Use Tobacco: Smoked 1-2 packs per day for 12 years, quit in 1988. Alcohol: History of heavy alcohol use, none currently. Prescription med abuse: Negative. Illicits: Negative. . Psychosocial History He was born in [place] and moved to [place] as a young child, where he has lived most of his life. 58 years to his , Paulina, he has 4 children that do not live locally. 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 . Spiritual/Cultural Factors He is Mandaen. . Living Will: Never completed Health Care Surrogate: Copy in medical record Durable Power of Recording Studio Intern: Never completed Date completed: 08/09/14 . Health Care Surrogate(s): Spouse: Paulina Desir . . Documented care wishes: No living will available. . Today's verbally stated goals: Patient not engaging in conversation enough to determine goals. . Family/friends goals: No family at bedside today. . Ethical and Legal Issues None noted. . Physical Exam Vital Signs Date Time Temp Pulse Resp B/P (MAP) Pulse Ox O2 Delivery O2 Flow Rate FiO2 12/01/17 08:25 98.2 79 17 116/59 (78) 94 12/01/17 07:54 88 Nasal Cannula 6.00 12/01/17 05:13 97.3 83 18 106/65 (79) 95 12/01/17 00:46 97.2 85 18 107/68 (81) 94 11/30/17 23:55 94 Nasal Cannula 2.00 11/30/17 20:52 98.0 88 18 119/72 (88) 94 11/30/17 16:00 98.5 77 18 133/74 (93) 96 11/30/17 12:00 98.3 77 18 137/82 (100) 93 12/01/17 12/02/17 19:00 07:00 Intake Total 120 ml Balance 120 ml Intake Oral 120 ml Exam CONSTITUTIONAL/GENERAL: This is an elderly, overweight patient, in no apparent distress. TUBES/LINES/DRAINS: PIV's SKIN: No jaundice, rashes, or lesions. Extensive ecchymosis on upper extremities. No wounds seen anteriorly. Skin temperature appropriate. Not diaphoretic. 2 x 2 centimeter wound on left spine. HEAD: Atraumatic. Normocephalic. EYES: Pupils equal and round and reactive. Extraocular motions intact. No scleral icterus. No injection or drainage. Fundi not examined. ENT: Hearing grossly normal. Nose without bleeding or purulent drainage. Throat without visible erythema, exudates, masses, or lesions. NECK: Trachea midline. Supple, nontender. No palpable thyroid enlargement or nodularity. CARDIOVASCULAR: Regular rate and rhythm without murmurs, gallops, or rubs. No JVD. Peripheral pulses symmetric. RESPIRATORY/CHEST: Symmetric, unlabored respirations. Clear, diminished to auscultation. Breath sounds equal bilaterally. No wheezes, rales, or rhonchi. GASTROINTESTINAL: Abdomen soft, non-tender, nondistended. No hepato-splenomegaly , or palpable masses. No guarding. Bowel sounds present. GENITOURINARY: Without palpable bladder distension. Condom catheter in place. MUSCULOSKELETAL: Extremities without clubbing, cyanosis, or edema. Patient complains of tenderness to bilateral lower extremities with light palpation. LYMPHATICS: No palpable cervical or supraclavicular adenopathy. NEUROLOGICAL: Awake, oriented to self and place. Generalized weakness with increased left upper and lower extremity weakness. PSYCHIATRIC: Flat affect, unwilling to engage in conversation, appears depressed. . Diagnostic Tests Laboratory Laboratory Tests Test 11/29/17 09:02 11/30/17 08:10 12/01/17 08:46 White Blood Count 9.4 TH/MM3 (4.0-11.0) 9.2 TH/MM3 (4.0-11.0) 11.3 TH/MM3 (4.0-11.0) Red Blood Count 4.59 MIL/MM3 (4.50-5.90) 4.73 MIL/MM3 (4.50-5.90) 4.22 MIL/MM3 (4.50-5.90) Hemoglobin 16.0 GM/DL (13.0-17.0) 16.2 GM/DL (13.0-17.0) 14.5 GM/DL (13.0-17.0) Hematocrit 44.6 % (39.0-51.0) 45.9 % (39.0-51.0) 40.9 % (39.0-51.0) Mean Corpuscular Volume 97.0 FL (80.0-100.0) 97.0 FL (80.0-100.0) 97.1 FL (80.0-100.0) Mean Corpuscular Hemoglobin 34.8 PG (27.0-34.0) 34.2 PG (27.0-34.0) 34.5 PG (27.0-34.0) Mean Corpuscular Hemoglobin Concent 35.9 % (32.0-36.0) 35.2 % (32.0-36.0) 35.5 % (32.0-36.0) Red Cell Distribution Width 14.6 % (11.6-17.2) 14.7 % (11.6-17.2) 14.5 % (11.6-17.2) Platelet Count 141 TH/MM3 (150-450) 149 TH/MM3 (150-450) 152 TH/MM3 (150-450) Mean Platelet Volume 7.4 FL (7.0-11.0) 7.6 FL (7.0-11.0) 7.7 FL (7.0-11.0) Neutrophils (%) (Auto) 81.5 % (16.0-70.0) 83.5 % (16.0-70.0) Lymphocytes (%) (Auto) 13.4 % (9.0-44.0) 12.2 % (9.0-44.0) Monocytes (%) (Auto) 4.7 % (0.0-8.0) 3.7 % (0.0-8.0) Eosinophils (%) (Auto) 0.3 % (0.0-4.0) 0.4 % (0.0-4.0) Basophils (%) (Auto) 0.1 % (0.0-2.0) 0.2 % (0.0-2.0) Neutrophils # (Auto) 7.6 TH/MM3 (1.8-7.7) 7.7 TH/MM3 (1.8-7.7) Lymphocytes # (Auto) 1.3 TH/MM3 (1.0-4.8) 1.1 TH/MM3 (1.0-4.8) Monocytes # (Auto) 0.4 TH/MM3 (0-0.9) 0.3 TH/MM3 (0-0.9) Eosinophils # (Auto) 0.0 TH/MM3 (0-0.4) 0.0 TH/MM3 (0-0.4) Basophils # (Auto) 0.0 TH/MM3 (0-0.2) 0.0 TH/MM3 (0-0.2) CBC Comment AUTO DIFF AUTO DIFF Differential Total Cells Counted 100 100 Neutrophils % (Manual) 82 % (16-70) 76 % (16-70) Band Neutrophils % 4 % (0-6) 4 % (0-6) Lymphocytes % 9 % (9-44) 8 % (9-44) Monocytes % 3 % (0-8) 4 % (0-8) Eosinophils % 1 % (0-4) Neutrophils # (Manual) 8.2 TH/MM3 (1.8-7.7) 8.1 TH/MM3 (1.8-7.7) Metamyelocytes 1 % (0-1) 3 % (0-1) Differential Comment FINAL DIFF MANUAL FINAL DIFF MANUAL Platelet Estimate LOW (NORMAL) LOW (NORMAL) Platelet Morphology Comment NORMAL (NORMAL) NORMAL (NORMAL) Blood Urea Nitrogen 21 MG/DL (7-18) 22 MG/DL (7-18) 21 MG/DL (7-18) Creatinine 0.95 MG/DL (0.60-1.30) 1.12 MG/DL (0.60-1.30) 0.87 MG/DL (0.60-1.30) Random Glucose 101 MG/DL (74-106) 113 MG/DL (74-106) 96 MG/DL (74-106) Total Protein 6.3 GM/DL (6.4-8.2) 6.5 GM/DL (6.4-8.2) 6.1 GM/DL (6.4-8.2) Albumin 2.2 GM/DL (3.4-5.0) 2.2 GM/DL (3.4-5.0) 2.1 GM/DL (3.4-5.0) Calcium Level 8.5 MG/DL (8.5-10.1) 8.5 MG/DL (8.5-10.1) 8.4 MG/DL (8.5-10.1) Alkaline Phosphatase 132 U/L (45-117) 134 U/L (45-117) 122 U/L (45-117) Aspartate Amino Transf (AST/SGOT) 53 U/L (15-37) 43 U/L (15-37) 29 U/L (15-37) Alanine Aminotransferase (ALT/SGPT) 91 U/L (12-78) 89 U/L (12-78) 76 U/L (12-78) Total Bilirubin 1.4 MG/DL (0.2-1.0) 1.1 MG/DL (0.2-1.0) 0.9 MG/DL (0.2-1.0) Sodium Level 135 MEQ/L (136-145) 133 MEQ/L (136-145) 135 MEQ/L (136-145) Potassium Level 4.2 MEQ/L (3.5-5.1) 3.2 MEQ/L (3.5-5.1) 3.4 MEQ/L (3.5-5.1) Chloride Level 100 MEQ/L (98-107) 96 MEQ/L (98-107) 101 MEQ/L (98-107) Carbon Dioxide Level 25.5 MEQ/L (21.0-32.0) 29.4 MEQ/L (21.0-32.0) 27.5 MEQ/L (21.0-32.0) Anion Gap 10 MEQ/L (5-15) 8 MEQ/L (5-15) 7 MEQ/L (5-15) Estimat Glomerular Filtration Rate 76 ML/MIN (>89) 63 ML/MIN (>89) 84 ML/MIN (>89) B-Type Natriuretic Peptide 44 PG/ML (0-100) Myelocytes 5 % (0-0) . Result Diagram: 12/01/17 0846 12/01/17 0846 Microbiology Microbiology Date/Time Source Procedure Growth Status 11/27/17 15:40 Blood Peripheral Aerobic Blood Culture - Preliminary NO GROWTH IN 3 DAYS Resulted 11/27/17 15:40 Blood Peripheral Anaerobic Blood Culture - Preliminary NO GROWTH IN 3 DAYS Resulted 11/28/17 08:45 Nasal Washing Influenza Types A,B Antigen (LESLI) - Final NEGATIVE FOR FLU A AND B ANTIGEN.... Complete . Imaging Last Impressions Chest X-Ray 11/29/17 0000 Signed Impressions: Service Date/Time: Wednesday, November 29, 2017 10:34 - CONCLUSION: Stable lung exam suggestive of either chronic interstitial edema from congestive heart failure versus interstitial fibrosis. Lucy Velarde MD Hip and Pelvis X-Ray 11/27/17 0000 Signed Impressions: Service Date/Time: November 12:35 - CONCLUSION: 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 No acute fracture or destructive lesion identified Angelo Sanders MD Abdomen/Pelvis CT 11/27/17 0000 Signed Impressions: Service Date/Time: November 20:10 - CONCLUSION: Apparent constipation. Large amount of stool in the rectum. Nonobstructive pattern without acute inflammatory changes. Chronic findings otherwise. Juan Alberto Salazar MD . Patient/Family Conference Present at Family Conference: Called , left message on voicemail with contact number. Contacted [employer] [place] for any advanced directive or family contact information received facsimile identifying daughter, Griselda Sharif. Discussion with Mrs. Sharif Was held with medical update, palliative care function and purpose, to include the below listed items. Psychosocial, past medical and family history was reviewed with the daughter. Names and contact information for all 4 siblings was obtained. One is a nurse, Shereen Herring, who assists the family in medical decision making. At this time, plan is to speak with the and attempt to conference call Shereen into the conversation to assist in decision making and advanced directive planning. Palliative care contact information was provided via voicemail to the mother and the conversation to the daughter, Griselda, who states she will disseminate that information to all of the siblings for any further questions. . Family Conference Location: Telephone, Other (pending call back.) Issues Discussed: * Palliative care role, purpose, approach * Additional medical, psychosocial, and spiritual history * Patients general health, functional status, and cognitive changes in the months leading up to the current hospitalization * Patient/family understanding of the current medical problems * Patient/family understanding of prognosis * Patients goals of care as best understood from advance directives and/or conversations and/or values * Current medical treatment options and benefits/burdens of those options * Likely scenarios comparing ongoing aggressive care with a transition to comfort measures only * Questions answered to the best of my ability * Palliative care contact information provided Assessment and Plan Disease Oriented Problem List: (1) Hypotension (2) Hip pain (3) Hypoxemia (4) DVT (deep venous thrombosis) Symptom Scale: (1) Pain, generalized 0-10 Scale: Unable to quantify (2) Cough 0-10 Scale: Unable to quantify Pertinent Non-Medical Issues He was born in [place] and moved to [place] as a young child, where he has lived most of his life. 58 years to his , Paulina, he has 4 children that do not live locally. 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 . Spiritual: Mandaen micheal. . Legal: No legal issues identified. . Ethical issues impacting care: No ethical issues identified. . Important Contacts Spouse: Paulina Desir Daughter: Griselda Sharif , cell . Daughter: Shereen Nevaeh (nurse) Daughter: Luis Angel Landeros Son: Ed Desir . Prognosis His prognosis is guarded. His weakness is progressive and he is now having difficulty swallowing. He was shown to aspirate thin liquids and is now requiring thickened liquids. Previous to admission and his appetite had already declined to the point of symptomatic hypotension and acute kidney injury , requiring IV fluid resuscitation. He is beginning to develop the sequelae of immobility to include skin wound on his back and deep vein thrombosis noted on ultrasound, now receiving low-dose eliquis. As he has ITP this places him at additional risk of bleeding/bruising. He is likely to continue to experience complications and decline. . Code Status: Full Code Plan PLAN: Legal decision maker: At this time the patient does not appear to have insight to be able to make complex medical decisions and would likely benefit from assisted decision-making in concert with his and/or family. Goals: Aggressive at this time. CODE STATUS: FULL CODE SYMPTOMS: * Pain: He complains of generalized discomfort, much of which appears to be related to immobility, to include neck, back and leg pain. He is receiving prednisone for his ITP which is being weaned. He has tramadol 50 mg available every 4 hours as needed. His last dose was taken 2 days ago. It should be considered that he is not able to make his needs known, and may require more frequent assessment to determine level of comfort. * Weakness: He has become progressively weaker since his previous evaluation, when he was able to stand briefly with 2 person maximum assistance. He is now unable to perform that and requires Rojelio lift from bed to wheelchair. 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 Right upper extremity shows 3/5 and right lower extremity 2/5 per physical therapy evaluation. He will continue to receive physical therapy while in hospital, however prognosis potential is listed as guarded due to his severe debility, multiple medical problems and patient motivation. His weakness is now affecting his ability to swallow which is likely to continue to decline given patient's overall debility. SUMMARY This is an 82-year-old male status post CVA 2 with left residual weakness in both upper and lower extremities, now with weakness on right upper and lower extremities as well. His appetite is declining and prior to admission had noted a lower oral intake, resulting in dehydration, hypotension and acute kidney injury. This required extensive IV rehydration to resolve, however patient has now been diagnosed with dysphasia and is requiring a modified diet which is frequently a factor in recurrent dehydration. He has very poor quality of life with a bed to wheelchair existence, residing in a half-way facility. He would be hospice appropriate if goals were consistent. Palliative care will continue to follow the patient during hospital course as condition evolves, to assist patient/decision-maker with understanding of their medical conditions, weighing benefits/burdens of treatment options, for clarification of goals of treatment. Additionally will assist with any symptoms of palliative concern. . Thank you for the opportunity to participate in the care of Mr. Desir. Attestation To help prompt me to consider important information that might be impacting today's encounter and assessment, information from prior notes written by myself or my colleagues may have been "brought forward" into today's note. My signature on this note, however, is an attestation that I personally performed the exam, history, and/or decision-making noted today, and, unless otherwise indicated, the interactions with patient, family, and staff as well as the review of records all occurred today. I also attest that the listed assessment and stated plan reflect my best clinical judgment today based on the combination of historical information, prior notes, and today's exam/ interactions. When time spent is documented, it refers only to time spent today by the signer, or if indicated, combined time spent today by collaborating physician/nurse practitioner. . Yvette Fox Dec 01, 2017 10:55 am
[2017-12-01] MEDS ORDERED: Vancomycin Consult Pharmacy 1 EA OTHER SCH (11:30)
--- NOTE | 2017-12-01 12:31 | PD.ONC.PN ---
Subjective Subjective Remarks Afebrile overnight. Patient resting in bed in nad. asking for water (not able to have water because of aspiration risk). No bleeding. Feeling fatigued today. Objective Data Date Time Temp Pulse Resp B/P (MAP) Pulse Ox O2 Delivery O2 Flow Rate FiO2 12/01/17 12:22 98.4 86 16 105/63 (77) 91 12/01/17 08:25 98.2 79 17 116/59 (78) 94 12/01/17 07:54 88 Nasal Cannula 6.00 12/01/17 05:13 97.3 83 18 106/65 (79) 95 12/01/17 00:46 97.2 85 18 107/68 (81) 94 11/30/17 23:55 94 Nasal Cannula 2.00 11/30/17 20:52 98.0 88 18 119/72 (88) 94 11/30/17 16:00 98.5 77 18 133/74 (93) 96 12/01/17 12/01/17 12/01/17 07:00 15:00 23:00 Intake Total 120 ml Balance 120 ml Result Diagram: 12/01/17 0846 12/01/17 0846 Laboratory Results Laboratory Tests Test 12/01/17 08:46 White Blood Count 11.3 TH/MM3 Red Blood Count 4.22 MIL/MM3 Hemoglobin 14.5 GM/DL Hematocrit 40.9 % Mean Corpuscular Volume 97.1 FL Mean Corpuscular Hemoglobin 34.5 PG Mean Corpuscular Hemoglobin Concent 35.5 % Red Cell Distribution Width 14.5 % Platelet Count 152 TH/MM3 Mean Platelet Volume 7.7 FL Blood Urea Nitrogen 21 MG/DL Creatinine 0.87 MG/DL Random Glucose 96 MG/DL Total Protein 6.1 GM/DL Albumin 2.1 GM/DL Calcium Level 8.4 MG/DL Alkaline Phosphatase 122 U/L Aspartate Amino Transf (AST/SGOT) 29 U/L Alanine Aminotransferase (ALT/SGPT) 76 U/L Total Bilirubin 0.9 MG/DL Sodium Level 135 MEQ/L Potassium Level 3.4 MEQ/L Chloride Level 101 MEQ/L Carbon Dioxide Level 27.5 MEQ/L Anion Gap 7 MEQ/L Estimat Glomerular Filtration Rate 84 ML/MIN Imaging Studies Last 24 hours Impressions Chest X-Ray 12/01/17 0000 Signed Impressions: Service Date/Time: Friday, December 01, 2017 09:42 - CONCLUSION: 1. No acute abnormality or significant interval change. 2. Mild chronic interstitial prominence, likely positive fluid balance. 3. Minimal left lower lobe airspace disease consistent with atelectasis/scarring noted on recent CT. Jensen Brown MD Administered Medications Medications (Trade) Dose Ordered Sig/Jocelynn Route PRN Reason Start Time Stop Time Status Last Admin Dose Admin Sodium Chloride (NS Flush) 2 ml UNSCH PRN IV FLUSH FLUSH AFTER USING IV ACCESS 11/27/17 15:15 11/27/17 16:18 Sodium Chloride (NS Flush) 2 ml BID IV FLUSH 11/27/17 21:00 11/30/17 09:45 Albuterol Sulfate (Albuterol Neb) 2.5 mg Q2HR NEB PRN INH SHORTNESS OF BREATH 11/27/17 15:45 11/28/17 00:17 Allopurinol (Zyloprim) 300 mg DAILY PO 11/28/17 09:00 12/01/17 08:52 Apixaban (Eliquis) 2.5 mg BID PO 11/27/17 21:00 12/01/17 08:51 Atorvastatin Calcium (Lipitor) 10 mg DAILY PO 11/28/17 09:00 12/01/17 08:52 Budesonide/ Formoterol Fumarate (Symbicort 160-4.5 Mcg Inh) 2 puff BID INH 11/27/17 21:00 12/01/17 08:52 Cyanocobalamin (Vitamin B12) 1,000 mcg DAILY PO 11/28/17 09:00 12/01/17 08:51 Escitalopram Oxalate (Lexapro) 5 mg DAILY PO 11/28/17 09:00 12/01/17 08:52 Finasteride (Proscar) 5 mg DAILY PO 11/28/17 09:00 12/01/17 08:52 Bupropion HCl (Wellbutrin Sr) 150 mg BID PO 11/28/17 09:00 12/01/17 08:52 Cholecalciferol (Vitamin D3) 2,000 units DAILY PO 11/28/17 09:00 12/01/17 08:51 Docusate Sodium (Colace) 100 mg BID PO 11/28/17 09:00 2/11/18 09:31 Magnesium Hydroxide (Milk Of Magnesia Liq) 30 ml DAILY PO 11/28/17 11:45 11/30/17 10:34 Calcium Carbonate (Tums Chew) 500 mg Q2H PRN CHEW HEARTBURN 11/28/17 23:00 11/29/17 00:13 Tramadol HCl (Ultram) 50 mg Q4H PRN PO PAIN 1-10 11/29/17 10:45 11/29/17 10:54 Metoprolol Tartrate (Lopressor) 12.5 mg DAILY PO 11/30/17 09:00 12/01/17 08:52 Prednisone (Deltasone) 40 mg DAILY PO 12/01/17 09:00 12/01/17 08:50 Objective Remarks GENERAL: Elderly male, sitting up in bed asking for water SKIN: Warm and dry. HEAD: Normocephalic. EYES: No injection or drainage. NECK: Supple, trachea midline. CARDIOVASCULAR: +S1/S2 RESPIRATORY: anterior burch clear. GASTROINTESTINAL: Abdomen soft, non-tender, nondistended. EXTREMITIES: No cyanosis NEUROLOGICAL: awake. normal speech. Assessment/Plan Problem List: (1) History of ITP ICD Codes: Z86.2 - Personal history of diseases of the blood and blood-forming organs and certain disorders involving the immune mechanism Plan: --currently on Prednisone 40mg PO qd, being tapered. -- presented in early October with a platelet count of 6000. Work up including bone marrow biopsy did not show any myelodysplasia. He was diagnosed with acute idiopathic thrombocytopenic purpura. He was treated with IVIG. He was then started on Prednisone. (2) DVT (deep venous thrombosis) ICD Codes: I82.409 - Acute embolism and thrombosis of unspecified deep veins of unspecified lower extremity Plan: --on Apixaban. No progression of the clot noted at this time. (3) Hemochromatosis ICD Codes: E83.119 - Hemochromatosis, unspecified Plan: --was noted to have an elevated ferritin level in October with ferritin level of 2539. 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 --also had mildly elevated liver transaminases. He appeared to have possible hemochromatosis. --May consider outpatient phlebotomy therapy once stable. Assessment 82y/o male admitted with right hip pain and hypotension. Hematology consulted for h/o ITP ITP. Arrhythmia. Osteoarthritis. Congestive heart failure. COPD. Hyperlipidemia. Hypertension. Gastroesophageal reflux disease (GERD). Depression. Right lower extremity deep venous thrombosis in October of 2017. Dementia. Hemochromatosis. Plan 1. continue Prednisone 40mg PO daily 2. monitor CBC 3. continue Eliquis. Attending Statement The exam, history, and the medical decision-making described in the above note were completed with the assistance of the mid-level provider. I reviewed and agree with the findings presented. I attest that I had a [id number] encounter with the patient on the same day, and personally performed and documented my assessment and findings in the medical record. Pt seen and examined. Soft spoken but answers questions. Unable to turn himself in bed. Nursing unable to get appropriate clean catch- multiple request by team. Discussed to get catheterized sample. Continue to monitor platelet count as steroid dose is tapered. Bili decrease to NL, renal function improve, platelet normal. Continue to follow. BP better- sbp>100. 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
[2017-12-01] MEDS: POTASSIUM CHLORIDE 10 MEQ CAP PO SCH (12:57)
[2017-12-01] MEDS: PIPERACIL-TAZO 4.5 GM PREMIX 100 ML IV SCH ×2 (12:58→18:08)
[2017-12-01] MEDS: FUROSEMIDE 40 MG/4 ML VIAL IV PUSH SCH (12:58)
[2017-12-01] MEDS: VANCOMYCIN 1,500 MG/NS 500 ML IV SCH ×2 (13:25)
[2017-12-01 20:33] LABS: BILIRUBIN, URINE NEG (NEG); BLOOD, URINE NEG (NEG); GLUCOSE,URINE NEG (NEG); HYALINE CAST, URINE 1 /lpf (RARE); KETONE, URINE NEG (NEG); NITRITE,URINE NEG (NEG); PH, URINE 6.5 (5.0-8.5); SQUAMOUS EPITHELIAL CELL URINE 1 /hpf (0-5); URINE COLOR LIGHT-YELLOW (YELLW/STRAW); URINE LEUKOCYTE ESTERASE NEG (NEG)
[2017-12-01] MEDS: traMADol HCL 50 MG TAB PO PRN (21:47)
[2017-12-02 00:04] VITALS: BP 117/57; PULSE 86; RESP 18; TEMP 97.6; O2SAT 96
[2017-12-02] MEDS: RESP: ALBUTEROL 2.5 MG/IPRATROPIUM 0.5 MG NEB (SCH) INH ×5 (00:13→15:04)
[2017-12-02] MEDS: PIPERACIL-TAZO 4.5 GM PREMIX 100 ML IV SCH ×3 (01:08→11:54)
[2017-12-02 05:25] VITALS: BP 113/60; PULSE 81; RESP 18; TEMP 98.2; O2SAT 95
[2017-12-02] MEDS: traMADol HCL 50 MG TAB PO PRN (06:32)
[2017-12-02 07:54] VITALS: BP 103/47; PULSE 52; RESP 18; TEMP 97.6; O2SAT 92
[2017-12-02 08:07] VITALS: O2SAT 93
[2017-12-02 08:12] LABS: AUTOMATED NEUTROPHIL # 7.4 TH/MM3 (1.8-7.7); BASOPHIL % 0.2 % (0.0-2.0); EOSINOPHIL # 0.1 TH/MM3 (0-0.4); HEMATOCRIT 41.3 % (39.0-51.0); HEMOGLOBIN 14.8 GM/DL (13.0-17.0); LYMPH % 12.9 % (9.0-44.0); LYMPHOCYTE # 1.1 TH/MM3 (1.0-4.8); MEAN CELL VOLUME 97.4 FL (80.0-100.0); MEAN CORPUSCULAR HEMOGLOBIN 34.9 PG (27.0-34.0); MEAN CORPUSCULAR HGB CONC 35.8 % (32.0-36.0); MEAN PLATELET VOLUME 7.4 FL (7.0-11.0); MONOCYTE # 0.3 TH/MM3 (0-0.9); NEUT % 82.9 % (16.0-70.0); PLATELET COUNT 129 TH/MM3 (150-450); RED BLOOD COUNT 4.24 MIL/MM3 (4.50-5.90); RED CELL DISTRIBUTION WIDTH 14.9 % (11.6-17.2); WHITE BLOOD COUNT 8.9 TH/MM3 (4.0-11.0)
[2017-12-02] MEDS: POTASSIUM CHLORIDE 10 MEQ CAP PO SCH (08:29)
[2017-12-02] MEDS: predniSONE 20 MG TAB PO SCH (08:29)
[2017-12-02] MEDS: DOCUSATE SODIUM 100 MG CAP PO SCH (08:29)
[2017-12-02] MEDS: ATORVASTATIN 10 MG TAB PO SCH (08:29)
[2017-12-02] MEDS: CHOLECALCIFEROL (VIT D3) 1000 UNIT TAB PO SCH (08:29)
[2017-12-02] MEDS: buPROPion HCL 150 MG SUSTAINED RELEASE TAB PO SCH (08:30)
[2017-12-02] MEDS: ESCITALOPRAM OXALATE 10 MG TAB PO SCH (08:30)
[2017-12-02] MEDS: ALLOPURINOL 300 MG TAB PO SCH (08:30)
[2017-12-02] MEDS: METOPROLOL TARTRATE 25 MG TAB PO SCH (08:30)
[2017-12-02] MEDS: FINASTERIDE 5 MG TAB PO SCH (08:30)
[2017-12-02] MEDS: APIXABAN 2.5 MG TABLET PO SCH (08:30)
[2017-12-02] MEDS: FUROSEMIDE 40 MG/4 ML VIAL IV PUSH SCH (08:31)
[2017-12-02] MEDS: CYANOCOBALAMIN 1,000 MCG TAB PO SCH (08:31)
[2017-12-02] MEDS: MAGNESIUM HYDROXIDE SUSP 30 ML CUP PO SCH (08:31)
[2017-12-02] MEDS: SODIUM CHLORIDE 0.9% FLUSH 10 ML FLUSH IV FLUSH SCH (08:31)
[2017-12-02] MEDS: VANCOMYCIN 1,500 MG/NS 500 ML IV SCH ×2 (08:32)
[2017-12-02 08:37] LABS: ALBUMIN 1.8 GM/DL (3.4-5.0); ALKALINE PHOSPHATASE 106 U/L (45-117); ALT (GPT) 62 U/L (12-78); BLOOD UREA NITROGEN 19 MG/DL (7-18); CALCIUM 7.6 MG/DL (8.5-10.1); CHLORIDE 98 MEQ/L (98-107); GLOMERULAR FILTRATION RATE 64 ML/MIN (>89); GLUCOSE,RANDOM 123 MG/DL (74-106); SODIUM (NA) 136 MEQ/L (136-145); TOTAL BILIRUBIN ADULT 0.9 MG/DL (0.2-1.0); TOTAL PROTEIN 5.5 GM/DL (6.4-8.2)
[2017-12-02 08:38] LABS: AST (GOT) 38 U/L (15-37)
[2017-12-02] MEDS: BUDESONIDE-FORMOTEROL 160/4.5 MCG INHALER INH SCH (11:54)
[2017-12-02] MEDS ORDERED: Albuterol-Ipratropium Neb INH (12:17)
[2017-12-02 12:25] VITALS: BP 106/58; PULSE 57; RESP 18; TEMP 98.2; O2SAT 92
[2017-12-02] MEDS ORDERED: POTA10CA PO (12:40)
--- NOTE | 2017-12-02 12:41 | HHI.DCPOC ---
Discharge Care Plan Diagnosis: (1) COPD with acute exacerbation (2) Acute kidney injury (3) Hypotension Goals to Promote Your Health * To prevent worsening of your condition and complications * To maintain your health at the optimal level Directions to Meet Your Goals Take your medications as prescribed Follow your dietary instruction Follow activity as directed Keep your appointments as scheduled Take your immunizations and boosters as scheduled If your symptoms worsen call your PCP, if no PCP go to Urgent Care Center or Emergency Room Smoking is Dangerous to Your Health. Avoid second hand smoke Call the 24-hour hour crisis hotline for domestic abuse at Clara Guy MD R2 Dec 02, 2017 12:41
[2017-12-02] MEDS ORDERED: OXYGENTANK NAS.CANULA (12:45)
[2017-12-02] MEDS ORDERED: PRED20 PO (14:39)
[2017-12-02] MEDS ORDERED: AUGM875T3 PO (14:39)
[2017-12-02 15:04] VITALS: O2SAT 90
--- NOTE | 2017-12-02 15:06 | HHI.FPPN ---
Subjective Remarks Patient seen and examined bedside this morning. Patient is using breathing treatment and convey that he is feeling better today than yesterday. Patient denies any nausea/vomiting. Patient is tolerating his diet. Patient denies any chest pain/confusion/dizziness. No acute events overnight. (Clara Guy MD R2) Objective Vitals Vital Signs Date Time Temp Pulse Resp B/P (MAP) Pulse Ox O2 Delivery O2 Flow Rate FiO2 12/02/17 12:25 98.2 57 18 106/58 (74) 92 12/02/17 08:52 Room Air 12/02/17 08:07 93 Nasal Cannula 3.00 12/02/17 07:54 97.6 52 18 103/47 (65) 92 12/02/17 07:33 18 12/02/17 06:41 96 Nasal Cannula 4.00 28 12/02/17 05:25 98.2 81 18 113/60 (77) 95 12/02/17 00:04 97.6 86 18 117/57 (77) 96 12/01/17 20:41 98.4 78 18 95/64 (74) 95 12/01/17 19:55 97 Nasal Cannula 3.00 12/01/17 19:52 97 Nasal Cannula 4.00 28 12/01/17 16:53 98.4 60 16 116/71 (86) 96 I/O 12/01/17 12/01/17 12/01/17 12/02/17 12/02/17 12/02/17 07:00 15:00 23:00 07:00 15:00 23:00 Intake Total 120 ml 120 ml 1202 ml Balance 120 ml 120 ml 1202 ml Intake Oral 120 ml 120 ml IV Total 1202 ml # Voids 1 2 2 # Bowel Movements 1 1 1 1 1 (Clara Guy MD R2) Result Diagram: 12/02/1770512/02/17705 Objective Remarks GENERAL: This is a well-nourished, well-developed patient, in no apparent distress. Using breathing treatment at time of exam SKIN: No rashes, ecchymoses or lesions. Cool and dry. HEAD: Atraumatic. Normocephalic. No temporal or scalp tenderness. EYES: Pupils equal round and reactive. Extraocular motions intact. No scleral icterus. No injection or drainage. ENT: Nose without bleeding, purulent drainage or septal hematoma. Throat without erythema, tonsillar hypertrophy or exudate. Uvula midline. Airway patent. NECK: Trachea midline. No JVD or lymphadenopathy. Supple, nontender, no meningeal signs. CARDIOVASCULAR: Regular rate and rhythm without murmurs, gallops, or rubs. RESPIRATORY: Diminished breath sounds bilaterally, no wheezes or crackles appreciated. No retractions or labored breathing noted, exam is improved from yesterday GASTROINTESTINAL: Abdomen soft, nondistended. No tenderness to palpation. MUSCULOSKELETAL: 2 x 2 centimeter grade 2 ulcer appreciated on the left side of the mid back. Stage I sacral ulcer appreciated. Extremities without clubbing, cyanosis, or edema. NEUROLOGICAL: Awake and alert. Oriented to person place and time. Cranial nerves II through XII grossly intact. Decreased left upper extremity muscle strength (3 out of 5) 5 out of 5 muscle strength right upper extremity Normal speech. (Clara Guy MD R2) A/P Assessment and Plan 82-year-old male with past medical history of COPD, CHF, thrombocytopenia, hypertension, DVT presenting to the ED with persistent hypotension. Normotensive , VSS. Working with hospice for D/C to SNF Discharge Planning Anticipate discharge to SNF pending clinical improvement (Clara Guy MD R2) Attending Attestation Patient seen and examined around 0800. Case discussed with resident team. I agree with assessment and management as documented and discussed with me. Pt without complaints. He feels breathing is the same. He continues to have a lot of phlegm. Pt remains sleepy. Appreciate palliative care. (Nayeli Casarez MD) Problem List: (1) Oxygen desaturation ICD Codes: R09.02 - Hypoxemia Status: Resolved Plan: Patient had oxygen desaturation to 88 that required 6 L nasal cannula, this is increased from 2 L nasal cannula prior to this No respiratory distress on exam today but patient continues to use 3 L nasal cannula, O2 sat 93% Likely multifactorial from underlying COPD and CHF, possible COPD exacerbation Ceftriazone 1g IV q24h (11/29-12/01) Vanc & Zosyn (12/01 - 12/02) Plan to DC on by mouth antibioticsl Currently on home dose of Lasix 20 mg by mouth twice a day Beginning prednisone taper per hematology oncology, prednisone 40 mg PO Respiratory therapy; DuoNeb treatments, Symbicort, EZ Pap1, Acapella CXR Pa/Lateral on 11/29 showing stable lung exam suggestive of either chronic interstitial edema from CHF versus interstitial fibrosis -BNP wnl at 22 -echocardiogram showed ejection fraction over 60% (2) Current use of steroid medication ICD Codes: Z79.52 - shelter (current) use of systemic steroids Status: Chronic Plan: 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 Caban to see today Plan to DC with prednisone taper (3) Hypotension ICD Codes: I95.9 - Hypotension, unspecified Status: Resolved Plan: Patient sent in for hypotension with systolic pressures in 80's BP this morning 103/47 Patient has improved with addition of fluids Hold Home metoprolol 12.5 mg by mouth daily, holding other blood pressure medications Home Lasix 20 mg twice a day, hold spironolactone Careful with further IVF - CXR concerning for pulm edema (4) Leukocytosis ICD Codes: D72.829 - Elevated white blood cell count, unspecified Status: Resolved Plan: Likely secondary to stress response, now resolved with IV fluids. WBC elevated at 13.2 on admission, trending down and normalized since 11/28 Lactic acid elevated at 2.5 on admission, normalized on 11/27 Repeat chest x-ray pending on 12/01 CT abdomen shows constipation with a large amount of stool in the rectum, nonobstructive pattern without acute inflammatory changes UA with moderate leukocyte esterase, rare bacteria, few mucus urine culture pending legionella, pneumococcal urine sputum culture pending blood culture no growth Influenza negative CRP elevated at 2.26 on 11/27 (5) Hip pain ICD Codes: M25.559 - Pain in unspecified hip Plan: Patient complaining of worsening R hip pain x 1 day No known history of falls XR on admission negative Caution with narcotics in light of hypotension PT ordered No acute bony abnormalities demonstrated on CT abd/pelvis (6) Abdominal pain ICD Codes: R10.9 - Unspecified abdominal pain Status: Resolved Plan: Resolved Likely secondary to constipation per CT abdomen/pelvis results. Colace 100mg PO BID Milk of Mag 30ml PO daily (7) Thrombocytopenia ICD Codes: D69.6 - Thrombocytopenia, unspecified Status: Chronic Plan: Known history of thrombocytopenia with recent hospitalization Followed by Dr. 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 Consulting hematology for assistance on steroid taper, see prolonged steroid use as above (8) DVT (deep venous thrombosis) ICD Codes: I82.409 - Acute embolism and thrombosis of unspecified deep veins of unspecified lower extremity Plan: No concern for PE at this time, vital signs stable US on 11/03/17 showed occlusive thrombus of R posterior Tibial vein Patient on low dose Eliquis No other anticoagulation for now, will monitor (9) KIANA (acute kidney injury) ICD Codes: N17.9 - Acute kidney failure, unspecified Status: Resolved Plan: Follow-up BMP Creatinine on admission 1.43 Had normalized to 0.95 on 11/29, increase to 1.12 on 11/30 Giving one bag of normal saline at 50 mL/h on 11/30 Continue to monitor, a.m. labs pending (10) Pressure ulcer ICD Codes: L89.90 - Pressure ulcer of unspecified site, unspecified stage Status: Chronic Plan: Grade II pressure ulcer on L side of midback Measures roughly 2 x 2 cm Wound care consulted (11) Transaminitis ICD Codes: R74.0 - Nonspecific elevation of levels of transaminase and lactic acid dehydrogenase [LDH] Status: Resolved Plan: Elevated Liver enzymes on admission with AST 44, ALT 83 Normalized on 11/28, elevated again at AST 43, ALT 89 on 11/30 Will continue to monitor, a.m. labs pending (12) FEN Status: Acute Plan: Fluids: Normal saline 50 mL per hour, one bag only on 11/30, no IV fluids at this time Replete electrolytes as needed, slightly hypokalemic on 11/30 for potassium of 3.2, giving 40 mEq by mouth Heart healthy diet Home Eliquis for DVT prophylaxis (Clara Guy MD R2) Problem Qualifiers (1) Hypotension: Qualified Codes: I95.9 - Hypotension, unspecified (2) Leukocytosis: Qualified Codes: D72.820 - Lymphocytosis (symptomatic) (3) Hip pain: Qualified Codes: M25.551 - Pain in right hip (4) Abdominal pain: Qualified Codes: R10.84 - Generalized abdominal pain (5) DVT (deep venous thrombosis): Qualified Codes: I82.541 - 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
--- NOTE | 2017-12-02 15:09 | HHI.DS ---
Clara Guy MD R2 12/02/17 1509: Discharge Summary Admission Date Nov 27, 2017 at 15:13 Discharge Date: Dec 02, 2017 Admitting Diagnosis hypotension, lactic acidosis, acute kidney injury (1) Oxygen desaturation Diagnosis: Principal Plan: Patient had oxygen desaturation to 88 that required 6 L nasal cannula, this is increased from 2 L nasal cannula prior to this No respiratory distress on exam today but patient continues to use 3 L nasal cannula, O2 sat 93% Likely multifactorial from underlying COPD and CHF, possible COPD exacerbation Ceftriazone 1g IV q24h (11/29-12/01) Vanc & Zosyn (12/01 - 12/02) Plan to DC on by mouth antibioticsl Currently on home dose of Lasix 20 mg by mouth twice a day Beginning prednisone taper per hematology oncology, prednisone 40 mg PO Respiratory therapy; DuoNeb treatments, Symbicort, EZ Pap1, Acapella CXR Pa/Lateral on 11/29 showing stable lung exam suggestive of either chronic interstitial edema from CHF versus interstitial fibrosis -BNP wnl at 22 -echocardiogram showed ejection fraction over 60% ICD Codes: R09.02 - Hypoxemia Status: Resolved (2) Current use of steroid medication Diagnosis: Secondary Plan: 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 Caban to see today Plan to DC with prednisone taper ICD Codes: Z79.52 - vp data (current) use of systemic steroids Status: Chronic (3) Hypotension Diagnosis: Principal Plan: Patient sent in for hypotension with systolic pressures in 80's BP this morning 103/47 Patient has improved with addition of fluids Hold Home metoprolol 12.5 mg by mouth daily, holding other blood pressure medications Home Lasix 20 mg twice a day, hold spironolactone Careful with further IVF - CXR concerning for pulm edema ICD Codes: I95.9 - Hypotension, unspecified Status: Resolved (4) Leukocytosis Diagnosis: Secondary Plan: Likely secondary to stress response, now resolved with IV fluids. WBC elevated at 13.2 on admission, trending down and normalized since 11/28 Lactic acid elevated at 2.5 on admission, normalized on 11/27 Repeat chest x-ray pending on 12/01 CT abdomen shows constipation with a large amount of stool in the rectum, nonobstructive pattern without acute inflammatory changes UA with moderate leukocyte esterase, rare bacteria, few mucus urine culture pending legionella, pneumococcal urine sputum culture pending blood culture no growth Influenza negative CRP elevated at 2.26 on 11/27 ICD Codes: D72.829 - Elevated white blood cell count, unspecified Status: Resolved (5) Hip pain Diagnosis: Secondary Plan: Patient complaining of worsening R hip pain x 1 day No known history of falls XR on admission negative Caution with narcotics in light of hypotension PT ordered No acute bony abnormalities demonstrated on CT abd/pelvis ICD Codes: M25.559 - Pain in unspecified hip (6) Abdominal pain Diagnosis: Secondary Plan: Resolved Likely secondary to constipation per CT abdomen/pelvis results. Colace 100mg PO BID Milk of Mag 30ml PO daily ICD Codes: R10.9 - Unspecified abdominal pain Status: Resolved (7) Thrombocytopenia Diagnosis: Secondary Plan: Known history of thrombocytopenia with recent hospitalization Followed by Dr. 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 Consulting hematology for assistance on steroid taper, see prolonged steroid use as above ICD Codes: D69.6 - Thrombocytopenia, unspecified Status: Chronic (8) DVT (deep venous thrombosis) Diagnosis: Secondary Plan: No concern for PE at this time, vital signs stable US on 11/03/17 showed occlusive thrombus of R posterior Tibial vein Patient on low dose Eliquis No other anticoagulation for now, will monitor ICD Codes: I82.409 - Acute embolism and thrombosis of unspecified deep veins of unspecified lower extremity (9) KIANA (acute kidney injury) Diagnosis: Secondary Plan: Follow-up BMP Creatinine on admission 1.43 Had normalized to 0.95 on 11/29, increase to 1.12 on 11/30 Giving one bag of normal saline at 50 mL/h on 11/30 Continue to monitor, a.m. labs pending ICD Codes: N17.9 - Acute kidney failure, unspecified Status: Resolved (10) Pressure ulcer Diagnosis: Secondary Plan: Grade II pressure ulcer on L side of midback Measures roughly 2 x 2 cm Wound care consulted ICD Codes: L89.90 - Pressure ulcer of unspecified site, unspecified stage Status: Chronic (11) Transaminitis Diagnosis: Secondary Plan: Elevated Liver enzymes on admission with AST 44, ALT 83 Normalized on 11/28, elevated again at AST 43, ALT 89 on 11/30 Will continue to monitor, a.m. labs pending ICD Codes: R74.0 - Nonspecific elevation of levels of transaminase and lactic acid dehydrogenase [LDH] Status: Resolved (12) FEN Diagnosis: Secondary Plan: Fluids: Normal saline 50 mL per hour, one bag only on 11/30, no IV fluids at this time Replete electrolytes as needed, slightly hypokalemic on 11/30 for potassium of 3.2, giving 40 mEq by mouth Heart healthy diet Home Eliquis for DVT prophylaxis Status: Acute Brief History 82 yo M presenting after being sent by hem/onc due to hypotension. Complaining of pain in R hip that started today. Does not report a fall. Cough productive of yellow sputum started today as well. Occasionally requires Oxygen - last time was 1 month ago. Also reporting pain in R side of jaw for 1 month when he chews on food. Otherwise no CP, SOB, no fevers/chills, NV, no diarrhea/ constipation, no bloody stools. Dysuria for a month - unsure if on antibiotics CBC/BMP: 12/02/17 0706 12/02/17 0706 Significant Findings Laboratory Tests Test 11/30/17 08:10 12/01/17 08:46 12/01/17 19:50 12/02/17 07:06 Mean Corpuscular Hemoglobin 34.2 PG (27.0-34.0) 34.5 PG (27.0-34.0) 34.9 PG (27.0-34.0) Platelet Count 149 TH/MM3 (150-450) 129 TH/MM3 (150-450) Neutrophils (%) (Auto) 83.5 % (16.0-70.0) 82.9 % (16.0-70.0) Neutrophils % (Manual) 76 % (16-70) Lymphocytes % 8 % (9-44) Neutrophils # (Manual) 8.1 TH/MM3 (1.8-7.7) Metamyelocytes 3 % (0-1) Myelocytes 5 % (0-0) Platelet Estimate LOW (NORMAL) LOW (NORMAL) Blood Urea Nitrogen 22 MG/DL (7-18) 21 MG/DL (7-18) 19 MG/DL (7-18) Random Glucose 113 MG/DL (74-106) 123 MG/DL (74-106) Albumin 2.2 GM/DL (3.4-5.0) 2.1 GM/DL (3.4-5.0) 1.8 GM/DL (3.4-5.0) Alkaline Phosphatase 134 U/L (45-117) 122 U/L (45-117) Aspartate Amino Transf (AST/SGOT) 43 U/L (15-37) 38 U/L (15-37) Alanine Aminotransferase (ALT/SGPT) 89 U/L (12-78) Total Bilirubin 1.1 MG/DL (0.2-1.0) Sodium Level 133 MEQ/L (136-145) 135 MEQ/L (136-145) Potassium Level 3.2 MEQ/L (3.5-5.1) 3.4 MEQ/L (3.5-5.1) Chloride Level 96 MEQ/L (98-107) Estimat Glomerular Filtration Rate 63 ML/MIN (>89) 84 ML/MIN (>89) 64 ML/MIN (>89) White Blood Count 11.3 TH/MM3 (4.0-11.0) Red Blood Count 4.22 MIL/MM3 (4.50-5.90) 4.24 MIL/MM3 (4.50-5.90) Total Protein 6.1 GM/DL (6.4-8.2) 5.5 GM/DL (6.4-8.2) Calcium Level 8.4 MG/DL (8.5-10.1) 7.6 MG/DL (8.5-10.1) PE at Discharge GENERAL: This is a well-nourished, well-developed patient, in no apparent distress. Using breathing treatment at time of exam SKIN: No rashes, ecchymoses or lesions. Cool and dry. HEAD: Atraumatic. Normocephalic. No temporal or scalp tenderness. EYES: Pupils equal round and reactive. Extraocular motions intact. No scleral icterus. No injection or drainage. ENT: Nose without bleeding, purulent drainage or septal hematoma. Throat without erythema, tonsillar hypertrophy or exudate. Uvula midline. Airway patent. NECK: Trachea midline. No JVD or lymphadenopathy. Supple, nontender, no meningeal signs. CARDIOVASCULAR: Regular rate and rhythm without murmurs, gallops, or rubs. RESPIRATORY: Diminished breath sounds bilaterally, no wheezes or crackles appreciated. No retractions or labored breathing noted, exam is improved from yesterday GASTROINTESTINAL: Abdomen soft, nondistended. No tenderness to palpation. MUSCULOSKELETAL: 2 x 2 centimeter grade 2 ulcer appreciated on the left side of the mid back. Stage I sacral ulcer appreciated. Extremities without clubbing, cyanosis, or edema. NEUROLOGICAL: Awake and alert. Oriented to person place and time. Cranial nerves II through XII grossly intact. Decreased left upper extremity muscle strength (3 out of 5) 5 out of 5 muscle strength right upper extremity Normal speech. Hospital Course 82 yo M, pmhx of thrombocytopenia, presenting after being sent by hem/onc due to hypotension in office. At time of admission patient had desaturations to 88% required 6 L of nasal cannula and his systolic blood pressures were in the 80s. Chest x-ray at time of admission was reflective of pulmonary edema, and there is concern for underlying COPD and CHF. His blood pressures improved over the hospital stay with cautious addition of fluids, due to on commitment edema. His home blood pressure medications were held over the hospital stay. His oxygen need she and status improved over the admission, improving to 93% on 3 L nasal cannula at time of discharge. Patient was treated for COPD exacerbation with Rocephin, and was discharged on Augmentin by mouth to complete course for exacerbation. Patient was also discharged on prednisone taper. Pt Condition on Discharge: Stable Discharge Disposition: Discharge to SNF Discharge Instructions DIET: Follow Instructions for: As Tolerated, No Restrictions Speech Therapy-Diet Recommends: Mechanical Soft Activities you can perform: Regular-No Restrictions New Medications: Amoxicillin-Clavulanate (Augmentin) 875-125 Mg Tab 1 TAB PO BID for Infection for 5 Days, #10 TAB 0 Refills Oxygen tank (Oxygen tank) 1 Ea Tank LITER EDUIN.CANULA CONTINUOUS for HYPOXEMIA PREVENTION, #1 Oxygen Concentrator Portable Gaseous 2 L/min via Nasal Cannula Continuous For 99 months Prednisone (Prednisone) 20 Mg Tab 20 MG PO DIRECTED, #14 TAB 0 Refills Take 40 MG daily x 4 days, then 20 MG x 4 days, then 10 MG daily x 4 days. Potassium Chloride ER (Potassium Chloride ER) 10 Meq Cap 40 MEQ PO DAILY, #30 CAP [Albuterol-Ipratropium Neb] () 1 AMPULE NEBU 1 AMPULE INH Q4HR NEB, #30 AMPULE Continued Medications: Acetaminophen (Tylenol) 325 Mg Tab 650 MG PO Q6H PRN for PAIN, TAB 0 Refills Allopurinol (Allopurinol) 300 Mg Tab 300 MG PO DAILY for Gout, #30 TAB 0 Refills Amino Acids-Protein Hydrolysat (Pro-Stat) 15 Gram-100 Kcal/30 Ml Liq 30 ML PO BID for Protein Deficency Apixaban (Eliquis) 2.5 Mg Tab 2.5 MG PO BID, #60 TAB Atorvastatin (Atorvastatin) 10 Mg Tab 10 MG PO DAILY for Cholesterol Management, #30 TAB 0 Refills Budesonide-Formoterol Inh (Symbicort Inh) 160-4.5 Mcg/Act Aero 2 PUFF INH BID, #1 INHALER 0 Refills Bupropion HCl ER 24 HR (Wellbutrin Xl 24 HR) 300 Mg Tab 300 MG PO DAILY for Control Depression, TAB 0 Refills Cholecalciferol (Vitamin D-3) 2,000 Unit Tab 2000 UNITS PO DAILY Cyanocobalamin (Vitamin B-12) 1,000 Mcg Subl 1000 MCG SL DAILY for Nutritional Supplement, TAB.SL 0 Refills Docusate Sodium (Colace) 100 Mg Capsule 100 MG PO BID Escitalopram (Escitalopram) 5 Mg Tab 5 MG PO DAILY, #30 TAB 0 Refills Finasteride (Proscar) 5 Mg Tab 5 MG PO DAILY for Manage Prostate Problems, #30 TAB 0 Refills Do not crush. Furosemide (Furosemide) 20 Mg Tab 20 MG PO BID, #60 TAB 0 Refills Magnesium Oxide (Magnesium Oxide) 400 Mg Tab 400 MG PO Q12HR for Nutritional Supplement, TAB 0 Refills Memantine Er (Namenda Xr) 28 Mg Caper 28 MG PO DAILY for Alzheimer Disease, #30 CAP 0 Refills Metoprolol Tartrate (Metoprolol Tartrate) 25 Mg Tab 12.5 MG PO DAILY, #60 TAB 0 Refills Oyster Shell (Calcium) 500 Mg Calcium (1250 Mg) Tab 500 MG PO BID for Nutritional Supplement Tamsulosin (Tamsulosin) 0.4 Mg Cap 0.4 MG PO DAILY for Manage Prostate Problems, #30 CAP 0 Refills Tramadol (Tramadol) 50 Mg Tab 50 MG PO Q4H PRN for PAIN, #30 TAB 0 Refills Discontinued Medications: Amlodipine (Amlodipine) 10 Mg Tab 10 MG PO DAILY for Blood Pressure Management, #30 TAB 0 Refills Losartan (Losartan) 50 Mg Tab 50 MG PO DAILY for Blood Pressure Management, #30 TAB 0 Refills Potassium Chloride ER (Potassium Chloride ER) 20 Meq Tab 20 MEQ PO DAILY for Electrolyte Replacement, #30 TAB 0 Refills Prednisone (Prednisone) 50 Mg Tab 50 MG PO DAILY, #20 TAB Do not stop this medication unless you are told by your Doctor. Spironolactone (Spironolactone) 25 Mg Tab 12.5 MG PO DAILY, #15 TAB 0 Refills Nayeli Casarez MD 12/03/17 2016: Discharge Summary CBC/BMP: 12/02/17 0706 12/02/17 0706 Discharge Instructions New Medications: Amoxicillin-Clavulanate (Augmentin) 875-125 Mg Tab 1 TAB PO BID for Infection for 5 Days, #10 TAB 0 Refills Oxygen tank (Oxygen tank) 1 Ea Tank LITER EDUIN.CANULA CONTINUOUS for HYPOXEMIA PREVENTION, #1 Oxygen Concentrator Portable Gaseous 2 L/min via Nasal Cannula Continuous For 99 months Prednisone (Prednisone) 20 Mg Tab 20 MG PO DIRECTED, #14 TAB 0 Refills Take 40 MG daily x 4 days, then 20 MG x 4 days, then 10 MG daily x 4 days. Potassium Chloride ER (Potassium Chloride ER) 10 Meq Cap 40 MEQ PO DAILY, #30 CAP [Albuterol-Ipratropium Neb] () 1 AMPULE NEBU 1 AMPULE INH Q4HR NEB, #30 AMPULE Continued Medications: Acetaminophen (Tylenol) 325 Mg Tab 650 MG PO Q6H PRN for PAIN, TAB 0 Refills Allopurinol (Allopurinol) 300 Mg Tab 300 MG PO DAILY for Gout, #30 TAB 0 Refills Amino Acids-Protein Hydrolysat (Pro-Stat) 15 Gram-100 Kcal/30 Ml Liq 30 ML PO BID for Protein Deficency Apixaban (Eliquis) 2.5 Mg Tab 2.5 MG PO BID, #60 TAB Atorvastatin (Atorvastatin) 10 Mg Tab 10 MG PO DAILY for Cholesterol Management, #30 TAB 0 Refills Budesonide-Formoterol Inh (Symbicort Inh) 160-4.5 Mcg/Act Aero 2 PUFF INH BID, #1 INHALER 0 Refills Bupropion HCl ER 24 HR (Wellbutrin Xl 24 HR) 300 Mg Tab 300 MG PO DAILY for Control Depression, TAB 0 Refills Cholecalciferol (Vitamin D-3) 2,000 Unit Tab 2000 UNITS PO DAILY Cyanocobalamin (Vitamin B-12) 1,000 Mcg Subl 1000 MCG SL DAILY for Nutritional Supplement, TAB.SL 0 Refills Docusate Sodium (Colace) 100 Mg Capsule 100 MG PO BID Escitalopram (Escitalopram) 5 Mg Tab 5 MG PO DAILY, #30 TAB 0 Refills Finasteride (Proscar) 5 Mg Tab 5 MG PO DAILY for Manage Prostate Problems, #30 TAB 0 Refills Do not crush. Furosemide (Furosemide) 20 Mg Tab 20 MG PO BID, #60 TAB 0 Refills Magnesium Oxide (Magnesium Oxide) 400 Mg Tab 400 MG PO Q12HR for Nutritional Supplement, TAB 0 Refills Memantine Er (Namenda Xr) 28 Mg Caper 28 MG PO DAILY for Alzheimer Disease, #30 CAP 0 Refills Metoprolol Tartrate (Metoprolol Tartrate) 25 Mg Tab 12.5 MG PO DAILY, #60 TAB 0 Refills Oyster Shell (Calcium) 500 Mg Calcium (1250 Mg) Tab 500 MG PO BID for Nutritional Supplement Tamsulosin (Tamsulosin) 0.4 Mg Cap 0.4 MG PO DAILY for Manage Prostate Problems, #30 CAP 0 Refills Tramadol (Tramadol) 50 Mg Tab 50 MG PO Q4H PRN for PAIN, #30 TAB 0 Refills Discontinued Medications: Amlodipine (Amlodipine) 10 Mg Tab 10 MG PO DAILY for Blood Pressure Management, #30 TAB 0 Refills Losartan (Losartan) 50 Mg Tab 50 MG PO DAILY for Blood Pressure Management, #30 TAB 0 Refills Potassium Chloride ER (Potassium Chloride ER) 20 Meq Tab 20 MEQ PO DAILY for Electrolyte Replacement, #30 TAB 0 Refills Prednisone (Prednisone) 50 Mg Tab 50 MG PO DAILY, #20 TAB Do not stop this medication unless you are told by your Doctor. Spironolactone (Spironolactone) 25 Mg Tab 12.5 MG PO DAILY, #15 TAB 0 Refills Additional Information Patient discharged to SNF under Hospice care. Clara Guy MD R2 Dec 02, 2017 15:09 Nayeli Casarez MD Dec 03, 2017 20:16
--- NOTE | 2017-12-02 16:02 | HHI.HCPN ---
Reason for visit a. To assist with evaluation and management of symptoms including: Pain, weakness b. To assist medical decision maker(s) with: better understanding of current medical conditions; weighing benefits/burdens of medical treatment options; making medical treatment decisions. . Subjective/Interval History More alert today. Able to sit up in bed and speak a few words. Eyes open. Breakfast tray untouched. When asked if he is not eating due to his appetite he shakes his head no. When asked if it is because he does not like the food, he nods yes. When asked if he would eat if he did like the food he again, nods yes. Denies pain this morning. at bedside. Patient significantly improved since admission. Planning to discharge back to [facility] facility. Found to have aspiration, now on modified liquid thickness diet. On prednisone for ITP. Hematology managing slow steroid taper. Clinical data: * Laboratory: WBC 8.9, hemoglobin 14.8, hematocrit 41.3, platelets 129, sodium 136, potassium 3.6, BUN 19, creatinine 1.10. * Vital signs: Blood pressure 106/58, heart rate 57, respiratory rate 18, oxygen saturation 90% on room air. Afebrile. * * . Family/friend interactions After discussion with patient's daughter, Shereen, yesterday who is an RN, I addressed concerns to her mother, the healthcare proxy, regarding hospice admission. The is also in agreement that the patient would benefit from the improved medical oversight provided by hospice and the ability to go to a hospice care center if needed for acute symptoms, rather than the hospital. Hospice consultation was requested and the patient and his were seen by Matilda Dennis for hospice admission. Consents were signed and patient is planned to be discharged back to [facility] with hospice oversight today. . Advance Directives Living Will: Never completed Health Care Surrogate: Copy in medical record Durable Power of Cyber Security Analyst: Never completed Advance Directive Specifics Date completed: 08/09/14 . Health Care Surrogate(s): Spouse: Paulina Desir . . Documented care wishes: No living will available. . Objective Vital Signs Date Time Temp Pulse Resp B/P (MAP) Pulse Ox O2 Delivery O2 Flow Rate FiO2 12/02/17 15:04 90 21 12/02/17 12:25 98.2 57 18 106/58 (74) 92 2/13/18 08:52 Room Air 12/02/17 08:07 93 Nasal Cannula 3.00 12/02/17 07:54 97.6 52 18 103/47 (65) 92 12/02/17 07:33 18 12/02/17 06:41 96 Nasal Cannula 4.00 28 12/02/17 05:25 98.2 81 18 113/60 (77) 95 12/02/17 00:04 97.6 86 18 117/57 (77) 96 12/01/17 20:41 98.4 78 18 95/64 (74) 95 12/01/17 19:55 97 Nasal Cannula 3.00 12/01/17 19:52 97 Nasal Cannula 4.00 28 12/01/17 16:53 98.4 60 16 116/71 (86) 96 Intake & Output 12/02/17 12/02/17 07:00 19:00 Intake Total 1322 ml Balance 1322 ml Intake Oral 120 ml IV Total 1202 ml # Voids 4 # Bowel Movements 1 1 Physical Exam CONSTITUTIONAL/GENERAL: This is an elderly, overweight patient, in no apparent distress. TUBES/LINES/DRAINS: PIV's SKIN: No jaundice, rashes, or lesions. Extensive ecchymosis on upper extremities. No wounds seen anteriorly. Skin temperature appropriate. Not diaphoretic. 2 x 2 centimeter wound on left spine. HEAD: Atraumatic. Normocephalic. EYES: Pupils equal and round and reactive. Extraocular motions intact. No scleral icterus. No injection or drainage. Fundi not examined. ENT: Hearing grossly normal. Nose without bleeding or purulent drainage. Throat without visible erythema, exudates, masses, or lesions. NECK: Trachea midline. Supple, nontender. No palpable thyroid enlargement or nodularity. CARDIOVASCULAR: Regular rate and rhythm without murmurs, gallops, or rubs. No JVD. Peripheral pulses symmetric. RESPIRATORY/CHEST: Symmetric, unlabored respirations. Clear, diminished to auscultation. Breath sounds equal bilaterally. No wheezes, rales, or rhonchi. GASTROINTESTINAL: Abdomen soft, non-tender, nondistended. No hepato-splenomegaly , or palpable masses. No guarding. Bowel sounds present. GENITOURINARY: Without palpable bladder distension. Condom catheter in place. MUSCULOSKELETAL: Extremities without clubbing, cyanosis, or edema. Patient complains of tenderness to bilateral lower extremities with light palpation. LYMPHATICS: No palpable cervical or supraclavicular adenopathy. NEUROLOGICAL: Awake, oriented to self and place. Generalized weakness with increased left upper and lower extremity weakness. PSYCHIATRIC: More conversant today, weak, easy fatigability. . Diagnostic Tests Laboratory Laboratory Tests Test 11/30/17 08:10 12/01/17 08:46 12/01/17 19:50 12/02/17 07:06 White Blood Count 9.2 TH/MM3 (4.0-11.0) 11.3 TH/MM3 (4.0-11.0) 8.9 TH/MM3 (4.0-11.0) Red Blood Count 4.73 MIL/MM3 (4.50-5.90) 4.22 MIL/MM3 (4.50-5.90) 4.24 MIL/MM3 (4.50-5.90) Hemoglobin 16.2 GM/DL (13.0-17.0) 14.5 GM/DL (13.0-17.0) 14.8 GM/DL (13.0-17.0) Hematocrit 45.9 % (39.0-51.0) 40.9 % (39.0-51.0) 41.3 % (39.0-51.0) Mean Corpuscular Volume 97.0 FL (80.0-100.0) 97.1 FL (80.0-100.0) 97.4 FL (80.0-100.0) Mean Corpuscular Hemoglobin 34.2 PG (27.0-34.0) 34.5 PG (27.0-34.0) 34.9 PG (27.0-34.0) Mean Corpuscular Hemoglobin Concent 35.2 % (32.0-36.0) 35.5 % (32.0-36.0) 35.8 % (32.0-36.0) Red Cell Distribution Width 14.7 % (11.6-17.2) 14.5 % (11.6-17.2) 14.9 % (11.6-17.2) Platelet Count 149 TH/MM3 (150-450) 152 TH/MM3 (150-450) 129 TH/MM3 (150-450) Mean Platelet Volume 7.6 FL (7.0-11.0) 7.7 FL (7.0-11.0) 7.4 FL (7.0-11.0) Neutrophils (%) (Auto) 83.5 % (16.0-70.0) 82.9 % (16.0-70.0) Lymphocytes (%) (Auto) 12.2 % (9.0-44.0) 12.9 % (9.0-44.0) Monocytes (%) (Auto) 3.7 % (0.0-8.0) 3.0 % (0.0-8.0) Eosinophils (%) (Auto) 0.4 % (0.0-4.0) 1.0 % (0.0-4.0) Basophils (%) (Auto) 0.2 % (0.0-2.0) 0.2 % (0.0-2.0) Neutrophils # (Auto) 7.7 TH/MM3 (1.8-7.7) 7.4 TH/MM3 (1.8-7.7) Lymphocytes # (Auto) 1.1 TH/MM3 (1.0-4.8) 1.1 TH/MM3 (1.0-4.8) Monocytes # (Auto) 0.3 TH/MM3 (0-0.9) 0.3 TH/MM3 (0-0.9) Eosinophils # (Auto) 0.0 TH/MM3 (0-0.4) 0.1 TH/MM3 (0-0.4) Basophils # (Auto) 0.0 TH/MM3 (0-0.2) 0.0 TH/MM3 (0-0.2) CBC Comment AUTO DIFF AUTO DIFF Differential Total Cells Counted 100 Neutrophils % (Manual) 76 % (16-70) Band Neutrophils % 4 % (0-6) Lymphocytes % 8 % (9-44) Monocytes % 4 % (0-8) Neutrophils # (Manual) 8.1 TH/MM3 (1.8-7.7) Metamyelocytes 3 % (0-1) Myelocytes 5 % (0-0) Differential Comment FINAL DIFF MANUAL AUTO DIFF CONFIRMED Platelet Estimate LOW (NORMAL) LOW (NORMAL) Platelet Morphology Comment NORMAL (NORMAL) NORMAL (NORMAL) Blood Urea Nitrogen 22 MG/DL (7-18) 21 MG/DL (7-18) 19 MG/DL (7-18) Creatinine 1.12 MG/DL (0.60-1.30) 0.87 MG/DL (0.60-1.30) 1.10 MG/DL (0.60-1.30) Random Glucose 113 MG/DL (74-106) 96 MG/DL (74-106) 123 MG/DL (74-106) Total Protein 6.5 GM/DL (6.4-8.2) 6.1 GM/DL (6.4-8.2) 5.5 GM/DL (6.4-8.2) Albumin 2.2 GM/DL (3.4-5.0) 2.1 GM/DL (3.4-5.0) 1.8 GM/DL (3.4-5.0) Calcium Level 8.5 MG/DL (8.5-10.1) 8.4 MG/DL (8.5-10.1) 7.6 MG/DL (8.5-10.1) Alkaline Phosphatase 134 U/L (45-117) 122 U/L (45-117) 106 U/L (45-117) Aspartate Amino Transf (AST/SGOT) 43 U/L (15-37) 29 U/L (15-37) 38 U/L (15-37) Alanine Aminotransferase (ALT/SGPT) 89 U/L (12-78) 76 U/L (12-78) 62 U/L (12-78) Total Bilirubin 1.1 MG/DL (0.2-1.0) 0.9 MG/DL (0.2-1.0) 0.9 MG/DL (0.2-1.0) Sodium Level 133 MEQ/L (136-145) 135 MEQ/L (136-145) 136 MEQ/L (136-145) Potassium Level 3.2 MEQ/L (3.5-5.1) 3.4 MEQ/L (3.5-5.1) 3.6 MEQ/L (3.5-5.1) Chloride Level 96 MEQ/L (98-107) 101 MEQ/L (98-107) 98 MEQ/L (98-107) Carbon Dioxide Level 29.4 MEQ/L (21.0-32.0) 27.5 MEQ/L (21.0-32.0) 28.0 MEQ/L (21.0-32.0) Anion Gap 8 MEQ/L (5-15) 7 MEQ/L (5-15) 10 MEQ/L (5-15) Estimat Glomerular Filtration Rate 63 ML/MIN (>89) 84 ML/MIN (>89) 64 ML/MIN (>89) Magnesium Level 2.2 MG/DL (1.5-2.5) Urine Color LIGHT-YELLOW (YELLW/STRAW) Urine Turbidity CLEAR (CLEAR) Urine pH 6.5 (5.0-8.5) Urine Specific [place] 1.008 (1.002-1.035) Urine Protein NEG mg/dL (NEG-TRACE) Urine Glucose (UA) NEG mg/dL (NEG) Urine Ketones NEG mg/dL (NEG) Urine Occult Blood NEG (NEG) Urine Nitrite NEG (NEG) Urine Bilirubin NEG (NEG) Urine Urobilinogen LESS THAN 2.0 MG/DL (LESS Urine Leukocyte Esterase NEG (NEG) Urine RBC LESS THAN 1 /hpf (0-3) Urine WBC 1 /hpf (0-5) Urine Squamous Epithelial Cells 1 /hpf (0-5) Urine Hyaline Casts 1 /lpf (RARE) Microscopic Urinalysis Comment CATH-CULT NOT IND . Result Diagram: 12/02/1770512/02/17 07 Microbiology Microbiology Date/Time Source Procedure Growth Status 11/27/17 15:40 Blood Peripheral Aerobic Blood Culture - Final NO GROWTH IN 5 DAYS Complete 11/27/17 15:40 Blood Peripheral Anaerobic Blood Culture - Final NO GROWTH IN 5 DAYS Complete 11/28/17 08:45 Nasal Washing Influenza Types A,B Antigen (LESLI) - Final NEGATIVE FOR FLU A AND B ANTIGEN.... Complete . Imaging Last Impressions Chest X-Ray 12/01/17 0000 Signed Impressions: Service Date/Time: Friday, December 01, 2017 09:42 - CONCLUSION: 1. No acute abnormality or significant interval change. 2. Mild chronic interstitial prominence, likely positive fluid balance. 3. Minimal left lower lobe airspace disease consistent with atelectasis/scarring noted on recent CT. 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 No acute fracture or destructive lesion identified Angelo Sanders MD Abdomen/Pelvis CT 11/27/17 0000 Signed Impressions: Service Date/Time: November 20:10 - CONCLUSION: Apparent constipation. Large amount of stool in the rectum. Nonobstructive pattern without acute inflammatory changes. Chronic findings otherwise. Juan Alberto Salazar MD . Assessment and Plan Disease Oriented Problem List: (1) Hypotension (2) Hip pain (3) Hypoxemia (4) DVT (deep venous thrombosis) Symptom Scale: (1) Pain, generalized 0-10 Scale: Unable to quantify (2) Cough 0-10 Scale: Unable to quantify Pertinent Non-Medical Issues He was born in [place] and moved to [place] as a young child, where he has lived most of his life. 58 years to his , Paulina, he has 4 children that do not live locally. 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 . Spiritual: [employer] micheal. . Legal: No legal issues identified. . Ethical issues impacting care: No ethical issues identified. . Important Contacts Spouse: Paulina Desir Daughter: Griselda Sharif , cell . Daughter: Shereen Herring (nurse) Daughter: Luis Angel Landeros Son: Ed Desir . Prognosis His prognosis is guarded. His weakness is progressive and he is now having difficulty swallowing. He was shown to aspirate thin liquids and is now requiring thickened liquids. Previous to admission and his appetite had already declined to the point of symptomatic hypotension and acute kidney injury , requiring IV fluid resuscitation. He is beginning to develop the sequelae of immobility to include skin wound on his back and deep vein thrombosis noted on ultrasound, now receiving low-dose eliquis. As he has ITP this places him at additional risk of bleeding/bruising. He is likely to continue to experience complications and decline. . Code Status: No Code Plan PLAN: Legal decision maker: At this time the patient does not appear to have insight to be able to make complex medical decisions and would likely benefit from assisted decision-making in concert with his and/or family. Goals: Aggressive at this time. CODE STATUS: FULL CODE SYMPTOMS: * Pain: He complains of generalized discomfort, much of which appears to be related to immobility, to include neck, back and leg pain. He is receiving prednisone for his ITP which is being weaned. He has tramadol 50 mg available every 4 hours as needed. His last dose was taken 2 days ago. It should be considered that he is not able to make his needs known, and may require more frequent assessment to determine level of comfort. Hospice evaluating pain medication needs in preparation for discharge back to SNF. * Weakness: He has become progressively weaker since his previous evaluation, when he was able to stand briefly with 2 person maximum assistance. He is now unable to perform that and requires Rojelio lift from bed to wheelchair. 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 Right upper extremity shows 3/5 and right lower extremity 2/5 per physical therapy evaluation. He will continue to receive physical therapy while in hospital, however prognosis potential is listed as guarded due to his severe debility, multiple medical problems and patient motivation. His weakness is now affecting his ability to swallow which is likely to continue to decline given patient's overall debility. Plan to transfer back to [facility] today with hospice oversight. Palliative care will continue to follow the patient during hospital course as condition evolves, to assist patient/decision-maker with understanding of their medical conditions, weighing benefits/burdens of treatment options, for clarification of goals of treatment. Additionally will assist with any symptoms of palliative concern. . Time Spent Time Periods: 10:00-10:50 Face to Face Time (mins): 45 >50% Counseling/Coord of Care: Yes Attestation To help prompt me to consider important information that might be impacting today's encounter and assessment, information from prior notes written by myself or my colleagues may have been "brought forward" into today's note. My signature on this note, however, is an attestation that I personally performed the exam, history, and/or decision-making noted today, and, unless otherwise indicated, the interactions with patient, family, and staff as well as the review of records all occurred today. I also attest that the listed assessment and stated plan reflect my best clinical judgment today based on the combination of historical information, prior notes, and today's exam/ interactions. When time spent is documented, it refers only to time spent today by the signer, or if indicated, combined time spent today by collaborating physician/nurse practitioner. . Yvette Fox Dec 02, 2017 4:02 pm
[2017-12-03] MEDS ORDERED: VANCOMYCIN 1,500 MG/NS 500 ML IV SCH ×2 (08:00)
[2017-12-03] MEDS ORDERED: PHARMACY ORDERED LAB ONE (19:45)
[2017-12-04] MEDS ORDERED: PHARMACY ORDERED LAB ONE (07:45)
== END 2017-12-02 16:15 | DRG 644 ==
LOC: NEPE 11:53 → NEDA 14:30 → OBSVTOIN 15:13 → N05B 16:35
PROVIDERS: ADMIT Family Medicine; ATTEND Family Medicine
DX: E27.3 Drug-induced adrenocortical insufficiency (principal); N17.9 Acute kidney failure, unspecified; D69.3 Immune thrombocytopenic purpura; I11.0 Hypertensive heart disease with heart failure; L89.142 Pressure ulcer of left lower back, stage 2; E87.2 Acidosis; I50.9 Heart failure, unspecified; F03.90 Unspecified dementia, unspecified severity, without behavioral disturbance, psychotic disturbance, mood disturbance, and anxiety; E87.1 Hypo-osmolality and hyponatremia; J44.1 Chronic obstructive pulmonary disease with (acute) exacerbation; I69.354 Hemiplegia and hemiparesis following cerebral infarction affecting left non-dominant side; T38.0X5A Adverse effect of glucocorticoids and synthetic analogues, initial encounter; Y92.9 Unspecified place or not applicable; E78.5 Hyperlipidemia, unspecified; K21.9 Gastro-esophageal reflux disease without esophagitis; F32.9 Major depressive disorder, single episode, unspecified; Z86.718 Personal history of other venous thrombosis and embolism; R09.02 Hypoxemia; R74.0 Nonspecific elevation of levels of transaminase and lactic acid dehydrogenase [LDH]; M25.552 Pain in left hip; Z95.0 Presence of cardiac pacemaker; M19.90 Unspecified osteoarthritis, unspecified site; E83.119 Hemochromatosis, unspecified; K59.00 Constipation, unspecified; E87.6 Hypokalemia; Z87.891 Personal history of nicotine dependence
CPT/HCPCS: 71045; 71046; 73502; 74176; 80053; 81001; 83605; 83735; 83880; 85007; 85025; 85027; 86140; 87040; 87070; 87205; 87804; 93005; 93306; 94640; 94664; 94667; 94668; 96360; 96361; J0696; J1940; J2543; J3370; J7030; J7040; J7512; J7613; P9612; Q9963